=== PATIENT | male | born 1945 | race Caucasian/White ===

== ENCOUNTER → 2016-11-17 | Outpatient (CLI) | payer MEDICARE ==
[~2016-11-17] MED LIST: ASPI-482 PO; CALC500T PO; CARV6.252 PO; FENO160T PO; HYDR25TA9 PO; ISOS120T2 PO; LORA10TA3 PO; LOSA100T6 PO; NITR0.4T22 SL; OMEP40CA5 PO; PRAM0.255 PO; PRAV80TA2 PO; PROAIR HFA8.5 GM INH; WARF5TAB7 PO
--- NOTE | 2016-11-17 13:06 | RAD ---
Indication follow-up nodule. Cough. Axial images of the chest were obtained. Note is made of a previous examination 01/01/2015. No IV contrast was administered. Imaging through the upper abdomen is unremarkable. Some calcification is noted associated with the left ventricle. This may reflect an area of infarction. The appearance is unchanged when compared to the previous exam. There is no significant hilar or mediastinal adenopathy. There is some minimal scarring at the right lung base appearing similar to the previous exam. No acute finding is seen in the chest. There is no dominant soft tissue mass seen in either lung. IMPRESSION: No acute or significant finding seen in the chest. PQRS Compliance Statement: One or more of the following individualized dose reduction techniques were utilized for this examination: 1. Automated exposure control 2. Adjustment of the mA and/or kV according to patient size 3. Use of iterative reconstruction technique
== END | disposition home or self-care (01) ==
LOC: CT 11:30
PROVIDERS: ATTEND Internal Medicine Pulmonary Disease
DX: R91.1 Solitary pulmonary nodule (principal); R05 Cough
CPT/HCPCS: 71250

== ENCOUNTER → 2018-11-29 | Outpatient (CLI) | payer MEDICARE ==
[~2018-11-29] MED LIST changes: +ALBU2.5V8 INH; -CALC500T PO; +CALC500T31 PO; +CARV6.2511 PO; -CARV6.252 PO; +HYDR-2145 PO; -HYDR25TA9 PO; -ISOS120T2 PO; +ISOS120T4 PO; +LOSA100T14 PO; -LOSA100T6 PO; +OMEP40CA45 PO; -OMEP40CA5 PO; -PROAIR HFA8.5 GM INH; +WARF-31 PO; -WARF5TAB7 PO
--- NOTE | 2018-11-29 16:41 | RAD ---
EXAM: Chest CT without intravenous contrast. HISTORY: COPD. Smoking history. TECHNIQUE: Computed tomographic images of the chest were obtained without contrast. Multiplanar reformatting was performed. *One or more of the following individualized dose reduction techniques were utilized for this examination: 1. Automated exposure control. 2. Adjustment of the mA and/or kV according to patient size. 3. Use of iterative reconstruction technique. COMPARISON: 11/17/2016. FINDINGS: The heart is mildly enlarged. There is evidence of coronary artery bypass grafting. There is a left cardiac pacemaker with leads in expected position. There is calcification of the left ventricular apex wall and interventricular septum likely due to sequela of chronic myocardial infarction. No pathologically enlarged lymph node is seen. There is no pneumothorax or pleural effusion. There is minimal biapical emphysema. There is posterior dependent and basilar atelectasis. There is no infiltrate or suspicious pulmonary nodule. There is cholelithiasis. There are splenic granulomas. There is no suspicious osseous lesion. IMPRESSION: 1. No acute thoracic finding or suspicious pulmonary nodule. 2. Minimal pulmonary emphysema. 3. Cardiomegaly and evidence of prior CABG. There is calcification along the left ventricular apical wall and interpedicular septum, a finding which can be seen as a sequela of myocardial infarction. 4. Cholelithiasis. Electronically signed by: Marcella Barclay MD (11/29/2018 4:38 PM) [place] [id number]
== END | disposition home or self-care (01) ==
LOC: CT 08:33
PROVIDERS: ATTEND Internal Medicine Pulmonary Disease
DX: J43.8 Other emphysema (principal); I51.7 Cardiomegaly; K80.20 Calculus of gallbladder without cholecystitis without obstruction; Q21.0 Ventricular septal defect; L92.8 Other granulomatous disorders of the skin and subcutaneous tissue; Z87.891 Personal history of nicotine dependence; Z95.1 Presence of aortocoronary bypass graft; Z95.0 Presence of cardiac pacemaker
CPT/HCPCS: 71250

== ENCOUNTER → 2019-11-07 | Outpatient (CLI) | payer MEDICARE ==
--- NOTE | 2019-11-07 09:55 | RAD ---
CT CHEST WO CONTRAST INDICATION: COPD COMPARISON STUDY: 11/29/2018, 11/17/2016. TECHNIQUE: Unenhanced axial images were obtained through the lungs and upper abdomen. Coronal and sagittal multiplanar reconstructions were also obtained. PQRS compliance statement: One or more of the following individualized dose reduction techniques were utilized for this examination: 1. Automated exposure control 2. Adjustment of the mA and/or kV according to patient size 3. Use of iterative reconstruction technique FINDINGS: Lungs and Airways: No pulmonary mass or consolidation. Continued stability of left lower lobe 5 mm nodule (series 3 image 43). Normal central airways. Pleura: The pleural spaces are normal. Heart and Mediastinum: Left pectoral pacemaker. The visualized thyroid gland is normal in size and attenuation. No axillary or supraclavicular lymphadenopathy. No mediastinal, hilar or retrocrural lymphadenopathy. Normal cardiac size. No pericardial effusion. Coronary artery atherosclerotic disease. CABG. Left ventricular wall calcification. Normal caliber thoracic aorta. Abdomen: Cholelithiasis. Calcified hepatic and splenic granulomas. Bones and Soft Tissues: The visualized skeletal structures and soft tissues of the chest wall are within normal limits. IMPRESSION: 1. No pulmonary mass or consolidation. 2. No thoracic lymphadenopathy. Electronically signed by: Juan Whitten MD (11/07/2019 9:52 AM) [id number]
== END | disposition home or self-care (01) ==
LOC: CT 07:58
PROVIDERS: ATTEND Internal Medicine Pulmonary Disease
DX: J44.9 Chronic obstructive pulmonary disease, unspecified (principal); K80.20 Calculus of gallbladder without cholecystitis without obstruction; I25.10 Atherosclerotic heart disease of native coronary artery without angina pectoris; D73.89 Other diseases of spleen; K75.3 Granulomatous hepatitis, not elsewhere classified; Z95.0 Presence of cardiac pacemaker; Z95.1 Presence of aortocoronary bypass graft
CPT/HCPCS: 71250

== ENCOUNTER 2020-03-27 00:01 | Inpatient (IN) | payer MEDICARE ==
[~2020-03-27] VITALS: Ht 170.2 cm; Wt 115.0 kg
[~2020-03-27 00:01] MED LIST changes: -OMEP40CA45 PO; +OMEP40CA7 PO
[2020-03-27] MEDS ORDERED: IPRATRPIUM/ALBUTEROL 0.5/2.5MG 3 ML NEBU. NEB ONE (00:30)
[2020-03-27] MEDS ORDERED: methylPREDNISolone SOD SUCC PF 125 MG/2 ML VIAL. IV ONE (00:30)
[2020-03-27 00:59] LABS: BASO % 0 % (0-3); EOS % 0 % (0-3); HEMATOCRIT 33.2 % (39.0-53.0); HEMOGLOBIN 11.9 g/dL (13.0-17.5); LYMPH # 0.3 x10^3/uL (1.0-4.8); LYMPH % 7 % (24-48); MEAN CORPUSCULAR HEMOGLOBIN 34 pg (25-35); MEAN CORPUSCULAR HGB CONC 36 g/dL (31-37); MEAN CORPUSCULAR VOLUME 95 fL (79-100); MONO # 0.3 x10^3/uL (0.0-1.1); MONO % 6 % (0-9); NEUT # 3.7 x10^3/uL (1.8-7.7); NEUT % 87 % (31-73); PLATELET COUNT 113 x10^3/uL (140-400); RED BLOOD COUNT 3.49 x10^6/uL (4.30-5.70); RED CELL DISTRIBUTION WIDTH 15.5 % (11.5-14.5); WHITE BLOOD COUNT 4.2 x10^3/uL (4.0-11.0)
[2020-03-27 01:17] LABS: ALBUMIN/GLOBULIN RATIO 0.7 (1.0-1.7); CALCIUM 8.5 mg/dL (8.5-10.1); CREATININE 1.7 mg/dL (0.7-1.3); DIRECT BILIRUBIN 0.4 mg/dL (0.0-0.2); GFR 39.4; TOTAL PROTEIN 7.1 g/dL (6.4-8.2)
[2020-03-27 01:23] LABS: POTASSIUM 2.8 mmol/L (3.5-5.1)
[2020-03-27 01:26] LABS: INFLUENZA A PATIENT NEGATIVE (NEGATIVE); INFLUENZA B PATIENT NEGATIVE (NEGATIVE)
--- NOTE | 2020-03-27 01:39 | PHYS DOC ---
Past Medical History Past Medical History: Anxiety, Asthma, CAD, CHF, Diabetes-Type II, GERD, High Cholesterol, Hypertension, [place], [place] Past Surgical History: Cholecystectomy, Coronary Bypass Surgery, Tonsillectomy, Other Additional Past Surgical Histo: Stent placement Smoking Status: Former Smoker Alcohol Use: Sober Adult General Chief Complaint Chief Complaint: SHORTNESS OF BREATH HPI HPI Patient is a 75 year old male with an extensive past medical history which includes coronary artery bypass graft, defibrillator placement, GERD, hypertension, hyperlipidemia, asthma on daily nebulizer treatments and presenting emergency department complaining worsening shortness of breath. Roxann ent states that over the last 2 days he has had an increase in station shortness of breath primarily occurs with exertion. States that this is progressed in severity to the point where it is now present at rest. States he has been taking his normal nebulizer treatments without any significant improvement. No other aggravating or alleviating factors. Denies any chest pain or palpitations. Denies any nausea or vomiting. Does have sensation of fatigue. Denies any dizziness or lightheadedness. Review of Systems Review of Systems Constitutional: Denies fever or chills [] Eyes: Denies change in visual acuity, redness, or eye pain [] HENT: Denies nasal congestion or sore throat [] Respiratory: Denies cough or shortness of breath [] Cardiovascular: No additional information not addressed in HPI [] GI: Denies abdominal pain, nausea, vomiting, bloody stools or diarrhea [] : Denies dysuria or hematuria [] Musculoskeletal: Denies back pain or joint pain [] Integument: Denies rash or skin lesions [] Neurologic: Denies headache, focal weakness or sensory changes [] Endocrine: Denies polyuria or polydipsia [] All other systems were reviewed and found to be within normal limits, except as documented in this note. Current Medications Current Medications Current Medications Medications (Trade) Dose Ordered Sig/Yolis Start Time Stop Time Status Last Admin Dose Admin Albuterol/ Ipratropium (Duoneb) 3 ml 1X ONCE 03/27/20 00:30 03/27/20 00:31 DC 03/27/20 00:44 3 ML Azithromycin 250 ml @ 250 mls/hr 1X ONCE 03/27/20 02:00 03/27/20 02:59 DC 03/27/20 03:06 250 MLS/HR Ceftriaxone Sodium (Rocephin) 1 gm 1X ONCE 03/27/20 02:00 03/27/20 02:01 DC 03/27/20 03:06 1 GM Methylprednisolone Sodium Succinate (SOLU-Medrol 125MG VIAL) 125 mg 1X ONCE 03/27/20 00:30 03/27/20 00:31 DC 03/27/20 00:41 125 MG Ondansetron HCl (Zofran) 4 mg PRN Q8HRS PRN 03/27/20 03:15 03/27/20 11:19 DC Potassium Chloride/Water 100 ml @ 100 mls/hr Q1H 03/27/20 01:45 03/27/20 03:44 DC 03/27/20 06:31 100 MLS/HR Allergies Allergies Physical Exam Physical Exam Constitutional: Well developed, well nourished, no acute distress, non-toxic appearance. [] HENT: Normocephalic, atraumatic, bilateral external ears normal, oropharynx moist, no oral exudates, nose normal. [] Eyes: PERRLA, EOMI, conjunctiva normal, no discharge. [] Neck: Normal range of motion, no tenderness, supple, no stridor. [] Cardiovascular:Heart rate regular rhythm, no murmur [] Lungs & Thorax: Bilateral breath sounds clear to auscultation [] Abdomen: Bowel sounds normal, soft, no tenderness, no masses, no pulsatile masses. [] Skin: Warm, dry, no erythema, no rash. [] Back: No tenderness, no CVA tenderness. [] Extremities: No tenderness, no cyanosis, no clubbing, ROM intact, no edema. [] Neurologic: Alert and oriented X 3, normal motor function, normal sensory function, no focal deficits noted. [] Psychologic: Affect normal, judgement normal, mood normal. [] Current Patient Data Vital Signs Vital Signs Date Time Temp Pulse Resp B/P (MAP) Pulse Ox O2 Delivery O2 Flow Rate FiO2 03/27/20 03:11 68 24 111/55 (73) 92 Nasal Cannula 2.0 03/27/20 00:02 99.9 99.9 Lab Values Laboratory Tests Test 03/27/20 00:00 03/27/20 00:40 03/27/20 01:32 Troponin I Quantitative 0.025 ng/mL (0.000-0.055) White Blood Count 4.2 x10^3/uL (4.0-11.0) Red Blood Count 3.49 x10^6/uL (4.30-5.70) L Hemoglobin 11.9 g/dL (13.0-17.5) L Hematocrit 33.2 % (39.0-53.0) L Mean Corpuscular Volume 95 fL (79-100) Mean Corpuscular Hemoglobin 34 pg (25-35) Mean Corpuscular Hemoglobin Concent 36 g/dL (31-37) Red Cell Distribution Width 15.5 % (11.5-14.5) H Platelet Count 113 x10^3/uL (140-400) L Neutrophils (%) (Auto) 87 % (31-73) H Lymphocytes (%) (Auto) 7 % (24-48) L Monocytes (%) (Auto) 6 % (0-9) Eosinophils (%) (Auto) 0 % (0-3) Basophils (%) (Auto) 0 % (0-3) Neutrophils # (Auto) 3.7 x10^3/uL (1.8-7.7) Lymphocytes # (Auto) 0.3 x10^3/uL (1.0-4.8) L Monocytes # (Auto) 0.3 x10^3/uL (0.0-1.1) Eosinophils # (Auto) 0.0 x10^3/uL (0.0-0.7) Basophils # (Auto) 0.0 x10^3/uL (0.0-0.2) Segmented Neutrophils % 66 % (35-66) Band Neutrophils % 22 % (0-9) H Lymphocytes % 6 % (24-48) L Monocytes % 4 % (0-10) Eosinophils % 1 % (0-5) Metamyelocytes % 1 % (0-0) H Platelet Estimate Decreased (ADEQUATE) Prothrombin Time 20.0 SEC (11.7-14.0) H Prothrombin Time INR 1.7 (0.8-1.1) H Sodium Level 130 mmol/L (136-145) L Potassium Level 2.8 mmol/L (3.5-5.1) *L Chloride Level 91 mmol/L (98-107) L Carbon Dioxide Level 26 mmol/L (21-32) Anion Gap 13 (6-14) Blood Urea Nitrogen 31 mg/dL (8-26) H Creatinine 1.7 mg/dL (0.7-1.3) H Estimated GFR (Cockcroft-Gault) 39.4 BUN/Creatinine Ratio 18 (6-20) Glucose Level 115 mg/dL (70-99) H Lactic Acid Level 2.1 mmol/L (0.4-2.0) H Calcium Level 8.5 mg/dL (8.5-10.1) Total Bilirubin 1.0 mg/dL (0.2-1.0) Direct Bilirubin 0.4 mg/dL (0.0-0.2) H Aspartate Amino Transferase (AST) 65 U/L (15-37) H Alanine Aminotransferase (ALT) 33 U/L (16-63) Alkaline Phosphatase 71 U/L (46-116) Creatine Kinase 204 U/L (39-308) RN-Mnw-J-Type Natriuretic Peptide 1263 pg/mL (0-449) H Total Protein 7.1 g/dL (6.4-8.2) Albumin 3.0 g/dL (3.4-5.0) L Albumin/Globulin Ratio 0.7 (1.0-1.7) L Influenza Type A Antigen Negative (NEGATIVE) Influenza Type B Antigen Negative (NEGATIVE) Urine Collection Type U cath Urine Color Yellow Urine Clarity Clear Urine pH 5.5 (<5.0-8.0) Urine Specific Unity 1.015 (1.000-1.030) Urine Protein 100 mg/dL (NEG-TRACE) Urine Glucose (UA) Negative mg/dL (NEG) Urine Ketones (Stick) Negative mg/dL (NEG) Urine Blood Trace (NEG) Urine Nitrite Negative (NEG) Urine Bilirubin Negative (NEG) Urine Urobilinogen Dipstick 0.2 mg/dL (0.2 mg/dL) Urine Leukocyte Esterase Negative (NEG) Urine RBC 1-2 /HPF (0-2) Urine WBC 5-10 /HPF (0-4) Urine Squamous Epithelial Cells Few /LPF Urine Amorphous Sediment Present /HPF Urine Bacteria Few /HPF (0-FEW) Urine Cellular Casts Few /HPF Urine Hyaline Casts Moderate /HPF Urine Granular Casts Moderate /HPF Urine Mucus Slight /LPF Laboratory Tests 03/27/20 00:40 Laboratory Tests 03/27/20 00:40 EKG EKG [] Radiology/Procedures Radiology/Procedures [] Course & Med Decision Making Course & Med Decision Making Pertinent Labs and Imaging studies reviewed. (See chart for details) 75-year-old presenting with new onset of worsening shortness of breath. Differential at this time is broad but there is wheezing on exam primary concern is for asthma exacerbation. There is also concern for viral pneumonia, viral syndrome, CHF exacerbation, new onset CHF, other pneumonia. At this time will obtain a full ACS work-up, chest x-ray to make sure there is no other relieving evidence of infection. Dragon Disclaimer Dragon Disclaimer This electronic medical record was generated, in whole or in part, using a voice recognition dictation system. Departure Departure Referrals: DEX FAM MD (PCP) MANOJ CONTRERAS MD Mar 27, 2020 01:39
[2020-03-27 01:53] LABS: BILIRUBIN,URINE NEGATIVE (NEG); CLARITY,URINE CLEAR; COLOR,URINE YELLOW; NITRITE,URINE NEGATIVE (NEG); PH,URINE 5.5 (<5.0-8.0); PROTEIN,URINE 100 mg/dL (NEG-TRACE); UROBILINOGEN,URINE 0.2 mg/dL (0.2 mg/dL)
[2020-03-27] MEDS ORDERED: cefTRIAXone IV Push 1 GM VIAL. IVP ONE (02:00)
[2020-03-27] MEDS ORDERED: AZITHRMYCN 500MG IVPB FOR OMNI 250 ML IV ONE (02:00)
[2020-03-27 02:15] LABS: AMORPHOUS SEDIMENT,UR PRESENT /HPF; BACTERIA,URINE FEW /HPF (0-FEW); HYALINE CASTS, URINE MODERATE /HPF
[2020-03-27 02:16] LABS: GRANULAR CASTS,URINE MODERATE /HPF
--- NOTE | 2020-03-27 02:24 | RAD ---
EXAM: XR CHEST 1V 03/27/2020 12:30 AM CLINICAL INDICATION: Shortness of breath COMPARISON: CT chest 11/07/2019 TECHNIQUE: AP upright view the chest FINDINGS: Single lead AICD and median sternotomy wires are unchanged. Mild cardiomegaly. There is in terstitial prominence with mild opacities in the mid left lung and lateral right lung base. No pleura l effusion or pneumothorax. No acute osseous abnormality. IMPRESSION: Bilateral interstitial prominence with opacities in the mid left lung and right lung bas e. Atypical pneumonia is possible. Electronically signed by: Dian Fontanez MD (03/27/2020 2:22 AM) [id number]
[2020-03-27] MEDS: POTASSIUM CHLORIDE 20MEQ 100 ML IV SCH ×2 (03:06→06:31)
[2020-03-27] MEDS ORDERED: ONDANSETRON PF 4 MG/2 ML VIAL. IV PRN (03:15)
[2020-03-27 05:24] VITALS: BP 110/55
[2020-03-27 05:29] LABS: % BANDS 22 % (0-9); % EOS 1 % (0-5); % LYMPHS 6 % (24-48); % METAS 1 % (0-0); % MONOS 4 % (0-10); % SEGS 66 % (35-66); PLT ESTIMATE DECREASED (ADEQUATE)
[2020-03-27] MEDS ORDERED: SPIR1TAB3 PO (05:34)
[2020-03-27] MEDS ORDERED: vitamin D PO (05:34)
[2020-03-27] MEDS ORDERED: IPRA3AMP29 NEB (05:34)
[2020-03-27] MEDS ORDERED: MAGN250T10 PO (05:34)
[2020-03-27] MEDS ORDERED: SACU1TAB PO (05:34)
[2020-03-27] MEDS ORDERED: FURO-68 PO (05:34)
[2020-03-27] MEDS ORDERED: VITA1TAB19 PO (05:34)
[2020-03-27] MEDS ORDERED: WARF7.5T45 PO (05:44)
[2020-03-27 07:00] VITALS: BP 146/71
--- NOTE | 2020-03-27 08:45 | PDOC1 ---
History and Physical Date of Admission Date of Admission DATE: 03/27/20 TIME: 08:00 Identification/Chief Complaint Chief Complaint Shortness of breath Source Source: Chart review, Patient History of Present Illness History of Present Illness Patient is a 75-year-old male with past medical history asthma on daily nebulizer treatments, who presents to the ER with complaints of worsening shortness of breath over the past 2 days. States his symptoms are worse with exertion, with associated weakness for the past week. He has been taking his normal nebulizer treatments without improvement. Upon EMS arrival patient rep ortedly 88% on room air, which increased to 95% with 2 L. He received 2 nebulizer, steroids, and antibiotics in the ER. Will admit patient for further medical management Past Medical History Past Medical History Asthma, CHF, CAD, DM2, anxiety, GERD, hypercholesterolemia, hypertension, kidney stones, [place] Past Surgical History Past Surgical History Cholecystectomy, Coronary tonsillectomy, cardiac stents Family History Family History: Coronary Artery Disease Social History Smoke: Quit ALCOHOL: none Drugs: None Current Medications Current Medications Current Medications Albuterol/ Ipratropium (Duoneb) 3 ml 1X ONCE NEB Last administered on 03/27/20at 00:44; Start 03/27/20 at 00:30; Stop 03/27/20 at 00:31; Status DC Methylprednisolone Sodium Succinate (SOLU-Medrol 125MG VIAL) 125 mg 1X ONCE IV Last administered on 03/27/20at 00:41; Start 03/27/20 at 00:30; Stop 03/27/20 at 00:31; Status DC Potassium Chloride/Water 100 ml @ 100 mls/hr Q1H IV Last administered on 03/27/20at 06:31; Start 03/27/20 at 01:45; Stop 03/27/20 at 03:44; Status DC Ceftriaxone Sodium (Rocephin) 1 gm 1X ONCE IVP Last administered on 03/27/20at 03:06; Start 03/27/20 at 02:00; Stop 03/27/20 at 02:01; Status DC Azithromycin 250 ml @ 250 mls/hr 1X ONCE IV Last administered on 03/27/20at 03:06; Start 03/27/20 at 02:00; Stop 03/27/20 at 02:59; Status DC Ondansetron HCl (Zofran) 4 mg PRN Q8HRS PRN IV NAUSEA/VOMITING; Start 03/27/20 at 03:15; Stop 03/28/20 at 03:14 Active Scripts Active Reported Warfarin Sodium 7.5 Mg Tablet 7.5 Mg PO TWICE WEEKLY [vitamin D] 400 Cap PO DAILY B Complex (Vitamin B Complex) 1 Each Tablet 1 Tab PO DAILY 30 Days Spironolactone-Hctz 25-25 Tab (Spironolact/Hydrochlorothiazid) 1 Each Tablet 1 Each PO DAILY Magnesium (Magnesium Oxide) 250 Mg Tablet 250 Mg PO QODAY Duoneb 0.5-3(2.5) Mg/3 Ml (Albuterol/Ipratropium) 3 Ml Ampul.neb 3 Ml NEB QID Lasix (Furosemide) 40 Mg Tablet 1 Tab PO DAILY 30 Days Entresto 24 mg-26 mg Tablet (Sacubitril/Valsartan) 1 Each Tablet 1 Each PO BID Warfarin Sodium 5 Mg Tablet 5 Mg PO DAILY Pravastatin Sodium 80 Mg Tablet 80 Mg PO DAILY Mirapex (Pramipexole Di-Hcl) 0.25 Mg Tablet 0.25 Mg PO Omeprazole 40 Mg Capsule.dr 40 Mg PO DAILY NITROGLYCERIN SubLingual (Nitroglycerin) 0.4 Mg Tab.subl 0.4 Mg SL PRN Q5MIN PRN Losartan Potassium 100 Mg Tablet 100 Mg PO DAILY Loratadine 10 Mg Tablet 10 Mg PO Isosorbide Mononitrate Er (Isosorbide Mononitrate) 120 Mg Tab.er.24h 120 Mg PO DAILY Hydrochlorothiazide Tablet (Hydrochlorothiazide) 25 Mg Tablet 25 Mg PO DAILY Fenofibrate 160 Mg Tablet 160 Mg PO DAILY Carvedilol (Carvedilol) 6.25 Mg Tablet 6.25 Mg PO BIDWMEALS Calcium Carbonate 500 Mg Tablet 500 Mg PO Aspir 81 (Aspirin) 81 Mg Tablet.dr 81 Mg PO Proair Hfa Inhaler (Albuterol Sulfate) 8.5 Gm Hfa.aer.ad 1 Puff INH PRN Q6HRS PRN Allergies Allergies: Coded Allergies: codeine (Verified Allergy, Unknown, Unknown, 03/27/20) ROS Review of System GENERAL: Generalized weakness. No history of weight change, or fevers. SKIN: No bruising, hair changes or rashes. EYES: No blurred, double or loss of vision. NOSE AND THROAT: No history of nosebleeds, hoarseness or sore throat. HEART: Denies chest pain, denies palpitations. LUNGS: Shortness of breath, cough, wheezing. GASTROINTESTINAL: Denies nausea, vomiting, abdominal pain. GENITOURINARY: Denies dysuria, frequency, urgency, hematuria. NEUROLOGIC: Denies history of numbness, tingling, tremor or weakness. PSYCHIATRIC: Denies anxiety, denies depression. ENDOCRINE: No history of heat or cold intolerance, polyuria or polydipsia. EXTREMITIES: Denies muscle weakness, joint pain, pain on walking or stiffness. Physical Exam Physical Exam General: Alert, Oriented X3, Cooperative, mild distress HEENT: PERRLA, EOMI Lungs: Bibasilar rales, decreased breath sounds. Heart: RRR, no murmurs Cardiovascular: S1, S2 Abdomen: Normal bowel sounds, Soft, No tenderness Extremities: No clubbing, No cyanosis Skin: No rashes, No significant lesion Neuro: Normal speech, Normal tone, Sensation intact Psych/Mental Status: Mental status NL, Mood NL Vitals Vitals Vital Signs Date Time Temp Pulse Resp B/P (MAP) Pulse Ox O2 Delivery O2 Flow Rate FiO2 03/27/20 05:57 Nasal Cannula 3.0 03/27/20 05:24 98.4 65 24 110/55 (73) 92 98.4 Labs Labs Laboratory Tests Test 03/27/20 00:00 03/27/20 00:40 03/27/20 01:32 03/27/20 04:12 Troponin I Quantitative 0.025 ng/mL (0.000-0.055) White Blood Count 4.2 x10^3/uL (4.0-11.0) Red Blood Count 3.49 x10^6/uL (4.30-5.70) Hemoglobin 11.9 g/dL (13.0-17.5) Hematocrit 33.2 % (39.0-53.0) Mean Corpuscular Volume 95 fL (79-100) Mean Corpuscular Hemoglobin 34 pg (25-35) Mean Corpuscular Hemoglobin Concent 36 g/dL (31-37) Red Cell Distribution Width 15.5 % (11.5-14.5) Platelet Count 113 x10^3/uL (140-400) Neutrophils (%) (Auto) 87 % (31-73) Lymphocytes (%) (Auto) 7 % (24-48) Monocytes (%) (Auto) 6 % (0-9) Eosinophils (%) (Auto) 0 % (0-3) Basophils (%) (Auto) 0 % (0-3) Neutrophils # (Auto) 3.7 x10^3/uL (1.8-7.7) Lymphocytes # (Auto) 0.3 x10^3/uL (1.0-4.8) Monocytes # (Auto) 0.3 x10^3/uL (0.0-1.1) Eosinophils # (Auto) 0.0 x10^3/uL (0.0-0.7) Basophils # (Auto) 0.0 x10^3/uL (0.0-0.2) Segmented Neutrophils % 66 % (35-66) Band Neutrophils % 22 % (0-9) Lymphocytes % 6 % (24-48) Monocytes % 4 % (0-10) Eosinophils % 1 % (0-5) Metamyelocytes % 1 % (0-0) Platelet Estimate Decreased (ADEQUATE) Prothrombin Time 20.0 SEC (11.7-14.0) Prothromb Time International Ratio 1.7 (0.8-1.1) Sodium Level 130 mmol/L (136-145) Potassium Level 2.8 mmol/L (3.5-5.1) Chloride Level 91 mmol/L (98-107) Carbon Dioxide Level 26 mmol/L (21-32) Anion Gap 13 (6-14) Blood Urea Nitrogen 31 mg/dL (8-26) Creatinine 1.7 mg/dL (0.7-1.3) Estimated GFR (Cockcroft-Gault) 39.4 BUN/Creatinine Ratio 18 (6-20) Glucose Level 115 mg/dL (70-99) Lactic Acid Level 2.1 mmol/L (0.4-2.0) 0.6 mmol/L (0.4-2.0) Calcium Level 8.5 mg/dL (8.5-10.1) Total Bilirubin 1.0 mg/dL (0.2-1.0) Direct Bilirubin 0.4 mg/dL (0.0-0.2) Aspartate Amino Transf (AST/SGOT) 65 U/L (15-37) Alanine Aminotransferase (ALT/SGPT) 33 U/L (16-63) Alkaline Phosphatase 71 U/L (46-116) Creatine Kinase 204 U/L (39-308) AC-Gwd-K-Type Natriuretic Peptide 1263 pg/mL (0-449) Total Protein 7.1 g/dL (6.4-8.2) Albumin 3.0 g/dL (3.4-5.0) Albumin/Globulin Ratio 0.7 (1.0-1.7) Influenza Type A Antigen Negative (NEGATIVE) Influenza Type B Antigen Negative (NEGATIVE) Urine Collection Type U cath Urine Color Yellow Urine Clarity Clear Urine pH 5.5 (<5.0-8.0) Urine Specific [place] 1.015 (1.000-1.030) Urine Protein 100 mg/dL (NEG-TRACE) Urine Glucose (UA) Negative mg/dL (NEG) Urine Ketones (Stick) Negative mg/dL (NEG) Urine Blood Trace (NEG) Urine Nitrite Negative (NEG) Urine Bilirubin Negative (NEG) Urine Urobilinogen Dipstick 0.2 mg/dL (0.2 mg/dL) Urine Leukocyte Esterase Negative (NEG) Urine RBC 1-2 /HPF (0-2) Urine WBC 5-10 /HPF (0-4) Urine Squamous Epithelial Cells Few /LPF Urine Amorphous Sediment Present /HPF Urine Bacteria Few /HPF (0-FEW) Urine Cellular Casts Few /HPF Urine Hyaline Casts Moderate /HPF Urine Granular Casts Moderate /HPF Urine Mucus Slight /LPF Laboratory Tests Test 03/27/20 00:00 03/27/20 00:40 03/27/20 01:32 03/27/20 04:12 Troponin I Quantitative 0.025 ng/mL (0.000-0.055) White Blood Count 4.2 x10^3/uL (4.0-11.0) Red Blood Count 3.49 x10^6/uL (4.30-5.70) Hemoglobin 11.9 g/dL (13.0-17.5) Hematocrit 33.2 % (39.0-53.0) Mean Corpuscular Volume 95 fL (79-100) Mean Corpuscular Hemoglobin 34 pg (25-35) Mean Corpuscular Hemoglobin Concent 36 g/dL (31-37) Red Cell Distribution Width 15.5 % (11.5-14.5) Platelet Count 113 x10^3/uL (140-400) Neutrophils (%) (Auto) 87 % (31-73) Lymphocytes (%) (Auto) 7 % (24-48) Monocytes (%) (Auto) 6 % (0-9) Eosinophils (%) (Auto) 0 % (0-3) Basophils (%) (Auto) 0 % (0-3) Neutrophils # (Auto) 3.7 x10^3/uL (1.8-7.7) Lymphocytes # (Auto) 0.3 x10^3/uL (1.0-4.8) Monocytes # (Auto) 0.3 x10^3/uL (0.0-1.1) Eosinophils # (Auto) 0.0 x10^3/uL (0.0-0.7) Basophils # (Auto) 0.0 x10^3/uL (0.0-0.2) Segmented Neutrophils % 66 % (35-66) Band Neutrophils % 22 % (0-9) Lymphocytes % 6 % (24-48) Monocytes % 4 % (0-10) Eosinophils % 1 % (0-5) Metamyelocytes % 1 % (0-0) Platelet Estimate Decreased (ADEQUATE) Prothrombin Time 20.0 SEC (11.7-14.0) Prothromb Time International Ratio 1.7 (0.8-1.1) Sodium Level 130 mmol/L (136-145) Potassium Level 2.8 mmol/L (3.5-5.1) Chloride Level 91 mmol/L (98-107) Carbon Dioxide Level 26 mmol/L (21-32) Anion Gap 13 (6-14) Blood Urea Nitrogen 31 mg/dL (8-26) Creatinine 1.7 mg/dL (0.7-1.3) Estimated GFR (Cockcroft-Gault) 39.4 BUN/Creatinine Ratio 18 (6-20) Glucose Level 115 mg/dL (70-99) Lactic Acid Level 2.1 mmol/L (0.4-2.0) 0.6 mmol/L (0.4-2.0) Calcium Level 8.5 mg/dL (8.5-10.1) Total Bilirubin 1.0 mg/dL (0.2-1.0) Direct Bilirubin 0.4 mg/dL (0.0-0.2) Aspartate Amino Transf (AST/SGOT) 65 U/L (15-37) Alanine Aminotransferase (ALT/SGPT) 33 U/L (16-63) Alkaline Phosphatase 71 U/L (46-116) Creatine Kinase 204 U/L (39-308) KT-Nge-S-Type Natriuretic Peptide 1263 pg/mL (0-449) Total Protein 7.1 g/dL (6.4-8.2) Albumin 3.0 g/dL (3.4-5.0) Albumin/Globulin Ratio 0.7 (1.0-1.7) Influenza Type A Antigen Negative (NEGATIVE) Influenza Type B Antigen Negative (NEGATIVE) Urine Collection Type U cath Urine Color Yellow Urine Clarity Clear Urine pH 5.5 (<5.0-8.0) Urine Specific [place] 1.015 (1.000-1.030) Urine Protein 100 mg/dL (NEG-TRACE) Urine Glucose (UA) Negative mg/dL (NEG) Urine Ketones (Stick) Negative mg/dL (NEG) Urine Blood Trace (NEG) Urine Nitrite Negative (NEG) Urine Bilirubin Negative (NEG) Urine Urobilinogen Dipstick 0.2 mg/dL (0.2 mg/dL) Urine Leukocyte Esterase Negative (NEG) Urine RBC 1-2 /HPF (0-2) Urine WBC 5-10 /HPF (0-4) Urine Squamous Epithelial Cells Few /LPF Urine Amorphous Sediment Present /HPF Urine Bacteria Few /HPF (0-FEW) Urine Cellular Casts Few /HPF Urine Hyaline Casts Moderate /HPF Urine Granular Casts Moderate /HPF Urine Mucus Slight /LPF Images Images PORTABLE CHEST 1V EXAM: XR CHEST 1V 03/27/2020 12:30 AM CLINICAL INDICATION: Shortness of breath COMPARISON: CT chest 11/07/2019 TECHNIQUE: AP upright view the chest FINDINGS: Single lead AICD and median sternotomy wires are unchanged. Mild cardiomegaly. There is interstitial prominence with mild opacities in the mid left lung and lateral right lung base. No pleural effusion or pneumothorax. No acute osseous abnormality. IMPRESSION: Bilateral interstitial prominence with opacities in the mid left lung and right lung base. Atypical pneumonia is possible. VTE Prophylaxis Ordered VTE Prophylaxis Devices: No VTE Pharmacological Prophylaxi: Yes Assessment/Plan Assessment/Plan Acute hypoxic respiratory failure Acute asthma exacerbation Atypical pneumonia vs. viral pneumonia Hypokalemia Hyponatremia FREDDIE Vasomotor nephropathy Subtherapeutic INR on warfarin therapy due to history of blood clots Malnutrition COVID-19 PUI Plan: Consult to pulmonology Continue treatment with Solu-Medrol 40 mg every 8hr and Levaquin 750 mg Will provide Combivent and albuterol inhalers Continue home nebulizer treatment when COVID-19 returns negative COVID-19 pending; influenza negative Resume home medications FEN - Cardiac diet PPX - Warfarin per pharmacy DNR Dispo - inpatient for above Justifications for Admission Other Justification KALEB ESTRADA MD Mar 27, 2020 08:45
[2020-03-27] MEDS ORDERED: BISACODYL 10 MG SUPP.RECT. PR PRN (09:15)
[2020-03-27] MEDS ORDERED: MAG HYDROX/ALUMINUM HYD/SIMETH 30 ML ORAL.SUSP PO PRN (09:15)
[2020-03-27] MEDS ORDERED: ACETAMINOPHEN 325 MG TABLET. PO PRN (09:15)
[2020-03-27] MEDS ORDERED: ONDANSETRON PF 4 MG/2 ML VIAL. IVP PRN (09:15)
[2020-03-27] MEDS ORDERED: MAGNESIUM HYDROXIDE 2,400 MG/30 ML ORAL.SUSP. PO PRN (09:15)
[2020-03-27] MEDS ORDERED: CALCIUM CARBONATE 500 MG TAB.CHEW PO PRN (09:15)
[2020-03-27] MEDS ORDERED: NITROGLYCERIN SUBLINGUAL 0.4 MG BOTTLE OF 25. SL PRN (10:30)
[2020-03-27] MEDS: CARVEDILOL 6.25 MG TABLET. PO SCH ×2 (10:55→15:35)
[2020-03-27 11:00] VITALS: BP 92/50
[2020-03-27] MEDS: ISOSORBIDE MONONITRATE ER 30 MG TAB.ER.24H PO SCH (11:00)
[2020-03-27] MEDS: FUROSEMIDE 40 MG TABLET. PO SCH (11:00)
[2020-03-27] MEDS: SACUBITRIL/VALSARTAN 24/26MG TABLET. PO SCH ×2 (11:00→21:45)
[2020-03-27] MEDS: SPIRONOLACTONE 25 MG TABLET PO SCH (11:16)
[2020-03-27] MEDS: hydroCHLOROthiazide 25 MG TABLET PO SCH (11:16)
[2020-03-27] MEDS: CETIRIZINE HCL 10 MG TABLET. PO SCH (11:40)
[2020-03-27] MEDS: CHOLECALCIFEROL (VITAMIN D3) 1,000 UNIT TABLET PO SCH (11:40)
[2020-03-27] MEDS: PANTOPRAZOLE 40 MG TABLET.DR. PO SCH (11:40)
[2020-03-27] MEDS: VITAMIN B COMPLEX TABLET. PO SCH (11:40)
[2020-03-27] MEDS: MAGNESIUM OXIDE 400 MG TABLET PO SCH (11:40)
[2020-03-27] MEDS: IPRATROPIUM/ALBUTEROL 20/100mcg/INH INHALER. INH SCH ×3 (11:41→21:46)
--- NOTE | 2020-03-27 12:19 | NUR ---
Pharmacy Warfarin Dosing Note S: Pharmacy consulted to assist with anticoagulation therapy started [employer] PLAYER O: PRICE SMITH is a 75 year old M with Recurrent VTE LABS: Last INR: 1.7 Last HGB: 11.9 Last HCT: 33.2 Last PLT: 113 Ongoing Drug Interactions: LEVAQUIN A:INR of 1.7 is below desired range. Target range for this patient is: 2 -3 P: Warfarin dose: 7.5 mg Today at 1600 Bridge Therapy: home regimen is unclear Next INR due 03/28/20 AM Pharmacy anticoagulation service will continue to follow. FEMI GARCÍA R[facility], 03/27/20 [id number]
[2020-03-27 15:00] VITALS: BP 110/53
[2020-03-27] MEDS: methylPREDNISolone SOD SUCC PF 40 MG/ML VIAL. IV SCH ×2 (15:34→21:46)
[2020-03-27] MEDS ORDERED: WARFARIN 7.5 MG TABLET. PO ONE (16:00)
[2020-03-27 19:00] VITALS: BP 123/58
[2020-03-27] MEDS: LACTOBACILLUS RHAMNOSUS GG 1 CAPSULE. PO SCH (21:45)
[2020-03-27] MEDS: ATORVASTATIN CALCIUM 20 MG TABLET PO SCH (21:46)
[2020-03-27] MEDS: NYSTATIN TOPICAL POWDER 15GM BOTTLE. TP SCH (21:57)
[2020-03-27 23:00] VITALS: BP 110/56
[2020-03-28] MEDS: diphenhydrAMINE HCL 25 MG CAPSULE PO PRN (00:20)
[2020-03-28 03:00] VITALS: BP 86/56
[2020-03-28 05:40] LABS: BASO % 0 % (0-3); EOS % 0 % (0-3); HEMATOCRIT 37.8 % (39.0-53.0); HEMOGLOBIN 13.3 g/dL (13.0-17.5); LYMPH # 0.3 x10^3/uL (1.0-4.8); LYMPH % 4 % (24-48); MEAN CORPUSCULAR HEMOGLOBIN 34 pg (25-35); MEAN CORPUSCULAR HGB CONC 35 g/dL (31-37); MEAN CORPUSCULAR VOLUME 96 fL (79-100); MONO # 0.3 x10^3/uL (0.0-1.1); MONO % 3 % (0-9); NEUT # 7.9 x10^3/uL (1.8-7.7); NEUT % 92 % (31-73); PLATELET COUNT 114 x10^3/uL (140-400); RED BLOOD COUNT 3.96 x10^6/uL (4.30-5.70); RED CELL DISTRIBUTION WIDTH 16.3 % (11.5-14.5); WHITE BLOOD COUNT 8.6 x10^3/uL (4.0-11.0)
[2020-03-28 05:49] LABS: CALCIUM 8.6 mg/dL (8.5-10.1); CREATININE 1.4 mg/dL (0.7-1.3); GFR 49.3
[2020-03-28] MEDS: methylPREDNISolone SOD SUCC PF 40 MG/ML VIAL. IV SCH ×3 (05:56→21:59)
[2020-03-28 06:23] LABS: PROTHROMBIN TIME PATIENT 31.8 SEC (11.7-14.0)
[2020-03-28 07:00] VITALS: BP 121/67
[2020-03-28] MEDS: SPIRONOLACTONE 25 MG TABLET PO SCH (08:25)
[2020-03-28] MEDS: CHOLECALCIFEROL (VITAMIN D3) 1,000 UNIT TABLET PO SCH (08:25)
[2020-03-28] MEDS: hydroCHLOROthiazide 25 MG TABLET PO SCH (08:25)
[2020-03-28] MEDS: LACTOBACILLUS RHAMNOSUS GG 1 CAPSULE. PO SCH ×2 (08:27→21:58)
[2020-03-28] MEDS: CETIRIZINE HCL 10 MG TABLET. PO SCH (08:27)
[2020-03-28] MEDS: ISOSORBIDE MONONITRATE ER 30 MG TAB.ER.24H PO SCH (08:27)
[2020-03-28] MEDS: FUROSEMIDE 40 MG TABLET. PO SCH (08:27)
[2020-03-28] MEDS: PANTOPRAZOLE 40 MG TABLET.DR. PO SCH (08:27)
[2020-03-28] MEDS: NYSTATIN TOPICAL POWDER 15GM BOTTLE. TP SCH ×2 (08:28→21:59)
[2020-03-28] MEDS: IPRATROPIUM/ALBUTEROL 20/100mcg/INH INHALER. INH SCH ×4 (08:28→21:55)
[2020-03-28] MEDS: CARVEDILOL 6.25 MG TABLET. PO SCH ×2 (08:28→16:25)
[2020-03-28] MEDS: MAGNESIUM OXIDE 400 MG TABLET PO SCH (08:29)
[2020-03-28] MEDS: SACUBITRIL/VALSARTAN 24/26MG TABLET. PO SCH ×2 (08:32→21:00)
[2020-03-28] MEDS: ALBUTEROL SULFATE 8GM INHALER. INH PRN (08:32)
[2020-03-28] MEDS: VITAMIN B COMPLEX TABLET. PO SCH (08:32)
--- NOTE | 2020-03-28 09:15 | PDOC ---
[facility] PROGRESS NOTE Date of Service DOS: DATE: 03/28/20 TIME: 09:10 Chief Complaint Chief Complaint Acute hypoxic respiratory failure Acute asthma exacerbation Atypical pneumonia vs. viral pneumonia Hypokalemia Hyponatremia FREDDIE Vasomotor nephropathy Subtherapeutic INR on warfarin therapy due to history of blood clots Malnutrition COVID-19 PUI Plan: Consult to pulmonology Continue treatment with Solu-Medrol 40 mg every 8hr and Levaquin 750 mg Will provide Combivent and albuterol inhalers Continue home nebulizer treatment when COVID-19 returns negative COVID-19 pending; influenza negative Resume home medications FEN - Cardiac diet PPX - Warfarin per pharmacy DNR Dispo - inpatient for above History of Present Illness History of Present Illness Patient is a 75-year-old male with past medical history asthma on daily nebulizer treatments, who presents to the ER with complaints of worsening shortness of breath over the past 2 days. States his symptoms are worse with exertion, with associated weakness for the past week. He has been taking his normal nebulizer treatments without improvement. Upon EMS arrival patient reportedly 88% on room air, which increased to 95% with 2 L. He received 2 nebulizer, steroids, and antibiotics in the ER. Will admit patient for further medical management 03/28: Patient COVID-19 positive. Afebrile, breathing 3 L nasal cannula. Discussed risk versus benefit remdesivir, patient not interested. He has home O2 concentrator and feels he may be able to discharge home tomorrow. INR 3.1, potassium 3.0. Will replace potassium. Vitals/I&O Vitals/I&O: Vital Signs Date Time Temp Pulse Resp B/P (MAP) Pulse Ox O2 Delivery O2 Flow Rate FiO2 03/28/20 08:32 57 121/67 03/28/20 07:00 96.5 26 92 Nasal Cannula 3.0 96.5 I & O 03/27/20 03/27/20 03/28/20 15:00 23:00 07:00 Intake Total 480 ml 350 ml Output Total 3 ml Balance 480 ml 350 ml -3 ml Physical Exam General: Alert, Oriented X3 Heart: Normal S1, Normal S2 Lungs: Other (Decreased breath sounds) Abdomen: Normal bowel sounds, Soft Extremities: No clubbing, No cyanosis Skin: No rashes, No breakdown Labs Labs: Laboratory Tests Test 03/27/20 10:05 03/27/20 11:38 03/27/20 16:25 03/28/20 05:00 Troponin I Quantitative 0.029 ng/mL (0.000-0.055) Glucose (Fingerstick) 189 mg/dL (70-99) 190 mg/dL (70-99) White Blood Count 8.6 x10^3/uL (4.0-11.0) Red Blood Count 3.96 x10^6/uL (4.30-5.70) Hemoglobin 13.3 g/dL (13.0-17.5) Hematocrit 37.8 % (39.0-53.0) Mean Corpuscular Volume 96 fL (79-100) Mean Corpuscular Hemoglobin 34 pg (25-35) Mean Corpuscular Hemoglobin Concent 35 g/dL (31-37) Red Cell Distribution Width 16.3 % (11.5-14.5) Platelet Count 114 x10^3/uL (140-400) Neutrophils (%) (Auto) 92 % (31-73) Lymphocytes (%) (Auto) 4 % (24-48) Monocytes (%) (Auto) 3 % (0-9) Eosinophils (%) (Auto) 0 % (0-3) Basophils (%) (Auto) 0 % (0-3) Neutrophils # (Auto) 7.9 x10^3/uL (1.8-7.7) Lymphocytes # (Auto) 0.3 x10^3/uL (1.0-4.8) Monocytes # (Auto) 0.3 x10^3/uL (0.0-1.1) Eosinophils # (Auto) 0.0 x10^3/uL (0.0-0.7) Basophils # (Auto) 0.0 x10^3/uL (0.0-0.2) Prothrombin Time 31.8 SEC (11.7-14.0) Prothromb Time International Ratio 3.1 (0.8-1.1) Sodium Level 136 mmol/L (136-145) Potassium Level 3.0 mmol/L (3.5-5.1) Chloride Level 99 mmol/L (98-107) Carbon Dioxide Level 27 mmol/L (21-32) Anion Gap 10 (6-14) Blood Urea Nitrogen 29 mg/dL (8-26) Creatinine 1.4 mg/dL (0.7-1.3) Estimated GFR (Cockcroft-Gault) 49.3 Glucose Level 155 mg/dL (70-99) Calcium Level 8.6 mg/dL (8.5-10.1) Test 03/28/20 07:59 Glucose (Fingerstick) 150 mg/dL (70-99) Comment Review of Relevant I have reviewed the following items vamsi (where applicable) has been applied. Medications: Current Medications Medications (Trade) Dose Ordered Sig/Yolis Route PRN Reason Start Time Stop Time Status Last Admin Dose Admin Levofloxacin/ Dextrose 150 ml @ 100 mls/hr Q48H IV 03/27/20 10:00 03/27/20 10:06 Methylprednisolone Sodium Succinate (SOLU-Medrol 40MG VIAL) 40 mg Q8HRS IV 03/27/20 14:00 03/28/20 05:56 Albuterol/ Ipratropium (Combivent Respimat 20-100 Mcg) 1 puff RTQID INH 03/27/20 12:00 03/28/20 08:28 Albuterol Sulfate (Ventolin Hfa) 1 puff PRN Q6HRS PRN INH SOA 03/27/20 12:00 03/28/20 08:32 Acetaminophen (Tylenol) 650 mg PRN Q6HRS PRN PO Headaches, Temp > 101.5F 03/27/20 09:15 03/27/20 15:44 Carvedilol (Coreg) 6.25 mg BIDWMEALS PO 03/27/20 11:00 03/28/20 08:28 Furosemide (Lasix) 40 mg DAILY PO 03/27/20 11:00 03/28/20 08:27 Sacubitril/ Valsartan (Entresto 24 Mg-26 Mg) 1 tab BID PO 03/27/20 11:00 03/28/20 08:32 Vitamin B Complex (Connor B) 1 tab DAILY PO 03/27/20 11:00 03/28/20 08:32 Isosorbide Mononitrate (Imdur) 120 mg DAILY PO 03/27/20 11:00 03/28/20 08:27 Magnesium Oxide (Magnesium Oxide) 200 mg DAILY PO 03/27/20 11:00 03/28/20 08:29 Pantoprazole Sodium (Protonix) 40 mg DAILYAC PO 03/27/20 11:30 03/28/20 08:27 Atorvastatin Calcium (Lipitor) 20 mg QHS PO 03/27/20 21:00 03/27/20 21:46 Spironolactone (Aldactone) 25 mg DAILY PO 03/27/20 12:00 03/28/20 08:25 Vitamin D (Vitamin D3) 500 unit DAILY PO 03/27/20 12:00 03/28/20 08:25 Warfarin Sodium (Coumadin Per Pharmacy) 1 each PRN DAILY PRN MC SEE COMMENTS 03/27/20 10:45 03/27/20 12:16 Cetirizine HCl (ZyrTEC) 10 mg DAILY PO 03/27/20 11:15 03/28/20 08:27 Hydrochlorothiazide (Hydrodiuril) 25 mg DAILY PO 03/27/20 12:00 03/28/20 08:25 Warfarin Sodium (Coumadin) 7.5 mg 1X WARF ONCE PO 03/27/20 16:00 03/27/20 16:01 DC 03/27/20 15:34 Lactobacillus Rhamnosus (Culturelle) 1 cap BID PO 03/27/20 21:00 03/28/20 08:27 Nystatin (Nystop) 1 ankita BID TP 03/27/20 21:00 03/28/20 08:28 Diphenhydramine HCl (Benadryl) 25 mg PRN QHS PRN PO INSOMNIA 03/28/20 00:00 03/28/20 00:20 Justifications for Admission Other Justification Acute respiratory failure with hypoxia, acute asthma exacerbation, COVID-19 KALEB HARVEY MD Mar 28, 2020 09:15
[2020-03-28] MEDS ORDERED: POTASSIUM BICARB 20 MEQ EFFERVESCENT TABLET. PO ONE (10:45)
[2020-03-28 11:00] VITALS: BP 87/49
--- NOTE | 2020-03-28 11:43 | NUR ---
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 Target range for this patient is: 2 -3 P: Warfarin dose: Hold Today at 1600 due to large increase in INR Bridge Therapy: None Next INR due 03/29/20 AM Pharmacy anticoagulation service will continue to follow. FEMI GARCÍA [facility], 03/28/20 1141
--- NOTE | 2020-03-28 13:01 | CONS ---
DATE OF CONSULTATION: 03/28/2020 REASON FOR CONSULTATION: I was asked to see this 75-year-old gentleman for shortness of breath, chronic respiratory failure. HISTORY OF PRESENT ILLNESS: The patient is a nonsmoker, quit smoking many years ago. He is on oxygen 2 liters per minute via nasal cannula. He has obstructive sleep apnea-hypopnea syndrome and is on CPAP. He is a patient of Dr. Estevez. He has not felt good for the past few days, has had increased shortness of breath and cough with clear sputum, has had occasional wheezing. Denies fever or chills. Denied chest pain. PAST MEDICAL HISTORY: Chronic respiratory failure, COPD, obstructive sleep apnea-hypopnea syndrome, coronary artery disease, CHF, diabetes mellitus, hypertension, cholecystectomy, CABG, stent placement. ALLERGIES: CODEINE. MEDICATIONS: Currently, he is on Coumadin, Solu-Medrol 40 mg every 8, hydrochlorothiazide, vitamin D, spironolactone, Combivent, cetirizine, Protonix. SOCIAL HISTORY: Ex-smoker. FAMILY HISTORY: Hypertension. REVIEW OF SYSTEMS: As mentioned as above, other systems otherwise negative. LABORATORY DATA: I reviewed the following lab data. COVID-19 testing positive. Influenza A and B negative. Sodium 136, potassium 3, chloride 99, CO2 of 27, BUN 29, creatinine 1.4. BNP 1263. Lactic acid 0.6. Troponin 0.025. WBC 8.6, hemoglobin 13.3, platelet 114. Chest x-ray shows cardiomegaly, increased interstitial marking. IMPRESSION: 1. Acute on chronic respiratory failure secondary to COVID-19 pneumonia, acute exacerbation of chronic obstructive pulmonary disease, acute diastolic congestive heart failure. 2. Abnormal chest x-ray. 3. COVID-19 pneumonia. 4. Acute exacerbation of chronic obstructive pulmonary disease. 5. Acute diastolic congestive heart failure. 6. Obstructive sleep apnea-hypopnea syndrome. 7. Obesity. 8. Hypokalemia. 9. Coronary artery disease. PLAN AND RECOMMENDATIONS: 1. Titrate FiO2 to keep O2 saturation 92%. 2. Continue Combivent. 3. Continue Solu-Medrol. 4. Add remdesivir. 5. He is on Coumadin. 6. Protonix for stress ulcer prophylaxis. 7. The findings and recommendations were discussed with the patient and RN. Thank you very much for allowing me to participate in care of this nice gentleman. ROCHELLE ARVIZU M.D. DR: Dominique JOB#: [id number] / [id number]
[2020-03-28] MEDS ORDERED: REMDESIVIR LOAD in IV NORMAL SALINE 250ML TV IV ONE (14:00)
[2020-03-28 14:22] VITALS: BP 93/54
[2020-03-28 20:21] VITALS: BP 98/54
[2020-03-28] MEDS: ATORVASTATIN CALCIUM 20 MG TABLET PO SCH (21:58)
[2020-03-28] MEDS: ZOLPIDEM 5 MG TABLET. PO PRN (22:18)
[2020-03-28 23:30] VITALS: BP 94/55
[2020-03-29] VITALS (9 sets, daily range): BP systolic 75–106; BP diastolic 37–55
[2020-03-29] MEDS: methylPREDNISolone SOD SUCC PF 40 MG/ML VIAL. IV SCH ×3 (06:08→22:36)
[2020-03-29] MEDS: PANTOPRAZOLE 40 MG TABLET.DR. PO SCH (06:08)
[2020-03-29 07:45] LABS: PROTHROMBIN TIME PATIENT 41.9 SEC (11.7-14.0)
[2020-03-29] MEDS: IPRATROPIUM/ALBUTEROL 20/100mcg/INH INHALER. INH SCH ×4 (07:47→22:38)
[2020-03-29] MEDS: NYSTATIN TOPICAL POWDER 15GM BOTTLE. TP SCH ×2 (07:47→22:38)
[2020-03-29] MEDS: VITAMIN B COMPLEX TABLET. PO SCH (07:47)
[2020-03-29] MEDS: MAGNESIUM OXIDE 400 MG TABLET PO SCH (07:47)
[2020-03-29] MEDS: ALBUTEROL SULFATE 8GM INHALER. INH PRN ×2 (07:47→16:20)
[2020-03-29] MEDS: CHOLECALCIFEROL (VITAMIN D3) 1,000 UNIT TABLET PO SCH (07:48)
[2020-03-29] MEDS: SPIRONOLACTONE 25 MG TABLET PO SCH (07:48)
[2020-03-29] MEDS: hydroCHLOROthiazide 25 MG TABLET PO SCH (07:48)
[2020-03-29] MEDS: SACUBITRIL/VALSARTAN 24/26MG TABLET. PO SCH (07:48)
[2020-03-29] MEDS: ISOSORBIDE MONONITRATE ER 30 MG TAB.ER.24H PO SCH (07:48)
[2020-03-29] MEDS: FUROSEMIDE 40 MG TABLET. PO SCH (07:49)
[2020-03-29] MEDS: LACTOBACILLUS RHAMNOSUS GG 1 CAPSULE. PO SCH ×2 (07:49→22:31)
[2020-03-29] MEDS: CETIRIZINE HCL 10 MG TABLET. PO SCH (07:49)
[2020-03-29] MEDS: CARVEDILOL 6.25 MG TABLET. PO SCH ×2 (07:52→16:21)
--- NOTE | 2020-03-29 09:29 | PDOC ---
PULMONARY PROGRESS NOTES DATE: 03/29/20 TIME: 09:28 Subjective Patient is resting comfortably on 6 L nasal cannula Reports nonproductive cough and intermittent shortness of breath especially with exertion No overnight concerns from nursing Vitals Vital Signs Date Time Temp Pulse Resp B/P (MAP) Pulse Ox O2 Delivery O2 Flow Rate FiO2 03/29/20 07:52 55 106/53 03/29/20 07:27 97.0 22 89 Nasal Cannula 3.0 97.0 Comments Seen during COVID- pandemic, visual exam performed Regular rate and rhythm Obese No respiratory distress or accessory muscle use Labs Laboratory Tests Test 03/27/20 10:05 03/27/20 11:38 03/27/20 16:25 03/28/20 05:00 Troponin I Quantitative 0.029 ng/mL (0.000-0.055) Glucose (Fingerstick) 189 mg/dL (70-99) 190 mg/dL (70-99) White Blood Count 8.6 x10^3/uL (4.0-11.0) Red Blood Count 3.96 x10^6/uL (4.30-5.70) Hemoglobin 13.3 g/dL (13.0-17.5) Hematocrit 37.8 % (39.0-53.0) Mean Corpuscular Volume 96 fL (79-100) Mean Corpuscular Hemoglobin 34 pg (25-35) Mean Corpuscular Hemoglobin Concent 35 g/dL (31-37) Red Cell Distribution Width 16.3 % (11.5-14.5) Platelet Count 114 x10^3/uL (140-400) Neutrophils (%) (Auto) 92 % (31-73) Lymphocytes (%) (Auto) 4 % (24-48) Monocytes (%) (Auto) 3 % (0-9) Eosinophils (%) (Auto) 0 % (0-3) Basophils (%) (Auto) 0 % (0-3) Neutrophils # (Auto) 7.9 x10^3/uL (1.8-7.7) Lymphocytes # (Auto) 0.3 x10^3/uL (1.0-4.8) Monocytes # (Auto) 0.3 x10^3/uL (0.0-1.1) Eosinophils # (Auto) 0.0 x10^3/uL (0.0-0.7) Basophils # (Auto) 0.0 x10^3/uL (0.0-0.2) Prothrombin Time 31.8 SEC (11.7-14.0) Prothromb Time International Ratio 3.1 (0.8-1.1) Sodium Level 136 mmol/L (136-145) Potassium Level 3.0 mmol/L (3.5-5.1) Chloride Level 99 mmol/L (98-107) Carbon Dioxide Level 27 mmol/L (21-32) Anion Gap 10 (6-14) Blood Urea Nitrogen 29 mg/dL (8-26) Creatinine 1.4 mg/dL (0.7-1.3) Estimated GFR (Cockcroft-Gault) 49.3 Glucose Level 155 mg/dL (70-99) Calcium Level 8.6 mg/dL (8.5-10.1) Test 03/28/20 07:59 03/28/20 12:03 03/28/20 16:20 03/29/20 06:30 Glucose (Fingerstick) 150 mg/dL (70-99) 226 mg/dL (70-99) 135 mg/dL (70-99) Prothrombin Time 41.9 SEC (11.7-14.0) Prothromb Time International Ratio 4.3 (0.8-1.1) Laboratory Tests Test 03/28/20 12:03 03/28/20 16:20 03/29/20 06:30 Glucose (Fingerstick) 226 mg/dL (70-99) 135 mg/dL (70-99) Prothrombin Time 41.9 SEC (11.7-14.0) Prothromb Time International Ratio 4.3 (0.8-1.1) Medications Active Scripts Medications Dose Route/Sig Max Daily Dose Days Date Category Warfarin Sodium 7.5 Mg Tablet 7.5 Mg PO TWICE WEEKLY 03/27/20 Reported [vitamin D] 400 Cap PO DAILY 03/27/20 Reported B Complex (Vitamin B Complex) 1 Each Tablet 1 Tab PO DAILY 30 03/27/20 Reported Spironolactone-Hctz 25-25 Tab (Spironolact/Hydrochlorothiazid) 1 Each Tablet 1 Each PO DAILY 03/27/20 Reported Magnesium (Magnesium Oxide) 250 Mg Tablet 250 Mg PO QODAY 03/27/20 Reported Duoneb 0.5-3(2.5) Mg/3 Ml (Albuterol/Ipratropium) 3 Ml Ampul.neb 3 Ml NEB QID 03/27/20 Reported Lasix (Furosemide) 40 Mg Tablet 1 Tab PO DAILY 30 03/27/20 Reported Entresto 24 mg-26 mg Tablet (Sacubitril/Valsartan) 1 Each Tablet 1 Each PO BID 03/27/20 Reported Warfarin Sodium 5 Mg Tablet 5 Mg PO DAILY 01/01/15 Reported Pravastatin Sodium 80 Mg Tablet 80 Mg PO DAILY 01/01/15 Reported Omeprazole 40 Mg Capsule.dr 40 Mg PO DAILY 01/01/15 Reported NITROGLYCERIN SubLingual (Nitroglycerin) 0.4 Mg Tab.subl 0.4 Mg SL PRN Q5MIN PRN 01/01/15 Reported Loratadine 10 Mg Tablet 10 Mg PO 01/01/15 Reported Isosorbide Mononitrate Er (Isosorbide Mononitrate) 120 Mg Tab.er.24h 120 Mg PO DAILY 01/01/15 Reported Carvedilol (Carvedilol) 6.25 Mg Tablet 6.25 Mg PO BIDWMEALS 01/01/15 Reported Proair Hfa Inhaler (Albuterol Sulfate) 8.5 Gm Hfa.aer.ad 1 Puff INH PRN Q6HRS PRN 01/01/15 Reported Comments CXR IMPRESSION: Bilateral interstitial prominence with opacities in the mid left lung and right lung base. Atypical pneumonia is possible. Impression . IMPRESSION: 1. Acute on chronic respiratory failure secondary to COVID-19 pneumonia, acute exacerbation of chronic obstructive pulmonary disease, acute diastolic congestive heart failure. 2. Abnormal chest x-ray. 3. COVID-19 pneumonia. 4. Acute exacerbation of chronic obstructive pulmonary disease. 5. Acute diastolic congestive heart failure. 6. Obstructive sleep apnea-hypopnea syndrome. 7. Obesity. 8. Hypokalemia. 9. Coronary artery disease. 10. Acute kidney injury--- improving Plan . RECOMMENDATIONS: Continue supplemental oxygen to keep oxygen saturations greater than 92%, currently on 6 L nasal cannula Continue IV Solu-Medrol with slow taper Continue remdesivir for full course Continue MDI/Combivent Continue Coumadin for anticoagulation Continue empiric antibiotic coverage with Levaquin Monitor renal function especially in the setting of diuresis DVT/GI prophylaxis Physical therapy/Occupational Therapy Discussed with RN Patient is a DO NOT RESUSCITATE LINDA TURCIOS MD Mar 29, 2020 09:29
--- NOTE | 2020-03-29 10:15 | NUR ---
Pharmacy Warfarin Dosing Note S:Pharmacy consulted to assist with anticoagulation therapy started with target INR: 2 -3 O:PRICE SMITH is a 75 year old M with Recurrent VTE LABS: Last INR: 4.3 Last HGB: 13.3 Last HCT: 37.8 Last PLT: 114 Last dose of Hold given on 03/27/20 at 1534 Previous Regimen: home regimen is unclear Vitamin K given: N Drug Interaction Changes: Same Interacting Drug Ongoing Drug Interactions: LEVAQUIN A:INR of 4.3 is above desired range. Target range for this patient is: 2 -3 P: Warfarin dose: Hold Today at 1600. Bridge Therapy: None Next INR due tomorrow. Pharmacy anticoagulation service will continue to follow. Real Ascencio [facility], 03/29/20 101
--- NOTE | 2020-03-29 10:20 | EKG ---
[facility] [address] [place] [address] Test Date: 2020-03-27 Test Time: 00:32:38 Pat Name: PRICE SMITH Department: Room: Gender: M Social Services Specialist: : 1945 Requested By: MANOJ CONTRERAS Order Number: [id number] Reading MD: Measurements Intervals [place] Rate: 63 P: 254 MI: 220 QRS: -21 QRSD: 96 T: 62 QT: 422 QTc: 435 Interpretive Statements SINUS RHYTHM PROLONGED MI INTERVAL LEFTWARD AXIS T ABNORMALITY IN HIGH LATERAL LEADS ABNORMAL ECG RI6.02 No previous ECG available for comparison
--- NOTE | 2020-03-29 10:29 | PDOC ---
PROGRESS NOTES Date of Service: DATE: 03/29/20 TIME: 10:28 Chief Complaint Chief Complaint impression Acute hypoxic respiratory failure Acute asthma exacerbation Atypical pneumonia vs. viral pneumonia Hypokalemia Hyponatremia FREDDIE Vasomotor nephropathy Subtherapeutic INR on warfarin therapy due to history of blood clots Malnutrition COVID-19 POS DYSPHASIA HYPOKALEMIA ON REPLACEMENT RX Plan Consult pulmonology Continue treatment with Solu-Medrol 40 mg every 8hr and Levaquin 750 mg Combivent and albuterol inhalers COVID-19 pos ; influenza negative Resume home medications FEN - Cardiac diet PPX - Warfarin per pharmacy DNR Dispo - inpatient for above Continue IV Solu-Medrol with slow taper Continue remdesivir for full course Continue MDI/Combivent D/W RN History of Present Illness History of Present Illness Patient is a 75-year-old male with past medical history asthma on daily nebulizer treatments, who presents to the ER with complaints of worsening shortness of breath over the past 2 days. States his symptoms are worse with exertion, with associated weakness for the past week. He has been taking his normal nebulizer treatments without improvement. Upon EMS arrival patient reportedly 88% on room air, which increased to 95% with 2 L. He received 2 n ebulizer, steroids, and antibiotics in the ER. Will admit patient for further medical management 03/29 covid pos AGREED TO remdesivir , now on 5 liters NC D/W RN Continue IV Solu-Medrol with taper Continue remdesivir for full 5 DAY course Continue MDI/Combivent 03/28: Patient COVID-19 positive. Afebrile, breathing 3 L nasal cannula. Discussed risk versus benefit remdesivir, patient not interested. He has home O2 concentrator and feels he may be able to discharge home tomorrow. INR 3.1, potassium 3.0. Will replace potassium. Vitals Vitals Vital Signs Date Time Temp Pulse Resp B/P (MAP) Pulse Ox O2 Delivery O2 Flow Rate FiO2 03/29/20 08:00 Nasal Cannula 5.0 03/29/20 07:52 55 106/53 03/29/20 07:27 97.0 22 89 97.0 Physical Exam General: Alert, Oriented X3, Cooperative, No acute distress Heart: Normal S1, Normal S2 Lungs: Crackles Abdomen: Normal bowel sounds, Soft Extremities: No clubbing, No cyanosis Skin: No rashes, No breakdown Labs LABS Signed PATIENT: PRICE SMITH ACCOUNT: [id number] : 1945 LOCATION: ER AGE: 75 SEX: M EXAM STATUS: REG ER ORD. PHYSICIAN: VAMSI CONTRERAS MD REASON: sob PROCEDURE: PORTABLE CHEST 1V EXAM: XR CHEST 1V 03/27/2020 12:30 AM CLINICAL INDICATION: Shortness of breath COMPARISON: CT chest 11/07/2019 TECHNIQUE: AP upright view the chest FINDINGS: Single lead AICD and median sternotomy wires are unchanged. Mild cardiomegaly. There is interstitial prominence with mild opacities in the mid left lung and lateral right lung base. No pleural effusion or pneumothorax. No acute osseous abnormality. IMPRESSION: Bilateral interstitial prominence with opacities in the mid left lung and right lung base. Atypical pneumonia is possible. Electronically signed by: Dian Fontanez MD (03/27/2020 2:22 AM) [id number] DICTATED and SIGNED BY: DIAN FONTANEZ MD DATE: 03/27/20 [id number] Laboratory Tests Test 03/28/20 12:03 03/28/20 16:20 03/29/20 06:30 Glucose (Fingerstick) 226 mg/dL (70-99) 135 mg/dL (70-99) Prothrombin Time 41.9 SEC (11.7-14.0) Prothromb Time International Ratio 4.3 (0.8-1.1) Comment Review of Relevant I have reviewed the following items vamsi (where applicable) has been applied. Labs Laboratory Tests Test 03/27/20 11:38 03/27/20 16:25 03/28/20 05:00 03/28/20 07:59 Glucose (Fingerstick) 189 mg/dL (70-99) 190 mg/dL (70-99) 150 mg/dL (70-99) White Blood Count 8.6 x10^3/uL (4.0-11.0) Red Blood Count 3.96 x10^6/uL (4.30-5.70) Hemoglobin 13.3 g/dL (13.0-17.5) Hematocrit 37.8 % (39.0-53.0) Mean Corpuscular Volume 96 fL (79-100) Mean Corpuscular Hemoglobin 34 pg (25-35) Mean Corpuscular Hemoglobin Concent 35 g/dL (31-37) Red Cell Distribution Width 16.3 % (11.5-14.5) Platelet Count 114 x10^3/uL (140-400) Neutrophils (%) (Auto) 92 % (31-73) Lymphocytes (%) (Auto) 4 % (24-48) Monocytes (%) (Auto) 3 % (0-9) Eosinophils (%) (Auto) 0 % (0-3) Basophils (%) (Auto) 0 % (0-3) Neutrophils # (Auto) 7.9 x10^3/uL (1.8-7.7) Lymphocytes # (Auto) 0.3 x10^3/uL (1.0-4.8) Monocytes # (Auto) 0.3 x10^3/uL (0.0-1.1) Eosinophils # (Auto) 0.0 x10^3/uL (0.0-0.7) Basophils # (Auto) 0.0 x10^3/uL (0.0-0.2) Prothrombin Time 31.8 SEC (11.7-14.0) Prothromb Time International Ratio 3.1 (0.8-1.1) Sodium Level 136 mmol/L (136-145) Potassium Level 3.0 mmol/L (3.5-5.1) Chloride Level 99 mmol/L (98-107) Carbon Dioxide Level 27 mmol/L (21-32) Anion Gap 10 (6-14) Blood Urea Nitrogen 29 mg/dL (8-26) Creatinine 1.4 mg/dL (0.7-1.3) Estimated GFR (Cockcroft-Gault) 49.3 Glucose Level 155 mg/dL (70-99) Calcium Level 8.6 mg/dL (8.5-10.1) Test 03/28/20 12:03 03/28/20 16:20 03/29/20 06:30 Glucose (Fingerstick) 226 mg/dL (70-99) 135 mg/dL (70-99) Prothrombin Time 41.9 SEC (11.7-14.0) Prothromb Time International Ratio 4.3 (0.8-1.1) Laboratory Tests Test 03/28/20 12:03 03/28/20 16:20 03/29/20 06:30 Glucose (Fingerstick) 226 mg/dL (70-99) 135 mg/dL (70-99) Prothrombin Time 41.9 SEC (11.7-14.0) Prothromb Time International Ratio 4.3 (0.8-1.1) Microbiology 03/27/20 Blood Culture - Preliminary, Resulted NO GROWTH AFTER 2 DAYS Medications Current Medications Albuterol/ Ipratropium (Duoneb) 3 ml 1X ONCE NEB Last administered on 03/27/20at 00:44; Start 03/27/20 at 00:30; Stop 03/27/20 at 00:31; Status DC Methylprednisolone Sodium Succinate (SOLU-Medrol 125MG VIAL) 125 mg 1X ONCE IV Last administered on 03/27/20at 00:41; Start 03/27/20 at 00:30; Stop 03/27/20 at 00:31; Status DC Potassium Chloride/Water 100 ml @ 100 mls/hr Q1H IV Last administered on 03/27/20at 06:31; Start 03/27/20 at 01:45; Stop 03/27/20 at 03:44; Status DC Ceftriaxone Sodium (Rocephin) 1 gm 1X ONCE IVP Last administered on 03/27/20at 03:06; Start 03/27/20 at 02:00; Stop 03/27/20 at 02:01; Status DC Azithromycin 250 ml @ 250 mls/hr 1X ONCE IV Last administered on 03/27/20at 03:06; Start 03/27/20 at 02:00; Stop 03/27/20 at 02:59; Status DC Ondansetron HCl (Zofran) 4 mg PRN Q8HRS PRN IV NAUSEA/VOMITING; Start 03/27/20 at 03:15; Stop 03/27/20 at 11:19; Status DC Levofloxacin/ Dextrose 150 ml @ 100 mls/hr Q48H IV Last administered on 03/29/20at 10:24; Start 03/27/20 at 10:00 Methylprednisolone Sodium Succinate (SOLU-Medrol 40MG VIAL) 40 mg Q8HRS IV Last administered on 03/29/20at 06:08; Start 03/27/20 at 14:00 Albuterol/ Ipratropium (Combivent Respimat 20-100 Mcg) 1 puff RTQID INH Last administered on 03/29/20at 07:47; Start 03/27/20 at 12:00 Albuterol Sulfate (Ventolin Hfa) 1 puff PRN Q6HRS PRN INH SOA Last administered on 03/29/20at 07:47; Start 03/27/20 at 12:00 Ondansetron HCl (Zofran) 4 mg PRN Q6HRS PRN IVP NAUSEA/VOMITING; Start 03/27/20 at 09:15 Al Hydroxide/Mg Hydroxide (Mylanta Plus Xs) 30 ml PRN Q3HRS PRN PO HEARTBURN / GAS; Start 03/27/20 at 09:15 Calcium Carbonate/ Glycine (Tums) 500 mg PRN Q3HRS PRN PO UPSET STOMACH; Start 03/27/20 at 09:15 Acetaminophen (Tylenol) 650 mg PRN Q6HRS PRN PO Headaches, Temp > 101.5F Last administered on 03/27/20at 15:44; Start 03/27/20 at 09:15 Magnesium Hydroxide (Milk Of Magnesia) 2,400 mg PRN Q12HR PRN PO CONSTIPATION; Start 03/27/20 at 09:15 Bisacodyl (Dulcolax Supp) 10 mg PRN DAILY PRN [place] CONSTIPATION; Start 03/27/20 at 09:15 Carvedilol (Coreg) 6.25 mg BIDWMEALS PO Last administered on 03/29/20at 07:52; Start 03/27/20 at 11:00 Furosemide (Lasix) 40 mg DAILY PO Last administered on 03/29/20at 07:49; Start 03/27/20 at 11:00 Nitroglycerin (Nitrostat) 0.4 mg PRN Q5MIN PRN SL CHEST PAIN; Start 03/27/20 at 10:30 Sacubitril/ Valsartan (Entresto 24 Mg-26 Mg) 1 tab BID PO Last administered on 03/29/20at 07:48; Start 03/27/20 at 11:00 Vitamin B Complex (Connor B) 1 tab DAILY PO Last administered on 03/29/20 07:47; Start 03/27/20 at 11:00 Isosorbide Mononitrate (Imdur) 120 mg DAILY PO Last administered on 03/29/20 07:48; Start 03/27/20 at 11:00 Magnesium Oxide (Magnesium Oxide) 200 mg DAILY PO Last administered on 03/29/20 07:47; Start 03/27/20 at 11:00 Pantoprazole Sodium (Protonix) 40 mg DAILYAC PO Last administered on 03/29/20 06:08; Start 03/27/20 at 11:30 Atorvastatin Calcium (Lipitor) 20 mg QHS PO Last administered on 03/28/20 21:58; Start 03/27/20 at 21:00 Spironolactone (Aldactone) 25 mg DAILY PO Last administered on 03/29/20 07:48; Start 03/27/20 at 12:00 Vitamin D (Vitamin D3) 500 unit DAILY PO Last administered on 03/29/20 07:48; Start 03/27/20 at 12:00 Warfarin Sodium (Coumadin Per Pharmacy) 1 each PRN DAILY PRN MC SEE COMMENTS Last administered on 03/29/20at 10:11; Start 03/27/20 at 10:45 Cetirizine HCl (ZyrTEC) 10 mg DAILY PO Last administered on 03/29/20 07:49; Start 03/27/20 at 11:15 Hydrochlorothiazide (Hydrodiuril) 25 mg DAILY PO Last administered on 03/29/20 07:48; Start 03/27/20 at 12:00 Warfarin Sodium (Coumadin) 7.5 mg 1X WARF ONCE PO Last administered on 03/27/20 15:34; Start 03/27/20 at 16:00; Stop 03/27/20 at 16:01; Status DC Lactobacillus Rhamnosus (Culturelle) 1 cap BID PO Last administered on 03/29/20 07:49; Start 03/27/20 at 21:00 Nystatin (Nystop) 1 ankita BID TP Last administered on 03/29/20 07:47; Start 03/27/20 at 21:00 Diphenhydramine HCl (Benadryl) 25 mg PRN QHS PRN PO INSOMNIA Last administered on 1/24/21at 00:20; Start 03/28/20 at 00:00 Potassium Bicarbonate (Potassium Effervescent Tablet) 40 meq 1X ONCE PO Last administered on 03/28/20at 12:04; Start 03/28/20 at 10:45; Stop 03/28/20 at 10:46; Status DC Zolpidem Tartrate (Ambien) 5 mg PRN QHS PRN PO INSOMNIA Last administered on 03/28/20at 22:18; Start 03/28/20 at 11:00 Warfarin Sodium (Coumadin - No Dose Today) 1 each 1X WARF ONCE MC Last administered on 03/28/20at 16:00; Start 03/28/20 at 16:00; Stop 03/28/20 at 16:01; Status DC Remdesivir 200 mg/ Sodium Chloride 210 ml @ 210 mls/hr 1X ONCE IV Last administered on 03/28/20at 14:12; Start 03/28/20 at 14:00; Stop 03/28/20 at 14:59; Status DC Remdesivir 100 mg/ Sodium Chloride 230 ml @ 460 mls/hr Q24H IV ; Start 03/29/20 at 14:00; Stop 04/01/20 at 14:29 Warfarin Sodium (Coumadin - No Dose Today) 1 each 1X WARF ONCE MC ; Start 03/29/20 at 16:00; Stop 03/29/20 at 16:01 Active Scripts Active Reported Warfarin Sodium 7.5 Mg Tablet 7.5 Mg PO TWICE WEEKLY [vitamin D] 400 Cap PO DAILY B Complex (Vitamin B Complex) 1 Each Tablet 1 Tab PO DAILY 30 Days Spironolactone-Hctz 25-25 Tab (Spironolact/Hydrochlorothiazid) 1 Each Tablet 1 Each PO DAILY Magnesium (Magnesium Oxide) 250 Mg Tablet 250 Mg PO QODAY Duoneb 0.5-3(2.5) Mg/3 Ml (Albuterol/Ipratropium) 3 Ml Ampul.neb 3 Ml NEB QID Lasix (Furosemide) 40 Mg Tablet 1 Tab PO DAILY 30 Days Entresto 24 mg-26 mg Tablet (Sacubitril/Valsartan) 1 Each Tablet 1 Each PO BID Warfarin Sodium 5 Mg Tablet 5 Mg PO DAILY Pravastatin Sodium 80 Mg Tablet 80 Mg PO DAILY Omeprazole 40 Mg Capsule.dr 40 Mg PO DAILY NITROGLYCERIN SubLingual (Nitroglycerin) 0.4 Mg Tab.subl 0.4 Mg SL PRN Q5MIN PRN Loratadine 10 Mg Tablet 10 Mg PO Isosorbide Mononitrate Er (Isosorbide Mononitrate) 120 Mg Tab.er.24h 120 Mg PO DAILY Carvedilol (Carvedilol) 6.25 Mg Tablet 6.25 Mg PO BIDWMEALS Proair Hfa Inhaler (Albuterol Sulfate) 8.5 Gm Hfa.aer.ad 1 Puff INH PRN Q6HRS PRN Vitals/I & O Vital Sign - Last 24 Hours 03/28/20 03/28/20 03/28/20 03/28/20 11:00 14:22 16:25 20:00 Temp 95.9 95.9 Pulse 55 55 58 Resp 21 B/P (MAP) 87/49 (62) 93/54 (67) 101/59 Pulse Ox 91 O2 Delivery Nasal Cannula Nasal Cannula O2 Flow Rate 3.0 3.0 03/28/20 03/28/20 03/28/20 03/29/20 20:21 21:00 23:30 03:00 Temp 97.6 98.2 97.8 97.6 98.2 97.8 Pulse 59 59 57 59 Resp 32 25 24 B/P (MAP) 98/54 (69) 98/54 94/55 (68) 94/51 (65) Pulse Ox 90 88 89 O2 Delivery Nasal Cannula Nasal Cannula Nasal Cannula O2 Flow Rate 3.0 3.0 3.0 03/29/20 03/29/20 03/29/20 03/29/20 07:27 07:48 07:48 07:52 Temp 97.0 97.0 Pulse 55 55 55 55 Resp 22 B/P (MAP) 106/53 (70) 106/53 106/53 106/53 Pulse Ox 89 O2 Delivery Nasal Cannula O2 Flow Rate 3.0 03/29/20 08:00 O2 Delivery Nasal Cannula O2 Flow Rate 5.0 Intake and Output 03/28/20 03/28/20 03/29/20 15:00 23:00 07:00 Intake Total 800 ml 540 ml 120 ml Output Total 1 ml 1 ml 1 ml Balance 799 ml 539 ml 119 ml Justicifation of Admission Dx: Justifications for Admission: Justification of Admission Dx: Yes Comminuty Aquired Pneumonia: Hypoxemia KYLEE GUTIERREZ MD Mar 29, 2020 10:29
--- NOTE | 2020-03-29 13:28 | PDOC2 ---
DIAN PRINGLE POWER PLANT OPERATOR APPRENTICE 03/29/20 1328: CARDIAC CONSULT DATE OF CONSULT Date of Consult DATE: 03/29/20 TIME: 13:22 REASON FOR CONSULT Reason for Consult: Orthostatic hypotension REFERRING PHYSICIAN Referring Physician: Dr. Valencia SOURCE Source: Chart review, Patient HISTORY OF PRESENT ILLNESS HISTORY OF PRESENT ILLNESS This is a 75 yo male who presented secondary to shortness of breath. Is COVID +. Was noted with orthostatic hypotension, which prompted this consult. Has history of CAD s/p CABG and CHF. Follows with [facility] cardiology team. He denies any chest pain, palpitations, diaphoresis, or nausea/vomiting. Reports some dizziness upon standing. Was noted with orthostasis. PAST MEDICAL HISTORY Cardiovascular: CAD, CHF, HTN, Hyperlipidemia Pulmonary: Other (JAIME) Endocrine: Diabetes PAST SURGICAL HISTORY Past Surgical History: Pacemaker, CABG, Tonsillectomy FAMILY HISTORY Family History: Heart Disease SOCIAL HISTORY Smoke: Quit ALCOHOL: none Drugs: None Lives: with Family CURRENT MEDICATIONS CURRENT MEDICATIONS Current Medications Medications (Trade) Dose Ordered Sig/Yolis Route PRN Reason Start Time Stop Time Status Last Admin Dose Admin Warfarin Sodium (Coumadin - No Dose Today) 1 each 1X WARF ONCE MC 03/28/20 16:00 03/28/20 16:01 DC 03/28/20 16:00 Remdesivir 200 mg/ Sodium Chloride 210 ml @ 210 mls/hr 1X ONCE IV 03/28/20 14:00 03/28/20 14:59 DC 03/28/20 14:12 ALLERGIES ALLERGIES: Coded Allergies: codeine (Verified Allergy, Intermediate, Unknown, 03/27/20) ROS Review of System 14 point ROS conducted with pertinent positives noted above in hPI PHYSICAL EXAM General: Alert, Oriented X3, Cooperative, No acute distress HEENT: Atraumatic Lungs: Other (on RA) Heart: Regular rate (SR/SB) Abdomen: Soft Extremities: No edema Neuro: Normal speech, Sensation intact Psych/Mental Status: Mental status NL, Mood NL MUSCULOSKELETAL: Osteoarthritic changes both hands VITALS/I&O VITALS/I&O: Vital Signs Date Time Temp Pulse Resp B/P (MAP) Pulse Ox O2 Delivery O2 Flow Rate FiO2 03/29/20 10:38 54 91/55 (67) 03/29/20 08:00 Nasal Cannula 5.0 03/29/20 07:27 97.0 22 89 97.0 I & O 03/28/20 03/28/20 03/29/20 15:00 23:00 07:00 Intake Total 800 ml 540 ml 120 ml Output Total 1 ml 1 ml 1 ml Balance 799 ml 539 ml 119 ml LABS Lab: Laboratory Tests Test 03/28/20 16:20 03/29/20 06:30 Glucose (Fingerstick) 135 mg/dL (70-99) H Prothrombin Time 41.9 SEC (11.7-14.0) H Prothrombin Time INR 4.3 (0.8-1.1) H ASSESSMENT/PLAN ASSESSMENT/PLAN 1. Acute respiratory failure with COVID PNA 2. Orthostatic hypotension 3. CAD s/p remote CABG. Follow with [facility] cardiology 4. Cardiomyopathy; s/p AICD. brand unknown 5. Coagulopathy with chronic warfarin therapy; INR 4.3 6. H/o hypertension with present hypotension 7. Hyperlipdiemia; statin 8. Daibetes, II 9. FREDDIE; improved 10. Hypokalemia; replaced 11. JAIME Recommendations Hold diuretic therapy and imdur. Hold Entresto for now IV fluid bolus x1 Compression stockings Hold coreg as warranted due to hypotension Secondary prevention Ongoing lung optimization, treatment of COVID as per pulm Outpatient echo when recovered from COVID GOKUL CRAIG MD 03/30/20 0855: CARDIAC CONSULT ASSESSMENT/PLAN ASSESSMENT/PLAN Patient seen and examined 03/29/20. Agree with [employer] CRM DEVELOPER's assessment and plan. Agree with holding diuretics and Entresto for orthostasis. CAD status clinically stable. Ischemic cardiomyopathy s/p AICD implantation, clinically stable. Continue treatment of Covid pneumonia per pulmonary team. Thank you for your consultation. DIAN PRINGLE APRN Mar 29, 2020 13:28 GOKUL CRAIG MD Mar 30, 2020 08:55
[2020-03-29] MEDS: REMDESIVIR 100mg in NORMAL SALINE 250ML X 4 DAYS IV SCH (14:17)
--- NOTE | 2020-03-29 15:01 | NUR ---
MARY following for discharge planing. Spoke with RN and reviewed chart. Pt from home with . Pt COVID positive. Spoke with pt by phone. PT recommendation is SNU. Pt refusing SNU but stated he would think about it over the next few days. Pt on 5l 02, ADA diet. Pt on IV Remdesivir until 04/01. Pt has Medicare and [facility]. MARY following. Addendum: 03/30/20 at 1534 by KOJO HERNANDEZ Pt identified as BPCI today, 03/30. Discharge planners to follow.
[2020-03-29] MEDS ORDERED: POTASSIUM CHLORIDE 20 MEQ TABLET.ER. PO ONE (15:15)
[2020-03-29] MEDS ORDERED: IV NORMAL SALINE 500ML BAG 500 ML IV ONE (22:00)
[2020-03-29] MEDS: ATORVASTATIN CALCIUM 20 MG TABLET PO SCH (22:32)
[2020-03-29] MEDS: ZOLPIDEM 5 MG TABLET. PO PRN (22:53)
[2020-03-30] VITALS (9 sets, daily range): BP systolic 76–124; BP diastolic 43–70
[2020-03-30] MEDS: methylPREDNISolone SOD SUCC PF 40 MG/ML VIAL. IV SCH ×3 (06:07→21:48)
[2020-03-30] MEDS: ALBUTEROL SULFATE 8GM INHALER. INH PRN (06:17)
--- NOTE | 2020-03-30 06:50 | PDOC ---
PROGRESS NOTES Date of Service: DATE: 03/30/20 TIME: 06:50 Chief Complaint Chief Complaint impression Acute hypoxic respiratory failure Acute asthma exacerbation Atypical pneumonia vs. viral pneumonia Hypokalemia ON REPLACEMENT IV Hyponatremia FREDDIE Vasomotor nephropathy Subtherapeutic INR on warfarin therapy due to history of blood clots Malnutrition COVID-19 POS DYSPHASIA HYPOKALEMIA ON REPLACEMENT RX Plan Consult pulmonology Continue treatment with Solu-Medrol 40 mg every 8hr and Levaquin 750 mg Combivent and albuterol inhalers COVID-19 pos ; influenza negative Resume home medications FEN - Cardiac diet PPX - Warfarin per pharmacy DNR Dispo - inpatient for above Continue IV Solu-Medrol with slow taper Continue remdesivir for full course Coumadin for anticoagulation antibiotic coverage with Levaquin Monitor renal function DVT/GI prophylaxis Physical therapy/Occupational Therapy Discussed with RN DO NOT RESUSCITATE D/W RN History of Present Illness History of Present Illness Patient is a 75-year-old male with past medical history asthma on daily nebulizer treatments, who presents to the ER with complaints of worsening s hortness of breath over the past 2 days. States his symptoms are worse with exertion, with associated weakness for the past week. He has been taking his normal nebulizer treatments without improvement. Upon EMS arrival patient reportedly 88% on room air, which increased to 95% with 2 L. He received 2 nebulizer, steroids, and antibiotics in the ER. Will admit patient for further medical management 03/29 covid pos AGREED TO remdesivir , now on 5 liters NC D/W RN Continue IV Solu-Medrol with taper Continue remdesivir for full 5 DAY course Continue MDI/Combivent 03/28: Patient COVID-19 positive. Afebrile, breathing 3 L nasal cannula. Discussed risk versus benefit remdesivir, patient not interested. He has home O2 concentrator and feels he may be able to discharge home tomorrow. INR 3.1, potassium 3.0. Will replace potassium. Vitals Vitals Vital Signs Date Time Temp Pulse Resp B/P (MAP) Pulse Ox O2 Delivery O2 Flow Rate FiO2 03/30/20 06:15 50 96/53 (67) 03/30/20 03:00 95.6 20 94 Nasal Cannula 5.0 95.6 Physical Exam General: Alert, Oriented X3, Cooperative, No acute distress Heart: Regular rate (SR/SB) Lungs: Crackles Abdomen: Soft Extremities: No cyanosis, No edema Skin: No rashes, No breakdown Labs LABS Laboratory Tests Test 03/29/20 07:04 03/29/20 11:10 03/29/20 16:12 03/29/20 20:15 Glucose (Fingerstick) 140 mg/dL (70-99) 172 mg/dL (70-99) 132 mg/dL (70-99) 160 mg/dL (70-99) Comment Review of Relevant I have reviewed the following items vamsi (where applicable) has been applied. Labs Laboratory Tests Test 03/28/20 07:59 03/28/20 12:03 03/28/20 16:20 03/28/20 19:25 Glucose (Fingerstick) 150 mg/dL (70-99) 226 mg/dL (70-99) 135 mg/dL (70-99) 210 mg/dL (70-99) Test 03/29/20 06:30 03/29/20 07:04 03/29/20 11:10 03/29/20 16:12 Prothrombin Time 41.9 SEC (11.7-14.0) Prothromb Time International Ratio 4.3 (0.8-1.1) Glucose (Fingerstick) 140 mg/dL (70-99) 172 mg/dL (70-99) 132 mg/dL (70-99) Test 03/29/20 20:15 Glucose (Fingerstick) 160 mg/dL (70-99) Laboratory Tests Test 03/29/20 07:04 03/29/20 11:10 03/29/20 16:12 03/29/20 20:15 Glucose (Fingerstick) 140 mg/dL (70-99) 172 mg/dL (70-99) 132 mg/dL (70-99) 160 mg/dL (70-99) Microbiology 03/27/20 Blood Culture - Preliminary, Resulted NO GROWTH AFTER 3 DAYS Medications Current Medications Albuterol/ Ipratropium (Duoneb) 3 ml 1X ONCE NEB Last administered on 03/27/20at 00:44; Start 03/27/20 at 00:30; Stop 03/27/20 at 00:31; Status DC Methylprednisolone Sodium Succinate (SOLU-Medrol 125MG VIAL) 125 mg 1X ONCE IV Last administered on 03/27/20at 00:41; Start 03/27/20 at 00:30; Stop 03/27/20 at 00:31; Status DC Potassium Chloride/Water 100 ml @ 100 mls/hr Q1H IV Last administered on 03/27/20at 06:31; Start 03/27/20 at 01:45; Stop 03/27/20 at 03:44; Status DC Ceftriaxone Sodium (Rocephin) 1 gm 1X ONCE IVP Last administered on 03/27/20at 03:06; Start 03/27/20 at 02:00; Stop 03/27/20 at 02:01; Status DC Azithromycin 250 ml @ 250 mls/hr 1X ONCE IV Last administered on 03/27/20at 03:06; Start 03/27/20 at 02:00; Stop 03/27/20 at 02:59; Status DC Ondansetron HCl (Zofran) 4 mg PRN Q8HRS PRN IV NAUSEA/VOMITING; Start 03/27/20 at 03:15; Stop 03/27/20 at 11:19; Status DC Levofloxacin/ Dextrose 150 ml @ 100 mls/hr Q48H IV Last administered on 03/29/20at 10:24; Start 03/27/20 at 10:00 Methylprednisolone Sodium Succinate (SOLU-Medrol 40MG VIAL) 40 mg Q8HRS IV Last administered on 03/30/20at 06:07; Start 03/27/20 at 14:00 Albuterol/ Ipratropium (Combivent Respimat 20-100 Mcg) 1 puff RTQID INH Last administered on 03/29/20at 22:38; Start 03/27/20 at 12:00 Albuterol Sulfate (Ventolin Hfa) 1 puff PRN Q6HRS PRN INH SOA Last administered on 03/30/20at 06:17; Start 03/27/20 at 12:00 Ondansetron HCl (Zofran) 4 mg PRN Q6HRS PRN IVP NAUSEA/VOMITING; Start 03/27/20 at 09:15 Al Hydroxide/Mg Hydroxide (Mylanta Plus Xs) 30 ml PRN Q3HRS PRN PO HEARTBURN / GAS; Start 03/27/20 at 09:15 Calcium Carbonate/ Glycine (Tums) 500 mg PRN Q3HRS PRN PO UPSET STOMACH; Start 03/27/20 at 09:15 Acetaminophen (Tylenol) 650 mg PRN Q6HRS PRN PO Headaches, Temp > 101.5F Last administered on 03/27/20at 15:44; Start 03/27/20 at 09:15 Magnesium Hydroxide (Milk Of Magnesia) 2,400 mg PRN Q12HR PRN PO CONSTIPATION; Start 03/27/20 at 09:15 Bisacodyl (Dulcolax Supp) 10 mg PRN DAILY PRN RI CONSTIPATION; Start 03/27/20 at 09:15 Carvedilol (Coreg) 6.25 mg BIDWMEALS PO Last administered on 03/29/20at 16:21; Start 03/27/20 at 11:00 Furosemide (Lasix) 40 mg DAILY PO Last administered on 03/29/20at 07:49; Start 03/27/20 at 11:00; Stop 03/29/20 at 16:20; Status DC Nitroglycerin (Nitrostat) 0.4 mg PRN Q5MIN PRN SL CHEST PAIN; Start 03/27/20 at 10:30 Sacubitril/ Valsartan (Entresto 24 Mg-26 Mg) 1 tab BID PO Last administered on 03/29/20at 07:48; Start 03/27/20 at 11:00; Stop 03/29/20 at 21:53; Status DC Vitamin B Complex (Connor B) 1 tab DAILY PO Last administered on 03/29/20at 07:47; Start 03/27/20 at 11:00 Isosorbide Mononitrate (Imdur) 120 mg DAILY PO Last administered on 03/29/20at 07:48; Start 03/27/20 at 11:00; Stop 03/29/20 at 21:53; Status DC Magnesium Oxide (Magnesium Oxide) 200 mg DAILY PO Last administered on 03/29/20at 07:47; Start 03/27/20 at 11:00 Pantoprazole Sodium (Protonix) 40 mg DAILYAC PO Last administered on 03/29/20at 06:08; Start 03/27/20 at 11:30 Atorvastatin Calcium (Lipitor) 20 mg QHS PO Last administered on 03/29/20 22:32; Start 03/27/20 at 21:00 Spironolactone (Aldactone) 25 mg DAILY PO Last administered on 03/29/20 07:48; Start 03/27/20 at 12:00; Stop 03/29/20 at 21:53; Status DC Vitamin D (Vitamin D3) 500 unit DAILY PO Last administered on 03/29/20 07:48; Start 03/27/20 at 12:00 Warfarin Sodium (Coumadin Per Pharmacy) 1 each PRN DAILY PRN MC SEE COMMENTS Last administered on 03/29/20 10:11; Start 03/27/20 at 10:45 Cetirizine HCl (ZyrTEC) 10 mg DAILY PO Last administered on 03/29/20 07:49; Start 03/27/20 at 11:15 Hydrochlorothiazide (Hydrodiuril) 25 mg DAILY PO Last administered on 03/29/20 07:48; Start 03/27/20 at 12:00; Stop 03/29/20 at 21:53; Status DC Warfarin Sodium (Coumadin) 7.5 mg 1X WARF ONCE PO Last administered on 03/27/20 15:34; Start 03/27/20 at 16:00; Stop 03/27/20 at 16:01; Status DC Lactobacillus Rhamnosus (Culturelle) 1 cap BID PO Last administered on 03/06 22:31; Start 03/27/20 at 21:00 Nystatin (Nystop) 1 ankita BID TP Last administered on 03/29/20at 22:38; Start 03/27/20 at 21:00 Diphenhydramine HCl (Benadryl) 25 mg PRN QHS PRN PO INSOMNIA Last administered on 03/28/20 00:20; Start 03/28/20 at 00:00 Potassium Bicarbonate (Potassium Effervescent Tablet) 40 meq 1X ONCE PO Last administered on 03/28/20 12:04; Start 03/28/20 at 10:45; Stop 03/28/20 at 10:46; Status DC Zolpidem Tartrate (Ambien) 5 mg PRN QHS PRN PO INSOMNIA Last administered on 03/29/20at 22:53; Start 03/28/20 at 11:00 Warfarin Sodium (Coumadin - No Dose Today) 1 each 1X WARF ONCE MC Last administered on 03/28/20at 16:00; Start 03/28/20 at 16:00; Stop 03/28/20 at 16:01; Status DC Remdesivir 200 mg/ Sodium Chloride 210 ml @ 210 mls/hr 1X ONCE IV Last administered on 03/28/20at 14:12; Start 03/28/20 at 14:00; Stop 03/28/20 at 14:59; Status DC Remdesivir 100 mg/ Sodium Chloride 230 ml @ 460 mls/hr Q24H IV Last administered on 03/29/20at 14:17; Start 03/29/20 at 14:00; Stop 04/01/20 at 14:29 Warfarin Sodium (Coumadin - No Dose Today) 1 each 1X WARF ONCE MC Last administered on 03/29/20at 16:00; Start 03/29/20 at 16:00; Stop 03/29/20 at 16:01; Status DC Potassium Chloride (Klor-Con) 40 meq 1X ONCE PO Last administered on 03/29/20at 16:20; Start 03/29/20 at 15:15; Stop 03/29/20 at 15:19; Status DC Potassium Chloride (Klor-Con) 20 meq DAILYWBKFT PO ; Start 03/30/20 at 08:00 Sodium Chloride 500 ml @ 500 mls/hr 1X ONCE IV Last administered on 03/29/20at 22:38; Start 03/29/20 at 22:00; Stop 03/29/20 at 22:59; Status DC Active Scripts Active Reported Warfarin Sodium 7.5 Mg Tablet 7.5 Mg PO TWICE WEEKLY [vitamin D] 400 Cap PO DAILY B Complex (Vitamin B Complex) 1 Each Tablet 1 Tab PO DAILY 30 Days Spironolactone-Hctz 25-25 Tab (Spironolact/Hydrochlorothiazid) 1 Each Tablet 1 Each PO DAILY Magnesium (Magnesium Oxide) 250 Mg Tablet 250 Mg PO QODAY Duoneb 0.5-3(2.5) Mg/3 Ml (Albuterol/Ipratropium) 3 Ml Ampul.neb 3 Ml NEB QID Lasix (Furosemide) 40 Mg Tablet 1 Tab PO DAILY 30 Days Entresto 24 mg-26 mg Tablet (Sacubitril/Valsartan) 1 Each Tablet 1 Each PO BID Warfarin Sodium 5 Mg Tablet 5 Mg PO DAILY Pravastatin Sodium 80 Mg Tablet 80 Mg PO DAILY Omeprazole 40 Mg Capsule.dr 40 Mg PO DAILY NITROGLYCERIN SubLingual (Nitroglycerin) 0.4 Mg Tab.subl 0.4 Mg SL PRN Q5MIN PRN Loratadine 10 Mg Tablet 10 Mg PO Isosorbide Mononitrate Er (Isosorbide Mononitrate) 120 Mg Tab.er.24h 120 Mg PO DAILY Carvedilol (Carvedilol) 6.25 Mg Tablet 6.25 Mg PO BIDWMEALS Proair Hfa Inhaler (Albuterol Sulfate) 8.5 Gm Hfa.aer.ad 1 Puff INH PRN Q6HRS PRN Vitals/I & O Vital Sign - Last 24 Hours 03/29/20 03/29/20 03/29/20 03/29/20 07:27 07:48 07:48 07:52 Temp 97.0 97.0 Pulse 55 55 55 55 Resp 22 B/P (MAP) 106/53 (70) 106/53 106/53 106/53 Pulse Ox 89 O2 Delivery Nasal Cannula O2 Flow Rate 3.0 03/29/20 03/29/20 03/29/20 03/29/20 08:00 10:30 10:33 10:36 Pulse 59 64 63 B/P (MAP) 96/53 (67) 75/37 (50) 81/50 (60) O2 Delivery Nasal Cannula O2 Flow Rate 5.0 03/29/20 03/29/20 03/29/20 03/29/20 10:38 15:18 16:21 19:00 Temp 97.1 95.0 97.1 95.0 Pulse 54 57 57 56 Resp 20 24 B/P (MAP) 91/55 (67) 93/51 (65) 93/51 89/51 (64) Pulse Ox 93 95 O2 Delivery Nasal Cannula Nasal Cannula O2 Flow Rate 5.0 5.0 03/29/20 03/29/20 03/29/20 03/30/20 20:00 23:34 23:40 03:00 Temp 95.6 95.6 Pulse 58 55 Resp 22 20 B/P (MAP) 97/53 (68) 88/51 (63) Pulse Ox 89 93 94 O2 Delivery Nasal Cannula Nasal Cannula Nasal Cannula Nasal Cannula O2 Flow Rate 5.0 5.0 6.0 5.0 03/30/20 06:15 Pulse 50 B/P (MAP) 96/53 (67) Intake and Output 03/29/20 03/29/20 03/30/20 15:00 23:00 07:00 Intake Total 240 ml 460 ml 250 ml Balance 240 ml 460 ml 250 ml Justicifation of Admission Dx: Justifications for Admission: Justification of Admission Dx: Yes Comminuty Aquired Pneumonia: Hypoxemia KYLEE GUTIERREZ MD Mar 30, 2020 06:50
[2020-03-30] MEDS: VITAMIN B COMPLEX TABLET. PO SCH (07:57)
[2020-03-30] MEDS: IPRATROPIUM/ALBUTEROL 20/100mcg/INH INHALER. INH SCH ×4 (07:57→15:50)
[2020-03-30] MEDS: PANTOPRAZOLE 40 MG TABLET.DR. PO SCH (07:57)
[2020-03-30] MEDS: NYSTATIN TOPICAL POWDER 15GM BOTTLE. TP SCH ×2 (07:57→21:49)
[2020-03-30] MEDS: CETIRIZINE HCL 10 MG TABLET. PO SCH (07:57)
[2020-03-30] MEDS: LACTOBACILLUS RHAMNOSUS GG 1 CAPSULE. PO SCH ×2 (07:57→21:48)
[2020-03-30] MEDS: MAGNESIUM OXIDE 400 MG TABLET PO SCH (07:58)
[2020-03-30] MEDS: POTASSIUM CHLORIDE 20 MEQ TABLET.ER. PO SCH (07:58)
[2020-03-30] MEDS: CHOLECALCIFEROL (VITAMIN D3) 1,000 UNIT TABLET PO SCH (07:58)
[2020-03-30] MEDS: CARVEDILOL 6.25 MG TABLET. PO SCH ×2 (07:59→16:03)
[2020-03-30 08:29] LABS: BASO % 0 % (0-3); EOS % 0 % (0-3); HEMATOCRIT 37.2 % (39.0-53.0); HEMOGLOBIN 12.9 g/dL (13.0-17.5); LYMPH # 0.3 x10^3/uL (1.0-4.8); LYMPH % 3 % (24-48); MEAN CORPUSCULAR HEMOGLOBIN 33 pg (25-35); MEAN CORPUSCULAR HGB CONC 35 g/dL (31-37); MEAN CORPUSCULAR VOLUME 96 fL (79-100); MONO # 0.5 x10^3/uL (0.0-1.1); MONO % 6 % (0-9); NEUT # 8.4 x10^3/uL (1.8-7.7); NEUT % 91 % (31-73); PLATELET COUNT 138 x10^3/uL (140-400); RED BLOOD COUNT 3.87 x10^6/uL (4.30-5.70); RED CELL DISTRIBUTION WIDTH 15.9 % (11.5-14.5); WHITE BLOOD COUNT 9.2 x10^3/uL (4.0-11.0)
[2020-03-30 08:40] LABS: PROTHROMBIN TIME PATIENT 39.4 SEC (11.7-14.0)
--- NOTE | 2020-03-30 09:02 | PDOC ---
PULMONARY PROGRESS NOTES DATE: 03/30/20 TIME: 09:00 Subjective Patient is resting comfortably on 5 L nasal cannula Reports nonproductive cough and intermittent shortness of breath especially with exertion No overnight concerns from nursing Vitals Vital Signs Date Time Temp Pulse Resp B/P (MAP) Pulse Ox O2 Delivery O2 Flow Rate FiO2 03/30/20 07:59 69 101/52 03/30/20 03:00 95.6 20 94 Nasal Cannula 5.0 95.6 Comments Seen during pandemic, visual exam performed Regular rate and rhythm Obese No respiratory distress or accessory muscle use Labs Laboratory Tests Test 03/28/20 12:03 03/28/20 16:20 03/28/20 19:25 03/29/20 06:30 Glucose (Fingerstick) 226 mg/dL (70-99) 135 mg/dL (70-99) 210 mg/dL (70-99) Prothrombin Time 41.9 SEC (11.7-14.0) Prothromb Time International Ratio 4.3 (0.8-1.1) Test 03/29/20 07:04 03/29/20 11:10 03/29/20 16:12 03/29/20 20:15 Glucose (Fingerstick) 140 mg/dL (70-99) 172 mg/dL (70-99) 132 mg/dL (70-99) 160 mg/dL (70-99) Test 03/30/20 07:08 03/30/20 08:18 Glucose (Fingerstick) 147 mg/dL (70-99) White Blood Count 9.2 x10^3/uL (4.0-11.0) Red Blood Count 3.87 x10^6/uL (4.30-5.70) Hemoglobin 12.9 g/dL (13.0-17.5) Hematocrit 37.2 % (39.0-53.0) Mean Corpuscular Volume 96 fL (79-100) Mean Corpuscular Hemoglobin 33 pg (25-35) Mean Corpuscular Hemoglobin Concent 35 g/dL (31-37) Red Cell Distribution Width 15.9 % (11.5-14.5) Platelet Count 138 x10^3/uL (140-400) Neutrophils (%) (Auto) 91 % (31-73) Lymphocytes (%) (Auto) 3 % (24-48) Monocytes (%) (Auto) 6 % (0-9) Eosinophils (%) (Auto) 0 % (0-3) Basophils (%) (Auto) 0 % (0-3) Neutrophils # (Auto) 8.4 x10^3/uL (1.8-7.7) Lymphocytes # (Auto) 0.3 x10^3/uL (1.0-4.8) Monocytes # (Auto) 0.5 x10^3/uL (0.0-1.1) Eosinophils # (Auto) 0.0 x10^3/uL (0.0-0.7) Basophils # (Auto) 0.0 x10^3/uL (0.0-0.2) Prothrombin Time 39.4 SEC (11.7-14.0) Prothromb Time International Ratio 4.0 (0.8-1.1) Laboratory Tests Test 03/29/20 11:10 03/29/20 16:12 03/29/20 20:15 03/30/20 07:08 Glucose (Fingerstick) 172 mg/dL (70-99) 132 mg/dL (70-99) 160 mg/dL (70-99) 147 mg/dL (70-99) Test 03/30/20 08:18 White Blood Count 9.2 x10^3/uL (4.0-11.0) Red Blood Count 3.87 x10^6/uL (4.30-5.70) Hemoglobin 12.9 g/dL (13.0-17.5) Hematocrit 37.2 % (39.0-53.0) Mean Corpuscular Volume 96 fL (79-100) Mean Corpuscular Hemoglobin 33 pg (25-35) Mean Corpuscular Hemoglobin Concent 35 g/dL (31-37) Red Cell Distribution Width 15.9 % (11.5-14.5) Platelet Count 138 x10^3/uL (140-400) Neutrophils (%) (Auto) 91 % (31-73) Lymphocytes (%) (Auto) 3 % (24-48) Monocytes (%) (Auto) 6 % (0-9) Eosinophils (%) (Auto) 0 % (0-3) Basophils (%) (Auto) 0 % (0-3) Neutrophils # (Auto) 8.4 x10^3/uL (1.8-7.7) Lymphocytes # (Auto) 0.3 x10^3/uL (1.0-4.8) Monocytes # (Auto) 0.5 x10^3/uL (0.0-1.1) Eosinophils # (Auto) 0.0 x10^3/uL (0.0-0.7) Basophils # (Auto) 0.0 x10^3/uL (0.0-0.2) Prothrombin Time 39.4 SEC (11.7-14.0) Prothromb Time International Ratio 4.0 (0.8-1.1) Medications Active Scripts Medications Dose Route/Sig Max Daily Dose Days Date Category Warfarin Sodium 7.5 Mg Tablet 7.5 Mg PO TWICE WEEKLY 03/27/20 Reported [vitamin D] 400 Cap PO DAILY 03/27/20 Reported B Complex (Vitamin B Complex) 1 Each Tablet 1 Tab PO DAILY 30 03/27/20 Reported Spironolactone-Hctz 25-25 Tab (Spironolact/Hydrochlorothiazid) 1 Each Tablet 1 Each PO DAILY 03/27/20 Reported Magnesium (Magnesium Oxide) 250 Mg Tablet 250 Mg PO QODAY 03/27/20 Reported Duoneb 0.5-3(2.5) Mg/3 Ml (Albuterol/Ipratropium) 3 Ml Ampul.neb 3 Ml NEB QID 03/27/20 Reported Lasix (Furosemide) 40 Mg Tablet 1 Tab PO DAILY 30 03/27/20 Reported Entresto 24 mg-26 mg Tablet (Sacubitril/Valsartan) 1 Each Tablet 1 Each PO BID 03/27/20 Reported Warfarin Sodium 5 Mg Tablet 5 Mg PO DAILY 01/01/15 Reported Pravastatin Sodium 80 Mg Tablet 80 Mg PO DAILY 01/01/15 Reported Omeprazole 40 Mg Capsule.dr 40 Mg PO DAILY 01/01/15 Reported NITROGLYCERIN SubLingual (Nitroglycerin) 0.4 Mg Tab.subl 0.4 Mg SL PRN Q5MIN PRN 01/01/15 Reported Loratadine 10 Mg Tablet 10 Mg PO 01/01/15 Reported Isosorbide Mononitrate Er (Isosorbide Mononitrate) 120 Mg Tab.er.24h 120 Mg PO DAILY 01/01/15 Reported Carvedilol (Carvedilol) 6.25 Mg Tablet 6.25 Mg PO BIDWMEALS 01/01/15 Reported Proair Hfa Inhaler (Albuterol Sulfate) 8.5 Gm Hfa.aer.ad 1 Puff INH PRN Q6HRS PRN 01/01/15 Reported Comments CXR IMPRESSION: Bilateral interstitial prominence with opacities in the mid left lung and right lung base. Atypical pneumonia is possible. Impression . IMPRESSION: 1. Acute on chronic respiratory failure secondary to COVID-19 pneumonia, acute exacerbation of chronic obstructive pulmonary disease, acute diastolic congestive heart failure. 2. Abnormal chest x-ray. 3. COVID-19 pneumonia. 4. Acute exacerbation of chronic obstructive pulmonary disease. 5. Acute diastolic congestive heart failure. 6. Obstructive sleep apnea-hypopnea syndrome. 7. Obesity. 8. Hypokalemia. 9. Coronary artery disease. 10. Acute kidney injury--- improving Plan . RECOMMENDATIONS: Continue supplemental oxygen to keep oxygen saturations greater than 92%, currently on 6 L nasal cannula Continue IV Solu-Medrol with slow taper Continue remdesivir for full course Continue MDI/Combivent Continue Coumadin for anticoagulation Continue empiric antibiotic coverage with Levaquin Monitor renal function especially in the setting of diuresis DVT/GI prophylaxis Physical therapy/Occupational Therapy Discussed with RN Patient is a DO NOT RESUSCITATE LINDA TURCIOS MD Mar 30, 2020 09:02
[2020-03-30 09:06] LABS: ALBUMIN 2.4 g/dL (3.4-5.0); ALBUMIN/GLOBULIN RATIO 0.6 (1.0-1.7); CALCIUM 8.1 mg/dL (8.5-10.1); CREATININE 1.3 mg/dL (0.7-1.3); GFR 53.7; TOTAL BILIRUBIN 0.8 mg/dL (0.2-1.0); TOTAL PROTEIN 6.4 g/dL (6.4-8.2)
--- NOTE | 2020-03-30 14:11 | NUR ---
Pharmacy Warfarin Dosing Note S: Pharmacy consulted to assist with anticoagulation therapy O: PRICE SMITH is a 75 year old M with Recurrent VTE LABS: Last INR: 4 Last HGB: 12.9 Last HCT: 37.2 Last PLT: 138 Last dose of Hold given on 03/27/20 at 1534 Vitamin K given: N Ongoing Drug Interactions: LEVAQUIN A:INR of 4 is above desired range. Target range for this patient is: 2 -3 P: Warfarin dose: Hold Today Bridge Therapy: None Next INR due tomorrow Pharmacy anticoagulation service will continue to follow. Adrienne Moody RPH, 03/30/20 1413
[2020-03-30] MEDS: REMDESIVIR 100mg in NORMAL SALINE 250ML X 4 DAYS IV SCH (14:21)
--- NOTE | 2020-03-30 15:24 | NUR ---
Request for the patient's cardiology records sent to [facility] at 1502, awaiting for response.
--- NOTE | 2020-03-30 16:10 | PDOC ---
CARDIO Progress Notes Date and Time Date of Service 03/30/20 Time of Evaluation 1410 Subjective Subjective: No Chest Pain, No Palpitations, Other (still SOA) Vitals Vitals Vital Signs Date Time Temp Pulse Resp B/P (MAP) Pulse Ox O2 Delivery O2 Flow Rate FiO2 03/30/20 15:00 96.1 50 19 124/61 (82) 96 Nasal Cannula 6.0 96.1 Weight Weight [ ] Input and Output Intake and Output Intake and Output 03/30/20 07:00 Intake Total 950 ml Balance 950 ml Intake Oral 950 ml # Voids 7 # Bowel Movements 1 Laboratory Labs Laboratory Tests Test 03/29/20 16:12 03/29/20 20:15 03/30/20 07:08 03/30/20 08:10 Glucose (Fingerstick) 132 mg/dL (70-99) 160 mg/dL (70-99) 147 mg/dL (70-99) Magnesium Level 2.0 mg/dL (1.8-2.4) Test 03/30/20 08:17 03/30/20 08:18 03/30/20 10:20 Sodium Level 138 mmol/L (136-145) Potassium Level 3.0 mmol/L (3.5-5.1) Chloride Level 100 mmol/L (98-107) Carbon Dioxide Level 29 mmol/L (21-32) Anion Gap 9 (6-14) Blood Urea Nitrogen 35 mg/dL (8-26) Creatinine 1.3 mg/dL (0.7-1.3) Estimated GFR (Cockcroft-Gault) 53.7 BUN/Creatinine Ratio 27 (6-20) Glucose Level 146 mg/dL (70-99) Calcium Level 8.1 mg/dL (8.5-10.1) Total Bilirubin 0.8 mg/dL (0.2-1.0) Aspartate Amino Transf (AST/SGOT) 67 U/L (15-37) Alanine Aminotransferase (ALT/SGPT) 47 U/L (16-63) Alkaline Phosphatase 61 U/L (46-116) Total Protein 6.4 g/dL (6.4-8.2) Albumin 2.4 g/dL (3.4-5.0) Albumin/Globulin Ratio 0.6 (1.0-1.7) White Blood Count 9.2 x10^3/uL (4.0-11.0) Red Blood Count 3.87 x10^6/uL (4.30-5.70) Hemoglobin 12.9 g/dL (13.0-17.5) Hematocrit 37.2 % (39.0-53.0) Mean Corpuscular Volume 96 fL (79-100) Mean Corpuscular Hemoglobin 33 pg (25-35) Mean Corpuscular Hemoglobin Concent 35 g/dL (31-37) Red Cell Distribution Width 15.9 % (11.5-14.5) Platelet Count 138 x10^3/uL (140-400) Neutrophils (%) (Auto) 91 % (31-73) Lymphocytes (%) (Auto) 3 % (24-48) Monocytes (%) (Auto) 6 % (0-9) Eosinophils (%) (Auto) 0 % (0-3) Basophils (%) (Auto) 0 % (0-3) Neutrophils # (Auto) 8.4 x10^3/uL (1.8-7.7) Lymphocytes # (Auto) 0.3 x10^3/uL (1.0-4.8) Monocytes # (Auto) 0.5 x10^3/uL (0.0-1.1) Eosinophils # (Auto) 0.0 x10^3/uL (0.0-0.7) Basophils # (Auto) 0.0 x10^3/uL (0.0-0.2) Prothrombin Time 39.4 SEC (11.7-14.0) Prothromb Time International Ratio 4.0 (0.8-1.1) Glucose (Fingerstick) 181 mg/dL (70-99) Microbiology Micro Microbiology 03/27/20 Blood Culture - Preliminary, Resulted NO GROWTH AFTER 3 DAYS Physical Exam HEENT: Neck Supple W Full Motion Chest: Symmetric LUNGS: Other (on NC) Heart: RRR Abdomen: Soft N/T Extremities: Other (trace bilateral LE edema ) Neurology: alert, oriented, follow commands Assessment Assessment 1. Acute respiratory failure with COVID PNA. on NC 2. Orthostatic hypotension; diuretics, Imdur, Entresto held 3. CAD s/p remote CABG. Clinically stable, CP free. Follows with [facility] cardiology, Deborah Armstrong, [place]. 4. Cardiomyopathy; s/p AICD. brand unknown 5. Coagulopathy with chronic warfarin therapy; INR 4.0. Unclear why he is on anticoagulation. Possible h/o DVT. Has been on since 2001. Denies any h/o AFIB. 6. H/o hypertension with present hypotension 7. Hyperlipdiemia; statin 8. Daibetes, II 9. FREDDIE; improved 10. Hypokalemia; replaced 11. JAIME 12. Hypokalemia; replaced Recommendations Continue to hold diuretics, Entresto, and Imdur. Hold warfarin with coagulopathy Awaiting records from [facility] Compression stockings Secondary prevention Ongoing lung optimization, treatment of COVID PNA as per pulm Outpatient echo when recovered from COVID Justicifation of Admission Dx: Justifications for Admission: Justification of Admission Dx: Yes Comminuty Aquired Pneumonia: Hypoxemia DIAN PRINGLE APRN Mar 30, 2020 16:10
[2020-03-30] MEDS ORDERED: POTASSIUM CHLORIDE 20 MEQ TABLET.ER. PO ONE (16:15)
[2020-03-30] MEDS ORDERED: POLYETHYLENE GLYCOL 3350 17 GM PACKET. PO PRN (17:30)
[2020-03-30] MEDS: ATORVASTATIN CALCIUM 20 MG TABLET PO SCH (21:48)
[2020-03-31] VITALS (7 sets, daily range): BP systolic 103–151; BP diastolic 48–101
[2020-03-31] MEDS: methylPREDNISolone SOD SUCC PF 40 MG/ML VIAL. IV SCH ×3 (06:07→21:24)
--- NOTE | 2020-03-31 08:38 | PDOC ---
PROGRESS NOTES Date of Service: DATE: 03/31/20 TIME: 08:37 Chief Complaint Chief Complaint impression Acute hypoxic respiratory failure Acute asthma exacerbation Atypical pneumonia vs. viral pneumonia Hypokalemia ON REPLACEMENT IV Hyponatremia FREDDIE Vasomotor nephropathy Subtherapeutic INR on warfarin therapy due to history of blood clots Malnutrition COVID-19 POS DYSPHASIA HYPOKALEMIA ON REPLACEMENT RX Plan Consult pulmonology, FOLLOWING Continue treatment with Solu-Medrol 40 mg every 8hr and Levaquin 750 mg Combivent and albuterol inhalers COVID-19 pos ; influenza negative Resume home medications FEN - Cardiac diet PPX - Warfarin per pharmacy DNR O2 SUPPORT AT 6 LITERS NC Dispo - inpatient for above Continue IV Solu-Medrol with slow taper Continue remdesivir for full course, THIS IS DAY 5 Coumadin for anticoagulation antibiotic coverage with Levaquin Monitor renal function DVT/GI prophylaxis Physical therapy/Occupational Therapy Discussed with RN DO NOT RESUSCITATE D/W RN History of Present Illness History of Present Illness Patient is a 75-year-old male with past medical history asthma on daily nebulizer treatments, who presents to the ER with complaints of worsening shortness of breath over the past 2 days. States his symptoms are worse with exertion, with associated weakness for the past week. He has been taking his normal nebulizer treatments without improvement. Upon EMS arrival patient reportedly 88% on room air, which increased to 95% with 2 L. He received 2 nebulizer, steroids, and antibiotics in the ER. Will admit patient for further medical management 03/29 covid pos AGREED TO remdesivir , now on 5 liters IA D/W RN Continue IV Solu-Medrol with taper Continue remdesivir for full 5 DAY course Continue MDI/Combivent 03/28: Patient COVID-19 positive. Afebrile, breathing 3 L nasal cannula. Discussed risk versus benefit remdesivir, patient not interested. He has home O2 concentrator and feels he may be able to discharge home tomorrow. INR 3.1, potassium 3.0. Will replace potassium. Vitals Vitals Vital Signs Date Time Temp Pulse Resp B/P (MAP) Pulse Ox O2 Delivery O2 Flow Rate FiO2 03/31/20 03:34 69 104/48 (66) 03/31/20 03:21 97.7 18 93 Nasal Cannula 6.0 97.7 Physical Exam Physical Exam Physical Exam General: Alert, Oriented X3, Cooperative, No acute distress Heart: Normal S1, Normal S2 Lungs: Crackles Abdomen: Normal bowel sounds, Soft Extremities: No clubbing, No cyanosis Skin: No rashes, No breakdown General: Alert, Oriented X3, Cooperative, No acute distress Heart: Regular rate (SR/SB) Lungs: Crackles Abdomen: Soft Extremities: No cyanosis, No edema Skin: No rashes, No breakdown Labs LABS Laboratory Tests Test 03/30/20 10:20 03/30/20 17:07 03/30/20 20:41 03/31/20 08:05 Glucose (Fingerstick) 181 mg/dL (70-99) 146 mg/dL (70-99) 184 mg/dL (70-99) 149 mg/dL (70-99) Comment Review of Relevant I have reviewed the following items vamsi (where applicable) has been applied. Labs Laboratory Tests Test 03/29/20 11:10 03/29/20 16:12 03/29/20 20:15 03/30/20 07:08 Glucose (Fingerstick) 172 mg/dL (70-99) 132 mg/dL (70-99) 160 mg/dL (70-99) 147 mg/dL (70-99) Test 03/30/20 08:10 03/30/20 08:17 03/30/20 08:18 03/30/20 10:20 Magnesium Level 2.0 mg/dL (1.8-2.4) Sodium Level 138 mmol/L (136-145) Potassium Level 3.0 mmol/L (3.5-5.1) Chloride Level 100 mmol/L (98-107) Carbon Dioxide Level 29 mmol/L (21-32) Anion Gap 9 (6-14) Blood Urea Nitrogen 35 mg/dL (8-26) Creatinine 1.3 mg/dL (0.7-1.3) Estimated GFR (Cockcroft-Gault) 53.7 BUN/Creatinine Ratio 27 (6-20) Glucose Level 146 mg/dL (70-99) Calcium Level 8.1 mg/dL (8.5-10.1) Total Bilirubin 0.8 mg/dL (0.2-1.0) Aspartate Amino Transf (AST/SGOT) 67 U/L (15-37) Alanine Aminotransferase (ALT/SGPT) 47 U/L (16-63) Alkaline Phosphatase 61 U/L (46-116) Total Protein 6.4 g/dL (6.4-8.2) Albumin 2.4 g/dL (3.4-5.0) Albumin/Globulin Ratio 0.6 (1.0-1.7) White Blood Count 9.2 x10^3/uL (4.0-11.0) Red Blood Count 3.87 x10^6/uL (4.30-5.70) Hemoglobin 12.9 g/dL (13.0-17.5) Hematocrit 37.2 % (39.0-53.0) Mean Corpuscular Volume 96 fL (79-100) Mean Corpuscular Hemoglobin 33 pg (25-35) Mean Corpuscular Hemoglobin Concent 35 g/dL (31-37) Red Cell Distribution Width 15.9 % (11.5-14.5) Platelet Count 138 x10^3/uL (140-400) Neutrophils (%) (Auto) 91 % (31-73) Lymphocytes (%) (Auto) 3 % (24-48) Monocytes (%) (Auto) 6 % (0-9) Eosinophils (%) (Auto) 0 % (0-3) Basophils (%) (Auto) 0 % (0-3) Neutrophils # (Auto) 8.4 x10^3/uL (1.8-7.7) Lymphocytes # (Auto) 0.3 x10^3/uL (1.0-4.8) Monocytes # (Auto) 0.5 x10^3/uL (0.0-1.1) Eosinophils # (Auto) 0.0 x10^3/uL (0.0-0.7) Basophils # (Auto) 0.0 x10^3/uL (0.0-0.2) Prothrombin Time 39.4 SEC (11.7-14.0) Prothromb Time International Ratio 4.0 (0.8-1.1) Glucose (Fingerstick) 181 mg/dL (70-99) Test 03/30/20 17:07 03/30/20 20:41 03/31/20 08:05 Glucose (Fingerstick) 146 mg/dL (70-99) 184 mg/dL (70-99) 149 mg/dL (70-99) Laboratory Tests Test 03/30/20 10:20 03/30/20 17:07 03/30/20 20:41 03/31/20 08:05 Glucose (Fingerstick) 181 mg/dL (70-99) 146 mg/dL (70-99) 184 mg/dL (70-99) 149 mg/dL (70-99) Microbiology 03/27/20 Blood Culture - Preliminary, Resulted NO GROWTH AFTER 4 DAYS Medications Current Medications Albuterol/ Ipratropium (Duoneb) 3 ml 1X ONCE NEB Last administered on 03/27/20at 00:44; Start 03/27/20 at 00:30; Stop 03/27/20 at 00:31; Status DC Methylprednisolone Sodium Succinate (SOLU-Medrol 125MG VIAL) 125 mg 1X ONCE IV Last administered on 03/27/20at 00:41; Start 03/27/20 at 00:30; Stop 03/27/20 at 00:31; Status DC Potassium Chloride/Water 100 ml @ 100 mls/hr Q1H IV Last administered on 03/27/20at 06:31; Start 03/27/20 at 01:45; Stop 03/27/20 at 03:44; Status DC Ceftriaxone Sodium (Rocephin) 1 gm 1X ONCE IVP Last administered on 03/27/20at 03:06; Start 03/27/20 at 02:00; Stop 03/27/20 at 02:01; Status DC Azithromycin 250 ml @ 250 mls/hr 1X ONCE IV Last administered on 03/27/20at 03:06; Start 03/27/20 at 02:00; Stop 03/27/20 at 02:59; Status DC Ondansetron HCl (Zofran) 4 mg PRN Q8HRS PRN IV NAUSEA/VOMITING; Start 03/27/20 at 03:15; Stop 03/27/20 at 11:19; Status DC Levofloxacin/ Dextrose 150 ml @ 100 mls/hr Q48H IV Last administered on 1at 10:24; Start 03/27/20 at 10:00 Methylprednisolone Sodium Succinate (SOLU-Medrol 40MG VIAL) 40 mg Q8HRS IV Last administered on 03/31/20at 06:07; Start 03/27/20 at 14:00 Albuterol/ Ipratropium (Combivent Respimat 20-100 Mcg) 1 puff RTQID INH Last administered on 03/30/20at 15:50; Start 03/27/20 at 12:00 Albuterol Sulfate (Ventolin Hfa) 1 puff PRN Q6HRS PRN INH SOA Last administered on 03/30/20at 06:17; Start 03/27/20 at 12:00 Ondansetron HCl (Zofran) 4 mg PRN Q6HRS PRN IVP NAUSEA/VOMITING; Start 03/27/20 at 09:15 Al Hydroxide/Mg Hydroxide (Mylanta Plus Xs) 30 ml PRN Q3HRS PRN PO HEARTBURN / GAS; Start 03/27/20 at 09:15 Calcium Carbonate/ Glycine (Tums) 500 mg PRN Q3HRS PRN PO UPSET STOMACH; Start 03/27/20 at 09:15 Acetaminophen (Tylenol) 650 mg PRN Q6HRS PRN PO Headaches, Temp > 101.5F Last administered on 03/27/20at 15:44; Start 03/27/20 at 09:15 Magnesium Hydroxide (Milk Of Magnesia) 2,400 mg PRN Q12HR PRN PO CONSTIPATION; Start 03/27/20 at 09:15 Bisacodyl (Dulcolax Supp) 10 mg PRN DAILY PRN [place] CONSTIPATION Last administered on 03/30/20at 16:03; Start 03/27/20 at 09:15 Carvedilol (Coreg) 6.25 mg BIDWMEALS PO Last administered on 03/30/20at 16:03; Start 03/27/20 at 11:00 Furosemide (Lasix) 40 mg DAILY PO Last administered on 03/29/20at 07:49; Start 03/27/20 at 11:00; Stop 03/29/20 at 16:20; Status DC Nitroglycerin (Nitrostat) 0.4 mg PRN Q5MIN PRN SL CHEST PAIN; Start 03/27/20 at 10:30 Sacubitril/ Valsartan (Entresto 24 Mg-26 Mg) 1 tab BID PO Last administered on 03/29/20at 07:48; Start 03/27/20 at 11:00; Stop 03/29/20 at 21:53; Status DC Vitamin B Complex (Connor B) 1 tab DAILY PO Last administered on 03/30/20 07:57; Start 03/27/20 at 11:00 Isosorbide Mononitrate (Imdur) 120 mg DAILY PO Last administered on 03/29/20 07:48; Start 03/27/20 at 11:00; Stop 03/29/20 at 21:53; Status DC Magnesium Oxide (Magnesium Oxide) 200 mg DAILY PO Last administered on 03/30/20 07:58; Start 03/27/20 at 11:00 Pantoprazole Sodium (Protonix) 40 mg DAILYAC PO Last administered on 03/30/20 07:57; Start 03/27/20 at 11:30 Atorvastatin Calcium (Lipitor) 20 mg QHS PO Last administered on 03/30/20at 21:48; Start 03/27/20 at 21:00 Spironolactone (Aldactone) 25 mg DAILY PO Last administered on 03/29/20 07:48; Start 03/27/20 at 12:00; Stop 03/29/20 at 21:53; Status DC Vitamin D (Vitamin D3) 500 unit DAILY PO Last administered on 03/30/20 07:58; Start 03/27/20 at 12:00 Warfarin Sodium (Coumadin Per Pharmacy) 1 each PRN DAILY PRN MC SEE COMMENTS Last administered on 03/30/20at 14:06; Start 03/27/20 at 10:45 Cetirizine HCl (ZyrTEC) 10 mg DAILY PO Last administered on 03/30/20 07:57; Start 03/27/20 at 11:15 Hydrochlorothiazide (Hydrodiuril) 25 mg DAILY PO Last administered on 03/29/20 07:48; Start 03/27/20 at 12:00; Stop 03/29/20 at 21:53; Status DC Warfarin Sodium (Coumadin) 7.5 mg 1X WARF ONCE PO Last administered on 03/27/20at 15:34; Start 03/27/20 at 16:00; Stop 03/27/20 at 16:01; Status DC Lactobacillus Rhamnosus (Culturelle) 1 cap BID PO Last administered on 03/30/20at 21:48; Start 03/27/20 at 21:00 Nystatin (Nystop) 1 ankita BID TP Last administered on 03/30/20at 21:49; Start 03/27/20 at 21:00 Diphenhydramine HCl (Benadryl) 25 mg PRN QHS PRN PO INSOMNIA Last administered on 03/28/20at 00:20; Start 03/28/20 at 00:00 Potassium Bicarbonate (Potassium Effervescent Tablet) 40 meq 1X ONCE PO Last administered on 03/28/20at 12:04; Start 03/28/20 at 10:45; Stop 03/28/20 at 10:46; Status DC Zolpidem Tartrate (Ambien) 5 mg PRN QHS PRN PO INSOMNIA Last administered on 03/29/20at 22:53; Start 03/28/20 at 11:00 Warfarin Sodium (Coumadin - No Dose Today) 1 each 1X WARF ONCE MC Last administered on 03/28/20at 16:00; Start 03/28/20 at 16:00; Stop 03/28/20 at 16:01; Status DC Remdesivir 200 mg/ Sodium Chloride 210 ml @ 210 mls/hr 1X ONCE IV Last administered on 03/28/20at 14:12; Start 03/28/20 at 14:00; Stop 03/28/20 at 14:59; Status DC Remdesivir 100 mg/ Sodium Chloride 230 ml @ 460 mls/hr Q24H IV Last a dministered on 03/30/20at 14:21; Start 03/29/20 at 14:00; Stop 04/01/20 at 14:29 Warfarin Sodium (Coumadin - No Dose Today) 1 each 1X WARF ONCE MC Last administered on 03/29/20at 16:00; Start 03/29/20 at 16:00; Stop 03/29/20 at 16:01; Status DC Potassium Chloride (Klor-Con) 40 meq 1X ONCE PO Last administered on 03/29/20at 16:20; Start 03/29/20 at 15:15; Stop 03/29/20 at 15:19; Status DC Potassium Chloride (Klor-Con) 20 meq DAILYWBKFT PO Last administered on 03/30/20at 07:58; Start 03/30/20 at 08:00 Sodium Chloride 500 ml @ 500 mls/hr 1X ONCE IV Last administered on 03/29/20at 22:38; Start 03/29/20 at 22:00; Stop 03/29/20 at 22:59; Status DC Warfarin Sodium (Coumadin - No Dose Today) 1 each 1X WARF ONCE MC Last administered on 03/30/20at 15:50; Start 03/30/20 at 16:00; Stop 03/30/20 at 16:01; Status DC Potassium Chloride (Klor-Con) 20 meq 1X ONCE PO Last administered on 03/30/20at 17:26; Start 03/30/20 at 16:15; Stop 03/30/20 at 16:16; Status DC Polyethylene Glycol (miraLAX PACKET) 17 gm PRN DAILY PRN PO CONSTIPATION; Start 03/30/20 at 17:30 Active Scripts Active Reported Warfarin Sodium 7.5 Mg Tablet 7.5 Mg PO TWICE WEEKLY [vitamin D] 400 Cap PO DAILY B Complex (Vitamin B Complex) 1 Each Tablet 1 Tab PO DAILY 30 Days Spironolactone-Hctz 25-25 Tab (Spironolact/Hydrochlorothiazid) 1 Each Tablet 1 Each PO DAILY Magnesium (Magnesium Oxide) 250 Mg Tablet 250 Mg PO QODAY Duoneb 0.5-3(2.5) Mg/3 Ml (Albuterol/Ipratropium) 3 Ml Ampul.neb 3 Ml NEB QID Lasix (Furosemide) 40 Mg Tablet 1 Tab PO DAILY 30 Days Entresto 24 mg-26 mg Tablet (Sacubitril/Valsartan) 1 Each Tablet 1 Each PO BID Warfarin Sodium 5 Mg Tablet 5 Mg PO DAILY Pravastatin Sodium 80 Mg Tablet 80 Mg PO DAILY Omeprazole 40 Mg Capsule.dr 40 Mg PO DAILY NITROGLYCERIN SubLingual (Nitroglycerin) 0.4 Mg Tab.subl 0.4 Mg SL PRN Q5MIN PRN Loratadine 10 Mg Tablet 10 Mg PO Isosorbide Mononitrate Er (Isosorbide Mononitrate) 120 Mg Tab.er.24h 120 Mg PO DAILY Carvedilol (Carvedilol) 6.25 Mg Tablet 6.25 Mg PO BIDWMEALS Proair Hfa Inhaler (Albuterol Sulfate) 8.5 Gm Hfa.aer.ad 1 Puff INH PRN Q6HRS PRN Vitals/I & O Vital Sign - Last 24 Hours 03/30/20 03/30/20 03/30/20 03/30/20 11:00 11:30 11:33 11:36 Temp 96.3 96.3 Pulse 77 Resp 19 B/P (MAP) 114/70 (85) 94/52 (66) 80/49 (59) 76/43 (54) Pulse Ox 98 O2 Delivery Nasal Cannula O2 Flow Rate 6.0 03/30/20 03/30/20 03/30/20 03/30/20 15:00 16:03 19:43 21:45 Temp 96.1 97.7 96.1 97.7 Pulse 50 55 53 Resp 19 20 B/P (MAP) 124/61 (82) 124/61 100/57 (71) Pulse Ox 96 94 O2 Delivery Nasal Cannula Nasal Cannula Nasal Cannula O2 Flow Rate 6.0 6.0 6.0 03/30/20 03/31/20 03/31/20 23:16 03:21 03:34 Temp 97.6 97.7 97.6 97.7 Pulse 54 56 69 Resp 20 18 B/P (MAP) 111/59 (76) 151/101 (118) 104/48 (66) Pulse Ox 96 93 O2 Delivery Nasal Cannula Nasal Cannula O2 Flow Rate 6.0 6.0 Intake and Output 03/30/20 03/30/20 03/31/20 15:00 23:00 07:00 Intake Total 640 ml 360 ml Balance 640 ml 360 ml Justicifation of Admission Dx: Justifications for Admission: Justification of Admission Dx: Yes Comminuty Aquired Pneumonia: Hypoxemia KYLEE GUTIERREZ MD Mar 31, 2020 08:38
[2020-03-31 08:53] LABS: CREATININE 1.3 mg/dL (0.7-1.3); GFR 53.7; POTASSIUM 3.4 mmol/L (3.5-5.1)
[2020-03-31 09:00] LABS: PROTHROMBIN TIME PATIENT 39.5 SEC (11.7-14.0)
[2020-03-31] MEDS: MAGNESIUM OXIDE 400 MG TABLET PO SCH (09:09)
[2020-03-31] MEDS: PANTOPRAZOLE 40 MG TABLET.DR. PO SCH (09:09)
[2020-03-31] MEDS: CARVEDILOL 6.25 MG TABLET. PO SCH ×2 (09:09→16:52)
[2020-03-31] MEDS: POTASSIUM CHLORIDE 20 MEQ TABLET.ER. PO SCH (09:10)
[2020-03-31] MEDS: CHOLECALCIFEROL (VITAMIN D3) 1,000 UNIT TABLET PO SCH (09:10)
[2020-03-31] MEDS: LACTOBACILLUS RHAMNOSUS GG 1 CAPSULE. PO SCH ×2 (09:10→20:30)
[2020-03-31] MEDS: CETIRIZINE HCL 10 MG TABLET. PO SCH (09:10)
[2020-03-31] MEDS: VITAMIN B COMPLEX TABLET. PO SCH (09:10)
[2020-03-31] MEDS: IPRATROPIUM/ALBUTEROL 20/100mcg/INH INHALER. INH SCH ×4 (09:11→20:31)
[2020-03-31] MEDS: NYSTATIN TOPICAL POWDER 15GM BOTTLE. TP SCH ×2 (09:11→21:24)
--- NOTE | 2020-03-31 10:22 | PDOC ---
IDAN PRINGLE APRN 03/31/20 1022: CARDIO Progress Notes Date and Time Date of Service 03/31/20 Time of Evaluation 1020 Subjective Subjective: No Chest Pain, No Palpitations, Other (still SOA) Vitals Vitals Vital Signs Date Time Temp Pulse Resp B/P (MAP) Pulse Ox O2 Delivery O2 Flow Rate FiO2 03/31/20 09:09 60 104/56 03/31/20 07:00 97.5 20 94 Nasal Cannula 6.0 97.5 Weight Weight [ ] Input and Output Intake and Output Intake and Output 03/31/20 07:00 Intake Total 1000 ml Balance 1000 ml Intake Oral 1000 ml # Voids 6 # Bowel Movements 2 Laboratory Labs Laboratory Tests Test 03/30/20 17:07 03/30/20 20:41 03/31/20 08:05 03/31/20 08:10 Glucose (Fingerstick) 146 mg/dL (70-99) 184 mg/dL (70-99) 149 mg/dL (70-99) Prothrombin Time 39.5 SEC (11.7-14.0) Prothromb Time International Ratio 4.0 (0.8-1.1) Sodium Level 139 mmol/L (136-145) Potassium Level 3.4 mmol/L (3.5-5.1) Chloride Level 99 mmol/L (98-107) Carbon Dioxide Level 31 mmol/L (21-32) Anion Gap 9 (6-14) Blood Urea Nitrogen 32 mg/dL (8-26) Creatinine 1.3 mg/dL (0.7-1.3) Estimated GFR (Cockcroft-Gault) 53.7 Glucose Level 141 mg/dL (70-99) Calcium Level 8.0 mg/dL (8.5-10.1) Microbiology Micro Microbiology 03/27/20 Blood Culture - Preliminary, Resulted NO GROWTH AFTER 4 DAYS Physical Exam HEENT: Neck Supple W Full Motion Chest: Symmetric LUNGS: Other (on NC) Heart: RRR Abdomen: Soft N/T Extremities: Other (trace bilateral LE edema ) Neurology: alert, oriented, follow commands Assessment Assessment 1. Acute respiratory failure with COVID PNA. on NC 2. Orthostatic hypotension; diuretics, Imdur, Entresto held 3. CAD s/p remote CABG. Clinically stable, CP free. Follows with [facility] cardiology, Deborah Armstrong APRN. 4. Cardiomyopathy; s/p AICD. brand unknown 5. Coagulopathy with chronic warfarin therapy; INR 4.0. Unclear why he is on anticoagulation. Possible h/o DVT. Has been on since 2001. Denies any h/o AFIB. 6. H/o hypertension with present hypotension 7. Hyperlipdiemia; statin 8. Daibetes, II 9. FREDDIE; improved 10. Hypokalemia; replaced 11. JAIME 12. Hypokalemia; replaced Recommendations Continue to hold diuretics, Entresto, and Imdur. Hold warfarin with coagulopathy Awaiting records from [facility] Secondary prevention Ongoing lung optimization, treatment of COVID PNA as per pulm Outpatient echo when recovered from COVID Justicifation of Admission Dx: Justifications for Admission: Justification of Admission Dx: Yes Comminuty Aquired Pneumonia: Hypoxemia GOKUL CRAIG MD 03/31/20 2218: CARDIO Progress Notes Assessment Assessment Agree with CLOTH COLORER's assessment and plan. Continue to hold diuretics and Entresto CAD status clinically stable. Ischemic cardiomyopathy s/p AICD implantation, clinically stable. Continue treatment of Covid pneumonia per pulmonary team. Plan 2D echo as outpatient once recovered from Covid PNA YARY,DIAN VALERIA Mar 31, 2020 10:22 GOKUL CRAIG MD Mar 31, 2020 22:18
--- NOTE | 2020-03-31 11:38 | PDOC ---
PULMONARY PROGRESS NOTES DATE: 03/31/20 TIME: 11:37 Subjective Patient is resting comfortably on 5 L nasal cannula No increased shortness of breath or cough Afebrile No overnight concerns from nursing Vitals Vital Signs Date Time Temp Pulse Resp B/P (MAP) Pulse Ox O2 Delivery O2 Flow Rate FiO2 03/31/20 11:00 97.0 56 20 130/58 (82) 93 Room Air 6.0 97.0 Comments Seen during , visual exam performed Regular rate and rhythm Obese No respiratory distress or accessory muscle use Labs Laboratory Tests Test 03/29/20 16:12 03/29/20 20:15 03/30/20 07:08 03/30/20 08:10 Glucose (Fingerstick) 132 mg/dL (70-99) 160 mg/dL (70-99) 147 mg/dL (70-99) Magnesium Level 2.0 mg/dL (1.8-2.4) Test 03/30/20 08:17 03/30/20 08:18 03/30/20 10:20 03/30/20 17:07 Sodium Level 138 mmol/L (136-145) Potassium Level 3.0 mmol/L (3.5-5.1) Chloride Level 100 mmol/L (98-107) Carbon Dioxide Level 29 mmol/L (21-32) Anion Gap 9 (6-14) Blood Urea Nitrogen 35 mg/dL (8-26) Creatinine 1.3 mg/dL (0.7-1.3) Estimated GFR (Cockcroft-Gault) 53.7 BUN/Creatinine Ratio 27 (6-20) Glucose Level 146 mg/dL (70-99) Calcium Level 8.1 mg/dL (8.5-10.1) Total Bilirubin 0.8 mg/dL (0.2-1.0) Aspartate Amino Transf (AST/SGOT) 67 U/L (15-37) Alanine Aminotransferase (ALT/SGPT) 47 U/L (16-63) Alkaline Phosphatase 61 U/L (46-116) Total Protein 6.4 g/dL (6.4-8.2) Albumin 2.4 g/dL (3.4-5.0) Albumin/Globulin Ratio 0.6 (1.0-1.7) White Blood Count 9.2 x10^3/uL (4.0-11.0) Red Blood Count 3.87 x10^6/uL (4.30-5.70) Hemoglobin 12.9 g/dL (13.0-17.5) Hematocrit 37.2 % (39.0-53.0) Mean Corpuscular Volume 96 fL (79-100) Mean Corpuscular Hemoglobin 33 pg (25-35) Mean Corpuscular Hemoglobin Concent 35 g/dL (31-37) Red Cell Distribution Width 15.9 % (11.5-14.5) Platelet Count 138 x10^3/uL (140-400) Neutrophils (%) (Auto) 91 % (31-73) Lymphocytes (%) (Auto) 3 % (24-48) Monocytes (%) (Auto) 6 % (0-9) Eosinophils (%) (Auto) 0 % (0-3) Basophils (%) (Auto) 0 % (0-3) Neutrophils # (Auto) 8.4 x10^3/uL (1.8-7.7) Lymphocytes # (Auto) 0.3 x10^3/uL (1.0-4.8) Monocytes # (Auto) 0.5 x10^3/uL (0.0-1.1) Eosinophils # (Auto) 0.0 x10^3/uL (0.0-0.7) Basophils # (Auto) 0.0 x10^3/uL (0.0-0.2) Prothrombin Time 39.4 SEC (11.7-14.0) Prothromb Time International Ratio 4.0 (0.8-1.1) Glucose (Fingerstick) 181 mg/dL (70-99) 146 mg/dL (70-99) Test 03/30/20 20:41 03/31/20 08:05 03/31/20 08:10 Glucose (Fingerstick) 184 mg/dL (70-99) 149 mg/dL (70-99) Prothrombin Time 39.5 SEC (11.7-14.0) Prothromb Time International Ratio 4.0 (0.8-1.1) Sodium Level 139 mmol/L (136-145) Potassium Level 3.4 mmol/L (3.5-5.1) Chloride Level 99 mmol/L (98-107) Carbon Dioxide Level 31 mmol/L (21-32) Anion Gap 9 (6-14) Blood Urea Nitrogen 32 mg/dL (8-26) Creatinine 1.3 mg/dL (0.7-1.3) Estimated GFR (Cockcroft-Gault) 53.7 Glucose Level 141 mg/dL (70-99) Calcium Level 8.0 mg/dL (8.5-10.1) Laboratory Tests Test 03/30/20 17:07 03/30/20 20:41 03/31/20 08:05 03/31/20 08:10 Glucose (Fingerstick) 146 mg/dL (70-99) 184 mg/dL (70-99) 149 mg/dL (70-99) Prothrombin Time 39.5 SEC (11.7-14.0) Prothromb Time International Ratio 4.0 (0.8-1.1) Sodium Level 139 mmol/L (136-145) Potassium Level 3.4 mmol/L (3.5-5.1) Chloride Level 99 mmol/L (98-107) Carbon Dioxide Level 31 mmol/L (21-32) Anion Gap 9 (6-14) Blood Urea Nitrogen 32 mg/dL (8-26) Creatinine 1.3 mg/dL (0.7-1.3) Estimated GFR (Cockcroft-Gault) 53.7 Glucose Level 141 mg/dL (70-99) Calcium Level 8.0 mg/dL (8.5-10.1) Medications Active Scripts Medications Dose Route/Sig Max Daily Dose Days Date Category Warfarin Sodium 7.5 Mg Tablet 7.5 Mg PO TWICE WEEKLY 03/27/20 Reported [vitamin D] 400 Cap PO DAILY 03/27/20 Reported B Complex (Vitamin B Complex) 1 Each Tablet 1 Tab PO DAILY 30 03/27/20 Reported Spironolactone-Hctz 25-25 Tab (Spironolact/Hydrochlorothiazid) 1 Each Tablet 1 Each PO DAILY 03/27/20 Reported Magnesium (Magnesium Oxide) 250 Mg Tablet 250 Mg PO QODAY 03/27/20 Reported Duoneb 0.5-3(2.5) Mg/3 Ml (Albuterol/Ipratropium) 3 Ml Ampul.neb 3 Ml NEB QID 03/27/20 Reported Lasix (Furosemide) 40 Mg Tablet 1 Tab PO DAILY 30 03/27/20 Reported Entresto 24 mg-26 mg Tablet (Sacubitril/Valsartan) 1 Each Tablet 1 Each PO BID 03/27/20 Reported Warfarin Sodium 5 Mg Tablet 5 Mg PO DAILY 01/01/15 Reported Pravastatin Sodium 80 Mg Tablet 80 Mg PO DAILY 01/01/15 Reported Omeprazole 40 Mg Capsule.dr 40 Mg PO DAILY 01/01/15 Reported NITROGLYCERIN SubLingual (Nitroglycerin) 0.4 Mg Tab.subl 0.4 Mg SL PRN Q5MIN PRN 01/01/15 Reported Loratadine 10 Mg Tablet 10 Mg PO 01/01/15 Reported Isosorbide Mononitrate Er (Isosorbide Mononitrate) 120 Mg Tab.er.24h 120 Mg PO DAILY 01/01/15 Reported Carvedilol (Carvedilol) 6.25 Mg Tablet 6.25 Mg PO BIDWMEALS 01/01/15 Reported Proair Hfa Inhaler (Albuterol Sulfate) 8.5 Gm Hfa.aer.ad 1 Puff INH PRN Q6HRS PRN 01/01/15 Reported Comments CXR IMPRESSION: Bilateral interstitial prominence with opacities in the mid left lung and right lung base. Atypical pneumonia is possible. Impression . IMPRESSION: 1. Acute on chronic respiratory failure secondary to COVID-19 pneumonia, acute exacerbation of chronic obstructive pulmonary disease, acute diastolic congestive heart failure. 2. Abnormal chest x-ray. 3. COVID-19 pneumonia. 4. Acute exacerbation of chronic obstructive pulmonary disease. 5. Acute diastolic congestive heart failure. 6. Obstructive sleep apnea-hypopnea syndrome. 7. Obesity. 8. Hypokalemia. 9. Coronary artery disease. 10. Acute kidney injury--- improving Plan . RECOMMENDATIONS: Continue supplemental oxygen to keep oxygen saturations greater than 92%, currently on 5 L nasal cannula Continue IV Solu-Medrol with slow taper 6-minute walk prior to discharge Continue remdesivir for full course Continue MDI/Combivent Continue Coumadin for anticoagulation Continue empiric antibiotic coverage with Levaquin Monitor renal function DVT/GI prophylaxis Physical therapy/Occupational Therapy Discussed with RN Patient is a DO NOT RESUSCITATE LINDA TURCIOS MD Mar 31, 2020 11:38
--- NOTE | 2020-03-31 12:43 | NUR ---
Pharmacy Warfarin Dosing Note S: Pharmacy consulted to assist with anticoagulation therapy O: PRICE SMITH is a 75 year old M with Recurrent VTE LABS: Last INR: 4 Last HGB: 12.9 Last HCT: 37.2 Last PLT: 138 Last dose of Hold given on 03/27/20 at 1534 Vitamin K given: N Ongoing Drug Interactions: LEVAQUIN A:INR of 4 is above desired range. Target range for this patient is: 2 -3 P: Warfarin dose: Hold dose today Bridge Therapy: None Next INR due tomorrow Pharmacy anticoagulation service will continue to follow. Adrienne Moody RPH, 03/31/20 8122
[2020-03-31] MEDS: REMDESIVIR 100mg in NORMAL SALINE 250ML X 4 DAYS IV SCH (14:09)
[2020-03-31] MEDS: ATORVASTATIN CALCIUM 20 MG TABLET PO SCH (20:31)
[2020-03-31] MEDS: ZOLPIDEM 5 MG TABLET. PO PRN (21:24)
[2020-04-01 03:33] VITALS: BP 102/51
[2020-04-01] MEDS: methylPREDNISolone SOD SUCC PF 40 MG/ML VIAL. IV SCH (05:36)
[2020-04-01] MEDS: ALBUTEROL SULFATE 8GM INHALER. INH PRN (05:36)
[2020-04-01] MEDS: diphenhydrAMINE HCL 25 MG CAPSULE PO PRN (05:36)
[2020-04-01 07:00] VITALS: BP 102/53
[2020-04-01] MEDS: CARVEDILOL 6.25 MG TABLET. PO SCH (07:49)
[2020-04-01] MEDS: VITAMIN B COMPLEX TABLET. PO SCH (08:26)
[2020-04-01] MEDS: CETIRIZINE HCL 10 MG TABLET. PO SCH (08:29)
[2020-04-01] MEDS: MAGNESIUM OXIDE 400 MG TABLET PO SCH (08:29)
[2020-04-01] MEDS: CHOLECALCIFEROL (VITAMIN D3) 1,000 UNIT TABLET PO SCH (08:29)
[2020-04-01] MEDS: POTASSIUM CHLORIDE 20 MEQ TABLET.ER. PO SCH (08:29)
[2020-04-01] MEDS: LACTOBACILLUS RHAMNOSUS GG 1 CAPSULE. PO SCH (08:29)
[2020-04-01] MEDS: PANTOPRAZOLE 40 MG TABLET.DR. PO SCH (08:30)
[2020-04-01] MEDS: IPRATROPIUM/ALBUTEROL 20/100mcg/INH INHALER. INH SCH ×3 (08:30→16:11)
[2020-04-01] MEDS: NYSTATIN TOPICAL POWDER 15GM BOTTLE. TP SCH (08:30)
[2020-04-01 08:44] LABS: BASO % 0 % (0-3); EOS % 0 % (0-3); HEMATOCRIT 40.3 % (39.0-53.0); HEMOGLOBIN 13.7 g/dL (13.0-17.5); LYMPH # 0.3 x10^3/uL (1.0-4.8); LYMPH % 3 % (24-48); MEAN CORPUSCULAR HEMOGLOBIN 33 pg (25-35); MEAN CORPUSCULAR HGB CONC 34 g/dL (31-37); MEAN CORPUSCULAR VOLUME 97 fL (79-100); MONO # 0.7 x10^3/uL (0.0-1.1); MONO % 5 % (0-9); NEUT # 12.4 x10^3/uL (1.8-7.7); NEUT % 92 % (31-73); PLATELET COUNT 164 x10^3/uL (140-400); RED BLOOD COUNT 4.17 x10^6/uL (4.30-5.70); RED CELL DISTRIBUTION WIDTH 15.6 % (11.5-14.5); WHITE BLOOD COUNT 13.5 x10^3/uL (4.0-11.0)
--- NOTE | 2020-04-01 08:52 | PDOC ---
PULMONARY PROGRESS NOTES DATE: 04/01/20 TIME: 08:52 Subjective Patient is resting comfortably on 5 L nasal cannula Sitting EOB, eating breakfast No increased shortness of breath or cough Afebrile No overnight concerns from nursing Vitals Vital Signs Date Time Temp Pulse Resp B/P (MAP) Pulse Ox O2 Delivery O2 Flow Rate FiO2 04/01/20 08:00 Nasal Cannula 6.0 04/01/20 07:49 59 102/53 04/01/20 07:00 97.2 18 95 97.2 Comments Seen during COVID- pandemic, visual exam performed Regular rate and rhythm Obese No respiratory distress or accessory muscle use Lungs: Clear Labs Laboratory Tests Test 03/30/20 10:20 03/30/20 17:07 03/30/20 20:41 03/31/20 08:05 Glucose (Fingerstick) 181 mg/dL (70-99) 146 mg/dL (70-99) 184 mg/dL (70-99) 149 mg/dL (70-99) Test 03/31/20 08:10 03/31/20 11:38 03/31/20 19:12 04/01/20 07:03 Prothrombin Time 39.5 SEC (11.7-14.0) Prothromb Time International Ratio 4.0 (0.8-1.1) Sodium Level 139 mmol/L (136-145) Potassium Level 3.4 mmol/L (3.5-5.1) Chloride Level 99 mmol/L (98-107) Carbon Dioxide Level 31 mmol/L (21-32) Anion Gap 9 (6-14) Blood Urea Nitrogen 32 mg/dL (8-26) Creatinine 1.3 mg/dL (0.7-1.3) Estimated GFR (Cockcroft-Gault) 53.7 Glucose Level 141 mg/dL (70-99) Calcium Level 8.0 mg/dL (8.5-10.1) Glucose (Fingerstick) 158 mg/dL (70-99) 170 mg/dL (70-99) 149 mg/dL (70-99) Laboratory Tests Test 03/31/20 11:38 03/31/20 19:12 04/01/20 07:03 Glucose (Fingerstick) 158 mg/dL (70-99) 170 mg/dL (70-99) 149 mg/dL (70-99) Medications Active Scripts Medications Dose Route/Sig Max Daily Dose Days Date Category Warfarin Sodium 7.5 Mg Tablet 7.5 Mg PO TWICE WEEKLY 03/27/20 Reported [vitamin D] 400 Cap PO DAILY 03/27/20 Reported B Complex (Vitamin B Complex) 1 Each Tablet 1 Tab PO DAILY 30 03/27/20 Reported Spironolactone-Hctz 25-25 Tab (Spironolact/Hydrochlorothiazid) 1 Each Tablet 1 Each PO DAILY 03/27/20 Reported Magnesium (Magnesium Oxide) 250 Mg Tablet 250 Mg PO QODAY 03/27/20 Reported Duoneb 0.5-3(2.5) Mg/3 Ml (Albuterol/Ipratropium) 3 Ml Ampul.neb 3 Ml NEB QID 03/27/20 Reported Lasix (Furosemide) 40 Mg Tablet 1 Tab PO DAILY 30 03/27/20 Reported Entresto 24 mg-26 mg Tablet (Sacubitril/Valsartan) 1 Each Tablet 1 Each PO BID 03/27/20 Reported Warfarin Sodium 5 Mg Tablet 5 Mg PO DAILY 01/01/15 Reported Pravastatin Sodium 80 Mg Tablet 80 Mg PO DAILY 01/01/15 Reported Omeprazole 40 Mg Capsule.dr 40 Mg PO DAILY 01/01/15 Reported NITROGLYCERIN SubLingual (Nitroglycerin) 0.4 Mg Tab.subl 0.4 Mg SL PRN Q5MIN PRN 01/01/15 Reported Loratadine 10 Mg Tablet 10 Mg PO 01/01/15 Reported Isosorbide Mononitrate Er (Isosorbide Mononitrate) 120 Mg Tab.er.24h 120 Mg PO DAILY 01/01/15 Reported Carvedilol (Carvedilol) 6.25 Mg Tablet 6.25 Mg PO BIDWMEALS 01/01/15 Reported Proair Hfa Inhaler (Albuterol Sulfate) 8.5 Gm Hfa.aer.ad 1 Puff INH PRN Q6HRS PRN 01/01/15 Reported Comments CXR IMPRESSION: Bilateral interstitial prominence with opacities in the mid left lung and right lung base. Atypical pneumonia is possible. Impression . IMPRESSION: 1. Acute on chronic respiratory failure secondary to COVID-19 pneumonia, acute exacerbation of chronic obstructive pulmonary disease, acute diastolic congestive heart failure. 2. Abnormal chest x-ray. 3. COVID-19 pneumonia. 4. Acute exacerbation of chronic obstructive pulmonary disease. 5. Acute diastolic congestive heart failure. 6. Obstructive sleep apnea-hypopnea syndrome. 7. Obesity. 8. Hypokalemia. 9. Coronary artery disease. 10. Acute kidney injury--- improving Plan . RECOMMENDATIONS: Continue supplemental oxygen to keep oxygen saturations greater than 92%, currently on 5 L nasal cannula Continue IV Solu-Medrol with slow taper 6-minute walk prior to discharge Continue remdesivir for full course Continue MDI/Combivent Continue Coumadin for anticoagulation Continue empiric antibiotic coverage with Levaquin Monitor renal function DVT/GI prophylaxis Physical therapy/Occupational Therapy Discussed with RN Patient is a DO NOT RESUSCITATE LINDA TURCIOS MD Apr 01, 2020 08:52
[2020-04-01 09:08] LABS: ALBUMIN 2.6 g/dL (3.4-5.0); ALBUMIN/GLOBULIN RATIO 0.7 (1.0-1.7); CALCIUM 8.4 mg/dL (8.5-10.1); CREATININE 1.3 mg/dL (0.7-1.3); GFR 53.7; POTASSIUM 3.7 mmol/L (3.5-5.1); TOTAL BILIRUBIN 1.1 mg/dL (0.2-1.0); TOTAL PROTEIN 6.4 g/dL (6.4-8.2)
[2020-04-01 09:10] LABS: PROTHROMBIN TIME PATIENT 38.9 SEC (11.7-14.0)
--- NOTE | 2020-04-01 09:18 | PDOC ---
PROGRESS NOTES Date of Service: DATE: 04/01/20 TIME: 09:17 Chief Complaint Chief Complaint impression Acute hypoxic respiratory failure Acute asthma exacerbation Atypical pneumonia vs. viral pneumonia Hypokalemia ON REPLACEMENT IV Hyponatremia FREDDIE Vasomotor nephropathy Subtherapeutic INR on warfarin therapy due to history of blood clots Malnutrition COVID-19 POS DYSPHASIA HYPOKALEMIA ON REPLACEMENT RX Plan Consult pulmonology, FOLLOWING Continue treatment with Solu-Medrol 40 mg every 8hr and Levaquin 750 mg Combivent and albuterol inhalers COVID-19 pos ; influenza negative Resume home medications FEN - Cardiac diet PPX - Warfarin per pharmacy DNR O2 SUPPORT AT 6 LITERS NC Dispo - inpatient for above Continue IV Solu-Medrol with slow taper Continue remdesivir for full course, THIS IS DAY 5 Coumadin for anticoagulation antibiotic coverage with Levaquin Monitor renal function DVT/GI prophylaxis Physical therapy/Occupational Therapy Continue IV Solu-Medrol with slow taper 6-minute walk prior to discharge Continue remdesivir for full course Continue MDI/Combivent Discussed with RN DO NOT RESUSCITATE D/C TO SNF SOON IF OK WITH PULM D/W RN History of Present Illness History of Present Illness Patient is a 75-year-old male with past medical history asthma on daily nebulizer treatments, who presents to the ER with complaints of worsening shortness of breath over the past 2 days. States his symptoms are worse with exertion, with associated weakness for the past week. He has been taking his normal nebulizer treatments without improvement. Upon EMS arrival patient reportedly 88% on room air, which increased to 95% with 2 L. He received 2 nebulizer, steroids, and antibiotics in the ER. Will admit patient for further medical management 03/29 covid pos AGREED TO remdesivir , now on 5 liters NC D/W RN Continue IV Solu-Medrol with taper Continue remdesivir for full 5 DAY course Continue MDI/Combivent 03/28: Patient COVID-19 positive. Afebrile, breathing 3 L nasal cannula. Discussed risk versus benefit remdesivir, patient not interested. He has home O2 concentrator and feels he may be able to discharge home tomorrow. INR 3.1, potassium 3.0. Will replace potassium. Vitals Vitals Vital Signs Date Time Temp Pulse Resp B/P (MAP) Pulse Ox O2 Delivery O2 Flow Rate FiO2 04/01/20 08:00 Nasal Cannula 6.0 04/01/20 07:49 59 102/53 04/01/20 07:00 97.2 18 95 97.2 Physical Exam Physical Exam Physical Exam General: Alert, Oriented X3, Cooperative, No acute distress Heart: Normal S1, Normal S2 Lungs: Crackles Abdomen: Normal bowel sounds, Soft Extremities: No clubbing, No cyanosis Skin: No rashes, No breakdown General: Alert, Oriented X3, Cooperative, No acute distress Heart: Regular rate (SR/SB) Lungs: Clear Abdomen: Soft Extremities: No cyanosis, No edema Skin: No rashes, No breakdown Labs LABS Laboratory Tests Test 03/31/20 11:38 03/31/20 19:12 04/01/20 07:03 04/01/20 08:00 Glucose (Fingerstick) 158 mg/dL (70-99) 170 mg/dL (70-99) 149 mg/dL (70-99) White Blood Count 13.5 x10^3/uL (4.0-11.0) Red Blood Count 4.17 x10^6/uL (4.30-5.70) Hemoglobin 13.7 g/dL (13.0-17.5) Hematocrit 40.3 % (39.0-53.0) Mean Corpuscular Volume 97 fL (79-100) Mean Corpuscular Hemoglobin 33 pg (25-35) Mean Corpuscular Hemoglobin Concent 34 g/dL (31-37) Red Cell Distribution Width 15.6 % (11.5-14.5) Platelet Count 164 x10^3/uL (140-400) Neutrophils (%) (Auto) 92 % (31-73) Lymphocytes (%) (Auto) 3 % (24-48) Monocytes (%) (Auto) 5 % (0-9) Eosinophils (%) (Auto) 0 % (0-3) Basophils (%) (Auto) 0 % (0-3) Neutrophils # (Auto) 12.4 x10^3/uL (1.8-7.7) Lymphocytes # (Auto) 0.3 x10^3/uL (1.0-4.8) Monocytes # (Auto) 0.7 x10^3/uL (0.0-1.1) Eosinophils # (Auto) 0.0 x10^3/uL (0.0-0.7) Basophils # (Auto) 0.0 x10^3/uL (0.0-0.2) Comment Review of Relevant I have reviewed the following items vamsi (where applicable) has been applied. Labs Laboratory Tests Test 03/30/20 10:20 03/30/20 17:07 03/30/20 20:41 03/31/20 08:05 Glucose (Fingerstick) 181 mg/dL (70-99) 146 mg/dL (70-99) 184 mg/dL (70-99) 149 mg/dL (70-99) Test 03/31/20 08:10 03/31/20 11:38 03/31/20 19:12 04/01/20 07:03 Prothrombin Time 39.5 SEC (11.7-14.0) Prothromb Time International Ratio 4.0 (0.8-1.1) Sodium Level 139 mmol/L (136-145) Potassium Level 3.4 mmol/L (3.5-5.1) Chloride Level 99 mmol/L (98-107) Carbon Dioxide Level 31 mmol/L (21-32) Anion Gap 9 (6-14) Blood Urea Nitrogen 32 mg/dL (8-26) Creatinine 1.3 mg/dL (0.7-1.3) Estimated GFR (Cockcroft-Gault) 53.7 Glucose Level 141 mg/dL (70-99) Calcium Level 8.0 mg/dL (8.5-10.1) Glucose (Fingerstick) 158 mg/dL (70-99) 170 mg/dL (70-99) 149 mg/dL (70-99) Test 04/01/20 08:00 White Blood Count 13.5 x10^3/uL (4.0-11.0) Red Blood Count 4.17 x10^6/uL (4.30-5.70) Hemoglobin 13.7 g/dL (13.0-17.5) Hematocrit 40.3 % (39.0-53.0) Mean Corpuscular Volume 97 fL (79-100) Mean Corpuscular Hemoglobin 33 pg (25-35) Mean Corpuscular Hemoglobin Concent 34 g/dL (31-37) Red Cell Distribution Width 15.6 % (11.5-14.5) Platelet Count 164 x10^3/uL (140-400) Neutrophils (%) (Auto) 92 % (31-73) Lymphocytes (%) (Auto) 3 % (24-48) Monocytes (%) (Auto) 5 % (0-9) Eosinophils (%) (Auto) 0 % (0-3) Basophils (%) (Auto) 0 % (0-3) Neutrophils # (Auto) 12.4 x10^3/uL (1.8-7.7) Lymphocytes # (Auto) 0.3 x10^3/uL (1.0-4.8) Monocytes # (Auto) 0.7 x10^3/uL (0.0-1.1) Eosinophils # (Auto) 0.0 x10^3/uL (0.0-0.7) Basophils # (Auto) 0.0 x10^3/uL (0.0-0.2) Laboratory Tests Test 03/31/20 11:38 03/31/20 19:12 04/01/20 07:03 04/01/20 08:00 Glucose (Fingerstick) 158 mg/dL (70-99) 170 mg/dL (70-99) 149 mg/dL (70-99) White Blood Count 13.5 x10^3/uL (4.0-11.0) Red Blood Count 4.17 x10^6/uL (4.30-5.70) Hemoglobin 13.7 g/dL (13.0-17.5) Hematocrit 40.3 % (39.0-53.0) Mean Corpuscular Volume 97 fL (79-100) Mean Corpuscular Hemoglobin 33 pg (25-35) Mean Corpuscular Hemoglobin Concent 34 g/dL (31-37) Red Cell Distribution Width 15.6 % (11.5-14.5) Platelet Count 164 x10^3/uL (140-400) Neutrophils (%) (Auto) 92 % (31-73) Lymphocytes (%) (Auto) 3 % (24-48) Monocytes (%) (Auto) 5 % (0-9) Eosinophils (%) (Auto) 0 % (0-3) Basophils (%) (Auto) 0 % (0-3) Neutrophils # (Auto) 12.4 x10^3/uL (1.8-7.7) Lymphocytes # (Auto) 0.3 x10^3/uL (1.0-4.8) Monocytes # (Auto) 0.7 x10^3/uL (0.0-1.1) Eosinophils # (Auto) 0.0 x10^3/uL (0.0-0.7) Basophils # (Auto) 0.0 x10^3/uL (0.0-0.2) Microbiology 03/27/20 Blood Culture - Final, Complete NO GROWTH AFTER 5 DAYS Medications Current Medications Albuterol/ Ipratropium (Duoneb) 3 ml 1X ONCE NEB Last administered on 03/27/20at 00:44; Start 03/27/20 at 00:30; Stop 03/27/20 at 00:31; Status DC Methylprednisolone Sodium Succinate (SOLU-Medrol 125MG VIAL) 125 mg 1X ONCE IV Last administered on 03/27/20at 00:41; Start 03/27/20 at 00:30; Stop 03/27/20 at 00:31; Status DC Potassium Chloride/Water 100 ml @ 100 mls/hr Q1H IV Last administered on 03/27/20at 06:31; Start 03/27/20 at 01:45; Stop 03/27/20 at 03:44; Status DC Ceftriaxone Sodium (Rocephin) 1 gm 1X ONCE IVP Last administered on 03/27/20at 03:06; Start 03/27/20 at 02:00; Stop 03/27/20 at 02:01; Status DC Azithromycin 250 ml @ 250 mls/hr 1X ONCE IV Last administered on 03/27/20at 03:06; Start 03/27/20 at 02:00; Stop 03/27/20 at 02:59; Status DC Ondansetron HCl (Zofran) 4 mg PRN Q8HRS PRN IV NAUSEA/VOMITING; Start 03/27/20 at 03:15; Stop 03/27/20 at 11:19; Status DC Levofloxacin/ Dextrose 150 ml @ 100 mls/hr Q48H IV Last administered on 03/31/20at 09:12; Start 03/27/20 at 10:00 Methylprednisolone Sodium Succinate (SOLU-Medrol 40MG VIAL) 40 mg Q8HRS IV Last administered on 04/01/20at 05:36; Start 03/27/20 at 14:00; Stop 04/01/20 at 08:53; Status DC Albuterol/ Ipratropium (Combivent Respimat 20-100 Mcg) 1 puff RTQID INH Last administered on 04/01/20at 08:30; Start 03/27/20 at 12:00 Albuterol Sulfate (Ventolin Hfa) 1 puff PRN Q6HRS PRN INH SOA Last administered on 04/01/20at 05:36; Start 03/27/20 at 12:00 Ondansetron HCl (Zofran) 4 mg PRN Q6HRS PRN IVP NAUSEA/VOMITING; Start 03/27/20 at 09:15 Al Hydroxide/Mg Hydroxide (Mylanta Plus Xs) 30 ml PRN Q3HRS PRN PO HEARTBURN / GAS; Start 03/27/20 at 09:15 Calcium Carbonate/ Glycine (Tums) 500 mg PRN Q3HRS PRN PO UPSET STOMACH; Start 03/27/20 at 09:15 Acetaminophen (Tylenol) 650 mg PRN Q6HRS PRN PO Headaches, Temp > 101.5F Last administered on 03/27/20at 15:44; Start 03/27/20 at 09:15 Magnesium Hydroxide (Milk Of Magnesia) 2,400 mg PRN Q12HR PRN PO CONSTIPATION, 2ND CHOICE; Start 03/27/20 at 09:15 Bisacodyl (Dulcolax Supp) [address] CONSTIPATION Last administered on 03/30/20at 16:03; Start 03/27/20 at 09:15 Carvedilol (Coreg) 6.25 mg BIDWMEALS PO Last administered on 03/31/20at 16:52; Start 03/27/20 at 11:00 Furosemide (Lasix) 40 mg DAILY PO Last administered on 03/29/20at 07:49; Start 03/27/20 at 11:00; Stop 03/29/20 at 16:20; Status DC Nitroglycerin (Nitrostat) 0.4 mg PRN Q5MIN PRN SL CHEST PAIN; Start 03/27/20 at 10:30 Sacubitril/ Valsartan (Entresto 24 Mg-26 Mg) 1 tab BID PO Last administered on 03/29/20 07:48; Start 03/27/20 at 11:00; Stop 03/29/20 at 21:53; Status DC Vitamin B Complex (Connor B) 1 tab DAILY PO Last administered on 04/01/20 08:26; Start 03/27/20 at 11:00 Isosorbide Mononitrate (Imdur) 120 mg DAILY PO Last administered on 03/29/20 07:48; Start 03/27/20 at 11:00; Stop 03/29/20 at 21:53; Status DC Magnesium Oxide (Magnesium Oxide) 200 mg DAILY PO Last administered on 04/01/20 08:29; Start 03/27/20 at 11:00 Pantoprazole Sodium (Protonix) 40 mg DAILYAC PO Last administered on 04/01/20 08:30; Start 03/27/20 at 11:30 Atorvastatin Calcium (Lipitor) 20 mg QHS PO Last administered on 03/31/20at 20:31; Start 03/27/20 at 21:00 Spironolactone (Aldactone) 25 mg DAILY PO Last administered on 03/29/20 07:48; Start 03/27/20 at 12:00; Stop 03/29/20 at 21:53; Status DC Vitamin D (Vitamin D3) 500 unit DAILY PO Last administered on 04/01/20 08:29; Start 03/27/20 at 12:00 Warfarin Sodium (Coumadin Per Pharmacy) 1 each PRN DAILY PRN MC SEE COMMENTS Last administered on 03/31/20at 12:42; Start 03/27/20 at 10:45 Cetirizine HCl (ZyrTEC) 10 mg DAILY PO Last administered on 04/01/20 08:29; Start 03/27/20 at 11:15 Hydrochlorothiazide (Hydrodiuril) 25 mg DAILY PO Last administered on 03/29/20 07:48; Start 03/27/20 at 12:00; Stop 03/29/20 at 21:53; Status DC Warfarin Sodium (Coumadin) 7.5 mg 1X WARF ONCE PO Last administered on 03/27/20at 15:34; Start 03/27/20 at 16:00; Stop 03/27/20 at 16:01; Status DC Lactobacillus Rhamnosus (Culturelle) 1 cap BID PO Last administered on 04/01/20at 08:29; Start 03/27/20 at 21:00 Nystatin (Nystop) 1 ankita BID TP Last administered on 04/01/20at 08:30; Start 03/27/20 at 21:00 Diphenhydramine HCl (Benadryl) 25 mg PRN QHS PRN PO INSOMNIA Last administered on 04/01/20at 05:36; Start 03/28/20 at 00:00 Potassium Bicarbonate (Potassium Effervescent Tablet) 40 meq 1X ONCE PO Last administered on 03/28/20at 12:04; Start 03/28/20 at 10:45; Stop 03/28/20 at 10:46; Status DC Zolpidem Tartrate (Ambien) 5 mg PRN QHS PRN PO INSOMNIA Last administered on 03/31/20at 21:24; Start 03/28/20 at 11:00 Warfarin Sodium (Coumadin - No Dose Today) 1 each 1X WARF ONCE MC Last administered on 03/28/20at 16:00; Start 03/28/20 at 16:00; Stop 03/28/20 at 16:01; Status DC Remdesivir 200 mg/ Sodium Chloride 210 ml @ 210 mls/hr 1X ONCE IV Last administered on 03/28/20at 14:12; Start 03/28/20 at 14:00; Stop 03/28/20 at 14:59; Status DC Remdesivir 100 mg/ Sodium Chloride 230 ml @ 460 mls/hr Q24H IV Last administered on 03/31/20at 14:09; Start 03/29/20 at 14:00; Stop 04/01/20 at 14:29 Warfarin Sodium (Coumadin - No Dose Today) 1 each 1X WARF ONCE MC Last administered on 03/29/20at 16:00; Start 03/29/20 at 16:00; Stop 03/29/20 at 16:01; Status DC Potassium Chloride (Klor-Con) 40 meq 1X ONCE PO Last administered on 03/29/20at 16:20; Start 03/29/20 at 15:15; Stop 03/29/20 at 15:19; Status DC Potassium Chloride (Klor-Con) 20 meq DAILYWBKFT PO Last administered on 04/01/20at 08:29; Start 03/30/20 at 08:00 Sodium Chloride 500 ml @ 500 mls/hr 1X ONCE IV Last administered on 03/29/20at 22:38; Start 03/29/20 at 22:00; Stop 03/29/20 at 22:59; Status DC Warfarin Sodium (Coumadin - No Dose Today) 1 each 1X WARF ONCE MC Last administered on 03/30/20at 15:50; Start 03/30/20 at 16:00; Stop 03/30/20 at 16:01; Status DC Potassium Chloride (Klor-Con) 20 meq 1X ONCE PO Last administered on 03/30/20at 17:26; Start 03/30/20 at 16:15; Stop 03/30/20 at 16:16; Status DC Polyethylene Glycol (miraLAX PACKET) 17 gm PRN DAILY PRN PO CONSTIPATION, 1ST CHOICE; Start 03/30/20 at 17:30 Warfarin Sodium (Coumadin - No Dose Today) 1 each 1X WARF ONCE MC Last administered on 03/31/20at 16:00; Start 03/31/20 at 16:00; Stop 03/31/20 at 16:01; Status DC Methylprednisolone Sodium Succinate (SOLU-Medrol 40MG VIAL) 40 mg DAILY IV ; Start 04/02/20 at 09:00 Active Scripts Active Reported Warfarin Sodium 7.5 Mg Tablet 7.5 Mg PO TWICE WEEKLY [vitamin D] 400 Cap PO DAILY B Complex (Vitamin B Complex) 1 Each Tablet 1 Tab PO DAILY 30 Days Spironolactone-Hctz 25-25 Tab (Spironolact/Hydrochlorothiazid) 1 Each Tablet 1 Each PO DAILY Magnesium (Magnesium Oxide) 250 Mg Tablet 250 Mg PO QODAY Duoneb 0.5-3(2.5) Mg/3 Ml (Albuterol/Ipratropium) 3 Ml Ampul.neb 3 Ml NEB QID Lasix (Furosemide) 40 Mg Tablet 1 Tab PO DAILY 30 Days Entresto 24 mg-26 mg Tablet (Sacubitril/Valsartan) 1 Each Tablet 1 Each PO BID Warfarin Sodium 5 Mg Tablet 5 Mg PO DAILY Pravastatin Sodium 80 Mg Tablet 80 Mg PO DAILY Omeprazole 40 Mg Capsule.dr 40 Mg PO DAILY NITROGLYCERIN SubLingual (Nitroglycerin) 0.4 Mg Tab.subl 0.4 Mg SL PRN Q5MIN PRN Loratadine 10 Mg Tablet 10 Mg PO Isosorbide Mononitrate Er (Isosorbide Mononitrate) 120 Mg Tab.er.24h 120 Mg PO DAILY Carvedilol (Carvedilol) 6.25 Mg Tablet 6.25 Mg PO BIDWMEALS Proair Hfa Inhaler (Albuterol Sulfate) 8.5 Gm Hfa.aer.ad 1 Puff INH PRN Q6HRS PRN Vitals/I & O Vital Sign - Last 24 Hours 03/31/20 03/31/20 03/31/20 03/31/20 11:00 15:03 16:52 19:00 Temp 97.0 97.5 97.2 97.0 97.5 97.2 Pulse 56 53 53 54 Resp 20 20 27 B/P (MAP) 130/58 (82) 120/58 (78) 120/58 128/62 (84) Pulse Ox 93 96 92 O2 Delivery Room Air Room Air Room Air O2 Flow Rate 6.0 6.0 6.0 03/31/20 03/31/20 04/01/20 04/01/20 20:15 23:14 03:33 07:00 Temp 97.4 98.1 97.2 97.4 98.1 97.2 Pulse 55 56 46 Resp 25 20 18 B/P (MAP) 103/50 (67) 102/51 (68) 102/53 (69) Pulse Ox 93 92 95 O2 Delivery Nasal Cannula Room Air Room Air Room Air O2 Flow Rate 6.0 6.0 6.0 6.0 04/01/20 04/01/20 07:49 08:00 Pulse 59 B/P (MAP) 102/53 O2 Delivery Nasal Cannula O2 Flow Rate 6.0 Intake and Output 03/31/20 03/31/20 04/01/20 15:00 23:00 07:00 Intake Total 500 ml 180 ml Output Total 1 ml Balance 500 ml 179 ml Justicifation of Admission Dx: Justifications for Admission: Justification of Admission Dx: Yes Comminuty Aquired Pneumonia: Hypoxemia KYLEE GUTIERREZ MD Apr 01, 2020 09:17
[2020-04-01 11:43] VITALS: BP 137/66
--- NOTE | 2020-04-01 11:54 | PDOC ---
CARDIO Progress Notes Date and Time Date of Service 04/01/20 Time of Evaluation 1150 Subjective Subjective: No Chest Pain, No Palpitations, Other (still SOA) Vitals Vitals Vital Signs Date Time Temp Pulse Resp B/P (MAP) Pulse Ox O2 Delivery O2 Flow Rate FiO2 04/01/20 11:43 97.8 60 24 137/66 (89) 92 Room Air 6.0 97.8 Weight Weight [ ] Input and Output Intake and Output Intake and Output 04/01/20 07:00 Intake Total 680 ml Output Total 1 ml Balance 679 ml Intake Oral 680 ml Urine/Stool Mix 1 ml # Voids 3 # Bowel Movements 1 Laboratory Labs Laboratory Tests Test 03/31/20 19:12 04/01/20 07:03 04/01/20 08:00 04/01/20 11:23 Glucose (Fingerstick) 170 mg/dL (70-99) 149 mg/dL (70-99) 142 mg/dL (70-99) White Blood Count 13.5 x10^3/uL (4.0-11.0) Red Blood Count 4.17 x10^6/uL (4.30-5.70) Hemoglobin 13.7 g/dL (13.0-17.5) Hematocrit 40.3 % (39.0-53.0) Mean Corpuscular Volume 97 fL (79-100) Mean Corpuscular Hemoglobin 33 pg (25-35) Mean Corpuscular Hemoglobin Concent 34 g/dL (31-37) Red Cell Distribution Width 15.6 % (11.5-14.5) Platelet Count 164 x10^3/uL (140-400) Neutrophils (%) (Auto) 92 % (31-73) Lymphocytes (%) (Auto) 3 % (24-48) Monocytes (%) (Auto) 5 % (0-9) Eosinophils (%) (Auto) 0 % (0-3) Basophils (%) (Auto) 0 % (0-3) Neutrophils # (Auto) 12.4 x10^3/uL (1.8-7.7) Lymphocytes # (Auto) 0.3 x10^3/uL (1.0-4.8) Monocytes # (Auto) 0.7 x10^3/uL (0.0-1.1) Eosinophils # (Auto) 0.0 x10^3/uL (0.0-0.7) Basophils # (Auto) 0.0 x10^3/uL (0.0-0.2) Prothrombin Time 38.9 SEC (11.7-14.0) Prothromb Time International Ratio 3.9 (0.8-1.1) Sodium Level 139 mmol/L (136-145) Potassium Level 3.7 mmol/L (3.5-5.1) Chloride Level 100 mmol/L (98-107) Carbon Dioxide Level 29 mmol/L (21-32) Anion Gap 10 (6-14) Blood Urea Nitrogen 31 mg/dL (8-26) Creatinine 1.3 mg/dL (0.7-1.3) Estimated GFR (Cockcroft-Gault) 53.7 BUN/Creatinine Ratio 24 (6-20) Glucose Level 136 mg/dL (70-99) Calcium Level 8.4 mg/dL (8.5-10.1) Total Bilirubin 1.1 mg/dL (0.2-1.0) Aspartate Amino Transf (AST/SGOT) 74 U/L (15-37) Alanine Aminotransferase (ALT/SGPT) 77 U/L (16-63) Alkaline Phosphatase 71 U/L (46-116) Total Protein 6.4 g/dL (6.4-8.2) Albumin 2.6 g/dL (3.4-5.0) Albumin/Globulin Ratio 0.7 (1.0-1.7) Microbiology Micro Microbiology 03/27/20 Blood Culture - Final, Complete NO GROWTH AFTER 5 DAYS Physical Exam HEENT: Neck Supple W Full Motion Chest: Symmetric LUNGS: Other (on NC) Heart: RRR (SR) Abdomen: Soft N/T Extremities: Other (trace bilateral LE edema ) Neurology: alert, oriented, follow commands Assessment Assessment 1. Acute respiratory failure with COVID PNA. on NC 2. Orthostatic hypotension; improved 3. CAD s/p remote CABG. Clinically stable, CP free. Follows with Replaced By [facility] cardiology, Deborah Armstrong, [place]ER[place]. 4. Cardiomyopathy; s/p AICD. brand unknown 5. 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 6. H/o hypertension with present hypotension 7. Hyperlipdiemia; statin 8. Daibetes, II 9. FREDDIE; improved 10. Hypokalemia; replaced 11. JAIME 12. Hypokalemia; replaced Recommendations Continue to hold diuretics, Entresto, and Imdur. Hold warfarin with coagulopathy Awaiting records from [facility] Aunt Bertha Compression stockings Secondary prevention Ongoing lung optimization, treatment of COVID PNA as per pulm Outpatient echo when recovered from COVID Justicifation of Admission Dx: Justifications for Admission: Justification of Admission Dx: Yes Comminuty Aquired Pneumonia: Hypoxemia DIAN PRINGLE APRN Apr 01, 2020 11:54
--- NOTE | 2020-04-01 14:06 | PDOC3 ---
Discharge Summary Date of Admission: Mar 27, 2020 Date of Discharge: Apr 01, 2020 Follow-Up: 1-2 days Admitting Diagnosis comment: ======DISCHARGE HOSPITAL SUMMARY [facility] DATE OF ADMIT 03-27-20 DATE OF DISCHARGE 04-01-20 CONSULTS, PULMONARY COMPLICATIONS NONE F/U WITH PCP AT [facility] TOMORROW D/C MEDS SEE MAR PROGNOSIS GOOD Chief Complaint Chief Complaint impression Acute hypoxic respiratory failure Acute asthma exacerbation Atypical pneumonia vs. viral pneumonia Hypokalemia ON REPLACEMENT IV Hyponatremia FREDDIE Vasomotor nephropathy Subtherapeutic INR on warfarin therapy due to history of blood clots Malnutrition COVID-19 POS DYSPHASIA HYPOKALEMIA ON REPLACEMENT RX Plan Consult pulmonology, FOLLOWING Continue treatment with Solu-Medrol 40 mg every 8hr and Levaquin 750 mg Combivent and albuterol inhalers COVID-19 pos ; influenza negative Resume home medications FEN - Cardiac diet PPX - Warfarin per pharmacy DNR O2 SUPPORT AT 6 LITERS NC Dispo - inpatient for above Continue IV Solu-Medrol with slow taper Continue remdesivir for full course, THIS IS DAY 5 Coumadin for anticoagulation antibiotic coverage with Levaquin Monitor renal function DVT/GI prophylaxis Physical therapy/Occupational Therapy Continue IV Solu-Medrol with slow taper 6-minute walk prior to discharge Continue remdesivir for full course Continue MDI/Combivent Discussed with RN DO NOT RESUSCITATE D/C TO [facility] WITH PULM 04-01 D/W RN History of Present Illness History of Present Illness Patient is a 75-year-old male with past medical history asthma on daily nebulizer treatments, who presents to the ER with complaints of worsening shortness of breath over the past 2 days. States his symptoms are worse with exertion, with associated weakness for the past week. He has been taking his normal nebulizer treatments without improvement. Upon EMS arrival patient reportedly 88% on room air, which increased to 95% with 2 L. He received 2 nebulizer, steroids, and antibiotics in the ER. Will admit patient for further medical management 03/29 covid pos AGREED TO remdesivir , now on 5 liters NC D/W RN Continue IV Solu-Medrol with taper Continue remdesivir for full 5 DAY course Continue MDI/Combivent 03/28: Patient COVID-19 positive. Afebrile, breathing 3 L nasal cannula. Discussed risk versus benefit remdesivir, patient not interested. He has home O2 concentrator and feels he may be able to discharge home tomorrow. INR 3.1, potassium 3.0. Will replace potassium. 1-28, IMPROVED D/C TO SNF Vitals Vitals Vital Signs Date Time Temp Pulse Resp B/P (MAP) Pulse Ox O2 Delivery O2 Flow Rate FiO2 04/01/20 08:00 Nasal Cannula 6.0 04/01/20 07:49 59 102/53 04/01/20 07:00 97.2 18 95 97.2 Physical Exam Physical Exam Physical Exam General: Alert, Oriented X3, Cooperative, No acute distress Heart: Normal S1, Normal S2 Lungs: Crackles Abdomen: Normal bowel sounds, Soft Extremities: No clubbing, No cyanosis Skin: No rashes, No breakdown General: Alert, Oriented X3, Cooperative, No acute distress Heart: Regular rate (SR/SB) Lungs: Clear Abdomen: Soft Extremities: No cyanosis, No edema Skin: No rashes, No breakdown Brief Hospital Course Mr. Vazquez is a 75 old [sex] who presented with [ COVID 19 PNEUMONIA] CONDITION AT DISCHARGE: Improved Discharge Medications Current Medications Albuterol/ Ipratropium (Duoneb) 3 ml 1X ONCE NEB Last administered on 03/27/20at 00:44; Start 03/27/20 at 00:30; Stop 03/27/20 at 00:31; Status DC Methylprednisolone Sodium Succinate (SOLU-Medrol 125MG VIAL) 125 mg 1X ONCE IV Last administered on 03/27/20at 00:41; Start 03/27/20 at 00:30; Stop 03/27/20 at 00:31; Status DC Potassium Chloride/Water 100 ml @ 100 mls/hr Q1H IV Last administered on 03/27/20at 06:31; Start 03/27/20 at 01:45; Stop 03/27/20 at 03:44; Status DC Ceftriaxone Sodium (Rocephin) 1 gm 1X ONCE IVP Last administered on 03/27/20at 03:06; Start 03/27/20 at 02:00; Stop 03/27/20 at 02:01; Status DC Azithromycin 250 ml @ 250 mls/hr 1X ONCE IV Last administered on 03/27/20at 03:06; Start 03/27/20 at 02:00; Stop 03/27/20 at 02:59; Status DC Ondansetron HCl (Zofran) 4 mg PRN Q8HRS PRN IV NAUSEA/VOMITING; Start 03/27/20 at 03:15; Stop 03/27/20 at 11:19; Status DC Levofloxacin/ Dextrose 150 ml @ 100 mls/hr Q48H IV Last administered on 03/31/20at 09:12; Start 03/27/20 at 10:00 Methylprednisolone Sodium Succinate (SOLU-Medrol 40MG VIAL) 40 mg Q8HRS IV Last administered on 04/01/20at 05:36; Start 03/27/20 at 14:00; Stop 04/01/20 at 08:53; Status DC Albuterol/ Ipratropium (Combivent Respimat 20-100 Mcg) 1 puff RTQID INH Last administered on 04/01/20at 12:21; Start 03/27/20 at 12:00 Albuterol Sulfate (Ventolin Hfa) 1 puff PRN Q6HRS PRN INH SOA Last administered on 04/01/20at 05:36; Start 03/27/20 at 12:00 Ondansetron HCl (Zofran) 4 mg PRN Q6HRS PRN IVP NAUSEA/VOMITING; Start 03/27/20 at 09:15 Al Hydroxide/Mg Hydroxide (Mylanta Plus Xs) 30 ml PRN Q3HRS PRN PO HEARTBURN / GAS; Start 03/27/20 at 09:15 Calcium Carbonate/ Glycine (Tums) 500 mg PRN Q3HRS PRN PO UPSET STOMACH; Start 03/27/20 at 09:15 Acetaminophen (Tylenol) 650 mg PRN Q6HRS PRN PO Headaches, Temp > 101.5F Last administered on 03/27/20at 15:44; Start 03/27/20 at 09:15 Magnesium Hydroxide (Milk Of Magnesia) 2,400 mg PRN Q12HR PRN PO CONSTIPATION, 2ND CHOICE; Start 03/27/20 at 09:15 Bisacodyl (Dulcolax Supp) 10 mg PRN DAILY PRN [place] CONSTIPATION Last administered on 03/30/20 16:03; Start 03/27/20 at 09:15 Carvedilol (Coreg) 6.25 mg BIDWMEALS PO Last administered on 03/31/20 16:52; Start 03/27/20 at 11:00 Furosemide (Lasix) 40 mg DAILY PO Last administered on 03/29/20 07:49; Start 03/27/20 at 11:00; Stop 03/29/20 at 16:20; Status DC Nitroglycerin (Nitrostat) 0.4 mg PRN Q5MIN PRN SL CHEST PAIN; Start 03/27/20 at 10:30 Sacubitril/ Valsartan (Entresto 24 Mg-26 Mg) 1 tab BID PO Last administered on 03/29/20 07:48; Start 03/27/20 at 11:00; Stop 03/29/20 at 21:53; Status DC Vitamin B Complex (Connor B) 1 tab DAILY PO Last administered on 04/01/20at 08:26; Start 03/27/20 at 11:00 Isosorbide Mononitrate (Imdur) 120 mg DAILY PO Last administered on 03/29/20 07:48; Start 03/27/20 at 11:00; Stop 03/29/20 at 21:53; Status DC Magnesium Oxide (Magnesium Oxide) 200 mg DAILY PO Last administered on 04/01/20 08:29; Start 03/27/20 at 11:00 Pantoprazole Sodium (Protonix) 40 mg DAILYAC PO Last administered on 04/01/20 08:30; Start 03/27/20 at 11:30 Atorvastatin Calcium (Lipitor) 20 mg QHS PO Last administered on 03/31/20 20:31; Start 03/27/20 at 21:00 Spironolactone (Aldactone) 25 mg DAILY PO Last administered on 03/29/20 07:48; Start 03/27/20 at 12:00; Stop 03/29/20 at 21:53; Status DC Vitamin D (Vitamin D3) 500 unit DAILY PO Last administered on 04/01/20 08:29; Start 03/27/20 at 12:00 Warfarin Sodium (Coumadin Per Pharmacy) 1 each PRN DAILY PRN MC SEE COMMENTS Last administered on 1/27/21at 12:42; Start 03/27/20 at 10:45 Cetirizine HCl (ZyrTEC) 10 mg DAILY PO Last administered on 04/01/20at 08:29; Start 03/27/20 at 11:15 Hydrochlorothiazide (Hydrodiuril) 25 mg DAILY PO Last administered on 03/29/20at 07:48; Start 03/27/20 at 12:00; Stop 03/29/20 at 21:53; Status DC Warfarin Sodium (Coumadin) 7.5 mg 1X WARF ONCE PO Last administered on 03/27/20at 15:34; Start 03/27/20 at 16:00; Stop 03/27/20 at 16:01; Status DC Lactobacillus Rhamnosus (Culturelle) 1 cap BID PO Last administered on 04/01/20at 08:29; Start 03/27/20 at 21:00 Nystatin (Nystop) 1 ankita BID TP Last administered on 04/01/20at 08:30; Start 03/27/20 at 21:00 Diphenhydramine HCl (Benadryl) 25 mg PRN QHS PRN PO INSOMNIA Last administered on 04/01/20at 05:36; Start 03/28/20 at 00:00 Potassium Bicarbonate (Potassium Effervescent Tablet) 40 meq 1X ONCE PO Last administered on 03/28/20at 12:04; Start 03/28/20 at 10:45; Stop 03/28/20 at 10:46; Status DC Zolpidem Tartrate (Ambien) 5 mg PRN QHS PRN PO INSOMNIA Last administered on 03/31/20at 21:24; Start 03/28/20 at 11:00 Warfarin Sodium (Coumadin - No Dose Today) 1 each 1X WARF ONCE MC Last admin istered on 03/28/20at 16:00; Start 03/28/20 at 16:00; Stop 03/28/20 at 16:01; Status DC Remdesivir 200 mg/ Sodium Chloride 210 ml @ 210 mls/hr 1X ONCE IV Last administered on 03/28/20at 14:12; Start 03/28/20 at 14:00; Stop 03/28/20 at 14:59; Status DC Remdesivir 100 mg/ Sodium Chloride 230 ml @ 460 mls/hr Q24H IV Last administered on 03/31/20at 14:09; Start 03/29/20 at 14:00; Stop 04/01/20 at 14:29 Warfarin Sodium (Coumadin - No Dose Today) 1 each 1X WARF ONCE MC Last administered on 03/29/20at 16:00; Start 03/29/20 at 16:00; Stop 03/29/20 at 16:01; Status DC Potassium Chloride (Klor-Con) 40 meq 1X ONCE PO Last administered on 03/29/20at 16:20; Start 03/29/20 at 15:15; Stop 03/29/20 at 15:19; Status DC Potassium Chloride (Klor-Con) 20 meq DAILYWBKFT PO Last administered on 04/01/20at 08:29; Start 03/30/20 at 08:00 Sodium Chloride 500 ml @ 500 mls/hr 1X ONCE IV Last administered on 03/29/20at 22:38; Start 03/29/20 at 22:00; Stop 03/29/20 at 22:59; Status DC Warfarin Sodium (Coumadin - No Dose Today) 1 each 1X WARF ONCE MC Last administered on 03/30/20at 15:50; Start 03/30/20 at 16:00; Stop 03/30/20 at 16:01; Status DC Potassium Chloride (Klor-Con) 20 meq 1X ONCE PO Last administered on 03/30/20at 17:26; Start 03/30/20 at 16:15; Stop 03/30/20 at 16:16; Status DC Polyethylene Glycol (miraLAX PACKET) 17 gm PRN DAILY PRN PO CONSTIPATION, 1ST CHOICE; Start 03/30/20 at 17:30 Warfarin Sodium (Coumadin - No Dose Today) 1 each 1X WARF ONCE MC Last administered on 03/31/20at 16:00; Start 03/31/20 at 16:00; Stop 03/31/20 at 16:01; Status DC Methylprednisolone Sodium Succinate (SOLU-Medrol 40MG VIAL) 40 mg DAILY IV ; Start 04/02/20 at 09:00 Active Scripts Active Reported Warfarin Sodium 7.5 Mg Tablet 7.5 Mg PO TWICE WEEKLY [vitamin D] 400 Cap PO DAILY B Complex (Vitamin B Complex) 1 Each Tablet 1 Tab PO DAILY 30 Days Spironolactone-Hctz 25-25 Tab (Spironolact/Hydrochlorothiazid) 1 Each Tablet 1 Each PO DAILY Magnesium (Magnesium Oxide) 250 Mg Tablet 250 Mg PO QODAY Duoneb 0.5-3(2.5) Mg/3 Ml (Albuterol/Ipratropium) 3 Ml Ampul.neb 3 Ml NEB QID Lasix (Furosemide) 40 Mg Tablet 1 Tab PO DAILY 30 Days Entresto 24 mg-26 mg Tablet (Sacubitril/Valsartan) 1 Each Tablet 1 Each PO BID Warfarin Sodium 5 Mg Tablet 5 Mg PO DAILY Pravastatin Sodium 80 Mg Tablet 80 Mg PO DAILY Omeprazole 40 Mg Capsule.dr 40 Mg PO DAILY NITROGLYCERIN SubLingual (Nitroglycerin) 0.4 Mg Tab.subl 0.4 Mg SL PRN Q5MIN PRN Loratadine 10 Mg Tablet 10 Mg PO Isosorbide Mononitrate Er (Isosorbide Mononitrate) 120 Mg Tab.er.24h 120 Mg PO DAILY Carvedilol (Carvedilol) 6.25 Mg Tablet 6.25 Mg PO BIDWMEALS Proair Hfa Inhaler (Albuterol Sulfate) 8.5 Gm Hfa.aer.ad 1 Puff INH PRN Q6HRS PRN Vital Signs Vital Signs Date Time Temp Pulse Resp B/P (MAP) Pulse Ox O2 Delivery O2 Flow Rate FiO2 04/01/20 11:43 97.8 60 24 137/66 (89) 92 Room Air 6.0 97.8 Labs Laboratory Tests Test 03/30/20 17:07 03/30/20 20:41 03/31/20 08:05 03/31/20 08:10 Glucose (Fingerstick) 146 mg/dL (70-99) 184 mg/dL (70-99) 149 mg/dL (70-99) Prothrombin Time 39.5 SEC (11.7-14.0) Prothromb Time International Ratio 4.0 (0.8-1.1) Sodium Level 139 mmol/L (136-145) Potassium Level 3.4 mmol/L (3.5-5.1) Chloride Level 99 mmol/L (98-107) Carbon Dioxide Level 31 mmol/L (21-32) Anion Gap 9 (6-14) Blood Urea Nitrogen 32 mg/dL (8-26) Creatinine 1.3 mg/dL (0.7-1.3) Estimated GFR (Cockcroft-Gault) 53.7 Glucose Level 141 mg/dL (70-99) Calcium Level 8.0 mg/dL (8.5-10.1) Test 03/31/20 11:38 03/31/20 16:05 03/31/20 19:12 04/01/20 07:03 Glucose (Fingerstick) 158 mg/dL (70-99) 130 mg/dL (70-99) 170 mg/dL (70-99) 149 mg/dL (70-99) Test 04/01/20 08:00 04/01/20 11:23 White Blood Count 13.5 x10^3/uL (4.0-11.0) Red Blood Count 4.17 x10^6/uL (4.30-5.70) Hemoglobin 13.7 g/dL (13.0-17.5) Hematocrit 40.3 % (39.0-53.0) Mean Corpuscular Volume 97 fL (79-100) Mean Corpuscular Hemoglobin 33 pg (25-35) Mean Corpuscular Hemoglobin Concent 34 g/dL (31-37) Red Cell Distribution Width 15.6 % (11.5-14.5) Platelet Count 164 x10^3/uL (140-400) Neutrophils (%) (Auto) 92 % (31-73) Lymphocytes (%) (Auto) 3 % (24-48) Monocytes (%) (Auto) 5 % (0-9) Eosinophils (%) (Auto) 0 % (0-3) Basophils (%) (Auto) 0 % (0-3) Neutrophils # (Auto) 12.4 x10^3/uL (1.8-7.7) Lymphocytes # (Auto) 0.3 x10^3/uL (1.0-4.8) Monocytes # (Auto) 0.7 x10^3/uL (0.0-1.1) Eosinophils # (Auto) 0.0 x10^3/uL (0.0-0.7) Basophils # (Auto) 0.0 x10^3/uL (0.0-0.2) Prothrombin Time 38.9 SEC (11.7-14.0) Prothromb Time International Ratio 3.9 (0.8-1.1) Sodium Level 139 mmol/L (136-145) Potassium Level 3.7 mmol/L (3.5-5.1) Chloride Level 100 mmol/L (98-107) Carbon Dioxide Level 29 mmol/L (21-32) Anion Gap 10 (6-14) Blood Urea Nitrogen 31 mg/dL (8-26) Creatinine 1.3 mg/dL (0.7-1.3) Estimated GFR (Cockcroft-Gault) 53.7 BUN/Creatinine Ratio 24 (6-20) Glucose Level 136 mg/dL (70-99) Calcium Level 8.4 mg/dL (8.5-10.1) Total Bilirubin 1.1 mg/dL (0.2-1.0) Aspartate Amino Transf (AST/SGOT) 74 U/L (15-37) Alanine Aminotransferase (ALT/SGPT) 77 U/L (16-63) Alkaline Phosphatase 71 U/L (46-116) Total Protein 6.4 g/dL (6.4-8.2) Albumin 2.6 g/dL (3.4-5.0) Albumin/Globulin Ratio 0.7 (1.0-1.7) Glucose (Fingerstick) 142 mg/dL (70-99) Laboratory Tests Test 03/31/20 16:05 03/31/20 19:12 04/01/20 07:03 04/01/20 08:00 Glucose (Fingerstick) 130 mg/dL (70-99) 170 mg/dL (70-99) 149 mg/dL (70-99) White Blood Count 13.5 x10^3/uL (4.0-11.0) Red Blood Count 4.17 x10^6/uL (4.30-5.70) Hemoglobin 13.7 g/dL (13.0-17.5) Hematocrit 40.3 % (39.0-53.0) Mean Corpuscular Volume 97 fL (79-100) Mean Corpuscular Hemoglobin 33 pg (25-35) Mean Corpuscular Hemoglobin Concent 34 g/dL (31-37) Red Cell Distribution Width 15.6 % (11.5-14.5) Platelet Count 164 x10^3/uL (140-400) Neutrophils (%) (Auto) 92 % (31-73) Lymphocytes (%) (Auto) 3 % (24-48) Monocytes (%) (Auto) 5 % (0-9) Eosinophils (%) (Auto) 0 % (0-3) Basophils (%) (Auto) 0 % (0-3) Neutrophils # (Auto) 12.4 x10^3/uL (1.8-7.7) Lymphocytes # (Auto) 0.3 x10^3/uL (1.0-4.8) Monocytes # (Auto) 0.7 x10^3/uL (0.0-1.1) Eosinophils # (Auto) 0.0 x10^3/uL (0.0-0.7) Basophils # (Auto) 0.0 x10^3/uL (0.0-0.2) Prothrombin Time 38.9 SEC (11.7-14.0) Prothromb Time International Ratio 3.9 (0.8-1.1) Sodium Level 139 mmol/L (136-145) Potassium Level 3.7 mmol/L (3.5-5.1) Chloride Level 100 mmol/L (98-107) Carbon Dioxide Level 29 mmol/L (21-32) Anion Gap 10 (6-14) Blood Urea Nitrogen 31 mg/dL (8-26) Creatinine 1.3 mg/dL (0.7-1.3) Estimated GFR (Cockcroft-Gault) 53.7 BUN/Creatinine Ratio 24 (6-20) Glucose Level 136 mg/dL (70-99) Calcium Level 8.4 mg/dL (8.5-10.1) Total Bilirubin 1.1 mg/dL (0.2-1.0) Aspartate Amino Transf (AST/SGOT) 74 U/L (15-37) Alanine Aminotransferase (ALT/SGPT) 77 U/L (16-63) Alkaline Phosphatase 71 U/L (46-116) Total Protein 6.4 g/dL (6.4-8.2) Albumin 2.6 g/dL (3.4-5.0) Albumin/Globulin Ratio 0.7 (1.0-1.7) Test 04/01/20 11:23 Glucose (Fingerstick) 142 mg/dL (70-99) Allergies Allergies Coded Allergies Type Severity Reaction Last Updated Verified codeine Allergy Intermediate 04/01/20 Yes Disposition/Orders: Other (D/C TO SNF) Justicifation of Admission Dx: Justifications for Admission: Justification of Admission Dx: Yes Comminuty Aquired Pneumonia: Hypoxemia KYLEE GUTIERREZ MD Apr 01, 2020 14:06
[2020-04-01] MEDS: REMDESIVIR 100mg in NORMAL SALINE 250ML X 4 DAYS IV SCH (14:08)
[2020-04-01] MEDS ORDERED: ALBU8HFA INH (14:15)
[2020-04-01] MEDS ORDERED: METH4TAB PO (14:15)
[2020-04-01] MEDS ORDERED: POLY17PO52 PO (14:15)
[2020-04-01] MEDS ORDERED: LEVO500T8 PO (14:15)
[2020-04-01] MEDS ORDERED: MAG30ORA2 PO (14:15)
[2020-04-01] MEDS ORDERED: LACT1CAP19 PO (14:15)
[2020-04-01] MEDS ORDERED: NYST15PO2 TP (14:15)
[2020-04-01] MEDS ORDERED: ACET325T9 PO (14:15)
[2020-04-01] MEDS ORDERED: BISA10SU4 PR (14:15)
[2020-04-01] MEDS ORDERED: POTA20TA4 PO (14:15)
--- NOTE | 2020-04-01 14:17 | SNU/HH DC ---
DISCHARGE ORDERS DISCHARGE INFORMATION: DISCHARGE DATE: Apr 01, 2020 CONDITION ON DISCHARGE: Stable CODE STATUS: Code Status: Full SENIOR CARE: SNF STAY <30 DAYS: Yes HOSPICE: HOSPICE: No HOSPICE EVAL & TREAT: No LTAC: ADMIT TO LTAC: No POST DISCHARGE ORDERS: ACTIVITY ORDERS: Activity as tolerated DIET AFTER DISCHARGE: Cardiac CHECKS AFTER DISCHARGE: CHECKS AFTER DISCHARGE: Check blood press - daily FOLLOW-UP: PHYSICIAN FOLLOW-UP: PCP AT SNF TODAY LAB ORDERS FOR FOLLOW-UP: DAILY INR X 3 DAYS TREATMENT/EQUIPMENT ORDERS: ADAPTIVE EQUIPMENT NEEDED: Front wheeled walker RESPIRATORY EQUIPMENT NEEDED: Oxygen, Nebulizer Physical Therapy For: Evalulation/Treatment Occupational Therapy For: Evaluation/Treatment Speech Language Pathology For: Evaluation/Treatment DISCHARGE MEDICATIONS: Home Meds Active Scripts Methylprednisolone (MEDROL) 4 Mg Tablet, 4 MG PO DAILY for COVID for 7 Days, #7 TAB Prov:KYLEE GUTIERREZ MD 04/01/20 Levofloxacin (LEVOFLOXACIN) 500 Mg Tablet, 1 TAB PO DAILY for 7 for 7 Days, #7 TAB Prov:KYLEE GUTIERREZ MD 04/01/20 Acetaminophen (TYLENOL) 325 Mg Tablet, 650 MG PO PRN Q6HRS PRN for Headaches, Temp > 101.5F for 30 Days, #60 TAB Prov:KYLEE GUTIERREZ MD 04/01/20 Albuterol Sulfate (Ventolin Hfa) 8 Gm Hfa.aer.ad, 1 PUFF INH PRN Q6HRS PRN for SOA for 30 Days, #2 INHALER Prov:KYLEE GUTIERREZ MD 04/01/20 Potassium Chloride (KLOR-CON M20) 20 Meq Tab.er.prt, 20 MEQ PO DAILYWBKFT for SUPPLEMENT for 14 Days, #14 TAB.SR Prov:KYLEE GUTIERREZ MD 04/01/20 Nystatin (NYAMYC) 15 Gm Powder, 1 KAMLA TP BID for FUNGAL RASH for 10 Days, #30 MISC Prov:KYLEE GUTIERREZ MD 04/01/20 Lactobacillus Rhamnosus Gg (CULTURELLE) 1 Each Cap.sprink, 1 CAP PO BID for SUPPLEMENT for 30 Days, #60 CAP Prov:KYLEE GUTIERREZ MD 04/01/20 Polyethylene Glycol 3350 (POLYETHYLENE GLYCOL 3350) 17 Gm Powd.pack, 17 GM PO PRN DAILY PRN for CONSTIPATION, 1ST CHOICE for 30 Days, #30 PKT Prov:KYLEE GUTIERREZ MD 04/01/20 Bisacodyl (BISACODYL) 10 Mg Supp.rect, 10 MG ME PRN DAILY PRN for CONSTIPATION for 10 Days, #10 SUPP.RECT Prov:KYLEE GUTIERREZ MD 04/01/20 Mag Hydrox/Al Hydrox/Simeth (MAG-AL PLUS XS SUSPENSION) 30 Ml Oral.susp, 30 ML PO PRN Q3HRS PRN for HEARTBURN / GAS for 14 Days, #120 MISC Prov:KYLEE GUTIERREZ MD 04/01/20 Reported Medications Warfarin Sodium (WARFARIN SODIUM) 7.5 Mg Tablet, 7.5 MG PO TWICE WEEKLY for blood thinner, TAB 03/27/20 [vitamin D] No Conflict Check, 400 CAP PO DAILY 03/27/20 Vitamin B Complex (B COMPLEX) 1 Each Tablet, 1 TAB PO DAILY for supplement for 30 Days, #30 TAB 0 Refills 03/27/20 Spironolact/Hydrochlorothiazid (SPIRONOLACTONE-HCTZ 25-25 TAB) 1 Each Tablet, 1 EACH PO DAILY for fluid retention/htn, TAB 03/27/20 Magnesium Oxide (MAGNESIUM) 250 Mg Tablet, 250 MG PO QODAY for replacement, TAB 03/27/20 Ipratropium/Albuterol Sulfate (DUONEB 0.5-3(2.5) MG/3 ML) 3 Ml Ampul.neb, 3 ML NEB QID for soa, EACH 03/27/20 Furosemide (LASIX) 40 Mg Tablet, 1 TAB PO DAILY for fluid retention for 30 Days, #30 TAB 0 Refills 03/27/20 Warfarin Sodium (WARFARIN SODIUM) 5 Mg Tablet, 5 MG PO DAILY for blood thinner, TAB 01/01/15 Pravastatin Sodium (PRAVASTATIN SODIUM) 80 Mg Tablet, 80 MG PO DAILY, TAB 01/01/15 Omeprazole (OMEPRAZOLE) 40 Mg Capsule.dr, 40 MG PO DAILY, CAP 01/01/15 Nitroglycerin (NITROGLYCERIN SubLingual) 0.4 Mg Tab.subl, 0.4 MG SL PRN Q5MIN PRN for CHEST PAIN, BOTTLE 01/01/15 Loratadine (LORATADINE) 10 Mg Tablet, 10 MG PO 01/01/15 Carvedilol (CARVEDILOL ) 6.25 Mg Tablet, 6.25 MG PO BIDWMEALS, TAB 01/01/15 Albuterol Sulfate (PROAIR HFA INHALER) 8.5 Gm Hfa.aer.ad, 1 PUFF INH PRN Q6HRS PRN for SHORTNESS OF BREATH, INHALER 0 Refills 01/01/15 Discontinued Reported Medications Sacubitril/Valsartan (Entresto 24 mg-26 mg Tablet) 1 Each Tablet, 1 EACH PO BID for chf, TAB 03/27/20 Isosorbide Mononitrate (ISOSORBIDE MONONITRATE ER) 120 Mg Tab.er.24h, 120 MG PO DAILY, TAB.SR 01/01/15 KYLEE GUTIERREZ MD Apr 01, 2020 14:16
[2020-04-01 15:22] VITALS: BP 136/62
--- NOTE | 2020-04-01 16:46 | NUR ---
At approximately 1640 this RN attempted to call report to [facility] and was disconnected. Tried a second time at 1642 and there was no answer. Will attempt again.
[2020-04-01] MEDS ORDERED: CARVEDILOL 3.125 MG TABLET. PO SCH (17:00)
[2020-04-02] MEDS ORDERED: methylPREDNISolone SOD SUCC PF 40 MG/ML VIAL. IV SCH (09:00)
[2020-05-17] MEDS ORDERED: FLUT16SP NS (07:09)
[2020-05-17] MEDS ORDERED: ISOS120T4 PO (07:09)
[2020-05-17] MEDS ORDERED: ASCO500C PO (12:10)
[2020-05-18] MEDS ORDERED: POTA20TA4 PO (09:54)
== END 2020-04-01 16:35 | DRG 177 ==
LOC: ER 00:01 → 6 SOUTH 03:28
PROVIDERS: ADMIT Internal Medicine; ATTEND Internal Medicine
PROC: XW033E5 Introduction of Remdesivir Anti-infective into Peripheral Vein, Percutaneous Approach, New Technology Group 5 (ICD-10-PCS; principal; 2020-03-29)
DX: U07.1 COVID-19 (principal); I50.31 Acute diastolic (congestive) heart failure; J12.82 Pneumonia due to coronavirus disease 2019; J96.21 Acute and chronic respiratory failure with hypoxia; N17.0 Acute kidney failure with tubular necrosis; J44.0 Chronic obstructive pulmonary disease with (acute) lower respiratory infection; J44.1 Chronic obstructive pulmonary disease with (acute) exacerbation; J45.901 Unspecified asthma with (acute) exacerbation; E87.1 Hypo-osmolality and hyponatremia; D68.9 Coagulation defect, unspecified; I11.0 Hypertensive heart disease with heart failure; G47.33 Obstructive sleep apnea (adult) (pediatric); I25.10 Atherosclerotic heart disease of native coronary artery without angina pectoris; R47.02 Dysphasia; I95.1 Orthostatic hypotension; I25.5 Ischemic cardiomyopathy; F41.9 Anxiety disorder, unspecified; K21.9 Gastro-esophageal reflux disease without esophagitis; E87.6 Hypokalemia; E66.9 Obesity, unspecified; E11.9 Type 2 diabetes mellitus without complications; E78.5 Hyperlipidemia, unspecified; E78.00 Pure hypercholesterolemia, unspecified; Z87.442 Personal history of urinary calculi; Z87.891 Personal history of nicotine dependence; Z95.1 Presence of aortocoronary bypass graft; Z95.5 Presence of coronary angioplasty implant and graft; Z90.49 Acquired absence of other specified parts of digestive tract; I25.2 Old myocardial infarction; Z95.810 Presence of automatic (implantable) cardiac defibrillator; Z86.718 Personal history of other venous thrombosis and embolism; Z82.49 Family history of ischemic heart disease and other diseases of the circulatory system; Z79.01 Long term (current) use of anticoagulants; Z68.39 Body mass index [BMI] 39.0-39.9, adult; Z88.5 Allergy status to narcotic agent; Z79.899 Other long term (current) drug therapy
CPT/HCPCS: 36415; 71045; 80048; 80053; 80076; 81001; 82550; 82962; 83605; 83735; 83880; 84484; 85007; 85025; 85610; 87040; 87804; 93005; 94640; 96365; 96375; 99285; J0456; J0696; J1956; J2920; J2930; J3480; J7040; J7050; U0003; 97110-GO; 97110-GP; 97116-GP; 97530-GO; 97530-GP; 97535-GO; G0378; J7030; Q0163

== ENCOUNTER 2020-04-02 14:34 | Inpatient (IN) | payer MEDICARE ==
[~2020-04-02] VITALS: Ht 170.2 cm; Wt 117.9 kg
[~2020-04-02 14:34] MED LIST changes: +ACET325T9 PO; +ALBU8HFA INH; +BISA10SU4 PR; +FURO-68 PO; +IPRA3AMP29 NEB; +LACT1CAP19 PO; +LEVO500T8 PO; +MAG30ORA2 PO; +MAGN250T10 PO; +METH4TAB PO; +NYST15PO2 TP; +POLY17PO52 PO; +POTA20TA4 PO; +SACU1TAB PO; +SPIR1TAB3 PO; +VITA1TAB19 PO; +WARF7.5T45 PO; +vitamin D PO
[2020-04-02] MEDS ORDERED: IV NORMAL SALINE 1000ML BAG 1,000 ML IV ONE (15:00)
--- NOTE | 2020-04-02 15:03 | PHYS DOC ---
Past Medical History Past Medical History: Anxiety, Asthma, CAD, CHF, Diabetes-Type II, GERD, High Cholesterol, Hypertension, Kidney [place], [place] Additional Past Medical Histor: COVID 19 Past Surgical History: Cholecystectomy, Coronary Bypass Surgery, Tonsillectomy, Other Additional Past Surgical Histo: Stent placement Smoking Status: Former Smoker Additional Information: quit smoking 1977 Alcohol Use: None General Adult EDM: Chief Complaint: SHORTNESS OF BREATH HPI: HPI: 75 yo M past medical history of asthma, history of Covid in the past 6 months and on Coumadin due to blood clots, presents to the ED (after being discharged from [facility] yesterday), BIBEMS hypoxic, saturating in the 80s, 2 duonebs en route. Pt c/o sudden onset shortness of breath. Review of Systems: Review of Systems: Constitutional: Denies fever or chills. [] Eyes: Denies change in visual acuity. [] HENT: Denies nasal congestion or sore throat. [] Respiratory: Denies cough or hemoptysis Cardiovascular: Denies chest pain or edema. [] GI: Denies abdominal pain, nausea, vomiting, bloody stools or diarrhea. [] : Denies dysuria. [] Musculoskeletal: Denies back pain or joint pain. [] Integument: Denies rash. [] Neurologic: Denies headache, focal weakness or sensory changes. [] Endocrine: Denies polyuria or polydipsia. [] Lymphatic: Denies swollen glands. [] Psychiatric: Denies depression or anxiety. [] Heart Score: Risk Factors: Risk Factors: DM, Current or recent (<one month) smoker, HTN, HLP, family history of CAD, obesity. Risk Scores: Score 0 - 3: 2.5% MACE over next 6 weeks - Discharge Home Score 4 - 6: 20.3% MACE over next 6 weeks - Admit for Clinical Observation Score 7 - 10: 72.7% MACE over next 6 weeks - Early Invasive Strategies Allergies: Allergies: Allergies Coded Allergies Type Severity Reaction Last Updated Verified codeine Adverse Reaction Intermediate N/V 04/02/20 Yes Physical Exam: PE: Constitutional: Well developed, well nourished, no acute distress, non-toxic appearance. HENT: Normocephalic, atraumatic, Eyes: EOMI, conjunctiva normal, no discharge. Neck: Normal range of motion, supple, Cardiovascular: S1/2 present, regular rhythm Lungs & Thorax: Speaking in full sentences, bilateral equal chest rise, mild tachypnea, on 6L NC, diffuse wheezing Abdomen: soft, no tenderness, Skin: Warm, dry, no erythema, no rash. [] Back: No tenderness, no CVA tenderness. [] Extremities: No tenderness, no cyanosis, no lower extremity edema Neurologic: Alert and oriented X 3, normal motor function, normal sensory function, no focal deficits noted. [] Psychologic: Affect normal, judgement normal, mood normal. [] Current Patient Data: Vital Signs: Vital Signs Date Time Temp Pulse Resp B/P (MAP) Pulse Ox O2 Delivery O2 Flow Rate FiO2 04/02/20 14:34 98.1 54 24 112/67 (82) 91 Nasal Cannula 6.0 98.1 EKG: EKG: motion artifact on ekg, qtc 477 Radiology/Procedures: Radiology/Procedures: [] IMAGING REPORT Signed PATIENT: PRICE SMITH ACCOUNT: [id number] : 1945 LOCATION: ER AGE: 75 SEX: M EXAM STATUS: PRE ER ORD. PHYSICIAN: SEUN COLLINS DO REASON: soa PROCEDURE: PORTABLE CHEST 1V XR CHEST 1V Clinical History: Reason: soa / Spl. Instructions: / History: Technique: AP view of the chest was obtained at 04/02/2020 3:17 PM. Comparison: March 27, 2020. Findings: The cardiomediastinal silhouette is normal. There is patchy reticular opacities throughout the lungs. The lungs and pleural margins are clear. Left-sided defibrillator and median sternotomy wires are again seen. Impression: Worsening interstitial infiltrates likely atypical pneumonia. Electronically signed by: Rigo Branch III, MD (04/02/2020 3:28 PM) [facility] DICTATED and SIGNED BY: RIGO BRANCH III, MD DATE: 04/02/20 [id number] IMAGING REPORT Signed PATIENT: PRICE SMITH ACCOUNT: [id number] : 1945 LOCATION: [address] [place] [address] AGE: 75 SEX: M EXAM STATUS: ADM IN ORD. PHYSICIAN: SEUN COLLINS DO REASON: soa, r/o pe PROCEDURE: CT ANGIOGRAPHY CHEST CT angiogram of the chest with contrast: Reason for examination: Short of breath. Evaluate for pulmonary embolus. Comparison is made to previous study dated 11/07/2019. Helical images were obtained through the chest with intravenous administration of 90 cc Omnipaque 350 using PE protocol. 3-D MIPS reconstruction was performed in sagittal and coronal planes. Exposure: One or more of the following individualized dose reduction techniques were utilized for this examination: 1. Automated exposure control 2. Adjustment of the mA and/or kV according to patient size 3. Use of iterative reconstruction technique. The trachea and mainstem bronchi show no intraluminal lesions. No abnormalities seen at the esophagus. The thoracic aorta shows no aneurysmal dilatation or dissection. The heart size is enlarged with no pericardial effusion. There is coronary arterial calcification seen. There is no evidence of pulmonary embolus. There are however diffuse groundglass infiltrates bilaterally. No pleural effu sions are seen. No acute bony abnormalities are seen. There are hepatic and splenic granuloma. No other focal lesions are seen in the liver or spleen. Adrenal gland show no abnormalities. There is cholelithiasis. No abnormality seen at the pancreas. IMPRESSION: No pulmonary embolus. Diffuse bilateral groundglass infiltrates. This could reflect pulmonary edema however atypical pneumonia cannot be excluded. Cardiomegaly. Cholelithiasis. Electronically signed by: Nadege Werner MD (04/02/2020 7:18 PM) [facility] DICTATED and SIGNED BY: NADEGE WERNER MD DATE: 04/02/20 [id number] Course & Med Decision Making: Course & Med Decision Making Pertinent Labs and Imaging studies reviewed. (See chart for details) Concern for COPD exacerbation in the setting of hypoxia secondary to Covid requiring 6 L nasal cannula. Patient afebrile with no leukocytosis, does not meet SIRS criteria. Labs w/ persistent transaminitis. INR supratherapeutic at 3.9 which was same as prior INR. Worsening infiltrates on chest x-ray. CTA chest negative for PE. Will admit for further medical management. Patient stable at time of admission and agrees with this plan. I have spoken with the patient and/or caregivers. I have explained the patient's condition, diagnosis and treatment plan based on the information available to me at this time. I have answered the patient's and/or caregivers questions and answered any concerns. The patient and/or caregivers have as good an understanding of the patient's diagnosis, condition and treatment plan as can be expected at this point. The patient has been stabilized within the capability of the emergency department. The patient will be transported for further care and management or will be moved to an observation or inpatient service. I have communicated with the staff or medical practitioner taking over this patient's care. Dragon Disclaimer: Dragon Disclaimer: This electronic medical record was generated, in whole or in part, using a voice recognition dictation system. Departure Departure Impression: Primary Impression: Acute hypoxemic respiratory failure due to COVID-19 Additional Impressions: COPD exacerbation Supratherapeutic INR Transaminitis Disposition: ADMITTED INPT THIS HOSP Admitting Physician: PHILLY (Dr. Valencia) Condition: STABLE Referrals: DEX FAM MD (PCP) Scripts Guaifenesin (GUAIFENESIN) 100 Mg/5 Ml Liquid 200 MG PO PRN Q4HRS PRN for COUGH for 7 Days, #1 BOT Prov: VINCE GUTIÉRREZ MD 04/09/20 SEUN COLLINS DO Apr 02, 2020 15:03
[2020-04-02 15:20] LABS: BASO % 0 % (0-3); EOS % 0 % (0-3); HEMATOCRIT 36.4 % (39.0-53.0); HEMOGLOBIN 12.9 g/dL (13.0-17.5); LYMPH # 0.2 x10^3/uL (1.0-4.8); LYMPH % 2 % (24-48); MEAN CORPUSCULAR HEMOGLOBIN 34 pg (25-35); MEAN CORPUSCULAR HGB CONC 36 g/dL (31-37); MEAN CORPUSCULAR VOLUME 96 fL (79-100); MONO # 0.3 x10^3/uL (0.0-1.1); MONO % 2 % (0-9); NEUT # 11.3 x10^3/uL (1.8-7.7); NEUT % 95 % (31-73); PLATELET COUNT 151 x10^3/uL (140-400); RED BLOOD COUNT 3.79 x10^6/uL (4.30-5.70); RED CELL DISTRIBUTION WIDTH 15.9 % (11.5-14.5); WHITE BLOOD COUNT 11.9 x10^3/uL (4.0-11.0)
--- NOTE | 2020-04-02 15:30 | RAD ---
XR CHEST 1V Clinical History: Reason: soa / Spl. Instructions: / History: Technique: AP view of the chest was obtained at 04/02/2020 3:17 PM. Comparison: March 27, 2020. Findings: The cardiomediastinal silhouette is normal. There is patchy reticular opacities throughout the lungs. The lungs and pleural margins are clear. Left-sided defibrillator and median sternotomy wires are ag ain seen. Impression: Worsening interstitial infiltrates likely atypical pneumonia. Electronically signed by: Nilton Cobos III, MD (04/02/2020 3:28 PM) [facility]
[2020-04-02 15:31] LABS: CALCIUM 8.1 mg/dL (8.5-10.1); CREATININE 1.2 mg/dL (0.7-1.3); GFR 58.9; POTASSIUM 3.8 mmol/L (3.5-5.1)
[2020-04-02 15:37] LABS: ALBUMIN 2.4 g/dL (3.4-5.0); DIRECT BILIRUBIN 0.5 mg/dL (0.0-0.2); TOTAL BILIRUBIN 1.9 mg/dL (0.2-1.0); TOTAL PROTEIN 5.8 g/dL (6.4-8.2)
[2020-04-02 15:49] LABS: % LYMPHS 4 % (24-48); % MONOS 3 % (0-10); % SEGS 93 % (35-66); NUCLEATED RBC 1; PLT ESTIMATE ADEQUATE (ADEQUATE)
[2020-04-02] MEDS ORDERED: DEXAMETHASONE SOD PHOS 20 MG/5 ML VIAL. IV ONE (16:30)
[2020-04-02 19:00] VITALS: BP 135/62
[2020-04-02] MEDS ORDERED: IOHEXOL 350 MG/ML 100 ML VIAL. IV ONE (19:00)
--- NOTE | 2020-04-02 19:20 | RAD ---
CT angiogram of the chest with contrast: Reason for examination: Short of breath. Evaluate for pulmonary embolus. Comparison is made to previous study dated 11/07/2019. Helical images were obtained through the chest with intravenous administration of 90 cc Omnipaque 350 using PE protocol. 3-D MIPS reconstruction was performed in sagittal and coronal planes. Exposure: One or more of the following individualized dose reduction techniques were utilized for thi s examination: 1. Automated exposure control 2. Adjustment of the mA and/or kV according to patient size 3. Use of iterative reconstruction technique. The trachea and mainstem bronchi show no intraluminal lesions. No abnormalities seen at the esophagus . The thoracic aorta shows no aneurysmal dilatation or dissection. The heart size is enlarged with no pericardial effusion. There is coronary arterial calcification seen. There is no evidence of pulmona ry embolus. There are however diffuse groundglass infiltrates bilaterally. No pleural effusions are s een. No acute bony abnormalities are seen. There are hepatic and splenic granuloma. No other focal lesions are seen in the liver or spleen. Adre nal gland show no abnormalities. There is cholelithiasis. No abnormality seen at the pancreas. IMPRESSION: No pulmonary embolus. Diffuse bilateral groundglass infiltrates. This could reflect pulmonary edema however atypical pneumo homa cannot be excluded. Cardiomegaly. Cholelithiasis. Electronically signed by: Shilpa Trejo MD (04/02/2020 7:18 PM) [facility]
--- NOTE | 2020-04-02 20:26 | EKG ---
[facility] [address] [place] [address] Test Date: 2020-04-02 Test Time: 14:37:24 Pat Name: PRICE SMITH Department: Room: 4 Gender: M Business Banking Representative: : 1945 Requested By: SEUN COLLINS Order Number: [id number] Reading MD: Zak Gonzalez Measurements Intervals [place] Rate: 76 P: [place]: QRS: -21 QRSD: 90 T: 46 QT: 420 QTc: 477 Interpretive Statements PROBABLE SINUS RHYTHM VENTRICULAR PREMATURE COMPLEX(ES) LEFTWARD AXIS Electronically Signed On 04-13-2020 14:48:32 INSTRUCTIONAL SERVICES SPECIALIST by Zak Gonzalez
[2020-04-02 23:31] VITALS: BP 124/58
[2020-04-03 03:00] VITALS: BP 135/62
[2020-04-03 07:00] VITALS: BP 137/67
[2020-04-03 11:00] VITALS: BP 111/55
--- NOTE | 2020-04-03 11:09 | PDOC1 ---
History and Physical Date of Admission Date of Admission DATE: 04/03/20 TIME: 11:09 Identification/Chief Complaint Chief Complaint 75 yo M past medical history of asthma, history of Covid in the past 6 months and on Coumadin due to blood clots, presents to the ED (after being discharged yesterday), cxr now worse on 15 liters o2 Past Medical History Past Medical History Past Medical History Past Medical History Past Medical History: Anxiety, Asthma, CAD, CHF, Diabetes-Type II, GERD, High Cholesterol, Hypertension, Kidney [place], [place] Additional Past Medical Histor: COVID 19 Past Surgical History: Cholecystectomy, Coronary Bypass Surgery, Tonsillectomy, Other Additional Past Surgical Histo: Stent placement Smoking Status: Former Smoker Additional Information: quit smoking 1977 Alcohol Use: None FHX OBESITY Cardiovascular: CAD, CHF, HTN, Hyperlipidemia Pulmonary: Other Musculoskeletal: Osteoarthritis Endocrine: Diabetes Past Surgical History Past Surgical History: Pacemaker, CABG, Tonsillectomy Family History Family History: Heart Disease Social History Smoke: No ALCOHOL: none Drugs: None Current Problem List Problem List Problems Medical Problems: (1) Acute hypoxemic respiratory failure due to COVID-19 Status: Acute (2) COPD exacerbation Status: Acute (3) Supratherapeutic INR Status: Acute (4) Transaminitis Status: Acute Current Medications Current Medications Current Medications Sodium Chloride 1,000 ml @ 1,000 mls/hr 1X ONCE IV Last administered on 04/02/20at 15:13; Start 04/02/20 at 15:00; Stop 04/02/20 at 15:59; Status DC Dexamethasone Sodium Phosphate (Decadron) 10 mg 1X ONCE IV Last administered on 04/02/20at 17:34; Start 04/02/20 at 16:30; Stop 04/02/20 at 16:32; Status DC Iohexol (Omnipaque 350 Mg/ml) 90 ml 1X ONCE IV ; Start 04/02/20 at 19:00; Stop 04/02/20 at 19:01; Status DC Active Scripts Active Medrol (Methylprednisolone) 4 Mg Tablet 4 Mg PO DAILY 7 Days Levofloxacin 500 Mg Tablet 1 Tab PO DAILY 7 Days Tylenol (Acetaminophen) 325 Mg Tablet 650 Mg PO PRN Q6HRS PRN 30 Days Ventolin Hfa (Albuterol Sulfate) 8 Gm Hfa.aer.ad 1 Puff INH PRN Q6HRS PRN 30 Days Klor-Con M20 (Potassium Chloride) 20 Meq Tab.er.prt 20 Meq PO DAILYWBKFT 14 Days Nyamyc (Nystatin) 15 Gm Powder 1 Dior TP BID 10 Days Culturelle (Lactobacillus Rhamnosus Gg) 1 Each Cap.sprink 1 Cap PO BID 30 Days Polyethylene Glycol 3350 17 Gm Powd.pack 17 Gm PO PRN DAILY PRN 30 Days Bisacodyl 10 Mg Supp.rect 10 Mg TN PRN DAILY PRN 10 Days Mag-Al Plus Xs Suspension (Mag Hydrox/Al Hydrox/Simeth) 30 Ml Oral.susp 30 Ml PO PRN Q3HRS PRN 14 Days Reported Warfarin Sodium 7.5 Mg Tablet 7.5 Mg PO TWICE WEEKLY [vitamin D] 400 Cap PO DAILY B Complex (Vitamin B Complex) 1 Each Tablet 1 Tab PO DAILY 30 Days Spironolactone-Hctz 25-25 Tab (Spironolact/Hydrochlorothiazid) 1 Each Tablet 1 Each PO DAILY Magnesium (Magnesium Oxide) 250 Mg Tablet 250 Mg PO QODAY Duoneb 0.5-3(2.5) Mg/3 Ml (Albuterol/Ipratropium) 3 Ml Ampul.neb 3 Ml NEB QID Lasix (Furosemide) 40 Mg Tablet 1 Tab PO DAILY 30 Days Warfarin Sodium 5 Mg Tablet 5 Mg PO DAILY Pravastatin Sodium 80 Mg Tablet 80 Mg PO DAILY Omeprazole 40 Mg Capsule.dr 40 Mg PO DAILY NITROGLYCERIN SubLingual (Nitroglycerin) 0.4 Mg Tab.subl 0.4 Mg SL PRN Q5MIN PRN Loratadine 10 Mg Tablet 10 Mg PO Carvedilol (Carvedilol) 6.25 Mg Tablet 6.25 Mg PO BIDWMEALS Proair Hfa Inhaler (Albuterol Sulfate) 8.5 Gm Hfa.aer.ad 1 Puff INH PRN Q6HRS PRN Allergies Allergies: Coded Allergies: No Known Medication Allergies (Verified Allergy, Unknown, 04/02/20) codeine (Verified Adverse Reaction, Intermediate, N/V, 04/02/20) Physical Exam Physical Exam Physical Exam HEENT: Neck Supple W Full Motion Chest: Symmetric LUNGS: Other (on NC) Heart: RRR (SR) Abdomen: Soft N/T Extremities: Other (trace bilateral LE edema ) Neurology: alert, oriented, follow commands General: Cooperative, mild distress HEENT: Atraumatic, EOMI Lungs: Other (crackles) Breasts: Not examined Abdomen: Normal bowel sounds, Soft Rectal Exam: not examined PELVIC: Examination not indicated Extremities: No cyanosis Neuro: Normal speech, Cranial nerves 3-12 NL Vitals Vitals Vital Signs Date Time Temp Pulse Resp B/P (MAP) Pulse Ox O2 Delivery O2 Flow Rate FiO2 04/03/20 08:00 Non-Rebreather 15.0 04/03/20 07:00 98.2 67 24 137/67 (90) 92 98.2 Labs Labs Laboratory Tests Test 04/02/20 15:10 04/02/20 20:19 White Blood Count 11.9 x10^3/uL (4.0-11.0) Red Blood Count 3.79 x10^6/uL (4.30-5.70) Hemoglobin 12.9 g/dL (13.0-17.5) Hematocrit 36.4 % (39.0-53.0) Mean Corpuscular Volume 96 fL (79-100) Mean Corpuscular Hemoglobin 34 pg (25-35) Mean Corpuscular Hemoglobin Concent 36 g/dL (31-37) Red Cell Distribution Width 15.9 % (11.5-14.5) Platelet Count 151 x10^3/uL (140-400) Neutrophils (%) (Auto) 95 % (31-73) Lymphocytes (%) (Auto) 2 % (24-48) Monocytes (%) (Auto) 2 % (0-9) Eosinophils (%) (Auto) 0 % (0-3) Basophils (%) (Auto) 0 % (0-3) Neutrophils # (Auto) 11.3 x10^3/uL (1.8-7.7) Lymphocytes # (Auto) 0.2 x10^3/uL (1.0-4.8) Monocytes # (Auto) 0.3 x10^3/uL (0.0-1.1) Eosinophils # (Auto) 0.0 x10^3/uL (0.0-0.7) Basophils # (Auto) 0.0 x10^3/uL (0.0-0.2) Segmented Neutrophils % 93 % (35-66) Lymphocytes % 4 % (24-48) Monocytes % 3 % (0-10) Nucleated Red Blood Cells 1 Platelet Estimate Adequate (ADEQUATE) Prothrombin Time 39.0 SEC (11.7-14.0) Prothromb Time International Ratio 3.9 (0.8-1.1) Activated Partial Thromboplast Time 34 SEC (24-38) Sodium Level 138 mmol/L (136-145) Potassium Level 3.8 mmol/L (3.5-5.1) Chloride Level 100 mmol/L (98-107) Carbon Dioxide Level 32 mmol/L (21-32) Anion Gap 6 (6-14) Blood Urea Nitrogen 29 mg/dL (8-26) Creatinine 1.2 mg/dL (0.7-1.3) Estimated GFR (Cockcroft-Gault) 58.9 Glucose Level 125 mg/dL (70-99) Lactic Acid Level 1.5 mmol/L (0.4-2.0) Calcium Level 8.1 mg/dL (8.5-10.1) Total Bilirubin 1.9 mg/dL (0.2-1.0) Direct Bilirubin 0.5 mg/dL (0.0-0.2) Aspartate Amino Transf (AST/SGOT) 73 U/L (15-37) Alanine Aminotransferase (ALT/SGPT) 75 U/L (16-63) Alkaline Phosphatase 66 U/L (46-116) Creatine Kinase 130 U/L (39-308) Troponin I Quantitative < 0.017 ng/mL (0.000-0.055) OR-Xmd-K-Type Natriuretic Peptide 3496 pg/mL (0-449) Total Protein 5.8 g/dL (6.4-8.2) Albumin 2.4 g/dL (3.4-5.0) Glucose (Fingerstick) 131 mg/dL (70-99) Laboratory Tests Test 04/02/20 15:10 04/02/20 20:19 White Blood Count 11.9 x10^3/uL (4.0-11.0) Red Blood Count 3.79 x10^6/uL (4.30-5.70) Hemoglobin 12.9 g/dL (13.0-17.5) Hematocrit 36.4 % (39.0-53.0) Mean Corpuscular Volume 96 fL (79-100) Mean Corpuscular Hemoglobin 34 pg (25-35) Mean Corpuscular Hemoglobin Concent 36 g/dL (31-37) Red Cell Distribution Width 15.9 % (11.5-14.5) Platelet Count 151 x10^3/uL (140-400) Neutrophils (%) (Auto) 95 % (31-73) Lymphocytes (%) (Auto) 2 % (24-48) Monocytes (%) (Auto) 2 % (0-9) Eosinophils (%) (Auto) 0 % (0-3) Basophils (%) (Auto) 0 % (0-3) Neutrophils # (Auto) 11.3 x10^3/uL (1.8-7.7) Lymphocytes # (Auto) 0.2 x10^3/uL (1.0-4.8) Monocytes # (Auto) 0.3 x10^3/uL (0.0-1.1) Eosinophils # (Auto) 0.0 x10^3/uL (0.0-0.7) Basophils # (Auto) 0.0 x10^3/uL (0.0-0.2) Segmented Neutrophils % 93 % (35-66) Lymphocytes % 4 % (24-48) Monocytes % 3 % (0-10) Nucleated Red Blood Cells 1 Platelet Estimate Adequate (ADEQUATE) Prothrombin Time 39.0 SEC (11.7-14.0) Prothromb Time International Ratio 3.9 (0.8-1.1) Activated Partial Thromboplast Time 34 SEC (24-38) Sodium Level 138 mmol/L (136-145) Potassium Level 3.8 mmol/L (3.5-5.1) Chloride Level 100 mmol/L (98-107) Carbon Dioxide Level 32 mmol/L (21-32) Anion Gap 6 (6-14) Blood Urea Nitrogen 29 mg/dL (8-26) Creatinine 1.2 mg/dL (0.7-1.3) Estimated GFR (Cockcroft-Gault) 58.9 Glucose Level 125 mg/dL (70-99) Lactic Acid Level 1.5 mmol/L (0.4-2.0) Calcium Level 8.1 mg/dL (8.5-10.1) Total Bilirubin 1.9 mg/dL (0.2-1.0) Direct Bilirubin 0.5 mg/dL (0.0-0.2) Aspartate Amino Transf (AST/SGOT) 73 U/L (15-37) Alanine Aminotransferase (ALT/SGPT) 75 U/L (16-63) Alkaline Phosphatase 66 U/L (46-116) Creatine Kinase 130 U/L (39-308) Troponin I Quantitative < 0.017 ng/mL (0.000-0.055) NS-Iuc-H-Type Natriuretic Peptide 3496 pg/mL (0-449) Total Protein 5.8 g/dL (6.4-8.2) Albumin 2.4 g/dL (3.4-5.0) Glucose (Fingerstick) 131 mg/dL (70-99) Images Images PATIENT: PRICE SMITH ACCOUNT: [id number] : 1945 LOCATION: ER AGE: 75 SEX: M EXAM STATUS: PRE ER ORD. PHYSICIAN: SEUN COLLINS DO REASON: soa PROCEDURE: PORTABLE CHEST 1V XR CHEST 1V Clinical History: Reason: soa / Spl. Instructions: / History: Technique: AP view of the chest was obtained at 04/02/2020 3:17 PM. Comparison: March 27, 2020. Findings: The cardiomediastinal silhouette is normal. There is patchy reticular opacities throughout the lungs. The lungs and pleural margins are clear. Left-sided defibrillator and median sternotomy wires are again seen. Impression: Worsening interstitial infiltrates likely atypical pneumonia. Electronically signed by: Rigo Branch III, MD (04/02/2020 3:28 PM) [facility] DICTATED and SIGNED BY: RIGO BRANCH III, MD DATE: 04/02/20 [id number] PATIENT: PRICE SMITH ACCOUNT: [id number] : 1945 LOCATION: [address] [place] [address] AGE: 75 SEX: M EXAM STATUS: ADM IN ORD. PHYSICIAN: SEUN COLLINS DO REASON: soa, r/o pe PROCEDURE: CT ANGIOGRAPHY CHEST CT angiogram of the chest with contrast: Reason for examination: Short of breath. Evaluate for pulmonary embolus. Comparison is made to previous study dated 11/07/2019. Helical images were obtained through the chest with intravenous administration of 90 cc Omnipaque 350 using PE protocol. 3-D MIPS reconstruction was performed in sagittal and coronal planes. Exposure: One or more of the following individualized dose reduction techniques were utilized for this examination: 1. Automated exposure control 2. Adjustment of the mA and/or kV according to patient size 3. Use of iterative reconstruction technique. The trachea and mainstem bronchi show no intraluminal lesions. No abnormalities seen at the esophagus. The thoracic aorta shows no aneurysmal dilatation or dissection. The heart size is enlarged with no pericardial effusion. There is coronary arterial calcification seen. There is no evidence of pulmonary embolus. There are however diffuse groundglass infiltrates bilaterally. No pleural effusions are seen. No acute bony abnormalities are seen. There are hepatic and splenic granuloma. No other focal lesions are seen in the liver or spleen. Adrenal gland show no abnormalities. There is cholelithiasis. No abnormality seen at the pancreas. IMPRESSION: No pulmonary embolus. Diffuse bilateral groundglass infiltrates. This could reflect pulmonary edema however atypical pneumonia cannot be excluded. Cardiomegaly. Cholelithiasis. Electronically signed by: Nadege Werner MD (04/02/2020 7:18 PM) [facility] DICTATED and SIGNED BY: NADEGE WERNER MD DATE: 04/02/20 [id number] VTE Prophylaxis Ordered VTE Prophylaxis Devices: Yes VTE Pharmacological Prophylaxi: Yes Assessment/Plan Assessment/Plan Chief Complaint impression Acute hypoxic respiratory failure with worsening hypoxia Acute asthma exacerbation remote tobacco abuse Atypical pneumonia vs. viral pneumonia Hypokalemia ON REPLACEMENT IV FREDDIE, RESOLVING Vasomotor nephropathy, improved, acute Subtherapeutic INR on warfarin therapy due to history of blood clots Malnutrition COVID-19 POS DYSPHASIA , improving HYPOKALEMIA ON REPLACEMENT RX Plan Consult pulmonology, FOLLOWING Continue treatment with Solu-Medrol 80 mg every 8hr and Levaquin 750 mg Combivent and albuterol inhalers COVID-19 pos ; influenza negative Resume home medications FEN - Cardiac diet PPX - Warfarin per pharmacy DNR O2 SUPPORT AT 15 LITERS NC Dispo - inpatient for above Continue IV Solu-Medrol with slow taper finished remdesivir for full course, Coumadin for anticoagulation antibiotic coverage with Levaquin Monitor renal function DVT/GI prophylaxis Physical therapy/Occupational Therapy Continue IV Solu-Medrol with slow taper 6-minute walk prior to discharg Continue MDI/Combivent Discussed with RN DO NOT RESUSCITATE dictated Justifications for Admission Other Justification Acute respiratory failure with hypoxia, acute asthma exacerbation, COVID-19 DILCIAI KYLEE GUTIERREZ MD Apr 03, 2020 11:09
[2020-04-03] MEDS ORDERED: POLYETHYLENE GLYCOL 3350 17 GM PACKET. PO PRN (11:15)
[2020-04-03] MEDS ORDERED: BISACODYL 10 MG SUPP.RECT. PR PRN (11:15)
[2020-04-03] MEDS ORDERED: NITROGLYCERIN SUBLINGUAL 0.4 MG BOTTLE OF 25. SL PRN (11:15)
[2020-04-03] MEDS ORDERED: ALBUTEROL SULFATE 2.5 MG/3 ML NEBU. INH PRN (11:15)
[2020-04-03] MEDS ORDERED: ACETAMINOPHEN 325 MG TABLET. PO PRN ×2 (11:15→15:00)
[2020-04-03] MEDS ORDERED: ALBUTEROL SULFATE 8GM INHALER. INH PRN (11:15)
[2020-04-03] MEDS ORDERED: MAG HYDROX/ALUMINUM HYD/SIMETH 30 ML ORAL.SUSP PO PRN ×2 (11:15→15:00)
[2020-04-03] MEDS: NYSTATIN TOPICAL POWDER 15GM BOTTLE. TP SCH ×2 (11:30→21:00)
[2020-04-03] MEDS ORDERED: IPRATRPIUM/ALBUTEROL 0.5/2.5MG 3 ML NEBU. NEB PRN (13:00)
[2020-04-03] MEDS: PANTOPRAZOLE 40 MG TABLET.DR. PO SCH (13:03)
[2020-04-03] MEDS: SPIRONOLACTONE 25 MG TABLET PO SCH (13:03)
[2020-04-03] MEDS: POTASSIUM CHLORIDE 20 MEQ TABLET.ER. PO SCH (13:03)
[2020-04-03] MEDS: CETIRIZINE HCL 10 MG TABLET. PO SCH (13:03)
[2020-04-03] MEDS: CHOLECALCIFEROL (VITAMIN D3) 1,000 UNIT TABLET PO SCH (13:03)
[2020-04-03] MEDS: VITAMIN B COMPLEX TABLET. PO SCH (13:04)
[2020-04-03] MEDS: LACTOBACILLUS RHAMNOSUS GG 1 CAPSULE. PO SCH ×2 (13:04→21:13)
[2020-04-03] MEDS: FUROSEMIDE 40 MG TABLET. PO SCH (13:04)
[2020-04-03] MEDS: CARVEDILOL 6.25 MG TABLET. PO SCH ×2 (13:04→17:06)
--- NOTE | 2020-04-03 14:17 | NUR ---
Pharmacy Warfarin Dosing Note S:Pharmacy consulted to assist with anticoagulation therapy with target INR: 2 -3 O:PRICE SMITH is a 75 year old M with Atrial Fibrillation LABS: Last INR: 3.9 Last HGB: 12.9 Last HCT: 36.4 Last PLT: 151 A:INR of 3.9 is above desired range. Target range for this patient is: 2 -3 P: Warfarin dose: Hold dose today Bridge Therapy: none Next INR due tomorrow Pharmacy anticoagulation service will continue to follow. Adrienne Moody RPH, 04/03/20 [id number]
[2020-04-03 15:00] VITALS: BP 116/60
[2020-04-03] MEDS ORDERED: ONDANSETRON PF 4 MG/2 ML VIAL. IV PRN (15:00)
[2020-04-03] MEDS ORDERED: 0.9 % SODIUM CHLORIDE 10 ML DISP.SYRIN. IV PRN (15:00)
[2020-04-03] MEDS ORDERED: guaiFENesin ORAL 200 MG/10 ML LIQUID. PO PRN (15:00)
[2020-04-03] MEDS ORDERED: DOCUSATE SODIUM 100 MG CAPSULE. PO PRN (15:00)
[2020-04-03] MEDS ORDERED: SODIUM PHOSPHATES 19/7GM 133 ML ENEMA. PR PRN (15:00)
[2020-04-03] MEDS ORDERED: ALBUTEROL SULFATE 2.5 MG/3 ML NEBU. NEB PRN (15:00)
[2020-04-03] MEDS: methylPREDNISolone SOD SUCC PF 40 MG/ML VIAL. IV SCH ×2 (15:19→21:13)
--- NOTE | 2020-04-03 16:42 | HP ---
ADMIT DATE: 04/03/2020 CHIEF COMPLAINT: Increasing shortness of breath., hypoxia HISTORY OF PRESENT ILLNESS: A 75-year-old male with history of COVID-19 who was recently discharged 2 days ago. He was discharged to custodial on Solu-Medrol and Levaquin. He has a known history of COPD. He was seen in the emergency room, he required initially 15 liters of O2 for support. Chest x-ray shows progressive worsening of infiltrates. The patient was therefore admitted for reevaluation of treatment of worsening COVID-19 pneumonitis and pneumonia. EXPECTED STAY > 72 HRS due to severe decompensation of pneumonia PAST MEDICAL HISTORY: Significant for diabetes, hyperlipidemia, hypertension, previous NV, cholecystectomy, coronary artery disease with bypass surgery, remote tonsillectomy, and COPD Former smoker, quit smoking in 1977. REVIEW OF SYSTEMS: The patient complains mainly of fatigue. Denies fever, chills. He has stable cough, but worsening shortness of breath. Denies chest pain. Denies nausea, vomiting, blood in stools or melena. Denies dysuria, back pain, joint pain, or rash. No headache, focal weakness. No polyuria, polydipsia. Denies depression or anxiety. no focal weakness A 14-point review of systems otherwise negative. PHYSICAL EXAMINATION: GENERAL: Well nourished, no acute distress, on 15 liters. NECK: Supple. Throat and pharynx are clear. CARDIOVASCULAR: Regular rate without S3 or S4. LUNGS: Show a few crackles. ABDOMEN: Soft, nontender. EXTREMITIES: Without rash. No CVA tenderness. No cyanosis, clubbing, or edema. BREASTS EXAM: Not examined. NEUROLOGIC: He is alert and oriented. Normal sensory function. Visual zimmerman are full to confrontation. No focal deficits. Muscles of mastication are symmetric bilaterally. cn 2-12 grossly intact neurovascular bundle intact His affect is normal. Mood is normal. Cranial nerves III-XII are grossly intact. EKG shows QTc of 477. Chest x-ray shows worsening infiltrates, likely of atypical pneumonia. SARS-2 Covid - CURRENT MEDICATIONS: Please see medication reconciliation. ASSESSMENT: 1. Acute on chronic worsening hypoxia with severe respiratory failure. 2. Acute asthma or chronic obstructive pulmonary disease exacerbation. 3. Remote tobacco abuse. 4. Atypical pneumonia secondary to coronavirus disease-19. 5. Hypokalemia, on replacement. 6. Vasomotor nephropathy, improving. 7. Supratherapeutic INR. We will hold Coumadin and allow pharmacy to adjust. 8. Severe protein caloric malnutrition. 9. Dysphagia, improving. PLAN: admit to 6 th floor covid unit Consult Pulmonary Medicine. Continue treatment with IV Solu-Medrol 80 mg q.8 hours and Levaquin 500 mg daily, Combivent and albuterol inhaler. Resume home medications, cardiac diet O2 support of 15 liters nasal cannula. spo2 < 93% The patient has fortunately finished his 5-day course of remdesivir. We will monitor renal function. coumadin for dvt prophylaxis GI PROPHYLAXIS Plan DVT and GI prophylaxis. PT and OT, 6-minute walk prior to discharge, continue MDI and Combivent. Discussed with RN , we will hold diuretics for orthostasis as well as Entresto. Coronary artery disease appears to be clinically stable. He does have a known history of ischemic cardiomyopathy with previous AICD implantation, which appears to be stable., compensated Total time for the patient exam, chart review 76 minutes, greater than 50% of time was spent with the patient's exam, chart review and the patient's care and coordination. KYLEE GUTIERREZ MD DR: TIM/kendra JOB#: [id number] / [id number] SEJAL
[2020-04-03 19:37] LABS: BILIRUBIN,URINE NEGATIVE (NEG); CLARITY,URINE CLEAR; COLOR,URINE YELLOW; NITRITE,URINE NEGATIVE (NEG); PROTEIN,URINE NEGATIVE (NEG-TRACE); UROBILINOGEN,URINE 0.2 mg/dL (0.2 mg/dL)
[2020-04-03 19:45] VITALS: BP 120/59
[2020-04-03 19:48] LABS: BACTERIA,URINE 0 /HPF (0-FEW); HYALINE CASTS, URINE FEW /HPF; RBC,URINE 0 /HPF (0-2); WBC,URINE OCC /HPF (0-4)
[2020-04-03] MEDS: ATORVASTATIN CALCIUM 20 MG TABLET PO SCH (21:13)
[2020-04-03 23:13] VITALS: BP 114/59
[2020-04-03] MEDS: TEMAZEPAM 15 MG CAPSULE PO SCH (23:40)
[2020-04-04 03:38] VITALS: BP 156/71
[2020-04-04 04:44] LABS: BASO % 0 % (0-3); EOS % 0 % (0-3); HEMATOCRIT 35.7 % (39.0-53.0); HEMOGLOBIN 12.5 g/dL (13.0-17.5); LYMPH # 0.2 x10^3/uL (1.0-4.8); LYMPH % 2 % (24-48); MEAN CORPUSCULAR HEMOGLOBIN 34 pg (25-35); MEAN CORPUSCULAR HGB CONC 35 g/dL (31-37); MEAN CORPUSCULAR VOLUME 97 fL (79-100); MONO # 0.2 x10^3/uL (0.0-1.1); MONO % 2 % (0-9); NEUT # 7.5 x10^3/uL (1.8-7.7); NEUT % 96 % (31-73); PLATELET COUNT 134 x10^3/uL (140-400); RED BLOOD COUNT 3.68 x10^6/uL (4.30-5.70); RED CELL DISTRIBUTION WIDTH 15.7 % (11.5-14.5); WHITE BLOOD COUNT 7.8 x10^3/uL (4.0-11.0)
[2020-04-04 04:55] LABS: PROTHROMBIN TIME PATIENT 39.7 SEC (11.7-14.0)
[2020-04-04 05:01] LABS: ALBUMIN 2.3 g/dL (3.4-5.0); ALBUMIN/GLOBULIN RATIO 0.8 (1.0-1.7); CREATININE 1.1 mg/dL (0.7-1.3); GFR 65.1; POTASSIUM 3.9 mmol/L (3.5-5.1); TOTAL BILIRUBIN 1.2 mg/dL (0.2-1.0); TOTAL PROTEIN 5.2 g/dL (6.4-8.2)
[2020-04-04] MEDS: methylPREDNISolone SOD SUCC PF 40 MG/ML VIAL. IV SCH ×3 (06:12→20:15)
[2020-04-04 07:00] VITALS: BP 135/62
[2020-04-04] MEDS: FUROSEMIDE 40 MG TABLET. PO SCH (08:24)
[2020-04-04] MEDS: CARVEDILOL 6.25 MG TABLET. PO SCH ×2 (08:24→16:51)
[2020-04-04] MEDS: MAGNESIUM OXIDE 400 MG TABLET PO SCH (08:24)
[2020-04-04] MEDS: LACTOBACILLUS RHAMNOSUS GG 1 CAPSULE. PO SCH ×2 (08:24→20:15)
[2020-04-04] MEDS: POTASSIUM CHLORIDE 20 MEQ TABLET.ER. PO SCH (08:25)
[2020-04-04] MEDS: CETIRIZINE HCL 10 MG TABLET. PO SCH (08:25)
[2020-04-04] MEDS: VITAMIN B COMPLEX TABLET. PO SCH (08:25)
[2020-04-04] MEDS: CHOLECALCIFEROL (VITAMIN D3) 1,000 UNIT TABLET PO SCH (08:25)
[2020-04-04] MEDS: SPIRONOLACTONE 25 MG TABLET PO SCH (08:25)
[2020-04-04] MEDS: NYSTATIN TOPICAL POWDER 15GM BOTTLE. TP SCH ×2 (08:25→21:00)
[2020-04-04] MEDS: PANTOPRAZOLE 40 MG TABLET.DR. PO SCH (08:25)
[2020-04-04] MEDS ORDERED: WARFARIN 5 MG TABLET. PO SCH (09:00)
--- NOTE | 2020-04-04 10:36 | PDOC ---
PROGRESS NOTES Date of Service: DATE: 04/04/20 TIME: 10:36 Chief Complaint Chief Complaint ASSESSMENT: 1. Acute on chronic worsening hypoxia with severe respiratory failure. 2. Acute asthma or chronic obstructive pulmonary disease exacerbation. 3. Remote tobacco abuse. 4. Atypical pneumonia secondary to coronavirus disease-19. 5. Hypokalemia, on replacement. 6. Vasomotor nephropathy, improving. 7. Supratherapeutic INR. We will hold Coumadin and allow pharmacy to adjust. 8. Severe protein caloric malnutrition. 9. Dysphagia, improving. PLAN: admit to 6 th floor covid unit Consult Pulmonary Medicine. Continue treatment with IV Solu-Medrol 80 mg q.8 hours and Levaquin 500 mg daily, Combivent and albuterol inhaler. Resume home medications, cardiac diet O2 support of 15 liters nasal cannula. spo2 < 93% has fortunately finished his 5-day course of remdesivir. We will monitor renal function. coumadin for dvt prophylaxis GI PROPHYLAXIS PT and OT, 6-minute walk prior to discharge, continue MDI and Combivent. Discussed with RN , we will hold diuretics for orthostasis as well as Entresto. Coronary artery disease appears to be clinically stable. Add Zosyn and vancomycin. He does have a known history of ischemic cardiomyopathy with previous AICD implantation, which appears to be stable., compensated Total time for the patient exam, chart review 37 minutes, greater than 50% of time was spent with the patient's exam, chart review and the patient's care and coordination. History of Present Illness History of Present Illness CHIEF COMPLAINT: Increasing shortness of breath., hypoxia HISTORY OF PRESENT ILLNESS: A 75-year-old male with history of COVID-19 who was recently discharged 2 days ago. He was discharged to detention on Solu-Medrol and Levaquin. He has a known history of COPD. He was seen in the emergency room, he required initially 15 liters of O2 for support. Chest x-ray shows progressive worsening of infiltrates. The patient was therefore admitted for reevaluation of treatment of worsening COVID-19 pneumonitis and pneumonia. EXPECTED STAY > 72 HRS due to severe decompensation of pneumonia PAST MEDICAL HISTORY: Significant for diabetes, hyperlipidemia, hypertension, previous MD, cholecystectomy, coronary artery disease with bypass surgery, remote tonsillectomy, and COPD Former smoker, quit smoking in 1977. REVIEW OF SYSTEMS: The patient complains mainly of fatigue. Denies fever, chills. He has stable cough, but worsening shortness of breath. Denies chest pain. Denies nausea, vomiting, blood in stools or melena. Denies dysuria, back pain, joint pain, or rash. No headache, focal weakness. No polyuria, polydipsia. Denies depression or anxiety. no focal weakness A 14-point review of systems otherwise negative MEDS SEE MAR Vitals Vitals Vital Signs Date Time Temp Pulse Resp B/P (MAP) Pulse Ox O2 Delivery O2 Flow Rate FiO2 04/04/20 08:24 60 135/62 04/04/20 08:00 Non-Rebreather 15.0 04/04/20 07:00 96.2 30 90 96.2 Physical Exam Physical Exam GENERAL: Well nourished, no acute distress, on 15 liters. RESTING IN BEDSIDE CHAIR NECK: Supple. Throat and pharynx are clear. CARDIOVASCULAR: Regular rate without S3 or S4. LUNGS: Show a few crackles. ABDOMEN: Soft, nontender. EXTREMITIES: Without rash. No CVA tenderness. No cyanosis, clubbing, or edema. BREASTS EXAM: Not examined. NEUROLOGIC: He is alert and oriented. Normal sensory function. Visual zimmerman are full to confrontation. No focal deficits. Muscles of mastication are symmetric bilaterally. cn 2-12 grossly intact neurovascular bundle intact His affect is normal. Mood is normal. Cranial nerves III-XII are grossly intact. EKG shows QTc of 477. Chest x-ray shows worsening infiltrates, likely of atypical pneumonia. SARS-2 Covid - General: Alert, Oriented X3, Cooperative, mild distress Heart: Regular rate Lungs: Clear Abdomen: Normal bowel sounds, Soft Extremities: No clubbing, No cyanosis Skin: No rashes Labs LABS Laboratory Tests Test 04/03/20 11:22 04/03/20 16:42 04/03/20 19:25 04/03/20 21:37 Glucose (Fingerstick) 126 mg/dL (70-99) 124 mg/dL (70-99) 181 mg/dL (70-99) Urine Collection Type Unknown Urine Color Yellow Urine Clarity Clear Urine pH 6.0 (<5.0-8.0) Urine Specific Cisco 1.015 (1.000-1.030) Urine Protein Negative mg/dL (NEG-TRACE) Urine Glucose (UA) Negative mg/dL (NEG) Urine Ketones (Stick) Negative mg/dL (NEG) Urine Blood Negative (NEG) Urine Nitrite Negative (NEG) Urine Bilirubin Negative (NEG) Urine Urobilinogen Dipstick 0.2 mg/dL (0.2 mg/dL) Urine Leukocyte Esterase Negative (NEG) Urine RBC 0 /HPF (0-2) Urine WBC Occ /HPF (0-4) Urine Squamous Epithelial Cells Occ /LPF Urine Bacteria 0 /HPF (0-FEW) Urine Hyaline Casts Few /HPF Urine Mucus Slight /LPF Test 04/04/20 04:10 04/04/20 07:15 White Blood Count 7.8 x10^3/uL (4.0-11.0) Red Blood Count 3.68 x10^6/uL (4.30-5.70) Hemoglobin 12.5 g/dL (13.0-17.5) Hematocrit 35.7 % (39.0-53.0) Mean Corpuscular Volume 97 fL (79-100) Mean Corpuscular Hemoglobin 34 pg (25-35) Mean Corpuscular Hemoglobin Concent 35 g/dL (31-37) Red Cell Distribution Width 15.7 % (11.5-14.5) Platelet Count 134 x10^3/uL (140-400) Neutrophils (%) (Auto) 96 % (31-73) Lymphocytes (%) (Auto) 2 % (24-48) Monocytes (%) (Auto) 2 % (0-9) Eosinophils (%) (Auto) 0 % (0-3) Basophils (%) (Auto) 0 % (0-3) Neutrophils # (Auto) 7.5 x10^3/uL (1.8-7.7) Lymphocytes # (Auto) 0.2 x10^3/uL (1.0-4.8) Monocytes # (Auto) 0.2 x10^3/uL (0.0-1.1) Eosinophils # (Auto) 0.0 x10^3/uL (0.0-0.7) Basophils # (Auto) 0.0 x10^3/uL (0.0-0.2) Prothrombin Time 39.7 SEC (11.7-14.0) Prothromb Time International Ratio 4.0 (0.8-1.1) Sodium Level 141 mmol/L (136-145) Potassium Level 3.9 mmol/L (3.5-5.1) Chloride Level 103 mmol/L (98-107) Carbon Dioxide Level 31 mmol/L (21-32) Anion Gap 7 (6-14) Blood Urea Nitrogen 29 mg/dL (8-26) Creatinine 1.1 mg/dL (0.7-1.3) Estimated GFR (Cockcroft-Gault) 65.1 BUN/Creatinine Ratio 26 (6-20) Glucose Level 162 mg/dL (70-99) Calcium Level 8.0 mg/dL (8.5-10.1) Total Bilirubin 1.2 mg/dL (0.2-1.0) Aspartate Amino Transf (AST/SGOT) 53 U/L (15-37) Alanine Aminotransferase (ALT/SGPT) 59 U/L (16-63) Alkaline Phosphatase 66 U/L (46-116) Total Protein 5.2 g/dL (6.4-8.2) Albumin 2.3 g/dL (3.4-5.0) Albumin/Globulin Ratio 0.8 (1.0-1.7) Glucose (Fingerstick) 156 mg/dL (70-99) Assessment and Plan Assessmemt and Plan Problems Medical Problems: (1) Acute hypoxemic respiratory failure due to COVID-19 Status: Acute (2) COPD exacerbation Status: Acute (3) Supratherapeutic INR Status: Acute (4) Transaminitis Status: Acute Comment Review of Relevant I have reviewed the following items vamsi (where applicable) has been applied. Labs Laboratory Tests Test 04/02/20 15:10 04/02/20 20:19 04/03/20 11:22 04/03/20 16:42 White Blood Count 11.9 x10^3/uL (4.0-11.0) Red Blood Count 3.79 x10^6/uL (4.30-5.70) Hemoglobin 12.9 g/dL (13.0-17.5) Hematocrit 36.4 % (39.0-53.0) Mean Corpuscular Volume 96 fL (79-100) Mean Corpuscular Hemoglobin 34 pg (25-35) Mean Corpuscular Hemoglobin Concent 36 g/dL (31-37) Red Cell Distribution Width 15.9 % (11.5-14.5) Platelet Count 151 x10^3/uL (140-400) Neutrophils (%) (Auto) 95 % (31-73) Lymphocytes (%) (Auto) 2 % (24-48) Monocytes (%) (Auto) 2 % (0-9) Eosinophils (%) (Auto) 0 % (0-3) Basophils (%) (Auto) 0 % (0-3) Neutrophils # (Auto) 11.3 x10^3/uL (1.8-7.7) Lymphocytes # (Auto) 0.2 x10^3/uL (1.0-4.8) Monocytes # (Auto) 0.3 x10^3/uL (0.0-1.1) Eosinophils # (Auto) 0.0 x10^3/uL (0.0-0.7) Basophils # (Auto) 0.0 x10^3/uL (0.0-0.2) Segmented Neutrophils % 93 % (35-66) Lymphocytes % 4 % (24-48) Monocytes % 3 % (0-10) Nucleated Red Blood Cells 1 Platelet Estimate Adequate (ADEQUATE) Prothrombin Time 39.0 SEC (11.7-14.0) Prothromb Time International Ratio 3.9 (0.8-1.1) Activated Partial Thromboplast Time 34 SEC (24-38) Sodium Level 138 mmol/L (136-145) Potassium Level 3.8 mmol/L (3.5-5.1) Chloride Level 100 mmol/L (98-107) Carbon Dioxide Level 32 mmol/L (21-32) Anion Gap 6 (6-14) Blood Urea Nitrogen 29 mg/dL (8-26) Creatinine 1.2 mg/dL (0.7-1.3) Estimated GFR (Cockcroft-Gault) 58.9 Glucose Level 125 mg/dL (70-99) Lactic Acid Level 1.5 mmol/L (0.4-2.0) Calcium Level 8.1 mg/dL (8.5-10.1) Total Bilirubin 1.9 mg/dL (0.2-1.0) Direct Bilirubin 0.5 mg/dL (0.0-0.2) Aspartate Amino Transf (AST/SGOT) 73 U/L (15-37) Alanine Aminotransferase (ALT/SGPT) 75 U/L (16-63) Alkaline Phosphatase 66 U/L (46-116) Creatine Kinase 130 U/L (39-308) Troponin I Quantitative < 0.017 ng/mL (0.000-0.055) [place]-Rel-N-Type Natriuretic Peptide 3496 pg/mL (0-449) Total Protein 5.8 g/dL (6.4-8.2) Albumin 2.4 g/dL (3.4-5.0) Glucose (Fingerstick) 131 mg/dL (70-99) 126 mg/dL (70-99) 124 mg/dL (70-99) Test 04/03/20 19:25 04/03/20 21:37 04/04/20 04:10 04/04/20 07:15 Urine Collection Type Unknown Urine Color Yellow Urine Clarity Clear Urine pH 6.0 (<5.0-8.0) Urine Specific Cisco 1.015 (1.000-1.030) Urine Protein Negative mg/dL (NEG-TRACE) Urine Glucose (UA) Negative mg/dL (NEG) Urine Ketones (Stick) Negative mg/dL (NEG) Urine Blood Negative (NEG) Urine Nitrite Negative (NEG) Urine Bilirubin Negative (NEG) Urine Urobilinogen Dipstick 0.2 mg/dL (0.2 mg/dL) Urine Leukocyte Esterase Negative (NEG) Urine RBC 0 /HPF (0-2) Urine WBC Occ /HPF (0-4) Urine Squamous Epithelial Cells Occ /LPF Urine Bacteria 0 /HPF (0-FEW) Urine Hyaline Casts Few /HPF Urine Mucus Slight /LPF Glucose (Fingerstick) 181 mg/dL (70-99) 156 mg/dL (70-99) White Blood Count 7.8 x10^3/uL (4.0-11.0) Red Blood Count 3.68 x10^6/uL (4.30-5.70) Hemoglobin 12.5 g/dL (13.0-17.5) Hematocrit 35.7 % (39.0-53.0) Mean Corpuscular Volume 97 fL (79-100) Mean Corpuscular Hemoglobin 34 pg (25-35) Mean Corpuscular Hemoglobin Concent 35 g/dL (31-37) Red Cell Distribution Width 15.7 % (11.5-14.5) Platelet Count 134 x10^3/uL (140-400) Neutrophils (%) (Auto) 96 % (31-73) Lymphocytes (%) (Auto) 2 % (24-48) Monocytes (%) (Auto) 2 % (0-9) Eosinophils (%) (Auto) 0 % (0-3) Basophils (%) (Auto) 0 % (0-3) Neutrophils # (Auto) 7.5 x10^3/uL (1.8-7.7) Lymphocytes # (Auto) 0.2 x10^3/uL (1.0-4.8) Monocytes # (Auto) 0.2 x10^3/uL (0.0-1.1) Eosinophils # (Auto) 0.0 x10^3/uL (0.0-0.7) Basophils # (Auto) 0.0 x10^3/uL (0.0-0.2) Prothrombin Time 39.7 SEC (11.7-14.0) Prothromb Time International Ratio 4.0 (0.8-1.1) Sodium Level 141 mmol/L (136-145) Potassium Level 3.9 mmol/L (3.5-5.1) Chloride Level 103 mmol/L (98-107) Carbon Dioxide Level 31 mmol/L (21-32) Anion Gap 7 (6-14) Blood Urea Nitrogen 29 mg/dL (8-26) Creatinine 1.1 mg/dL (0.7-1.3) Estimated GFR (Cockcroft-Gault) 65.1 BUN/Creatinine Ratio 26 (6-20) Glucose Level 162 mg/dL (70-99) Calcium Level 8.0 mg/dL (8.5-10.1) Total Bilirubin 1.2 mg/dL (0.2-1.0) Aspartate Amino Transf (AST/SGOT) 53 U/L (15-37) Alanine Aminotransferase (ALT/SGPT) 59 U/L (16-63) Alkaline Phosphatase 66 U/L (46-116) Total Protein 5.2 g/dL (6.4-8.2) Albumin 2.3 g/dL (3.4-5.0) Albumin/Globulin Ratio 0.8 (1.0-1.7) Laboratory Tests Test 04/03/20 11:22 04/03/20 16:42 04/03/20 19:25 04/03/20 21:37 Glucose (Fingerstick) 126 mg/dL (70-99) 124 mg/dL (70-99) 181 mg/dL (70-99) Urine Collection Type Unknown Urine Color Yellow Urine Clarity Clear Urine pH 6.0 (<5.0-8.0) Urine Specific Cisco 1.015 (1.000-1.030) Urine Protein Negative mg/dL (NEG-TRACE) Urine Glucose (UA) Negative mg/dL (NEG) Urine Ketones (Stick) Negative mg/dL (NEG) Urine Blood Negative (NEG) Urine Nitrite Negative (NEG) Urine Bilirubin Negative (NEG) Urine Urobilinogen Dipstick 0.2 mg/dL (0.2 mg/dL) Urine Leukocyte Esterase Negative (NEG) Urine RBC 0 /HPF (0-2) Urine WBC Occ /HPF (0-4) Urine Squamous Epithelial Cells Occ /LPF Urine Bacteria 0 /HPF (0-FEW) Urine Hyaline Casts Few /HPF Urine Mucus Slight /LPF Test 04/04/20 04:10 04/04/20 07:15 White Blood Count 7.8 x10^3/uL (4.0-11.0) Red Blood Count 3.68 x10^6/uL (4.30-5.70) Hemoglobin 12.5 g/dL (13.0-17.5) Hematocrit 35.7 % (39.0-53.0) Mean Corpuscular Volume 97 fL (79-100) Mean Corpuscular Hemoglobin 34 pg (25-35) Mean Corpuscular Hemoglobin Concent 35 g/dL (31-37) Red Cell Distribution Width 15.7 % (11.5-14.5) Platelet Count 134 x10^3/uL (140-400) Neutrophils (%) (Auto) 96 % (31-73) Lymphocytes (%) (Auto) 2 % (24-48) Monocytes (%) (Auto) 2 % (0-9) Eosinophils (%) (Auto) 0 % (0-3) Basophils (%) (Auto) 0 % (0-3) Neutrophils # (Auto) 7.5 x10^3/uL (1.8-7.7) Lymphocytes # (Auto) 0.2 x10^3/uL (1.0-4.8) Monocytes # (Auto) 0.2 x10^3/uL (0.0-1.1) Eosinophils # (Auto) 0.0 x10^3/uL (0.0-0.7) Basophils # (Auto) 0.0 x10^3/uL (0.0-0.2) Prothrombin Time 39.7 SEC (11.7-14.0) Prothromb Time International Ratio 4.0 (0.8-1.1) Sodium Level 141 mmol/L (136-145) Potassium Level 3.9 mmol/L (3.5-5.1) Chloride Level 103 mmol/L (98-107) Carbon Dioxide Level 31 mmol/L (21-32) Anion Gap 7 (6-14) Blood Urea Nitrogen 29 mg/dL (8-26) Creatinine 1.1 mg/dL (0.7-1.3) Estimated GFR (Cockcroft-Gault) 65.1 BUN/Creatinine Ratio 26 (6-20) Glucose Level 162 mg/dL (70-99) Calcium Level 8.0 mg/dL (8.5-10.1) Total Bilirubin 1.2 mg/dL (0.2-1.0) Aspartate Amino Transf (AST/SGOT) 53 U/L (15-37) Alanine Aminotransferase (ALT/SGPT) 59 U/L (16-63) Alkaline Phosphatase 66 U/L (46-116) Total Protein 5.2 g/dL (6.4-8.2) Albumin 2.3 g/dL (3.4-5.0) Albumin/Globulin Ratio 0.8 (1.0-1.7) Glucose (Fingerstick) 156 mg/dL (70-99) Medications Current Medications Sodium Chloride 1,000 ml @ 1,000 mls/hr 1X ONCE IV Last administered on 04/02/20at 15:13; Start 04/02/20 at 15:00; Stop 04/02/20 at 15:59; Status DC Dexamethasone Sodium Phosphate (Decadron) 10 mg 1X ONCE IV Last administered on 04/02/20at 17:34; Start 04/02/20 at 16:30; Stop 04/02/20 at 16:32; Status DC Iohexol (Omnipaque 350 Mg/ml) 90 ml 1X ONCE IV ; Start 04/02/20 at 19:00; Stop 04/02/20 at 19:01; Status DC Acetaminophen (Tylenol) 650 mg PRN Q6HRS PRN PO Headaches, Temp > 101.5F Last administered on 04/03/20at 13:04; Start 04/03/20 at 11:15 Albuterol Sulfate (Ventolin Neb Soln) 2.5 mg PRN Q6HRS PRN INH SHORTNESS OF BREATH; Start 04/03/20 at 11:15 Albuterol Sulfate (Ventolin Hfa) 1 puff PRN Q6HRS PRN INH SOA; Start 04/03/20 at 11:15 Bisacodyl (Dulcolax Supp) 10 mg PRN DAILY PRN [place] CONSTIPATION; Start 04/03/20 at 11:15 Carvedilol (Coreg) 6.25 mg BIDWMEALS PO Last administered on 04/04/20at 08:24; Start 04/03/20 at 12:00 Furosemide (Lasix) 40 mg DAILY PO Last administered on 04/04/20at 08:24; Start 04/03/20 at 11:30 Albuterol/ Ipratropium (Duoneb) 3 ml PRN QID PRN NEB SHORTNESS OF BREATH; Start 04/03/20 at 13:00 Lactobacillus Rhamnosus (Culturelle) 1 cap BID PO Last administered on 04/04/20at 08:24; Start 04/03/20 at 12:00 Levofloxacin (Levaquin) 500 mg DAILY PO Last administered on 04/04/20at 08:24; Start 04/03/20 at 11:30; Stop 04/09/20 at 09:01 Al Hydroxide/Mg Hydroxide (Mylanta Plus Xs) 30 ml PRN Q3HRS PRN PO HEARTBURN / GAS; Start 04/03/20 at 11:15 Nitroglycerin (Nitrostat) 0.4 mg PRN Q5MIN PRN SL CHEST PAIN; Start 04/03/20 at 11:15 Nystatin (Nystop) 1 dior BID TP ; Start 04/03/20 at 11:30; Stop 04/12/20 at 21:01 Polyethylene Glycol (miraLAX PACKET) 17 gm PRN DAILY PRN PO CONSTIPATION, 1ST CHOICE; Start 04/03/20 at 11:15 Potassium Chloride (Klor-Con) 20 meq DAILYWBKFT PO Last administered on 04/04/20at 08:25; Start 04/03/20 at 11:30 Vitamin B Complex (Connor B) 1 tab DAILY PO Last administered on 04/04/20at 08:25; Start 04/03/20 at 11:31 Warfarin Sodium (Coumadin) 5 mg DAILY PO ; Start 04/04/20 at 09:00; Stop 04/03/20 at 11:27; Status DC Magnesium Oxide (Magnesium Oxide) 200 mg QODAY PO Last administered on 04/04/20at 08:24; Start 04/04/20 at 09:00 Pantoprazole Sodium (Protonix) 40 mg DAILYAC PO Last administered on 04/04/20at 08:25; Start 04/03/20 at 11:30 Atorvastatin Calcium (Lipitor) 20 mg QHS PO Last administered on 04/03/20at 2 1:13; Start 04/03/20 at 21:00 Spironolactone (Aldactone) 25 mg DAILY PO Last administered on 04/04/20at 08:25; Start 04/03/20 at 11:30 Vitamin D (Vitamin D3) 1,000 unit DAILY PO Last administered on 04/04/20at 08:25; Start 04/03/20 at 11:30 Cetirizine HCl (ZyrTEC) 10 mg DAILY PO Last administered on 04/04/20 08:25; Start 04/03/20 at 11:30 Warfarin Sodium (Coumadin Per Pharmacy) 1 each PRN DAILY PRN MC SEE COMMENTS Last administered on 04/03/20at 14:20; Start 04/03/20 at 12:00 Warfarin Sodium (Coumadin - No Dose Today) 1 each 1X WARF ONCE MC Last administered on 04/03/20at 15:19; Start 04/03/20 at 16:00; Stop 04/03/20 at 16:01; Status DC Methylprednisolone Sodium Succinate (SOLU-Medrol 40MG VIAL) 80 mg Q8HRS IV Last administered on 04/04/20at 06:12; Start 04/03/20 at 15:30 Sodium Chloride (Normal Saline Flush) 3 ml QSHIFT PRN IV AFTER MEDS AND BLOOD DRAWS; Start 04/03/20 at 15:00 Ondansetron HCl (Zofran) 4 mg PRN Q4HRS PRN IV NAUSEA/VOMITING; Start 04/03/20 at 15:00 Acetaminophen (Tylenol) 650 mg PRN Q4HRS PRN PO TEMP OVER 100.4F OR MILD PAIN; Start 04/03/20 at 15:00 Al Hydroxide/Mg Hydroxide (Mylanta Plus Xs) 30 ml PRN DAILY PRN PO HEARTBURN / GAS; Start 04/03/20 at 15:00 Sodium Monofluorophosphate (Fleet Adult) 133 ml PRN DAILY PRN [place] CONSTIPATION; Start 04/03/20 at 15:00 Docusate Sodium (Colace) 100 mg PRN BID PRN PO HARD STOOLS; Start 04/03/20 at 15:00 Albuterol Sulfate (Ventolin Neb Soln) 2.5 mg PRN Q4HRS PRN NEB SHORTNESS OF BREATH; Start 04/03/20 at 15:00 Guaifenesin (Robitussin) 200 mg PRN Q4HRS PRN PO COUGH; Start 04/03/20 at 15:00 Temazepam (Restoril) 15 mg QHS PO Last administered on 04/03/20at 23:40; Start 04/03/20 at 23:45 Active Scripts Active Medrol (Methylprednisolone) 4 Mg Tablet 4 Mg PO DAILY 7 Days Levofloxacin 500 Mg Tablet 1 Tab PO DAILY 7 Days Tylenol (Acetaminophen) 325 Mg Tablet 650 Mg PO PRN Q6HRS PRN 30 Days Ventolin Hfa (Albuterol Sulfate) 8 Gm Hfa.aer.ad 1 Puff INH PRN Q6HRS PRN 30 Days Klor-Con M20 (Potassium Chloride) 20 Meq Tab.er.prt 20 Meq PO DAILYWBKFT 14 Days Nyamyc (Nystatin) 15 Gm Powder 1 Dior TP BID 10 Days Culturelle (Lactobacillus Rhamnosus Gg) 1 Each Cap.sprink 1 Cap PO BID 30 Days Polyethylene Glycol 3350 17 Gm Powd.pack 17 Gm PO PRN DAILY PRN 30 Days Bisacodyl 10 Mg Supp.rect 10 Mg [place] PRN DAILY PRN 10 Days Mag-Al Plus Xs Suspension (Mag Hydrox/Al Hydrox/Simeth) 30 Ml Oral.susp 30 Ml PO PRN Q3HRS PRN 14 Days Reported Warfarin Sodium 7.5 Mg Tablet 7.5 Mg PO TWICE WEEKLY [vitamin D] 400 Cap PO DAILY B Complex (Vitamin B Complex) 1 Each Tablet 1 Tab PO DAILY 30 Days Spironolactone-Hctz 25-25 Tab (Spironolact/Hydrochlorothiazid) 1 Each Tablet 1 Each PO DAILY Magnesium (Magnesium Oxide) 250 Mg Tablet 250 Mg PO QODAY Duoneb 0.5-3(2.5) Mg/3 Ml (Albuterol/Ipratropium) 3 Ml Ampul.neb 3 Ml NEB QID Lasix (Furosemide) 40 Mg Tablet 1 Tab PO DAILY 30 Days Warfarin Sodium 5 Mg Tablet 5 Mg PO DAILY Pravastatin Sodium 80 Mg Tablet 80 Mg PO DAILY Omeprazole 40 Mg Capsule.dr 40 Mg PO DAILY NITROGLYCERIN SubLingual (Nitroglycerin) 0.4 Mg Tab.subl 0.4 Mg SL PRN Q5MIN PRN Loratadine 10 Mg Tablet 10 Mg PO Carvedilol (Carvedilol) 6.25 Mg Tablet 6.25 Mg PO BIDWMEALS Proair Hfa Inhaler (Albuterol Sulfate) 8.5 Gm Hfa.aer.ad 1 Puff INH PRN Q6HRS PRN Vitals/I & O Vital Sign - Last 24 Hours 04/03/20 04/03/20 04/03/20 04/03/20 11:00 13:04 15:00 17:06 Temp 98.5 98.2 98.5 98.2 Pulse 59 59 62 62 Resp 16 B/P (MAP) 111/55 (73) 111/55 116/60 (78) 116/60 Pulse Ox 93 94 O2 Delivery NonRebreather Mask NonRebreather Mask O2 Flow Rate 15.0 15.0 04/03/20 04/03/20 04/03/20 04/04/20 19:45 20:00 23:13 03:38 Temp 97.5 98.0 97.7 97.5 98.0 97.7 Pulse 61 57 66 Resp 18 18 20 B/P (MAP) 120/59 (79) 114/59 (77) 156/71 (99) Pulse Ox 96 97 98 O2 Delivery Nasal Cannula Non-Rebreather Nasal Cannula Nasal Cannula O2 Flow Rate 15.0 15.0 15.0 15.0 04/04/20 04/04/20 04/04/20 07:00 08:00 08:24 Temp 96.2 96.2 Pulse 60 60 Resp 30 B/P (MAP) 135/62 (86) 135/62 Pulse Ox 90 O2 Delivery NonRebreather Mask Non-Rebreather O2 Flow Rate 15.0 15.0 Intake and Output 04/03/20 04/03/20 04/04/20 15:00 23:00 07:00 Intake Total 440 ml 220 ml 0 ml Output Total 400 ml 150 ml Balance 440 ml -180 ml -150 ml Justicifation of Admission Dx: Justifications for Admission: Justification of Admission Dx: Yes Comminuty Aquired Pneumonia: Hypoxemia KYLEE GUTIERREZ MD Apr 04, 2020 10:36
[2020-04-04] MEDS ORDERED: PIP/TAZO PER PHARMACY MC PRN (10:45)
--- NOTE | 2020-04-04 10:45 | PDOC ---
PULMONARY PROGRESS NOTES DATE: 04/04/20 TIME: 10:44 Vitals Vital Signs Date Time Temp Pulse Resp B/P (MAP) Pulse Ox O2 Delivery O2 Flow Rate FiO2 04/04/20 08:24 60 135/62 04/04/20 08:00 Non-Rebreather 15.0 04/04/20 07:00 96.2 30 90 96.2 Lungs: Clear Labs Laboratory Tests Test 04/02/20 15:10 04/02/20 20:19 04/03/20 11:22 04/03/20 16:42 White Blood Count 11.9 x10^3/uL (4.0-11.0) Red Blood Count 3.79 x10^6/uL (4.30-5.70) Hemoglobin 12.9 g/dL (13.0-17.5) Hematocrit 36.4 % (39.0-53.0) Mean Corpuscular Volume 96 fL (79-100) Mean Corpuscular Hemoglobin 34 pg (25-35) Mean Corpuscular Hemoglobin Concent 36 g/dL (31-37) Red Cell Distribution Width 15.9 % (11.5-14.5) Platelet Count 151 x10^3/uL (140-400) Neutrophils (%) (Auto) 95 % (31-73) Lymphocytes (%) (Auto) 2 % (24-48) Monocytes (%) (Auto) 2 % (0-9) Eosinophils (%) (Auto) 0 % (0-3) Basophils (%) (Auto) 0 % (0-3) Neutrophils # (Auto) 11.3 x10^3/uL (1.8-7.7) Lymphocytes # (Auto) 0.2 x10^3/uL (1.0-4.8) Monocytes # (Auto) 0.3 x10^3/uL (0.0-1.1) Eosinophils # (Auto) 0.0 x10^3/uL (0.0-0.7) Basophils # (Auto) 0.0 x10^3/uL (0.0-0.2) Segmented Neutrophils % 93 % (35-66) Lymphocytes % 4 % (24-48) Monocytes % 3 % (0-10) Nucleated Red Blood Cells 1 Platelet Estimate Adequate (ADEQUATE) Prothrombin Time 39.0 SEC (11.7-14.0) Prothromb Time International Ratio 3.9 (0.8-1.1) Activated Partial Thromboplast Time 34 SEC (24-38) Sodium Level 138 mmol/L (136-145) Potassium Level 3.8 mmol/L (3.5-5.1) Chloride Level 100 mmol/L (98-107) Carbon Dioxide Level 32 mmol/L (21-32) Anion Gap 6 (6-14) Blood Urea Nitrogen 29 mg/dL (8-26) Creatinine 1.2 mg/dL (0.7-1.3) Estimated GFR (Cockcroft-Gault) 58.9 Glucose Level 125 mg/dL (70-99) Lactic Acid Level 1.5 mmol/L (0.4-2.0) Calcium Level 8.1 mg/dL (8.5-10.1) Total Bilirubin 1.9 mg/dL (0.2-1.0) Direct Bilirubin 0.5 mg/dL (0.0-0.2) Aspartate Amino Transf (AST/SGOT) 73 U/L (15-37) Alanine Aminotransferase (ALT/SGPT) 75 U/L (16-63) Alkaline Phosphatase 66 U/L (46-116) Creatine Kinase 130 U/L (39-308) Troponin I Quantitative < 0.017 ng/mL (0.000-0.055) MQ-[id number]-[id number]-Type Natriuretic Peptide 3496 pg/mL (0-449) Total Protein 5.8 g/dL (6.4-8.2) Albumin 2.4 g/dL (3.4-5.0) Glucose (Fingerstick) 131 mg/dL (70-99) 126 mg/dL (70-99) 124 mg/dL (70-99) Test 04/03/20 19:25 04/03/20 21:37 04/04/20 04:10 04/04/20 07:15 Urine Collection Type Unknown Urine Color Yellow Urine Clarity Clear Urine pH 6.0 (<5.0-8.0) Urine Specific [place] 1.015 (1.000-1.030) Urine Protein Negative mg/dL (NEG-TRACE) Urine Glucose (UA) Negative mg/dL (NEG) Urine Ketones (Stick) Negative mg/dL (NEG) Urine Blood Negative (NEG) Urine Nitrite Negative (NEG) Urine Bilirubin Negative (NEG) Urine Urobilinogen Dipstick 0.2 mg/dL (0.2 mg/dL) Urine Leukocyte Esterase Negative (NEG) Urine RBC 0 /HPF (0-2) Urine WBC Occ /HPF (0-4) Urine Squamous Epithelial Cells Occ /LPF Urine Bacteria 0 /HPF (0-FEW) Urine Hyaline Casts Few /HPF Urine Mucus Slight /LPF Glucose (Fingerstick) 181 mg/dL (70-99) 156 mg/dL (70-99) White Blood Count 7.8 x10^3/uL (4.0-11.0) Red Blood Count 3.68 x10^6/uL (4.30-5.70) Hemoglobin 12.5 g/dL (13.0-17.5) Hematocrit 35.7 % (39.0-53.0) Mean Corpuscular Volume 97 fL (79-100) Mean Corpuscular Hemoglobin 34 pg (25-35) Mean Corpuscular Hemoglobin Concent 35 g/dL (31-37) Red Cell Distribution Width 15.7 % (11.5-14.5) Platelet Count 134 x10^3/uL (140-400) Neutrophils (%) (Auto) 96 % (31-73) Lymphocytes (%) (Auto) 2 % (24-48) Monocytes (%) (Auto) 2 % (0-9) Eosinophils (%) (Auto) 0 % (0-3) Basophils (%) (Auto) 0 % (0-3) Neutrophils # (Auto) 7.5 x10^3/uL (1.8-7.7) Lymphocytes # (Auto) 0.2 x10^3/uL (1.0-4.8) Monocytes # (Auto) 0.2 x10^3/uL (0.0-1.1) Eosinophils # (Auto) 0.0 x10^3/uL (0.0-0.7) Basophils # (Auto) 0.0 x10^3/uL (0.0-0.2) Prothrombin Time 39.7 SEC (11.7-14.0) Prothromb Time International Ratio 4.0 (0.8-1.1) Sodium Level 141 mmol/L (136-145) Potassium Level 3.9 mmol/L (3.5-5.1) Chloride Level 103 mmol/L (98-107) Carbon Dioxide Level 31 mmol/L (21-32) Anion Gap 7 (6-14) Blood Urea Nitrogen 29 mg/dL (8-26) Creatinine 1.1 mg/dL (0.7-1.3) Estimated GFR (Cockcroft-Gault) 65.1 BUN/Creatinine Ratio 26 (6-20) Glucose Level 162 mg/dL (70-99) Calcium Level 8.0 mg/dL (8.5-10.1) Total Bilirubin 1.2 mg/dL (0.2-1.0) Aspartate Amino Transf (AST/SGOT) 53 U/L (15-37) Alanine Aminotransferase (ALT/SGPT) 59 U/L (16-63) Alkaline Phosphatase 66 U/L (46-116) Total Protein 5.2 g/dL (6.4-8.2) Albumin 2.3 g/dL (3.4-5.0) Albumin/Globulin Ratio 0.8 (1.0-1.7) Laboratory Tests Test 04/03/20 11:22 04/03/20 16:42 04/03/20 19:25 04/03/20 21:37 Glucose (Fingerstick) 126 mg/dL (70-99) 124 mg/dL (70-99) 181 mg/dL (70-99) Urine Collection Type Unknown Urine Color Yellow Urine Clarity Clear Urine pH 6.0 (<5.0-8.0) Urine Specific [place] 1.015 (1.000-1.030) Urine Protein Negative mg/dL (NEG-TRACE) Urine Glucose (UA) Negative mg/dL (NEG) Urine Ketones (Stick) Negative mg/dL (NEG) Urine Blood Negative (NEG) Urine Nitrite Negative (NEG) Urine Bilirubin Negative (NEG) Urine Urobilinogen Dipstick 0.2 mg/dL (0.2 mg/dL) Urine Leukocyte Esterase Negative (NEG) Urine RBC 0 /HPF (0-2) Urine WBC Occ /HPF (0-4) Urine Squamous Epithelial Cells Occ /LPF Urine Bacteria 0 /HPF (0-FEW) Urine Hyaline Casts Few /HPF Urine Mucus Slight /LPF Test 04/04/20 04:10 04/04/20 07:15 White Blood Count 7.8 x10^3/uL (4.0-11.0) Red Blood Count 3.68 x10^6/uL (4.30-5.70) Hemoglobin 12.5 g/dL (13.0-17.5) Hematocrit 35.7 % (39.0-53.0) Mean Corpuscular Volume 97 fL (79-100) Mean Corpuscular Hemoglobin 34 pg (25-35) Mean Corpuscular Hemoglobin Concent 35 g/dL (31-37) Red Cell Distribution Width 15.7 % (11.5-14.5) Platelet Count 134 x10^3/uL (140-400) Neutrophils (%) (Auto) 96 % (31-73) Lymphocytes (%) (Auto) 2 % (24-48) Monocytes (%) (Auto) 2 % (0-9) Eosinophils (%) (Auto) 0 % (0-3) Basophils (%) (Auto) 0 % (0-3) Neutrophils # (Auto) 7.5 x10^3/uL (1.8-7.7) Lymphocytes # (Auto) 0.2 x10^3/uL (1.0-4.8) Monocytes # (Auto) 0.2 x10^3/uL (0.0-1.1) Eosinophils # (Auto) 0.0 x10^3/uL (0.0-0.7) Basophils # (Auto) 0.0 x10^3/uL (0.0-0.2) Prothrombin Time 39.7 SEC (11.7-14.0) Prothromb Time International Ratio 4.0 (0.8-1.1) Sodium Level 141 mmol/L (136-145) Potassium Level 3.9 mmol/L (3.5-5.1) Chloride Level 103 mmol/L (98-107) Carbon Dioxide Level 31 mmol/L (21-32) Anion Gap 7 (6-14) Blood Urea Nitrogen 29 mg/dL (8-26) Creatinine 1.1 mg/dL (0.7-1.3) Estimated GFR (Cockcroft-Gault) 65.1 BUN/Creatinine Ratio 26 (6-20) Glucose Level 162 mg/dL (70-99) Calcium Level 8.0 mg/dL (8.5-10.1) Total Bilirubin 1.2 mg/dL (0.2-1.0) Aspartate Amino Transf (AST/SGOT) 53 U/L (15-37) Alanine Aminotransferase (ALT/SGPT) 59 U/L (16-63) Alkaline Phosphatase 66 U/L (46-116) Total Protein 5.2 g/dL (6.4-8.2) Albumin 2.3 g/dL (3.4-5.0) Albumin/Globulin Ratio 0.8 (1.0-1.7) Glucose (Fingerstick) 156 mg/dL (70-99) Medications Active Scripts Medications Dose Route/Sig Max Daily Dose Days Date Category Medrol (Methylprednisolone) 4 Mg Tablet 4 Mg PO DAILY 7 04/01/20 Rx Levofloxacin 500 Mg Tablet 1 Tab PO DAILY 7 04/01/20 Rx Tylenol (Acetaminophen) 325 Mg Tablet 650 Mg PO PRN Q6HRS PRN 30 04/01/20 Rx Ventolin Hfa (Albuterol Sulfate) 8 Gm Hfa.aer.ad 1 Puff INH PRN Q6HRS PRN 30 04/01/20 Rx Klor-Con M20 (Potassium Chloride) 20 Meq Tab.er.prt 20 Meq PO DAILYWBKFT 14 04/01/20 Rx Nyamyc (Nystatin) 15 Gm Powder 1 Dior TP BID 10 04/01/20 Rx Culturelle (Lactobacillus Rhamnosus Gg) 1 Each Cap.sprink 1 Cap PO BID 30 04/01/20 Rx Polyethylene Glycol 3350 17 Gm Powd.pack 17 Gm PO PRN DAILY PRN 30 04/01/20 Rx Bisacodyl 10 Mg Supp.rect 10 Mg [place] PRN DAILY PRN 10 04/01/20 Rx Mag-Al Plus Xs Suspension (Mag Hydrox/Al Hydrox/Simeth) 30 Ml Oral.susp 30 Ml PO PRN Q3HRS PRN 14 04/01/20 Rx Warfarin Sodium 7.5 Mg Tablet 7.5 Mg PO TWICE WEEKLY 03/27/20 Reported [vitamin D] 400 Cap PO DAILY 03/27/20 Reported B Complex (Vitamin B Complex) 1 Each Tablet 1 Tab PO DAILY 30 03/27/20 Reported Spironolactone-Hctz 25-25 Tab (Spironolact/Hydrochlorothiazid) 1 Each Tablet 1 Each PO DAILY 03/27/20 Reported Magnesium (Magnesium Oxide) 250 Mg Tablet 250 Mg PO QODAY 03/27/20 Reported Duoneb 0.5-3(2.5) Mg/3 Ml (Albuterol/Ipratropium) 3 Ml Ampul.neb 3 Ml NEB QID 03/27/20 Reported Lasix (Furosemide) 40 Mg Tablet 1 Tab PO DAILY 30 03/27/20 Reported Warfarin Sodium 5 Mg Tablet 5 Mg PO DAILY 01/01/15 Reported Pravastatin Sodium 80 Mg Tablet 80 Mg PO DAILY 01/01/15 Reported Omeprazole 40 Mg Capsule.dr 40 Mg PO DAILY 01/01/15 Reported NITROGLYCERIN SubLingual (Nitroglycerin) 0.4 Mg Tab.subl 0.4 Mg SL PRN Q5MIN PRN 01/01/15 Reported Loratadine 10 Mg Tablet 10 Mg PO 01/01/15 Reported Carvedilol (Carvedilol) 6.25 Mg Tablet 6.25 Mg PO BIDWMEALS 01/01/15 Reported Proair Hfa Inhaler (Albuterol Sulfate) 8.5 Gm Hfa.aer.ad 1 Puff INH PRN Q6HRS PRN 01/01/15 Reported Impression . Full note dictated Patient admitted with a new problem. Not related to his previous admission. He now presents with the possibility of MRSA pneumonia, possibly gram-negative pneumonia. Acute on chronic respiratory failure. YAEL MCKENZIE MD Apr 04, 2020 10:45
[2020-04-04 11:00] VITALS: BP 109/57
[2020-04-04] MEDS ORDERED: VANCOMYCIN 2 GM in IV NORMAL SALINE 500ML BAG 500 ML IV ONE (11:00)
--- NOTE | 2020-04-04 11:27 | CONS ---
DATE OF CONSULTATION: 04/04/2020 ATTENDING PHYSICIAN: Dr. Valencia. HISTORY OF PRESENT ILLNESS: The patient has a prior history of being positive for SARS-CoV-2 on 03/27. He was hospitalized here. He was given Solu-Medrol, remdesivir. [facility]. Returned back because of increasing shortness of air. He was readmitted. I was asked to see him in consultation. His chest x-ray revealed bilateral pulmonary infiltrates, maybe slightly worse. He also had a CT angiogram revealing no evidence of pulmonary emboli. There was diffuse bilateral ground-glass opacities. I was asked to see him in consultation. The patient is currently on 15 liters of nasal cannula. He was on 100% nonrebreather. He normally wears oxygen at home. He also has obstructive sleep apnea, uses a CPAP at home. PAST MEDICAL HISTORY: Remarkable for chronic respiratory failure, COPD, obstructive sleep apnea, coronary artery disease, chronic heart failure, diabetes, hypertension, cholecystectomy. PAST SURGICAL HISTORY: Status post coronary artery bypass grafting. ALLERGIES: CODEINE. MEDICATIONS: List was reviewed. SOCIAL HISTORY: He is a former smoker. FAMILY HISTORY: Hypertension. REVIEW OF SYSTEMS: CONSTITUTIONAL: No fever or chills. EYES: No change in visual acuity. HENT: No nasal congestion or sore throat. PULMONARY: As indicated above. CARDIOVASCULAR: No chest pain. No pressure. GASTROINTESTINAL: No nausea, vomiting, diarrhea. GENITOURINARY: No dysuria or frequency. MUSCULOSKELETAL: No localized muscle aches or joint pains. SKIN: No new skin rashes. NEUROLOGIC: No headaches, diplopia or blurred vision. PHYSICAL EXAMINATION: VITAL SIGNS: Since admission, he has been afebrile. He is currently on 15 liters per nasal cannula. He appears to be in mild respiratory distress. HEENT: Eyes: The sclerae were nonicteric. NECK: Jugular venous distention was not elevated. No lymphadenopathy. CHEST: Full expansion. LUNGS: Crackles throughout both lung zimmerman. CARDIOVASCULAR: Regular rate and rhythm with S1, S2, no S3. ABDOMEN: Soft, nontender, nondistended. EXTREMITIES: No clubbing, cyanosis. Minimal edema. LABORATORY DATA: White count was 7.8, hemoglobin and hematocrit of 12 and 35. Electrolytes were noted, 29 BUN and creatinine was 1.1. Total bilirubin was slightly elevated. Albumin was low. UA was noted. CT angiogram as indicated above. IMPRESSION: 1. Acute on chronic respiratory failure, multifactorial. 2. Abnormal chest x-ray and CT compatible with possibly bacterial pneumonia, gram-positive, gram-negative. 3. Chronic obstructive pulmonary disease exacerbation. 4. Recent COVID-19 positivity on the of this month. 5. Severe protein malnutrition, present upon admission. 6. Coagulopathy. 7. Coronary artery disease with ischemic cardiomyopathy, status post automatic implantable cardioverter-defibrillator placement. DISCUSSION: The patient presents now with a new problem. He has had worsening shortness of air, worsening x-ray. I suspect he has superinfection, possibly MRSA pneumonia or gram-negative pneumonia. The patient will be admitted. 1 . Continue oxygen supplementation. 2. Broad-spectrum antibiotics. 3. Complete a 10-day course of prednisone. 4. Add Zosyn and vancomycin. 5. Continue oxygen supplementation. 6. Hold Coumadin for now. I do appreciate the privilege in sharing in the patient's care. YAEL MCKENZIE MD DR: JAYLEN/kendra JOB#: [id number] / [id number]
[2020-04-04] MEDS: VANCOMYCIN PER PHARMACY MC PRN (13:28)
[2020-04-04] MEDS: PIPERACILLIN/TAZOBACTAM 4.5 GM in IV NORMAL SALINE 100ML 100 ML IV SCH ×2 (13:28→16:51)
--- NOTE | 2020-04-04 13:35 | NUR ---
Pharmacy Vancomycin Dosing Note S:Consulted to monitor and dose vancomycin started 04/04/20. O:PRICE SMITH is a 75 year old M with HCAP Height: 5 feet, 7 inches Weight: 118.1 kg [place] Body Weight: 66.10 Adjusted Body Weight: 86.90 Dosing Weight: Actual Other Antibiotics: zosyn LABS: Last BUN: 29 Last Creatinine: 1.1 Creatinine Clearance: 70.2 mL/min Last WBC: 7.8 Last Procalcitonin: Tmax (past 24 hours): 96.2 (L) Microbiology: - I/O: 660/550 Last dose given 04/04/20 at 1112 Vancomycin Dosing: Loading Dose: 2000 mg x1 Dosing Weight: Actual Target Trough: 15-20 A: Based on: weight and renal function P: 1. Begin Vancomycin 1500 mg IV q18h 2. Follow up Trough level on 04/05/20 at 2230 3. Pharmacy will continue to monitor, follow and adjust therapy as needed. Adrienne Moody Junie, 04/04/20 [id number]
--- NOTE | 2020-04-04 13:36 | NUR ---
Pharmacy Warfarin Dosing Note S: Pharmacy consulted to assist with anticoagulation therapy O: PRICE SMITH is a 75 year old M with DVT/PE LABS: Last INR: 4 Last HGB: 12.5 Last HCT: 35.7 Last PLT: 134 Last dose held Vitamin K given: N A:INR of 4 is above desired range. Target range for this patient is: 2 -3 P: Warfarin dose: Hold dose today Bridge Therapy: none Next INR due tomorrow Pharmacy anticoagulation service will continue to follow. Adrienne Moody RPH, 04/04/20 [id number]
[2020-04-04 15:00] VITALS: BP 118/59
[2020-04-04 19:42] VITALS: BP 121/60
[2020-04-04] MEDS: ATORVASTATIN CALCIUM 20 MG TABLET PO SCH (20:15)
[2020-04-04] MEDS: TEMAZEPAM 15 MG CAPSULE PO SCH (20:15)
[2020-04-04 23:21] VITALS: BP 154/69
[2020-04-05] MEDS: PIPERACILLIN/TAZOBACTAM 4.5 GM in IV NORMAL SALINE 100ML 100 ML IV SCH ×5 (01:48→23:35)
[2020-04-05 03:53] VITALS: BP 139/62
[2020-04-05] MEDS: VANCOMYCIN 1.5 GM in IV NORMAL SALINE 500ML BAG 500 ML IV SCH ×2 (04:41→23:35)
[2020-04-05] MEDS: methylPREDNISolone SOD SUCC PF 40 MG/ML VIAL. IV SCH ×3 (06:27→20:16)
[2020-04-05 07:00] VITALS: BP 121/55
[2020-04-05] MEDS: FUROSEMIDE 40 MG TABLET. PO SCH (08:32)
[2020-04-05] MEDS: SPIRONOLACTONE 25 MG TABLET PO SCH (08:32)
[2020-04-05] MEDS: PANTOPRAZOLE 40 MG TABLET.DR. PO SCH (08:32)
[2020-04-05] MEDS: VITAMIN B COMPLEX TABLET. PO SCH (08:32)
[2020-04-05] MEDS: POTASSIUM CHLORIDE 20 MEQ TABLET.ER. PO SCH (08:32)
[2020-04-05] MEDS: LACTOBACILLUS RHAMNOSUS GG 1 CAPSULE. PO SCH ×2 (08:33→20:15)
[2020-04-05] MEDS: CHOLECALCIFEROL (VITAMIN D3) 1,000 UNIT TABLET PO SCH (08:33)
[2020-04-05] MEDS: CETIRIZINE HCL 10 MG TABLET. PO SCH (08:33)
[2020-04-05] MEDS: CARVEDILOL 6.25 MG TABLET. PO SCH ×2 (08:35→17:26)
[2020-04-05 08:56] LABS: BASO % 0 % (0-3); EOS % 0 % (0-3); HEMATOCRIT 33.9 % (39.0-53.0); HEMOGLOBIN 11.6 g/dL (13.0-17.5); LYMPH # 0.2 x10^3/uL (1.0-4.8); LYMPH % 2 % (24-48); MEAN CORPUSCULAR HEMOGLOBIN 34 pg (25-35); MEAN CORPUSCULAR HGB CONC 34 g/dL (31-37); MEAN CORPUSCULAR VOLUME 98 fL (79-100); MONO # 0.5 x10^3/uL (0.0-1.1); MONO % 4 % (0-9); NEUT # 10.4 x10^3/uL (1.8-7.7); NEUT % 94 % (31-73); PLATELET COUNT 135 x10^3/uL (140-400); RED BLOOD COUNT 3.44 x10^6/uL (4.30-5.70); RED CELL DISTRIBUTION WIDTH 15.5 % (11.5-14.5); WHITE BLOOD COUNT 11.1 x10^3/uL (4.0-11.0)
[2020-04-05 08:57] LABS: PROTHROMBIN TIME PATIENT 39.4 SEC (11.7-14.0)
[2020-04-05 09:02] LABS: CREATININE 1.3 mg/dL (0.7-1.3); GFR 53.7
--- NOTE | 2020-04-05 09:03 | PDOC ---
PULMONARY PROGRESS NOTES DATE: 04/05/20 TIME: 08:58 Subjective Patient is on 15 L nasal cannula Denies any increase shortness of breath reports nonproductive cough with clear sputum Afebrile overnight Remains weak Vitals Vital Signs Date Time Temp Pulse Resp B/P (MAP) Pulse Ox O2 Delivery O2 Flow Rate FiO2 04/05/20 08:35 51 121/55 04/05/20 07:00 97.4 19 87 NonRebreather Mask 14.0 97.4 Comments Patient is seen during ID- pandemic, visual exam performed Regular rate and rhythm No accessory muscle use No obvious edema or rash Nasal cannula oxygen General: Alert, Oriented X4 Lungs: Clear Labs Laboratory Tests Test 04/03/20 11:22 04/03/20 16:42 04/03/20 19:25 04/03/20 21:37 Glucose (Fingerstick) 126 mg/dL (70-99) 124 mg/dL (70-99) 181 mg/dL (70-99) Urine Collection Type Unknown Urine Color Yellow Urine Clarity Clear Urine pH 6.0 (<5.0-8.0) Urine Specific [place] 1.015 (1.000-1.030) Urine Protein Negative mg/dL (NEG-TRACE) Urine Glucose (UA) Negative mg/dL (NEG) Urine Ketones (Stick) Negative mg/dL (NEG) Urine Blood Negative (NEG) Urine Nitrite Negative (NEG) Urine Bilirubin Negative (NEG) Urine Urobilinogen Dipstick 0.2 mg/dL (0.2 mg/dL) Urine Leukocyte Esterase Negative (NEG) Urine RBC 0 /HPF (0-2) Urine WBC Occ /HPF (0-4) Urine Squamous Epithelial Cells Occ /LPF Urine Bacteria 0 /HPF (0-FEW) Urine Hyaline Casts Few /HPF Urine Mucus Slight /LPF Test 04/04/20 04:10 04/04/20 07:15 04/04/20 11:37 04/04/20 16:43 White Blood Count 7.8 x10^3/uL (4.0-11.0) Red Blood Count 3.68 x10^6/uL (4.30-5.70) Hemoglobin 12.5 g/dL (13.0-17.5) Hematocrit 35.7 % (39.0-53.0) Mean Corpuscular Volume 97 fL (79-100) Mean Corpuscular Hemoglobin 34 pg (25-35) Mean Corpuscular Hemoglobin Concent 35 g/dL (31-37) Red Cell Distribution Width 15.7 % (11.5-14.5) Platelet Count 134 x10^3/uL (140-400) Neutrophils (%) (Auto) 96 % (31-73) Lymphocytes (%) (Auto) 2 % (24-48) Monocytes (%) (Auto) 2 % (0-9) Eosinophils (%) (Auto) 0 % (0-3) Basophils (%) (Auto) 0 % (0-3) Neutrophils # (Auto) 7.5 x10^3/uL (1.8-7.7) Lymphocytes # (Auto) 0.2 x10^3/uL (1.0-4.8) Monocytes # (Auto) 0.2 x10^3/uL (0.0-1.1) Eosinophils # (Auto) 0.0 x10^3/uL (0.0-0.7) Basophils # (Auto) 0.0 x10^3/uL (0.0-0.2) Prothrombin Time 39.7 SEC (11.7-14.0) Prothromb Time International Ratio 4.0 (0.8-1.1) Sodium Level 141 mmol/L (136-145) Potassium Level 3.9 mmol/L (3.5-5.1) Chloride Level 103 mmol/L (98-107) Carbon Dioxide Level 31 mmol/L (21-32) Anion Gap 7 (6-14) Blood Urea Nitrogen 29 mg/dL (8-26) Creatinine 1.1 mg/dL (0.7-1.3) Estimated GFR (Cockcroft-Gault) 65.1 BUN/Creatinine Ratio 26 (6-20) Glucose Level 162 mg/dL (70-99) Calcium Level 8.0 mg/dL (8.5-10.1) Total Bilirubin 1.2 mg/dL (0.2-1.0) Aspartate Amino Transf (AST/SGOT) 53 U/L (15-37) Alanine Aminotransferase (ALT/SGPT) 59 U/L (16-63) Alkaline Phosphatase 66 U/L (46-116) Total Protein 5.2 g/dL (6.4-8.2) Albumin 2.3 g/dL (3.4-5.0) Albumin/Globulin Ratio 0.8 (1.0-1.7) Glucose (Fingerstick) 156 mg/dL (70-99) 203 mg/dL (70-99) 124 mg/dL (70-99) Test 04/04/20 20:05 04/05/20 08:09 Glucose (Fingerstick) 182 mg/dL (70-99) 148 mg/dL (70-99) Laboratory Tests Test 04/04/20 11:37 04/04/20 16:43 04/04/20 20:05 04/05/20 08:09 Glucose (Fingerstick) 203 mg/dL (70-99) 124 mg/dL (70-99) 182 mg/dL (70-99) 148 mg/dL (70-99) Medications Active Scripts Medications Dose Route/Sig Max Daily Dose Days Date Category Medrol (Methylprednisolone) 4 Mg Tablet 4 Mg PO DAILY 7 04/01/20 Rx Levofloxacin 500 Mg Tablet 1 Tab PO DAILY 7 04/01/20 Rx Tylenol (Acetaminophen) 325 Mg Tablet 650 Mg PO PRN Q6HRS PRN 30 04/01/20 Rx Ventolin Hfa (Albuterol Sulfate) 8 Gm Hfa.aer.ad 1 Puff INH PRN Q6HRS PRN 30 04/01/20 Rx Klor-Con M20 (Potassium Chloride) 20 Meq Tab.er.prt 20 Meq PO DAILYWBKFT 14 04/01/20 Rx Nyamyc (Nystatin) 15 Gm Powder 1 Dior TP BID 10 04/01/20 Rx Culturelle (Lactobacillus Rhamnosus Gg) 1 Each Cap.sprink 1 Cap PO BID 30 04/01/20 Rx Polyethylene Glycol 3350 17 Gm Powd.pack 17 Gm PO PRN DAILY PRN 30 04/01/20 Rx Bisacodyl 10 Mg Supp.rect 10 Mg [place] PRN DAILY PRN 10 04/01/20 Rx Mag-Al Plus Xs Suspension (Mag Hydrox/Al Hydrox/Simeth) 30 Ml Oral.susp 30 Ml PO PRN Q3HRS PRN 14 04/01/20 Rx Warfarin Sodium 7.5 Mg Tablet 7.5 Mg PO TWICE WEEKLY 03/27/20 Reported [vitamin D] 400 Cap PO DAILY 03/27/20 Reported B Complex (Vitamin B Complex) 1 Each Tablet 1 Tab PO DAILY 30 03/27/20 Reported Spironolactone-Hctz 25-25 Tab (Spironolact/Hydrochlorothiazid) 1 Each Tablet 1 Each PO DAILY 03/27/20 Reported Magnesium (Magnesium Oxide) 250 Mg Tablet 250 Mg PO QODAY 03/27/20 Reported Duoneb 0.5-3(2.5) Mg/3 Ml (Albuterol/Ipratropium) 3 Ml Ampul.neb 3 Ml NEB QID 03/27/20 Reported Lasix (Furosemide) 40 Mg Tablet 1 Tab PO DAILY 30 03/27/20 Reported Warfarin Sodium 5 Mg Tablet 5 Mg PO DAILY 01/01/15 Reported Pravastatin Sodium 80 Mg Tablet 80 Mg PO DAILY 01/01/15 Reported Omeprazole 40 Mg Capsule.dr 40 Mg PO DAILY 01/01/15 Reported NITROGLYCERIN SubLingual (Nitroglycerin) 0.4 Mg Tab.subl 0.4 Mg SL PRN Q5MIN PRN 01/01/15 Reported Loratadine 10 Mg Tablet 10 Mg PO 01/01/15 Reported Carvedilol (Carvedilol) 6.25 Mg Tablet 6.25 Mg PO BIDWMEALS 01/01/15 Reported Proair Hfa Inhaler (Albuterol Sulfate) 8.5 Gm Hfa.aer.ad 1 Puff INH PRN Q6HRS PRN 01/01/15 Reported Comments CTA IMPRESSION: No pulmonary embolus. Diffuse bilateral groundglass infiltrates. This could reflect pulmonary edema however atypical pneumonia cannot be excluded. Cardiomegaly. Cholelithiasis. Impression . IMPRESSION: 1. Acute on chronic respiratory failure, multifactorial. 2. Abnormal chest x-ray and CT compatible with possibly bacterial pneumonia, gram-positive, gram-negative. 3. Chronic obstructive pulmonary disease exacerbation. 4. Recent COVID-19 positivity on the of this month. 5. Severe protein malnutrition, present upon admission. 6. Coagulopathy. 7. Coronary artery disease with ischemic cardiomyopathy, status post automatic implantable cardioverter-defibrillator placement. Plan . PLAN: Continue supplemental oxygen to keep oxygen saturations greater than 92%, wean as tolerated currently on 15 L nasal cannula Continue empiric antibiotic coverage with vancomycin and Zosyn Follow cultures no growth to date Continue IV steroids Continue to hold Coumadin, await INR for today, supratherapeutic the last 2 days--manage per PCP Incentive spirometry Aggressive physical therapy/Occupational Therapy DC Planning Per social work patient does not want to return to ignite DVT/GI prophylaxis Discussed with RN and RT YAEL MCKENZIE MD Apr 05, 2020 09:03
[2020-04-05] MEDS: NYSTATIN TOPICAL POWDER 15GM BOTTLE. TP SCH ×2 (10:01→20:16)
[2020-04-05 11:00] VITALS: BP 129/63
[2020-04-05] MEDS: IPRATROPIUM/ALBUTEROL 20/100mcg/INH INHALER. INH SCH ×3 (12:00→20:15)
[2020-04-05] MEDS: ALBUTEROL SULFATE 8GM INHALER. INH PRN (12:01)
--- NOTE | 2020-04-05 13:15 | RAD ---
XR CHEST 1V INDICATION: pneumonia COMPARISON STUDY: 04/02/2020. FINDINGS: Life Support Devices: Left pectoral ICD/pacemaker. Lungs: Normal lung volume. Stable bilateral perihilar and basilar opacities. Pleura: No pleural effusion or pneumothorax. Heart and Mediastinum: Stable cardiomediastinal silhouette and great vessels. Bones and Soft Tissues: Stable regional skeleton and soft tissues. IMPRESSION: Stable bilateral perihilar and basilar opacities. Electronically signed by: Juan Whitten MD (04/05/2020 1:13 PM) [facility]
[2020-04-05 15:00] VITALS: BP 123/63
--- NOTE | 2020-04-05 17:22 | PDOC ---
PROGRESS NOTES Date of Service: DATE: 04/05/20 TIME: 17:19 Chief Complaint Chief Complaint ASSESSMENT: 1. Acute on chronic worsening hypoxia with severe respiratory failure. 2. Acute asthma or chronic obstructive pulmonary disease exacerbation. 3. Remote tobacco abuse. 4. Atypical pneumonia secondary to coronavirus disease-19. 5. Hypokalemia, on replacement. 6. Vasomotor nephropathy, improving. 7. Supratherapeutic INR. We will hold Coumadin and allow pharmacy to adjust. 8. Severe protein caloric malnutrition. 9. Dysphagia, improving. PLAN: Follow Pulmonary Medicine recommendations Combivent and albuterol inhaler. Resume home medications, cardiac diet O2 support of 15 liters nasal cannula. spo2 < 93% has finished his 5-day course of remdesivir. We will monitor renal function. coumadin for dvt prophylaxis GI PROPHYLAXIS PT and OT, 6-minute walk prior to discharge, continue MDI and Combivent. Discussed with RN , we will hold diuretics for orthostasis as well as Entresto. Coronary artery disease appears to be clinically stable. Add Zosyn and vancomycin. He does have a known history of ischemic cardiomyopathy with previous AICD implantation, which appears to be stable., compensated Total time for the patient exam, chart review 45 minutes, greater than 50% of time was spent with the patient's exam, chart review and the patient's care and coordination. History of Present Illness History of Present Illness CHIEF COMPLAINT: Increasing shortness of breath., hypoxia HISTORY OF PRESENT ILLNESS: A 75-year-old male with history of COVID-19 who was recently discharged 2 days ago. [facility] and Leva[facility]. He has a known history of COPD. He was seen in the emergency room, he required initially 15 liters of O2 for support. Chest x-ray shows progressive worsening of infiltrates. The patient was therefore admitted for reevaluation of treatment of worsening COVID-19 pneumonitis and pneumonia. EXPECTED STAY > 72 HRS due to severe decompensation of pneumonia PAST MEDICAL HISTORY: Significant for diabetes, hyperlipidemia, hypertension, previous IA, cholecystectomy, coronary artery disease with bypass surgery, remote tonsillectomy, and COPD Former smoker, quit smoking in 1977. REVIEW OF SYSTEMS: The patient complains mainly of fatigue. Denies fever, chills. He has stable cough, but worsening shortness of breath. Denies chest pain. Denies nausea, vomiting, blood in stools or melena. Denies dysuria, back pain, joint pain, or rash. No headache, focal weakness. No polyuria, polydipsia. Denies depression or anxiety. no focal weakness A 14-point review of systems otherwise negative MEDS SEE 04/05/2020 No acute events reported overnight, case discussed with nursing staff patient in no acute distress no complaints during my visit doing better according to PT patient very determined to return home after his hospital stay Vitals Vitals Vital Signs Date Time Temp Pulse Resp B/P (MAP) Pulse Ox O2 Delivery O2 Flow Rate FiO2 04/05/20 11:00 98.1 53 18 129/63 (85) Nasal Cannula 14.0 98.1 04/05/20 07:00 87 Physical Exam Physical Exam GENERAL: Well nourished, no acute distress, on 15 liters. RESTING IN BEDSIDE CHAIR NECK: Supple. Throat and pharynx are clear. CARDIOVASCULAR: Regular rate without S3 or S4. LUNGS: Show a few crackles. ABDOMEN: Soft, nontender. EXTREMITIES: Without rash. No CVA tenderness. No cyanosis, clubbing, or edema. BREASTS EXAM: Not examined. NEUROLOGIC: He is alert and oriented. Normal sensory function. Visual zimmerman are full to confrontation. No focal deficits. Muscles of mastication are symmetric bilaterally. cn 2-12 grossly intact neurovascular bundle intact His affect is normal. Mood is normal. Cranial nerves III-XII are grossly intact. EKG shows QTc of 477. Chest x-ray shows worsening infiltrates, likely of atypical pneumonia. SARS-2 Covid - General: Alert, Oriented X3, Cooperative, mild distress Heart: Regular rate Lungs: Clear Abdomen: Normal bowel sounds, Soft Extremities: No clubbing, No cyanosis Skin: No rashes Labs LABS Laboratory Tests Test 04/04/20 20:05 04/05/20 08:00 04/05/20 08:09 04/05/20 08:28 Glucose (Fingerstick) 182 mg/dL (70-99) 148 mg/dL (70-99) White Blood Count 11.1 x10^3/uL (4.0-11.0) Red Blood Count 3.44 x10^6/uL (4.30-5.70) Hemoglobin 11.6 g/dL (13.0-17.5) Hematocrit 33.9 % (39.0-53.0) Mean Corpuscular Volume 98 fL (79-100) Mean Corpuscular Hemoglobin 34 pg (25-35) Mean Corpuscular Hemoglobin Concent 34 g/dL (31-37) Red Cell Distribution Width 15.5 % (11.5-14.5) Platelet Count 135 x10^3/uL (140-400) Neutrophils (%) (Auto) 94 % (31-73) Lymphocytes (%) (Auto) 2 % (24-48) Monocytes (%) (Auto) 4 % (0-9) Eosinophils (%) (Auto) 0 % (0-3) Basophils (%) (Auto) 0 % (0-3) Neutrophils # (Auto) 10.4 x10^3/uL (1.8-7.7) Lymphocytes # (Auto) 0.2 x10^3/uL (1.0-4.8) Monocytes # (Auto) 0.5 x10^3/uL (0.0-1.1) Eosinophils # (Auto) 0.0 x10^3/uL (0.0-0.7) Basophils # (Auto) 0.0 x10^3/uL (0.0-0.2) Prothrombin Time 39.4 SEC (11.7-14.0) Prothromb Time International Ratio 4.0 (0.8-1.1) Creatinine 1.3 mg/dL (0.7-1.3) Estimated GFR (Cockcroft-Gault) 53.7 Test 04/05/20 10:52 04/05/20 16:53 Glucose (Fingerstick) 156 mg/dL (70-99) 133 mg/dL (70-99) Assessment and Plan Assessmemt and Plan Problems Medical Problems: (1) Acute hypoxemic respiratory failure due to COVID-19 Status: Acute (2) COPD exacerbation Status: Acute (3) Supratherapeutic INR Status: Acute (4) Transaminitis Status: Acute Comment Review of Relevant I have reviewed the following items vamsi (where applicable) has been applied. Labs Laboratory Tests Test 04/03/20 19:25 04/03/20 21:37 04/04/20 04:10 04/04/20 07:15 Urine Collection Type Unknown Urine Color Yellow Urine Clarity Clear Urine pH 6.0 (<5.0-8.0) Urine Specific [place] 1.015 (1.000-1.030) Urine Protein Negative mg/dL (NEG-TRACE) Urine Glucose (UA) Negative mg/dL (NEG) Urine Ketones (Stick) Negative mg/dL (NEG) Urine Blood Negative (NEG) Urine Nitrite Negative (NEG) Urine Bilirubin Negative (NEG) Urine Urobilinogen Dipstick 0.2 mg/dL (0.2 mg/dL) Urine Leukocyte Esterase Negative (NEG) Urine RBC 0 /HPF (0-2) Urine WBC Occ /HPF (0-4) Urine Squamous Epithelial Cells Occ /LPF Urine Bacteria 0 /HPF (0-FEW) Urine Hyaline Casts Few /HPF Urine Mucus Slight /LPF Glucose (Fingerstick) 181 mg/dL (70-99) 156 mg/dL (70-99) White Blood Count 7.8 x10^3/uL (4.0-11.0) Red Blood Count 3.68 x10^6/uL (4.30-5.70) Hemoglobin 12.5 g/dL (13.0-17.5) Hematocrit 35.7 % (39.0-53.0) Mean Corpuscular Volume 97 fL (79-100) Mean Corpuscular Hemoglobin 34 pg (25-35) Mean Corpuscular Hemoglobin Concent 35 g/dL (31-37) Red Cell Distribution Width 15.7 % (11.5-14.5) Platelet Count 134 x10^3/uL (140-400) Neutrophils (%) (Auto) 96 % (31-73) Lymphocytes (%) (Auto) 2 % (24-48) Monocytes (%) (Auto) 2 % (0-9) Eosinophils (%) (Auto) 0 % (0-3) Basophils (%) (Auto) 0 % (0-3) Neutrophils # (Auto) 7.5 x10^3/uL (1.8-7.7) Lymphocytes # (Auto) 0.2 x10^3/uL (1.0-4.8) Monocytes # (Auto) 0.2 x10^3/uL (0.0-1.1) Eosinophils # (Auto) 0.0 x10^3/uL (0.0-0.7) Basophils # (Auto) 0.0 x10^3/uL (0.0-0.2) Prothrombin Time 39.7 SEC (11.7-14.0) Prothromb Time International Ratio 4.0 (0.8-1.1) Sodium Level 141 mmol/L (136-145) Potassium Level 3.9 mmol/L (3.5-5.1) Chloride Level 103 mmol/L (98-107) Carbon Dioxide Level 31 mmol/L (21-32) Anion Gap 7 (6-14) Blood Urea Nitrogen 29 mg/dL (8-26) Creatinine 1.1 mg/dL (0.7-1.3) Estimated GFR (Cockcroft-Gault) 65.1 BUN/Creatinine Ratio 26 (6-20) Glucose Level 162 mg/dL (70-99) Calcium Level 8.0 mg/dL (8.5-10.1) Total Bilirubin 1.2 mg/dL (0.2-1.0) Aspartate Amino Transf (AST/SGOT) 53 U/L (15-37) Alanine Aminotransferase (ALT/SGPT) 59 U/L (16-63) Alkaline Phosphatase 66 U/L (46-116) Total Protein 5.2 g/dL (6.4-8.2) Albumin 2.3 g/dL (3.4-5.0) Albumin/Globulin Ratio 0.8 (1.0-1.7) Test 04/04/20 11:15 04/04/20 11:37 04/04/20 16:43 04/04/20 20:05 Nasal Screen MRSA (PCR) Negative (NEGATIVE) Glucose (Fingerstick) 203 mg/dL (70-99) 124 mg/dL (70-99) 182 mg/dL (70-99) Test 04/05/20 08:00 04/05/20 08:09 04/05/20 08:28 04/05/20 10:52 White Blood Count 11.1 x10^3/uL (4.0-11.0) Red Blood Count 3.44 x10^6/uL (4.30-5.70) Hemoglobin 11.6 g/dL (13.0-17.5) Hematocrit 33.9 % (39.0-53.0) Mean Corpuscular Volume 98 fL (79-100) Mean Corpuscular Hemoglobin 34 pg (25-35) Mean Corpuscular Hemoglobin Concent 34 g/dL (31-37) Red Cell Distribution Width 15.5 % (11.5-14.5) Platelet Count 135 x10^3/uL (140-400) Neutrophils (%) (Auto) 94 % (31-73) Lymphocytes (%) (Auto) 2 % (24-48) Monocytes (%) (Auto) 4 % (0-9) Eosinophils (%) (Auto) 0 % (0-3) Basophils (%) (Auto) 0 % (0-3) Neutrophils # (Auto) 10.4 x10^3/uL (1.8-7.7) Lymphocytes # (Auto) 0.2 x10^3/uL (1.0-4.8) Monocytes # (Auto) 0.5 x10^3/uL (0.0-1.1) Eosinophils # (Auto) 0.0 x10^3/uL (0.0-0.7) Basophils # (Auto) 0.0 x10^3/uL (0.0-0.2) Glucose (Fingerstick) 148 mg/dL (70-99) 156 mg/dL (70-99) Prothrombin Time 39.4 SEC (11.7-14.0) Prothromb Time International Ratio 4.0 (0.8-1.1) Creatinine 1.3 mg/dL (0.7-1.3) Estimated GFR (Cockcroft-Gault) 53.7 Test 04/05/20 16:53 Glucose (Fingerstick) 133 mg/dL (70-99) Laboratory Tests Test 04/04/20 20:05 04/05/20 08:00 04/05/20 08:09 04/05/20 08:28 Glucose (Fingerstick) 182 mg/dL (70-99) 148 mg/dL (70-99) White Blood Count 11.1 x10^3/uL (4.0-11.0) Red Blood Count 3.44 x10^6/uL (4.30-5.70) Hemoglobin 11.6 g/dL (13.0-17.5) Hematocrit 33.9 % (39.0-53.0) Mean Corpuscular Volume 98 fL (79-100) Mean Corpuscular Hemoglobin 34 pg (25-35) Mean Corpuscular Hemoglobin Concent 34 g/dL (31-37) Red Cell Distribution Width 15.5 % (11.5-14.5) Platelet Count 135 x10^3/uL (140-400) Neutrophils (%) (Auto) 94 % (31-73) Lymphocytes (%) (Auto) 2 % (24-48) Monocytes (%) (Auto) 4 % (0-9) Eosinophils (%) (Auto) 0 % (0-3) Basophils (%) (Auto) 0 % (0-3) Neutrophils # (Auto) 10.4 x10^3/uL (1.8-7.7) Lymphocytes # (Auto) 0.2 x10^3/uL (1.0-4.8) Monocytes # (Auto) 0.5 x10^3/uL (0.0-1.1) Eosinophils # (Auto) 0.0 x10^3/uL (0.0-0.7) Basophils # (Auto) 0.0 x10^3/uL (0.0-0.2) Prothrombin Time 39.4 SEC (11.7-14.0) Prothromb Time International Ratio 4.0 (0.8-1.1) Creatinine 1.3 mg/dL (0.7-1.3) Estimated GFR (Cockcroft-Gault) 53.7 Test 04/05/20 10:52 04/05/20 16:53 Glucose (Fingerstick) 156 mg/dL (70-99) 133 mg/dL (70-99) Microbiology 04/03/20 Blood Culture - Preliminary, Resulted NO GROWTH AFTER 2 DAYS Medications Current Medications Sodium Chloride 1,000 ml @ 1,000 mls/hr 1X ONCE IV Last administered on 04/02/20at 15:13; Start 04/02/20 at 15:00; Stop 04/02/20 at 15:59; Status DC Dexamethasone Sodium Phosphate (Decadron) 10 mg 1X ONCE IV Last administered on 04/02/20at 17:34; Start 04/02/20 at 16:30; Stop 04/02/20 at 16:32; Status DC Iohexol (Omnipaque 350 Mg/ml) 90 ml 1X ONCE IV ; Start 04/02/20 at 19:00; Stop 04/02/20 at 19:01; Status DC Acetaminophen (Tylenol) 650 mg PRN Q6HRS PRN PO Headaches, Temp > 101.5F Last administered on 04/03/20at 13:04; Start 04/03/20 at 11:15; Stop 04/04/20 at 10:42; Status DC Albuterol Sulfate (Ventolin Neb Soln) 2.5 mg PRN Q6HRS PRN INH SHORTNESS OF BREATH; Start 04/03/20 at 11:15; Stop 04/05/20 at 09:29; Status DC Albuterol Sulfate (Ventolin Hfa) 1 puff PRN Q6HRS PRN INH SOA; Start 04/03/20 at 11:15; Stop 04/05/20 at 09:30; Status DC Bisacodyl (Dulcolax Supp) 10 mg PRN DAILY PRN NC CONSTIPATION, 1st choice; Start 04/03/20 at 11:15 Carvedilol (Coreg) 6.25 mg BIDWMEALS PO Last administered on 04/05/20at 08:35; Start 04/03/20 at 12:00 Furosemide (Lasix) 40 mg DAILY PO Last administered on 04/05/20at 08:32; Start 04/03/20 at 11:30 Albuterol/ Ipratropium (Duoneb) 3 ml PRN QID PRN NEB SHORTNESS OF BREATH; Start 04/03/20 at 13:00; Stop 04/05/20 at 09:32; Status DC Lactobacillus Rhamnosus (Culturelle) 1 cap BID PO Last administered on 04/05/20at 08:33; Start 04/03/20 at 12:00 Levofloxacin (Levaquin) 500 mg DAILY PO Last administered on 04/04/20at 08:24; Start 04/03/20 at 11:30; Stop 04/04/20 at 10:47; Status DC Al Hydroxide/Mg Hydroxide (Mylanta Plus Xs) 30 ml PRN Q3HRS PRN PO HEARTBURN / GAS; Start 04/03/20 at 11:15 Nitroglycerin (Nitrostat) 0.4 mg PRN Q5MIN PRN SL CHEST PAIN; Start 04/03/20 at 11:15 Nystatin (Nystop) 1 dior BID TP Last administered on 04/05/20 10:01; Start 04/03/20 at 11:30; Stop 04/12/20 at 21:01 Polyethylene Glycol (miraLAX PACKET) 17 gm PRN DAILY PRN PO CONSTIPATION; Start 04/03/20 at 11:15 Potassium Chloride (Klor-Con) 20 meq DAILYWBKFT PO Last administered on 04/05/20 08:32; Start 04/03/20 at 11:30 Vitamin B Complex (Connor B) 1 tab DAILY PO Last administered on 04/05/20 08:32; Start 04/03/20 at 11:31 Warfarin Sodium (Coumadin) 5 mg DAILY PO ; Start 04/04/20 at 09:00; Stop 04/03/20 at 11:27; Status DC Magnesium Oxide (Magnesium Oxide) 200 mg QODAY PO Last administered on 04/04/20 08:24; Start 04/04/20 at 09:00 Pantoprazole Sodium (Protonix) 40 mg DAILYAC PO Last administered on 04/05/20 08:32; Start 04/03/20 at 11:30 Atorvastatin Calcium (Lipitor) 20 mg QHS PO Last administered on 04/04/20at 20:15; Start 04/03/20 at 21:00 Spironolactone (Aldactone) 25 mg DAILY PO Last administered on 04/05/20 08:32; Start 04/03/20 at 11:30 Vitamin D (Vitamin D3) 1,000 unit DAILY PO Last administered on 04/05/20 08:33; Start 04/03/20 at 11:30 Cetirizine HCl (ZyrTEC) 10 mg DAILY PO Last administered on 04/05/20 08:33; Start 04/03/20 at 11:30 Warfarin Sodium (Coumadin Per Pharmacy) 1 each PRN DAILY PRN MC SEE COMMENTS Last administered on 04/05/20 15:16; Start 04/03/20 at 12:00 Warfarin Sodium (Coumadin - No Dose Today) 1 each 1X WARF ONCE MC Last administered on 04/03/20 15:19; Start 04/03/20 at 16:00; Stop 04/03/20 at 16:01; Status DC Methylprednisolone Sodium Succinate (SOLU-Medrol 40MG VIAL) 80 mg Q8HRS IV Last administered on 04/05/20at 14:14; Start 04/03/20 at 15:30 Sodium Chloride (Normal Saline Flush) 3 ml QSHIFT PRN IV AFTER MEDS AND BLOOD DRAWS; Start 04/03/20 at 15:00 Ondansetron HCl (Zofran) 4 mg PRN Q4HRS PRN IV NAUSEA/VOMITING; Start 04/03/20 at 15:00 Acetaminophen (Tylenol) 650 mg PRN Q4HRS PRN PO TEMP OVER 100.4F OR MILD PAIN; Start 04/03/20 at 15:00 Al Hydroxide/Mg Hydroxide (Mylanta Plus Xs) 30 ml PRN DAILY PRN PO HEARTBURN / GAS; Start 04/03/20 at 15:00; Stop 04/04/20 at 10:42; Status DC Sodium Monofluorophosphate (Fleet Adult) 133 ml PRN DAILY PRN NC CONSTIPATION, 2nd choice; Start 04/03/20 at 15:00 Docusate Sodium (Colace) 100 mg PRN BID PRN PO HARD STOOLS; Start 04/03/20 at 15:00 Albuterol Sulfate (Ventolin Neb Soln) 2.5 mg PRN Q4HRS PRN NEB SHORTNESS OF BREATH; Start 04/03/20 at 15:00; Stop 04/05/20 at 09:30; Status DC Guaifenesin (Robitussin) 200 mg PRN Q4HRS PRN PO COUGH; Start 04/03/20 at 15:00 Temazepam (Restoril) 15 mg QHS PO Last administered on 04/04/20at 20:15; Start 04/03/20 at 23:45 Piperacillin Sod/ Tazobactam Sod (Zosyn Per Pharmacy) 1 each PRN DAILY PRN MC SEE COMMENTS; Start 04/04/20 at 10:45 Vancomycin HCl (Vanco Per Pharmacy) 1 each PRN DAILY PRN MC SEE COMMENTS Last administered on 04/04/20at 13:28; Start 04/04/20 at 10:45 Piperacillin Sod/ Tazobactam Sod 4.5 gm/Sodium Chloride 100 ml @ 200 mls/hr Q6HRS IV Last administered on 04/05/20at 12:18; Start 04/04/20 at 12:00 Vancomycin HCl 2 gm/Sodium Chloride 500 ml @ 250 mls/hr 1X ONCE IV Last administered on 04/04/20at 11:12; Start 04/04/20 at 11:00; Stop 04/04/20 at 12:59; Status DC Vancomycin HCl 1.5 gm/Sodium Chloride 500 ml @ 250 mls/hr Q18H IV Last administered on 04/05/20at 04:41; Start 04/05/20 at 05:00 Vancomycin HCl (Vancomycin Trough Level) 1 each 1X ONCE MC ; Start 04/05/20 at 22:30; Stop 04/05/20 at 22:31 Warfarin Sodium (Coumadin - No Dose Today) 1 each 1X WARF ONCE MC Last administered on 04/04/20at 15:35; Start 04/04/20 at 16:00; Stop 04/04/20 at 16:01; Status DC Albuterol Sulfate (Ventolin Hfa) 1 puff PRN Q6HRS PRN INH SHORTNESS OF BREATH Last administered on 04/05/20at 12:01; Start 04/05/20 at 09:30 Albuterol/ Ipratropium (Combivent Respimat 20-100 Mcg) 1 puff RTQID INH Last administered on 04/05/20at 17:13; Start 04/05/20 at 12:00 Warfarin Sodium (Coumadin - No Dose Today) 1 each 1X WARF ONCE MC Last administered on 04/05/20at 16:00; Start 04/05/20 at 16:00; Stop 04/05/20 at 16:01; Status DC Active Scripts Active Medrol (Methylprednisolone) 4 Mg Tablet 4 Mg PO DAILY 7 Days Levofloxacin 500 Mg Tablet 1 Tab PO DAILY 7 Days Tylenol (Acetaminophen) 325 Mg Tablet 650 Mg PO PRN Q6HRS PRN 30 Days Ventolin Hfa (Albuterol Sulfate) 8 Gm Hfa.aer.ad 1 Puff INH PRN Q6HRS PRN 30 Days Klor-Con M20 (Potassium Chloride) 20 Meq Tab.er.prt 20 Meq PO DAILYWBKFT 14 Days Nyamyc (Nystatin) 15 Gm Powder 1 Dior TP BID 10 Days Culturelle (Lactobacillus Rhamnosus Gg) 1 Each Cap.sprink 1 Cap PO BID 30 Days Polyethylene Glycol 3350 17 Gm Powd.pack 17 Gm PO PRN DAILY PRN 30 Days Bisacodyl 10 Mg Supp.rect 10 Mg NC PRN DAILY PRN 10 Days Mag-Al Plus Xs Suspension (Mag Hydrox/Al Hydrox/Simeth) 30 Ml Oral.susp 30 Ml PO PRN Q3HRS PRN 14 Days Reported Warfarin Sodium 7.5 Mg Tablet 7.5 Mg PO TWICE WEEKLY [vitamin D] 400 Cap PO DAILY B Complex (Vitamin B Complex) 1 Each Tablet 1 Tab PO DAILY 30 Days Spironolactone-Hctz 25-25 Tab (Spironolact/Hydrochlorothiazid) 1 Each Tablet 1 Each PO DAILY Magnesium (Magnesium Oxide) 250 Mg Tablet 250 Mg PO QODAY Duoneb 0.5-3(2.5) Mg/3 Ml (Albuterol/Ipratropium) 3 Ml Ampul.neb 3 Ml NEB QID Lasix (Furosemide) 40 Mg Tablet 1 Tab PO DAILY 30 Days Warfarin Sodium 5 Mg Tablet 5 Mg PO DAILY Pravastatin Sodium 80 Mg Tablet 80 Mg PO DAILY Omeprazole 40 Mg Capsule.dr 40 Mg PO DAILY NITROGLYCERIN SubLingual (Nitroglycerin) 0.4 Mg Tab.subl 0.4 Mg SL PRN Q5MIN PRN Loratadine 10 Mg Tablet 10 Mg PO Carvedilol (Carvedilol) 6.25 Mg Tablet 6.25 Mg PO BIDWMEALS Proair Hfa Inhaler (Albuterol Sulfate) 8.5 Gm Hfa.aer.ad 1 Puff INH PRN Q6HRS PRN Vitals/I & O Vital Sign - Last 24 Hours 04/04/20 04/04/20 04/04/20 04/05/20 19:42 20:00 23:21 03:53 Temp 97.5 97.5 97.4 97.5 97.5 97.4 Pulse 70 53 52 Resp 20 18 18 B/P (MAP) 121/60 (80) 154/69 (97) 139/62 (87) Pulse Ox 93 96 96 O2 Delivery Nasal Cannula Nasal Cannula Nasal Cannula Nasal Cannula O2 Flow Rate 14.0 14.0 14.0 14.0 04/05/20 04/05/20 04/05/20 04/05/20 07:00 08:00 08:35 11:00 Temp 97.4 98.1 97.4 98.1 Pulse 50 51 53 Resp 19 18 B/P (MAP) 121/55 (77) 121/55 129/63 (85) Pulse Ox 87 O2 Delivery NonRebreather Mask Nasal Cannula Nasal Cannula O2 Flow Rate 14.0 13.0 14.0 Intake and Output 04/04/20 04/04/20 04/05/20 14:59 22:59 06:59 Intake Total 700 ml 1000 ml Balance 700 ml 1000 ml Justicifation of Admission Dx: Justifications for Admission: Justification of Admission Dx: Yes Comminuty Aquired Pneumonia: Hypoxemia VINCE GUTIÉRREZ MD Apr 05, 2020 17:22
[2020-04-05 19:00] VITALS: BP 127/55
[2020-04-05] MEDS: ATORVASTATIN CALCIUM 20 MG TABLET PO SCH (20:16)
[2020-04-05] MEDS: TEMAZEPAM 15 MG CAPSULE PO SCH (20:16)
[2020-04-05 23:00] VITALS: BP 127/65
[2020-04-05 23:19] LABS: VANC TR 13.9 mcg/mL (10.0-20.0)
[2020-04-06] MEDS: VANCOMYCIN PER PHARMACY MC PRN (00:03)
--- NOTE | 2020-04-06 00:03 | NUR ---
Pharmacy Vancomycin Dosing Note S:Consulted to monitor and dose vancomycin started 04/04/20. O:PRICE SMITH is a 75 year old M with HCAP . Height: 5 feet, 7 inches Weight: 118.1 kg [place] Body Weight: 66.10 Adjusted Body Weight: 86.90 Dosing Weight: Actual Other Antibiotics: LABS: Last BUN: 29 Last Creatinine: 1.3 Creatinine Clearance: 70.2 mL/min Last WBC: 7.8 Last Procalcitonin: Tmax (past 24 hours): 96.2 (L) Microbiology: I/O: 660/550 Drug Levels: Last Trough level: 13.9 on 04/05/20 at 2230 Last dose given 04/04/20 at 1112 Vancomycin Dosing: Loading Dose: 2000 mg x1 Dosing Weight: Actual Target Trough: 15-20 A: Based on: TROUGH AND CONDITION P: 1. Continue Vancomycin 1500 mg IV q18h 2. Follow up Trough level IF NEEDED 3. Pharmacy will continue to monitor, follow and adjust therapy as needed. KERRI FRIEDMAN RPH, 04/06/20 0003 Signed: 04/06/20 at 0004 by KERRI FRIEDMAN RPH PHA
[2020-04-06 03:00] VITALS: BP 129/60
[2020-04-06] MEDS: PIPERACILLIN/TAZOBACTAM 4.5 GM in IV NORMAL SALINE 100ML 100 ML IV SCH ×3 (05:18→17:57)
[2020-04-06] MEDS: methylPREDNISolone SOD SUCC PF 40 MG/ML VIAL. IV SCH ×3 (05:18→21:23)
[2020-04-06 07:00] VITALS: BP 114/53
[2020-04-06] MEDS: POTASSIUM CHLORIDE 20 MEQ TABLET.ER. PO SCH (08:12)
[2020-04-06] MEDS: IPRATROPIUM/ALBUTEROL 20/100mcg/INH INHALER. INH SCH ×4 (08:12→20:00)
[2020-04-06] MEDS: LACTOBACILLUS RHAMNOSUS GG 1 CAPSULE. PO SCH ×2 (08:12→21:23)
[2020-04-06] MEDS: CETIRIZINE HCL 10 MG TABLET. PO SCH (08:12)
[2020-04-06] MEDS: PANTOPRAZOLE 40 MG TABLET.DR. PO SCH (08:12)
[2020-04-06] MEDS: MAGNESIUM OXIDE 400 MG TABLET PO SCH (08:13)
[2020-04-06] MEDS: VITAMIN B COMPLEX TABLET. PO SCH (08:13)
[2020-04-06] MEDS: CHOLECALCIFEROL (VITAMIN D3) 1,000 UNIT TABLET PO SCH (08:13)
[2020-04-06] MEDS: FUROSEMIDE 40 MG TABLET. PO SCH (08:14)
[2020-04-06] MEDS: CARVEDILOL 6.25 MG TABLET. PO SCH ×2 (08:14→16:41)
[2020-04-06] MEDS: SPIRONOLACTONE 25 MG TABLET PO SCH (08:14)
[2020-04-06] MEDS: NYSTATIN TOPICAL POWDER 15GM BOTTLE. TP SCH ×2 (08:15→21:00)
[2020-04-06 09:32] LABS: CREATININE 1.3 mg/dL (0.7-1.3); GFR 53.7; PROTHROMBIN TIME PATIENT 33.1 SEC (11.7-14.0)
--- NOTE | 2020-04-06 11:20 | PDOC ---
PROGRESS NOTES Date of Service: DATE: 04/06/20 TIME: 11:19 Chief Complaint Chief Complaint ASSESSMENT: 1. Acute on chronic worsening hypoxia with severe respiratory failure. 2. Acute asthma or chronic obstructive pulmonary disease exacerbation. 3. Remote tobacco abuse. 4. Atypical pneumonia secondary to coronavirus disease-19. 5. Hypokalemia, on replacement. 6. Vasomotor nephropathy, improving. 7. Supratherapeutic INR. We will hold Coumadin and allow pharmacy to adjust. 8. Severe protein caloric malnutrition. 9. Dysphagia, improving. PLAN: Follow Pulmonary Medicine recommendations Combivent and albuterol inhaler. Resume home medications, cardiac diet O2 support of 15 liters nasal cannula. spo2 < 93% has finished his 5-day course of remdesivir. We will monitor renal function. coumadin for dvt prophylaxis GI PROPHYLAXIS PT and OT, 6-minute walk prior to discharge, continue MDI and Combivent. Discussed with RN , we will hold diuretics for orthostasis as well as Entresto. Coronary artery disease appears to be clinically stable. Add Zosyn and vancomycin. He does have a known history of ischemic cardiomyopathy with previous AICD implantation, which appears to be stable., compensated Patient wanting to transition home but this possibility will depend on PT evaluation History of Present Illness History of Present Illness CHIEF COMPLAINT: Increasing shortness of breath., hypoxia HISTORY OF PRESENT ILLNESS: A 75-year-old male with history of COVID-19 who was recently discharged 2 days ago. He was discharged to custodial on Solu-Medrol and Levaquin. He has a known history of COPD. He was seen in the emergency room, he required initially 15 liters of O2 for support. Chest x-ray shows progressive worsening of infiltrates. The patient was therefore admitted for reevaluation of treatment of worsening COVID-19 pneumonitis and pneumonia. EXPECTED STAY > 72 HRS due to severe decompensation of pneumonia PAST MEDICAL HISTORY: Significant for diabetes, hyperlipidemia, hypertension, previous MT, cholecystectomy, coronary artery disease with bypass surgery, remote tonsillectomy, and COPD Former smoker, quit smoking in 1977. REVIEW OF SYSTEMS: The patient complains mainly of fatigue. Denies fever, chills. He has stable cough, but worsening shortness of breath. Denies chest pain. Denies nausea, vomiting, blood in stools or melena. Denies dysuria, back pain, joint pain, or rash. No headache, focal weakness. No polyuria, polydipsia. Denies depression or anxiety. no focal weakness A 14-point review of systems otherwise negative MEDS SEE [facility] 04/05/2020 No acute events reported overnight, case discussed with nursing staff patient in no acute distress no complaints during my visit doing better according to PT patient very determined to return home after his hospital stay 04/06/2020 Patient seems to be doing better, I have encouraged him to work with physical therapy as much as possible today. Discussed with physical therapy guarded prognosis that he might be transitioning home he will probably end up requiring transition to an institution as a bridge prior to going home Vitals Vitals Vital Signs Date Time Temp Pulse Resp B/P (MAP) Pulse Ox O2 Delivery O2 Flow Rate FiO2 04/06/20 08:14 50 114/53 04/06/20 08:06 Nasal Cannula 10.0 04/06/20 07:00 93.6 20 97 93.6 Physical Exam Physical Exam GENERAL: Well nourished, no acute distress, on 15 liters. RESTING IN BEDSIDE CHAIR NECK: Supple. Throat and pharynx are clear. CARDIOVASCULAR: Regular rate without S3 or S4. LUNGS: Show a few crackles. ABDOMEN: Soft, nontender. EXTREMITIES: Without rash. No CVA tenderness. No cyanosis, clubbing, or edema. BREASTS EXAM: Not examined. NEUROLOGIC: He is alert and oriented. Normal sensory function. Visual zimmerman are full to confrontation. No focal deficits. Muscles of mastication are symmetric bilaterally. cn 2-12 grossly intact neurovascular bundle intact His affect is normal. Mood is normal. Cranial nerves III-XII are grossly intact. EKG shows QTc of 477. Chest x-ray shows worsening infiltrates, likely of atypical pneumonia. SARS-2 Covid - General: Alert, Oriented X3, Cooperative, mild distress Heart: Regular rate Lungs: Clear Abdomen: Normal bowel sounds, Soft Extremities: No clubbing, No cyanosis Skin: No rashes Labs LABS Laboratory Tests Test 04/05/20 16:53 04/05/20 20:27 04/05/20 22:50 04/06/20 07:36 Glucose (Fingerstick) 133 mg/dL (70-99) 181 mg/dL (70-99) 140 mg/dL (70-99) Vancomycin Level Trough 13.9 mcg/mL (10.0-20.0) Vancomycin Last Dose Date Vancomycin Last Dose Time 0500 Test 04/06/20 08:55 04/06/20 10:30 Prothrombin Time 33.1 SEC (11.7-14.0) Prothromb Time International Ratio 3.2 (0.8-1.1) Creatinine 1.3 mg/dL (0.7-1.3) Estimated GFR (Cockcroft-Gault) 53.7 Glucose (Fingerstick) 234 mg/dL (70-99) Assessment and Plan Assessmemt and Plan Problems Medical Problems: (1) Acute hypoxemic respiratory failure due to COVID-19 Status: Acute (2) COPD exacerbation Status: Acute (3) Supratherapeutic INR Status: Acute (4) Transaminitis Status: Acute Comment Review of Relevant I have reviewed the following items vamsi (where applicable) has been applied. Labs Laboratory Tests Test 04/04/20 11:37 04/04/20 16:43 04/04/20 20:05 04/05/20 08:00 Glucose (Fingerstick) 203 mg/dL (70-99) 124 mg/dL (70-99) 182 mg/dL (70-99) White Blood Count 11.1 x10^3/uL (4.0-11.0) Red Blood Count 3.44 x10^6/uL (4.30-5.70) Hemoglobin 11.6 g/dL (13.0-17.5) Hematocrit 33.9 % (39.0-53.0) Mean Corpuscular Volume 98 fL (79-100) Mean Corpuscular Hemoglobin 34 pg (25-35) Mean Corpuscular Hemoglobin Concent 34 g/dL (31-37) Red Cell Distribution Width 15.5 % (11.5-14.5) Platelet Count 135 x10^3/uL (140-400) Neutrophils (%) (Auto) 94 % (31-73) Lymphocytes (%) (Auto) 2 % (24-48) Monocytes (%) (Auto) 4 % (0-9) Eosinophils (%) (Auto) 0 % (0-3) Basophils (%) (Auto) 0 % (0-3) Neutrophils # (Auto) 10.4 x10^3/uL (1.8-7.7) Lymphocytes # (Auto) 0.2 x10^3/uL (1.0-4.8) Monocytes # (Auto) 0.5 x10^3/uL (0.0-1.1) Eosinophils # (Auto) 0.0 x10^3/uL (0.0-0.7) Basophils # (Auto) 0.0 x10^3/uL (0.0-0.2) Test 04/05/20 08:09 04/05/20 08:28 04/05/20 10:52 04/05/20 16:53 Glucose (Fingerstick) 148 mg/dL (70-99) 156 mg/dL (70-99) 133 mg/dL (70-99) Prothrombin Time 39.4 SEC (11.7-14.0) Prothromb Time International Ratio 4.0 (0.8-1.1) Creatinine 1.3 mg/dL (0.7-1.3) Estimated GFR (Cockcroft-Gault) 53.7 Test 04/05/20 20:27 04/05/20 22:50 04/06/20 07:36 04/06/20 08:55 Glucose (Fingerstick) 181 mg/dL (70-99) 140 mg/dL (70-99) Vancomycin Level Trough 13.9 mcg/mL (10.0-20.0) Vancomycin Last Dose Date Vancomycin Last Dose Time 0500 Prothrombin Time 33.1 SEC (11.7-14.0) Prothromb Time International Ratio 3.2 (0.8-1.1) Creatinine 1.3 mg/dL (0.7-1.3) Estimated GFR (Cockcroft-Gault) 53.7 Test 04/06/20 10:30 Glucose (Fingerstick) 234 mg/dL (70-99) Laboratory Tests Test 04/05/20 16:53 04/05/20 20:27 04/05/20 22:50 04/06/20 07:36 Glucose (Fingerstick) 133 mg/dL (70-99) 181 mg/dL (70-99) 140 mg/dL (70-99) Vancomycin Level Trough 13.9 mcg/mL (10.0-20.0) Vancomycin Last Dose Date Vancomycin Last Dose Time 0500 Test 04/06/20 08:55 04/06/20 10:30 Prothrombin Time 33.1 SEC (11.7-14.0) Prothromb Time International Ratio 3.2 (0.8-1.1) Creatinine 1.3 mg/dL (0.7-1.3) Estimated GFR (Cockcroft-Gault) 53.7 Glucose (Fingerstick) 234 mg/dL (70-99) Microbiology 04/03/20 Blood Culture - Preliminary, Resulted NO GROWTH AFTER 2 DAYS Medications Current Medications Sodium Chloride 1,000 ml @ 1,000 mls/hr 1X ONCE IV Last administered on 04/02/20at 15:13; Start 04/02/20 at 15:00; Stop 04/02/20 at 15:59; Status DC Dexamethasone Sodium Phosphate (Decadron) 10 mg 1X ONCE IV Last administered on 04/02/20at 17:34; Start 04/02/20 at 16:30; Stop 04/02/20 at 16:32; Status DC Iohexol (Omnipaque 350 Mg/ml) 90 ml 1X ONCE IV ; Start 04/02/20 at 19:00; Stop 04/02/20 at 19:01; Status DC Acetaminophen (Tylenol) 650 mg PRN Q6HRS PRN PO Headaches, Temp > 101.5F Last administered on 04/03/20at 13:04; Start 04/03/20 at 11:15; Stop 04/04/20 at 10:42; Status DC Albuterol Sulfate (Ventolin Neb Soln) 2.5 mg PRN Q6HRS PRN INH SHORTNESS OF BREATH; Start 04/03/20 at 11:15; Stop 04/05/20 at 09:29; Status DC Albuterol Sulfate (Ventolin Hfa) 1 puff PRN Q6HRS PRN INH SOA; Start 04/03/20 at 11:15; Stop 04/05/20 at 09:30; Status DC Bisacodyl (Dulcolax Supp) 10 mg PRN DAILY PRN [place] CONSTIPATION, 1st choice; Start 04/03/20 at 11:15 Carvedilol (Coreg) 6.25 mg BIDWMEALS PO Last administered on 04/06/20 08:14; Start 04/03/20 at 12:00 Furosemide (Lasix) 40 mg DAILY PO Last administered on 04/06/20 08:14; Start 04/03/20 at 11:30 Albuterol/ Ipratropium (Duoneb) 3 ml PRN QID PRN NEB SHORTNESS OF BREATH; Start 04/03/20 at 13:00; Stop 04/05/20 at 09:32; Status DC Lactobacillus Rhamnosus (Culturelle) 1 cap BID PO Last administered on 04/06/20at 08:12; Start 04/03/20 at 12:00 Levofloxacin (Levaquin) 500 mg DAILY PO Last administered on 04/04/20at 08:24; Start 04/03/20 at 11:30; Stop 04/04/20 at 10:47; Status DC Al Hydroxide/Mg Hydroxide (Mylanta Plus Xs) 30 ml PRN Q3HRS PRN PO HEARTBURN / GAS; Start 04/03/20 at 11:15 Nitroglycerin (Nitrostat) 0.4 mg PRN Q5MIN PRN SL CHEST PAIN; Start 04/03/20 at 11:15 Nystatin (Nystop) 1 dior BID TP Last administered on 04/06/20 08:15; Start 04/03/20 at 11:30; Stop 04/12/20 at 21:01 Polyethylene Glycol (miraLAX PACKET) 17 gm PRN DAILY PRN PO CONSTIPATION; Start 04/03/20 at 11:15 Potassium Chloride (Klor-Con) 20 meq DAILYWBKFT PO Last administered on 04/06/20 08:12; Start 04/03/20 at 11:30 Vitamin B Complex (Connor B) 1 tab DAILY PO Last administered on 04/06/20 08:13; Start 04/03/20 at 11:31 Warfarin Sodium (Coumadin) 5 mg DAILY PO ; Start 04/04/20 at 09:00; Stop 04/03/20 at 11:27; Status DC Magnesium Oxide (Magnesium Oxide) 200 mg QODAY PO Last administered on 04/06/20 08:13; Start 04/04/20 at 09:00 Pantoprazole Sodium (Protonix) 40 mg DAILYAC PO Last administered on 04/06/20 08:12; Start 04/03/20 at 11:30 Atorvastatin Calcium (Lipitor) 20 mg QHS PO Last administered on 04/05/20at 20:16; Start 04/03/20 at 21:00 Spironolactone (Aldactone) 25 mg DAILY PO Last administered on 04/06/20at 08:14; Start 04/03/20 at 11:30 Vitamin D (Vitamin D3) 1,000 unit DAILY PO Last administered on 04/06/20at 08:13; Start 04/03/20 at 11:30 Cetirizine HCl (ZyrTEC) 10 mg DAILY PO Last administered on 04/06/20at 08:12; Start 04/03/20 at 11:30 Warfarin Sodium (Coumadin Per Pharmacy) 1 each PRN DAILY PRN MC SEE COMMENTS Last administered on 04/05/20at 15:16; Start 04/03/20 at 12:00 Warfarin Sodium (Coumadin - No Dose Today) 1 each 1X WARF ONCE MC Last adm inistered on 04/03/20at 15:19; Start 04/03/20 at 16:00; Stop 04/03/20 at 16:01; Status DC Methylprednisolone Sodium Succinate (SOLU-Medrol 40MG VIAL) 80 mg Q8HRS IV Last administered on 04/06/20at 05:18; Start 04/03/20 at 15:30 Sodium Chloride (Normal Saline Flush) 3 ml QSHIFT PRN IV AFTER MEDS AND BLOOD DRAWS; Start 04/03/20 at 15:00 Ondansetron HCl (Zofran) 4 mg PRN Q4HRS PRN IV NAUSEA/VOMITING; Start 04/03/20 at 15:00 Acetaminophen (Tylenol) 650 mg PRN Q4HRS PRN PO TEMP OVER 100.4F OR MILD PAIN; Start 04/03/20 at 15:00 Al Hydroxide/Mg Hydroxide (Mylanta Plus Xs) 30 ml PRN DAILY PRN PO HEARTBURN / GAS; Start 04/03/20 at 15:00; Stop 04/04/20 at 10:42; Status DC Sodium Monofluorophosphate (Fleet Adult) 133 ml PRN DAILY PRN [place] CONSTIPATION, 2nd choice; Start 04/03/20 at 15:00 Docusate Sodium (Colace) 100 mg PRN BID PRN PO HARD STOOLS; Start 04/03/20 at 15:00 Albuterol Sulfate (Ventolin Neb Soln) 2.5 mg PRN Q4HRS PRN NEB SHORTNESS OF BREATH; Start 04/03/20 at 15:00; Stop 04/05/20 at 09:30; Status DC Guaifenesin (Robitussin) 200 mg PRN Q4HRS PRN PO COUGH; Start 04/03/20 at 15:00 Temazepam (Restoril) 15 mg QHS PO Last administered on 04/05/20at 20:16; Start 04/03/20 at 23:45 Piperacillin Sod/ Tazobactam Sod (Zosyn Per Pharmacy) 1 each PRN DAILY PRN MC SEE COMMENTS; Start 04/04/20 at 10:45 Vancomycin HCl (Vanco Per Pharmacy) 1 each PRN DAILY PRN MC SEE COMMENTS Last administered on 04/06/20at 00:03; Start 04/04/20 at 10:45 Piperacillin Sod/ Tazobactam Sod 4.5 gm/Sodium Chloride 100 ml @ 200 mls/hr Q6HRS IV Last administered on 04/06/20at 05:18; Start 04/04/20 at 12:00 Vancomycin HCl 2 gm/Sodium Chloride 500 ml @ 250 mls/hr 1X ONCE IV Last administered on 04/04/20at 11:12; Start 04/04/20 at 11:00; Stop 04/04/20 at 12:59; Status DC Vancomycin HCl 1.5 gm/Sodium Chloride 500 ml @ 250 mls/hr Q18H IV Last administered on 04/05/20at 23:35; Start 04/05/20 at 05:00 Vancomycin HCl (Vancomycin Trough Level) 1 each 1X ONCE MC Last administered on 04/05/20at 22:00; Start 04/05/20 at 22:30; Stop 04/05/20 at 22:31; Status DC Warfarin Sodium (Coumadin - No Dose Today) 1 each 1X WARF ONCE MC Last administered on 04/04/20at 15:35; Start 04/04/20 at 16:00; Stop 04/04/20 at 16:01; Status DC Albuterol Sulfate (Ventolin Hfa) 1 puff PRN Q6HRS PRN INH SHORTNESS OF BREATH Last administered on 04/05/20at 12:01; Start 04/05/20 at 09:30 Albuterol/ Ipratropium (Combivent Respimat 20-100 Mcg) 1 puff RTQID INH Last administered on 04/06/20at 08:12; Start 04/05/20 at 12:00 Warfarin Sodium (Coumadin - No Dose Today) 1 each 1X WARF ONCE MC Last administered on 04/05/20at 16:00; Start 04/05/20 at 16:00; Stop 04/05/20 at 16:01; Status DC Active Scripts Active Medrol (Methylprednisolone) 4 Mg Tablet 4 Mg PO DAILY 7 Days Levofloxacin 500 Mg Tablet 1 Tab PO DAILY 7 Days Tylenol (Acetaminophen) 325 Mg Tablet 650 Mg PO PRN Q6HRS PRN 30 Days Ventolin Hfa (Albuterol Sulfate) 8 Gm Hfa.aer.ad 1 Puff INH PRN Q6HRS PRN 30 Days Klor-Con M20 (Potassium Chloride) 20 Meq Tab.er.prt 20 Meq PO DAILYWBKFT 14 Days Nyamyc (Nystatin) 15 Gm Powder 1 Dior TP BID 10 Days Culturelle (Lactobacillus Rhamnosus Gg) 1 Each Cap.sprink 1 Cap PO BID 30 Days Polyethylene Glycol 3350 17 Gm Powd.pack 17 Gm PO PRN DAILY PRN 30 Days Bisacodyl 10 Mg Supp.rect 10 Mg [place] PRN DAILY PRN 10 Days Mag-Al Plus Xs Suspension (Mag Hydrox/Al Hydrox/Simeth) 30 Ml Oral.susp 30 Ml PO PRN Q3HRS PRN 14 Days Reported Warfarin Sodium 7.5 Mg Tablet 7.5 Mg PO TWICE WEEKLY [vitamin D] 400 Cap PO DAILY B Complex (Vitamin B Complex) 1 Each Tablet 1 Tab PO DAILY 30 Days Spironolactone-Hctz 25-25 Tab (Spironolact/Hydrochlorothiazid) 1 Each Tablet 1 Each PO DAILY Magnesium (Magnesium Oxide) 250 Mg Tablet 250 Mg PO QODAY Duoneb 0.5-3(2.5) Mg/3 Ml (Albuterol/Ipratropium) 3 Ml Ampul.neb 3 Ml NEB QID Lasix (Furosemide) 40 Mg Tablet 1 Tab PO DAILY 30 Days Warfarin Sodium 5 Mg Tablet 5 Mg PO DAILY Pravastatin Sodium 80 Mg Tablet 80 Mg PO DAILY Omeprazole 40 Mg Capsule.dr 40 Mg PO DAILY NITROGLYCERIN SubLingual (Nitroglycerin) 0.4 Mg Tab.subl 0.4 Mg SL PRN Q5MIN PRN Loratadine 10 Mg Tablet 10 Mg PO Carvedilol (Carvedilol) 6.25 Mg Tablet 6.25 Mg PO BIDWMEALS Proair Hfa Inhaler (Albuterol Sulfate) 8.5 Gm Hfa.aer.ad 1 Puff INH PRN Q6HRS PRN Vitals/I & O Vital Sign - Last 24 Hours 04/05/20 04/05/20 04/05/20 04/05/20 15:00 17:26 19:00 20:00 Temp 97.6 97.7 97.6 97.7 Pulse 51 51 54 Resp 19 22 B/P (MAP) 123/63 (83) 123/63 127/55 (79) Pulse Ox 98 98 O2 Delivery NonRebreather Mask Nasal Cannula Nasal Cannula O2 Flow Rate 14.0 10.0 10.0 04/05/20 04/06/20 04/06/20 04/06/20 23:00 03:00 07:00 08:06 Temp 97.4 97.2 93.6 97.4 97.2 93.6 Pulse 56 41 50 Resp 22 24 20 B/P (MAP) 127/65 (85) 129/60 (83) 114/53 (73) Pulse Ox 98 99 97 O2 Delivery Nasal Cannula Nasal Cannula Nasal Cannula Nasal Cannula O2 Flow Rate 10.0 10.0 10.0 10.0 04/06/20 08:14 Pulse 50 B/P (MAP) 114/53 Intake and Output 04/05/20 04/05/20 04/06/20 15:00 23:00 07:00 Intake Total 480 ml 840 ml 1080 ml Balance 480 ml 840 ml 1080 ml Justicifation of Admission Dx: Justifications for Admission: Justification of Admission Dx: Yes Comminuty Aquired Pneumonia: Hypoxemia VINCE GUTIÉRREZ MD Apr 06, 2020 11:20
[2020-04-06 11:28] VITALS: BP 121/56
--- NOTE | 2020-04-06 13:01 | PDOC ---
PULMONARY PROGRESS NOTES DATE: 04/06/20 TIME: 12:59 Subjective Continues to require 10 to 15 L of oxygen He feels better than yesterday Eating well. Vitals Vital Signs Date Time Temp Pulse Resp B/P (MAP) Pulse Ox O2 Delivery O2 Flow Rate FiO2 04/06/20 11:28 95.6 62 22 121/56 (77) 94 Nasal Cannula 10.0 95.6 Comments Patient is seen during COVID- pandemic, visual exam performed Regular rate and rhythm No accessory muscle use No obvious edema or rash Nasal cannula oxygen General: Alert, Oriented X4 Lungs: Clear Labs Laboratory Tests Test 04/04/20 16:43 04/04/20 20:05 04/05/20 08:00 04/05/20 08:09 Glucose (Fingerstick) 124 mg/dL (70-99) 182 mg/dL (70-99) 148 mg/dL (70-99) White Blood Count 11.1 x10^3/uL (4.0-11.0) Red Blood Count 3.44 x10^6/uL (4.30-5.70) Hemoglobin 11.6 g/dL (13.0-17.5) Hematocrit 33.9 % (39.0-53.0) Mean Corpuscular Volume 98 fL (79-100) Mean Corpuscular Hemoglobin 34 pg (25-35) Mean Corpuscular Hemoglobin Concent 34 g/dL (31-37) Red Cell Distribution Width 15.5 % (11.5-14.5) Platelet Count 135 x10^3/uL (140-400) Neutrophils (%) (Auto) 94 % (31-73) Lymphocytes (%) (Auto) 2 % (24-48) Monocytes (%) (Auto) 4 % (0-9) Eosinophils (%) (Auto) 0 % (0-3) Basophils (%) (Auto) 0 % (0-3) Neutrophils # (Auto) 10.4 x10^3/uL (1.8-7.7) Lymphocytes # (Auto) 0.2 x10^3/uL (1.0-4.8) Monocytes # (Auto) 0.5 x10^3/uL (0.0-1.1) Eosinophils # (Auto) 0.0 x10^3/uL (0.0-0.7) Basophils # (Auto) 0.0 x10^3/uL (0.0-0.2) Test 04/05/20 08:28 04/05/20 10:52 04/05/20 16:53 04/05/20 20:27 Prothrombin Time 39.4 SEC (11.7-14.0) Prothromb Time International Ratio 4.0 (0.8-1.1) Creatinine 1.3 mg/dL (0.7-1.3) Estimated GFR (Cockcroft-Gault) 53.7 Glucose (Fingerstick) 156 mg/dL (70-99) 133 mg/dL (70-99) 181 mg/dL (70-99) Test 04/05/20 22:50 04/06/20 07:36 04/06/20 08:55 04/06/20 10:30 Vancomycin Level Trough 13.9 mcg/mL (10.0-20.0) Vancomycin Last Dose Date Vancomycin Last Dose Time 0500 Glucose (Fingerstick) 140 mg/dL (70-99) 234 mg/dL (70-99) Prothrombin Time 33.1 SEC (11.7-14.0) Prothromb Time International Ratio 3.2 (0.8-1.1) Creatinine 1.3 mg/dL (0.7-1.3) Estimated GFR (Cockcroft-Gault) 53.7 Laboratory Tests Test 04/05/20 16:53 04/05/20 20:27 04/05/20 22:50 04/06/20 07:36 Glucose (Fingerstick) 133 mg/dL (70-99) 181 mg/dL (70-99) 140 mg/dL (70-99) Vancomycin Level Trough 13.9 mcg/mL (10.0-20.0) Vancomycin Last Dose Date Vancomycin Last Dose Time 0500 Test 04/06/20 08:55 04/06/20 10:30 Prothrombin Time 33.1 SEC (11.7-14.0) Prothromb Time International Ratio 3.2 (0.8-1.1) Creatinine 1.3 mg/dL (0.7-1.3) Estimated GFR (Cockcroft-Gault) 53.7 Glucose (Fingerstick) 234 mg/dL (70-99) Medications Active Scripts Medications Dose Route/Sig Max Daily Dose Days Date Category Medrol (Methylprednisolone) 4 Mg Tablet 4 Mg PO DAILY 7 04/01/20 Rx Levofloxacin 500 Mg Tablet 1 Tab PO DAILY 7 04/01/20 Rx Tylenol (Acetaminophen) 325 Mg Tablet 650 Mg PO PRN Q6HRS PRN 30 04/01/20 Rx Ventolin Hfa (Albuterol Sulfate) 8 Gm Hfa.aer.ad 1 Puff INH PRN Q6HRS PRN 30 04/01/20 Rx Klor-Con M20 (Potassium Chloride) 20 Meq Tab.er.prt 20 Meq PO DAILYWBKFT 14 04/01/20 Rx Nyamyc (Nystatin) 15 Gm Powder 1 Dior TP BID 10 04/01/20 Rx Culturelle (Lactobacillus Rhamnosus Gg) 1 Each Cap.sprink 1 Cap PO BID 30 04/01/20 Rx Polyethylene Glycol 3350 17 Gm Powd.pack 17 Gm PO PRN DAILY PRN 30 04/01/20 Rx Bisacodyl 10 Mg Supp.rect 10 Mg [place] PRN DAILY PRN 10 04/01/20 Rx Mag-Al Plus Xs Suspension (Mag Hydrox/Al Hydrox/Simeth) 30 Ml Oral.susp 30 Ml PO PRN Q3HRS PRN 14 04/01/20 Rx Warfarin Sodium 7.5 Mg Tablet 7.5 Mg PO TWICE WEEKLY 03/27/20 Reported [vitamin D] 400 Cap PO DAILY 03/27/20 Reported B Complex (Vitamin B Complex) 1 Each Tablet 1 Tab PO DAILY 30 03/27/20 Reported Spironolactone-Hctz 25-25 Tab (Spironolact/Hydrochlorothiazid) 1 Each Tablet 1 Each PO DAILY 03/27/20 Reported Magnesium (Magnesium Oxide) 250 Mg Tablet 250 Mg PO QODAY 03/27/20 Reported Duoneb 0.5-3(2.5) Mg/3 Ml (Albuterol/Ipratropium) 3 Ml Ampul.neb 3 Ml NEB QID 03/27/20 Reported Lasix (Furosemide) 40 Mg Tablet 1 Tab PO DAILY 30 03/27/20 Reported Warfarin Sodium 5 Mg Tablet 5 Mg PO DAILY 01/01/15 Reported Pravastatin Sodium 80 Mg Tablet 80 Mg PO DAILY 01/01/15 Reported Omeprazole 40 Mg Capsule.dr 40 Mg PO DAILY 10/30/15 Reported NITROGLYCERIN SubLingual (Nitroglycerin) 0.4 Mg Tab.subl 0.4 Mg SL PRN Q5MIN PRN 01/01/15 Reported Loratadine 10 Mg Tablet 10 Mg PO 01/01/15 Reported Carvedilol (Carvedilol) 6.25 Mg Tablet 6.25 Mg PO BIDWMEALS 01/01/15 Reported Proair Hfa Inhaler (Albuterol Sulfate) 8.5 Gm Hfa.aer.ad 1 Puff INH PRN Q6HRS PRN 01/01/15 Reported Comments CTA IMPRESSION: No pulmonary embolus. Diffuse bilateral groundglass infiltrates. This could reflect pulmonary edema however atypical pneumonia cannot be excluded. Cardiomegaly. Cholelithiasis. Impression . IMPRESSION: 1. Acute on chronic respiratory failure, multifactorial. 2. Abnormal chest x-ray and CT compatible with possibly bacterial pneumonia, gram-positive, gram-negative. 3. Chronic obstructive pulmonary disease exacerbation. 4. Recent COVID-19 positivity on the of this month. 5. Severe protein malnutrition, present upon admission. 6. Coagulopathy. 7. Coronary artery disease with ischemic cardiomyopathy, status post automatic implantable cardioverter-defibrillator placement. Plan . Discussed with patient, up to chair. PT OT. Continue supplemental oxygen to keep oxygen saturations greater than 92%, wean as tolerated currently on 15 L nasal cannula Discontinue Vanco, PCR nasal swab negative Follow cultures no growth to date Continue IV steroids Continue to hold Coumadin, await INR for today, INR today 3.2 Incentive spirometry Aggressive physical therapy/Occupational Therapy DC Planning Per social work patient does not want to return to ignite DVT/GI prophylaxis Discussed with RN and RT YAEL MCKENZIE MD Apr 06, 2020 13:01
[2020-04-06 15:06] VITALS: BP_SYST 104; BP_SYST 142; BP_DIAS 65
[2020-04-06] MEDS ORDERED: WARFARIN 3 MG TABLET. PO ONE (16:00)
[2020-04-06] MEDS: VANCOMYCIN 1.5 GM in IV NORMAL SALINE 500ML BAG 500 ML IV SCH (16:42)
[2020-04-06 19:00] VITALS: BP 116/57
[2020-04-06] MEDS: ATORVASTATIN CALCIUM 20 MG TABLET PO SCH (21:23)
[2020-04-06] MEDS: TEMAZEPAM 15 MG CAPSULE PO SCH (21:23)
[2020-04-06 23:25] VITALS: BP 113/58
[2020-04-07] MEDS: PIPERACILLIN/TAZOBACTAM 4.5 GM in IV NORMAL SALINE 100ML 100 ML IV SCH ×4 (01:25→18:38)
[2020-04-07 03:09] VITALS: BP 122/57
[2020-04-07] MEDS: methylPREDNISolone SOD SUCC PF 40 MG/ML VIAL. IV SCH ×3 (06:09→20:47)
[2020-04-07] MEDS: PANTOPRAZOLE 40 MG TABLET.DR. PO SCH (06:09)
[2020-04-07 07:51] VITALS: BP 137/65
[2020-04-07] MEDS: CARVEDILOL 6.25 MG TABLET. PO SCH ×2 (08:00→16:35)
[2020-04-07 08:40] LABS: PROTHROMBIN TIME PATIENT 32.1 SEC (11.7-14.0)
[2020-04-07] MEDS: NYSTATIN TOPICAL POWDER 15GM BOTTLE. TP SCH ×2 (09:00→20:47)
[2020-04-07 09:11] LABS: CREATININE 1.3 mg/dL (0.7-1.3); GFR 53.7
[2020-04-07] MEDS: CETIRIZINE HCL 10 MG TABLET. PO SCH (10:01)
[2020-04-07] MEDS: SPIRONOLACTONE 25 MG TABLET PO SCH (10:01)
[2020-04-07] MEDS: IPRATROPIUM/ALBUTEROL 20/100mcg/INH INHALER. INH SCH ×4 (10:01→20:46)
[2020-04-07] MEDS: FUROSEMIDE 40 MG TABLET. PO SCH (10:01)
[2020-04-07] MEDS: VITAMIN B COMPLEX TABLET. PO SCH (10:01)
[2020-04-07] MEDS: LACTOBACILLUS RHAMNOSUS GG 1 CAPSULE. PO SCH ×2 (10:01→20:46)
[2020-04-07] MEDS: CHOLECALCIFEROL (VITAMIN D3) 1,000 UNIT TABLET PO SCH (10:01)
[2020-04-07] MEDS: POTASSIUM CHLORIDE 20 MEQ TABLET.ER. PO SCH (10:02)
--- NOTE | 2020-04-07 10:52 | PDOC ---
PROGRESS NOTES Date of Service: DATE: 04/07/20 TIME: 10:51 Chief Complaint Chief Complaint ASSESSMENT: 1. Acute on chronic worsening hypoxia with severe respiratory failure. 2. Acute asthma or chronic obstructive pulmonary disease exacerbation. 3. Remote tobacco abuse. 4. Atypical pneumonia secondary to coronavirus disease-19. 5. Hypokalemia, on replacement. 6. Vasomotor nephropathy, improving. 7. Supratherapeutic INR. We will hold Coumadin and allow pharmacy to adjust. 8. Severe protein caloric malnutrition. 9. Dysphagia, improving. PLAN: Follow Pulmonary Medicine recommendations Combivent and albuterol inhaler. Resume home medications, cardiac diet O2 support of 15 liters nasal cannula. spo2 < 93% has finished his 5-day course of remdesivir. We will monitor renal function. coumadin for dvt prophylaxis GI PROPHYLAXIS PT and OT, 6-minute walk prior to discharge, continue MDI and Combivent. Discussed with RN , we will hold diuretics for orthostasis as well as Entresto. Coronary artery disease appears to be clinically stable. Add Zosyn and vancomycin. He does have a known history of ischemic cardiomyopathy with previous AICD implantation, which appears to be stable., compensated Patient wanting to transition home but this possibility will depend on PT evaluation seems improved compared to yesterday in good spirits History of Present Illness History of Present Illness CHIEF COMPLAINT: Increasing shortness of breath., hypoxia HISTORY OF PRESENT ILLNESS: A 75-year-old male with history of COVID-19 who was recently discharged 2 days ago. He was [facility]. He has a known history of COPD. He was seen in the emergency room, he required initially 15 liters of O2 for support. Chest x-ray shows progressive worsening of infiltrates. The patient was therefore admitted for reevaluation of treatment of worsening COVID-19 pneumonitis and pneumonia. EXPECTED STAY > 72 HRS due to severe decompensation of pneumonia PAST MEDICAL HISTORY: Significant for diabetes, hyperlipidemia, hypertension, previous IA, cholecystectomy, coronary artery disease with bypass surgery, remote tonsillectomy, and COPD Former smoker, quit smoking in 1977. REVIEW OF SYSTEMS: The patient complains mainly of fatigue. Denies fever, chills. He has stable cough, but worsening shortness of breath. Denies chest pain. Denies nausea, vomiting, blood in stools or melena. Denies dysuria, back pain, joint pain, or rash. No headache, focal weakness. No polyuria, polydipsia. Denies depression or anxiety. no focal weakness A 14-point review of systems otherwise negative MEDS SEE MAR 04/05/2020 No acute events reported overnight, case discussed with nursing staff patient in no acute distress no complaints during my visit doing better according to PT patient very determined to return home after his hospital stay 04/06/2020 Patient seems to be doing better, I have encouraged him to work with physical therapy as much as possible today. Discussed with physical therapy guarded prognosis that he might be transitioning home he will probably end up requiring transition to an institution as a bridge prior to going home 04/07/2020 Patient seems stable and in better spirits, encouraged to do as much ambulation as possible. Vitals Vitals Vital Signs Date Time Temp Pulse Resp B/P (MAP) Pulse Ox O2 Delivery O2 Flow Rate FiO2 04/07/20 07:51 94.4 49 18 137/65 (89) 95 Nasal Cannula 10.0 94.4 Physical Exam Physical Exam GENERAL: Well nourished, no acute distress, on 15 liters. RESTING IN BEDSIDE CHAIR NECK: Supple. Throat and pharynx are clear. CARDIOVASCULAR: Regular rate without S3 or S4. LUNGS: Show a few crackles. ABDOMEN: Soft, nontender. EXTREMITIES: Without rash. No CVA tenderness. No cyanosis, clubbing, or edema. BREASTS EXAM: Not examined. NEUROLOGIC: He is alert and oriented. Normal sensory function. Visual zimmerman are full to confrontation. No focal deficits. Muscles of mastication are symmetric bilaterally. cn 2-12 grossly intact neurovascular bundle intact His affect is normal. Mood is normal. Cranial nerves III-XII are grossly intact. EKG shows QTc of 477. Chest x-ray shows worsening infiltrates, likely of atypical pneumonia. SARS-2 Covid - General: Alert, Oriented X3, Cooperative, mild distress Heart: Regular rate Lungs: Clear Abdomen: Normal bowel sounds, Soft Extremities: No clubbing, No cyanosis Skin: No rashes Labs LABS Laboratory Tests Test 04/06/20 16:33 04/06/20 19:33 04/07/20 07:24 04/07/20 07:46 Glucose (Fingerstick) 118 mg/dL (70-99) 155 mg/dL (70-99) 133 mg/dL (70-99) Prothrombin Time 32.1 SEC (11.7-14.0) Prothromb Time International Ratio 3.1 (0.8-1.1) Creatinine 1.3 mg/dL (0.7-1.3) Estimated GFR (Cockcroft-Gault) 53.7 Review of Systems Review of Systems postivie as per hpi otherwise 10 point ROS negative. Assessment and Plan Assessmemt and Plan Problems Medical Problems: (1) Acute hypoxemic respiratory failure due to COVID-19 Status: Acute (2) COPD exacerbation Status: Acute (3) Supratherapeutic INR Status: Acute (4) Transaminitis Status: Acute Comment Review of Relevant I have reviewed the following items vamsi (where applicable) has been applied. Labs Laboratory Tests Test 04/05/20 10:52 04/05/20 16:53 04/05/20 20:27 04/05/20 22:50 Glucose (Fingerstick) 156 mg/dL (70-99) 133 mg/dL (70-99) 181 mg/dL (70-99) Vancomycin Level Trough 13.9 mcg/mL (10.0-20.0) Vancomycin Last Dose Date Vancomycin Last Dose Time 050 Test 04/06/20 07:36 04/06/20 08:55 04/06/20 10:30 04/06/20 16:33 Glucose (Fingerstick) 140 mg/dL (70-99) 234 mg/dL (70-99) 118 mg/dL (70-99) Prothrombin Time 33.1 SEC (11.7-14.0) Prothromb Time International Ratio 3.2 (0.8-1.1) Creatinine 1.3 mg/dL (0.7-1.3) Estimated GFR (Cockcroft-Gault) 53.7 Test 04/06/20 19:33 04/07/20 07:24 04/07/20 07:46 Glucose (Fingerstick) 155 mg/dL (70-99) 133 mg/dL (70-99) Prothrombin Time 32.1 SEC (11.7-14.0) Prothromb Time International Ratio 3.1 (0.8-1.1) Creatinine 1.3 mg/dL (0.7-1.3) Estimated GFR (Cockcroft-Gault) 53.7 Laboratory Tests Test 04/06/20 16:33 04/06/20 19:33 04/07/20 07:24 04/07/20 07:46 Glucose (Fingerstick) 118 mg/dL (70-99) 155 mg/dL (70-99) 133 mg/dL (70-99) Prothrombin Time 32.1 SEC (11.7-14.0) Prothromb Time International Ratio 3.1 (0.8-1.1) Creatinine 1.3 mg/dL (0.7-1.3) Estimated GFR (Cockcroft-Gault) 53.7 Microbiology 04/03/20 Blood Culture - Preliminary, Resulted NO GROWTH AFTER 3 DAYS Medications Current Medications Sodium Chloride 1,000 ml @ 1,000 mls/hr 1X ONCE IV Last administered on 04/02/20at 15:13; Start 04/02/20 at 15:00; Stop 04/02/20 at 15:59; Status DC Dexamethasone Sodium Phosphate (Decadron) 10 mg 1X ONCE IV Last administered on 04/02/20at 17:34; Start 04/02/20 at 16:30; Stop 04/02/20 at 16:32; Status DC Iohexol (Omnipaque 350 Mg/ml) 90 ml 1X ONCE IV ; Start 04/02/20 at 19:00; Stop 04/02/20 at 19:01; Status DC Acetaminophen (Tylenol) 650 mg PRN Q6HRS PRN PO Headaches, Temp > 101.5F Last administered on 04/03/20at 13:04; Start 04/03/20 at 11:15; Stop 04/04/20 at 10:42; Status DC Albuterol Sulfate (Ventolin Neb Soln) 2.5 mg PRN Q6HRS PRN INH SHORTNESS OF BREATH; Start 04/03/20 at 11:15; Stop 04/05/20 at 09:29; Status DC Albuterol Sulfate (Ventolin Hfa) 1 puff PRN Q6HRS PRN INH SOA; Start 04/03/20 at 11:15; Stop 04/05/20 at 09:30; Status DC Bisacodyl (Dulcolax Supp) 10 mg PRN DAILY PRN [place] CONSTIPATION, 1st choice; Start 04/03/20 at 11:15 Carvedilol (Coreg) 6.25 mg BIDWMEALS PO Last administered on 04/06/20at 16:41; Start 04/03/20 at 12:00 Furosemide (Lasix) 40 mg DAILY PO Last administered on 04/07/20at 10:01; Start 04/03/20 at 11:30 Albuterol/ Ipratropium (Duoneb) 3 ml PRN QID PRN NEB SHORTNESS OF BREATH; Start 04/03/20 at 13:00; Stop 04/05/20 at 09:32; Status DC Lactobacillus Rhamnosus (Culturelle) 1 cap BID PO Last administered on 04/07/20at 10:01; Start 04/03/20 at 12:00 Levofloxacin (Levaquin) 500 mg DAILY PO Last administered on 04/04/20at 08:24; Start 04/03/20 at 11:30; Stop 04/04/20 at 10:47; Status DC Al Hydroxide/Mg Hydroxide (Mylanta Plus Xs) 30 ml PRN Q3HRS PRN PO HEARTBURN / GAS; Start 04/03/20 at 11:15 Nitroglycerin (Nitrostat) 0.4 mg PRN Q5MIN PRN SL CHEST PAIN; Start 04/03/20 at 11:15 Nystatin (Nystop) 1 dior BID TP Last administered on 04/07/20at 09:00; Start 04/03/20 at 11:30; Stop 04/12/20 at 21:01 Polyethylene Glycol (miraLAX PACKET) 17 gm PRN DAILY PRN PO CONSTIPATION; Start 04/03/20 at 11:15 Potassium Chloride (Klor-Con) 20 meq DAILYWBKFT PO Last administered on 04/07/20at 10:02; Start 04/03/20 at 11:30 Vitamin B Complex (Connor B) 1 tab DAILY PO Last administered on 04/07/20 10:01; Start 04/03/20 at 11:31 Warfarin Sodium (Coumadin) 5 mg DAILY PO ; Start 04/04/20 at 09:00; Stop 04/03/20 at 11:27; Status DC Magnesium Oxide (Magnesium Oxide) 200 mg QODAY PO Last administered on 04/06/20 08:13; Start 04/04/20 at 09:00 Pantoprazole Sodium (Protonix) 40 mg DAILYAC PO Last administered on 04/07/20 06:09; Start 04/03/20 at 11:30 Atorvastatin Calcium (Lipitor) 20 mg QHS PO Last administered on 04/06/20at 21:23; Start 04/03/20 at 21:00 Spironolactone (Aldactone) 25 mg DAILY PO Last administered on 04/07/20 10:01; Start 04/03/20 at 11:30 Vitamin D (Vitamin D3) 1,000 unit DAILY PO Last administered on 04/07/20 10:01; Start 04/03/20 at 11:30 Cetirizine HCl (ZyrTEC) 10 mg DAILY PO Last administered on 04/07/20 10:01; Start 04/03/20 at 11:30 Warfarin Sodium (Coumadin Per Pharmacy) 1 each PRN DAILY PRN MC SEE COMMENTS Last administered on 04/06/20at 13:16; Start 04/03/20 at 12:00 Warfarin Sodium (Coumadin - No Dose Today) 1 each 1X WARF ONCE MC Last administered on 04/03/20at 15:19; Start 04/03/20 at 16:00; Stop 04/03/20 at 16:01; Status DC Methylprednisolone Sodium Succinate (SOLU-Medrol 40MG VIAL) 80 mg Q8HRS IV Last administered on 04/07/20at 06:09; Start 04/03/20 at 15:30 Sodium Chloride (Normal Saline Flush) 3 ml QSHIFT PRN IV AFTER MEDS AND BLOOD DRAWS; Start 04/03/20 at 15:00 Ondansetron HCl (Zofran) 4 mg PRN Q4HRS PRN IV NAUSEA/VOMITING; Start 04/03/20 at 15:00 Acetaminophen (Tylenol) 650 mg PRN Q4HRS PRN PO TEMP OVER 100.4F OR MILD PAIN; Start 04/03/20 at 15:00 Al Hydroxide/Mg Hydroxide (Mylanta Plus Xs) 30 ml PRN DAILY PRN PO HEARTBURN / GAS; Start 04/03/20 at 15:00; Stop 04/04/20 at 10:42; Status DC Sodium Monofluorophosphate (Fleet Adult) 133 ml PRN DAILY PRN [place] CONSTIPATION, 2nd choice; Start 04/03/20 at 15:00 Docusate Sodium (Colace) 100 mg PRN BID PRN PO HARD STOOLS; Start 04/03/20 at 15:00 Albuterol Sulfate (Ventolin Neb Soln) 2.5 mg PRN Q4HRS PRN NEB SHORTNESS OF BREATH; Start 04/03/20 at 15:00; Stop 04/05/20 at 09:30; Status DC Guaifenesin (Robitussin) 200 mg PRN Q4HRS PRN PO COUGH; Start 04/03/20 at 15:00 Temazepam (Restoril) 15 mg QHS PO Last administered on 04/06/20at 21:23; Start 04/03/20 at 23:45 Piperacillin Sod/ Tazobactam Sod (Zosyn Per Pharmacy) 1 each PRN DAILY PRN MC SEE COMMENTS; Start 04/04/20 at 10:45 Vancomycin HCl (Vanco Per Pharmacy) 1 each PRN DAILY PRN MC SEE COMMENTS Last administered on 04/06/20at 00:03; Start 04/04/20 at 10:45 Piperacillin Sod/ Tazobactam Sod 4.5 gm/Sodium Chloride 100 ml @ 200 mls/hr Q6HRS IV Last administered on 04/07/20at 06:09; Start 04/04/20 at 12:00 Vancomycin HCl 2 gm/Sodium Chloride 500 ml @ 250 mls/hr 1X ONCE IV Last administered on 04/04/20at 11:12; Start 04/04/20 at 11:00; Stop 04/04/20 at 12:59; Status DC Vancomycin HCl 1.5 gm/Sodium Chloride 500 ml @ 250 mls/hr Q18H IV Last administered on 04/06/20at 16:42; Start 04/05/20 at 05:00 Vancomycin HCl (Vancomycin Trough Level) 1 each 1X ONCE MC Last administered on 04/05/20at 22:00; Start 04/05/20 at 22:30; Stop 04/05/20 at 22:31; Status DC Warfarin Sodium (Coumadin - No Dose Today) 1 each 1X WARF ONCE MC Last administered on 04/04/20at 15:35; Start 04/04/20 at 16:00; Stop 04/04/20 at 16:01; Status DC Albuterol Sulfate (Ventolin Hfa) 1 puff PRN Q6HRS PRN INH SHORTNESS OF BREATH Last administered on 04/05/20at 12:01; Start 04/05/20 at 09:30 Albuterol/ Ipratropium (Combivent Respimat 20-100 Mcg) 1 puff RTQID INH Last administered on 04/07/20at 10:01; Start 04/05/20 at 12:00 Warfarin Sodium (Coumadin - No Dose Today) 1 each 1X WARF ONCE MC Last administered on 04/05/20at 16:00; Start 04/05/20 at 16:00; Stop 04/05/20 at 16:01; Status DC Warfarin Sodium (Coumadin) 3 mg 1X WARF ONCE PO ; Start 04/06/20 at 16:00; Stop 04/06/20 at 16:01; Status Cancel Warfarin Sodium (Coumadin - No Dose Today) 1 each 1X WARF ONCE MC ; Start 04/06/20 at 16:00; Stop 04/06/20 at 16:01; Status DC Active Scripts Active Medrol (Methylprednisolone) 4 Mg Tablet 4 Mg PO DAILY 7 Days Levofloxacin 500 Mg Tablet 1 Tab PO DAILY 7 Days Tylenol (Acetaminophen) 325 Mg Tablet 650 Mg PO PRN Q6HRS PRN 30 Days Ventolin Hfa (Albuterol Sulfate) 8 Gm Hfa.aer.ad 1 Puff INH PRN Q6HRS PRN 30 Days Klor-Con M20 (Potassium Chloride) 20 Meq Tab.er.prt 20 Meq PO DAILYWBKFT 14 Days Nyamyc (Nystatin) 15 Gm Powder 1 Dior TP BID 10 Days Culturelle (Lactobacillus Rhamnosus Gg) 1 Each Cap.sprink 1 Cap PO BID 30 Days Polyethylene Glycol 3350 17 Gm Powd.pack 17 Gm PO PRN DAILY PRN 30 Days Bisacodyl 10 Mg Supp.rect 10 Mg IA PRN DAILY PRN 10 Days Mag-Al Plus Xs Suspension (Mag Hydrox/Al Hydrox/Simeth) 30 Ml Oral.susp 30 Ml PO PRN Q3HRS PRN 14 Days Reported Warfarin Sodium 7.5 Mg Tablet 7.5 Mg PO TWICE WEEKLY [vitamin D] 400 Cap PO DAILY B Complex (Vitamin B Complex) 1 Each Tablet 1 Tab PO DAILY 30 Days Spironolactone-Hctz 25-25 Tab (Spironolact/Hydrochlorothiazid) 1 Each Tablet 1 Each PO DAILY Magnesium (Magnesium Oxide) 250 Mg Tablet 250 Mg PO QODAY Duoneb 0.5-3(2.5) Mg/3 Ml (Albuterol/Ipratropium) 3 Ml Ampul.neb 3 Ml NEB QID Lasix (Furosemide) 40 Mg Tablet 1 Tab PO DAILY 30 Days Warfarin Sodium 5 Mg Tablet 5 Mg PO DAILY Pravastatin Sodium 80 Mg Tablet 80 Mg PO DAILY Omeprazole 40 Mg Capsule.dr 40 Mg PO DAILY NITROGLYCERIN SubLingual (Nitroglycerin) 0.4 Mg Tab.subl 0.4 Mg SL PRN Q5MIN PRN Loratadine 10 Mg Tablet 10 Mg PO Carvedilol (Carvedilol) 6.25 Mg Tablet 6.25 Mg PO BIDWMEALS Proair Hfa Inhaler (Albuterol Sulfate) 8.5 Gm Hfa.aer.ad 1 Puff INH PRN Q6HRS PRN Vitals/I & O Vital Sign - Last 24 Hours 04/06/20 04/06/20 04/06/20 04/06/20 11:28 15:06 16:41 19:00 Temp 95.6 94.0 93.5 95.6 94.0 93.5 Pulse 62 59 59 54 Resp 22 18 18 B/P (MAP) 121/56 (77) 104/65 (78) 104/65 116/57 (76) Pulse Ox 94 97 97 O2 Delivery Nasal Cannula Nasal Cannula Nasal Cannula O2 Flow Rate 10.0 10.0 10.0 04/06/20 04/06/20 04/07/20 04/07/20 20:00 23:25 03:09 07:51 Temp 93.5 93.5 94.4 93.5 93.5 94.4 Pulse 45 50 49 Resp 18 18 18 B/P (MAP) 113/58 (76) 122/57 (78) 137/65 (89) Pulse Ox 98 93 95 O2 Delivery Nasal Cannula Nasal Cannula Nasal Cannula Nasal Cannula O2 Flow Rate 10.0 10.0 10.0 10.0 Intake and Output 04/06/20 04/06/20 04/07/20 15:00 23:00 07:00 Intake Total 240 ml Balance 240 ml Justicifation of Admission Dx: Justifications for Admission: Justification of Admission Dx: Yes Comminuty Aquired Pneumonia: Hypoxemia VINCE GUTIÉRREZ MD Apr 07, 2020 10:52
[2020-04-07 11:39] VITALS: BP 122/58
--- NOTE | 2020-04-07 11:51 | NUR ---
Pharmacy Warfarin Dosing Note S:Pharmacy consulted to assist with anticoagulation therapy started with target INR: 2 -3 O:PRICE SMITH is a 75 year old M with DVT/PE LABS: Last INR: 3.1 Last HGB: 11.6 Last HCT: 33.9 Last PLT: 135 Last dose of Hold given on at Previous Regimen: Vitamin K given: N Drug Interaction Changes: Ongoing Drug Interactions: A:INR of 3.1 is above desired range. Target range for this patient is: 2 -3 P: Warfarin dose: Hold Today at 1600 Bridge Therapy: Next INR due TOMORROW. Pharmacy anticoagulation service will continue to follow. AR HUFF RPH, 04/07/20 [id number]
--- NOTE | 2020-04-07 11:54 | PDOC ---
PULMONARY PROGRESS NOTES DATE: 04/07/20 TIME: 11:52 Subjective Patient sitting up in the chair feels better not more short of air no overnight event Eating well. Vitals Vital Signs Date Time Temp Pulse Resp B/P (MAP) Pulse Ox O2 Delivery O2 Flow Rate FiO2 04/07/20 11:39 98.6 50 25 122/58 (79) 97 Nasal Cannula 10.0 98.6 Comments Patient is seen during COVID- pandemic, visual exam performed Regular rate and rhythm No accessory muscle use No obvious edema or rash Nasal cannula oxygen General: Alert, No acute distress Lungs: Clear Labs Laboratory Tests Test 04/05/20 16:53 04/05/20 20:27 04/05/20 22:50 04/06/20 07:36 Glucose (Fingerstick) 133 mg/dL (70-99) 181 mg/dL (70-99) 140 mg/dL (70-99) Vancomycin Level Trough 13.9 mcg/mL (10.0-20.0) Vancomycin Last Dose Date Vancomycin Last Dose Time 0500 Test 04/06/20 08:55 04/06/20 10:30 04/06/20 16:33 04/06/20 19:33 Prothrombin Time 33.1 SEC (11.7-14.0) Prothromb Time International Ratio 3.2 (0.8-1.1) Creatinine 1.3 mg/dL (0.7-1.3) Estimated GFR (Cockcroft-Gault) 53.7 Glucose (Fingerstick) 234 mg/dL (70-99) 118 mg/dL (70-99) 155 mg/dL (70-99) Test 04/07/20 07:24 04/07/20 07:46 04/07/20 10:51 Glucose (Fingerstick) 133 mg/dL (70-99) 179 mg/dL (70-99) Prothrombin Time 32.1 SEC (11.7-14.0) Prothromb Time International Ratio 3.1 (0.8-1.1) Creatinine 1.3 mg/dL (0.7-1.3) Estimated GFR (Cockcroft-Gault) 53.7 Laboratory Tests Test 04/06/20 16:33 04/06/20 19:33 04/07/20 07:24 04/07/20 07:46 Glucose (Fingerstick) 118 mg/dL (70-99) 155 mg/dL (70-99) 133 mg/dL (70-99) Prothrombin Time 32.1 SEC (11.7-14.0) Prothromb Time International Ratio 3.1 (0.8-1.1) Creatinine 1.3 mg/dL (0.7-1.3) Estimated GFR (Cockcroft-Gault) 53.7 Test 04/07/20 10:51 Glucose (Fingerstick) 179 mg/dL (70-99) Medications Active Scripts Medications Dose Route/Sig Max Daily Dose Days Date Category Medrol (Methylprednisolone) 4 Mg Tablet 4 Mg PO DAILY 7 04/01/20 Rx Levofloxacin 500 Mg Tablet 1 Tab PO DAILY 7 04/01/20 Rx Tylenol (Acetaminophen) 325 Mg Tablet 650 Mg PO PRN Q6HRS PRN 30 04/01/20 Rx Ventolin Hfa (Albuterol Sulfate) 8 Gm Hfa.aer.ad 1 Puff INH PRN Q6HRS PRN 30 04/01/20 Rx Klor-Con M20 (Potassium Chloride) 20 Meq Tab.er.prt 20 Meq PO DAILYWBKFT 14 04/01/20 Rx Nyamyc (Nystatin) 15 Gm Powder 1 Dior TP BID 10 04/01/20 Rx Culturelle (Lactobacillus Rhamnosus Gg) 1 Each Cap.sprink 1 Cap PO BID 30 04/01/20 Rx Polyethylene Glycol 3350 17 Gm Powd.pack 17 Gm PO PRN DAILY PRN 30 04/01/20 Rx Bisacodyl 10 Mg Supp.rect 10 Mg DE PRN DAILY PRN 10 04/01/20 Rx Mag-Al Plus Xs Suspension (Mag Hydrox/Al Hydrox/Simeth) 30 Ml Oral.susp 30 Ml PO PRN Q3HRS PRN 14 04/01/20 Rx Warfarin Sodium 7.5 Mg Tablet 7.5 Mg PO TWICE WEEKLY 03/27/20 Reported [vitamin D] 400 Cap PO DAILY 03/27/20 Reported B Complex (Vitamin B Complex) 1 Each Tablet 1 Tab PO DAILY 30 03/27/20 Reported Spironolactone-Hctz 25-25 Tab (Spironolact/Hydrochlorothiazid) 1 Each Tablet 1 Each PO DAILY 03/27/20 Reported Magnesium (Magnesium Oxide) 250 Mg Tablet 250 Mg PO QODAY 03/27/20 Reported Duoneb 0.5-3(2.5) Mg/3 Ml (Albuterol/Ipratropium) 3 Ml Ampul.neb 3 Ml NEB QID 03/27/20 Reported Lasix (Furosemide) 40 Mg Tablet 1 Tab PO DAILY 30 03/27/20 Reported Warfarin Sodium 5 Mg Tablet 5 Mg PO DAILY 01/01/15 Reported Pravastatin Sodium 80 Mg Tablet 80 Mg PO DAILY 01/01/15 Reported Omeprazole 40 Mg Capsule.dr 40 Mg PO DAILY 01/01/15 Reported NITROGLYCERIN SubLingual (Nitroglycerin) 0.4 Mg Tab.subl 0.4 Mg SL PRN Q5MIN PRN 01/01/15 Reported Loratadine 10 Mg Tablet 10 Mg PO 01/01/15 Reported Carvedilol (Carvedilol) 6.25 Mg Tablet 6.25 Mg PO BIDWMEALS 01/01/15 Reported Proair Hfa Inhaler (Albuterol Sulfate) 8.5 Gm Hfa.aer.ad 1 Puff INH PRN Q6HRS PRN 01/01/15 Reported Comments CTA IMPRESSION: No pulmonary embolus. Diffuse bilateral groundglass infiltrates. This could reflect pulmonary edema however atypical pneumonia cannot be excluded. Cardiomegaly. Cholelithiasis. Impression . IMPRESSION: 1. Acute on chronic respiratory failure, multifactorial. 2. Abnormal chest x-ray and CT compatible with possibly bacterial pneumonia, gram-positive, gram-negative. 3. Chronic obstructive pulmonary disease exacerbation. 4. Recent COVID-19 positivity on the of this month. 5. Severe protein malnutrition, present upon admission. 6. Coagulopathy. 7. Coronary artery disease with ischemic cardiomyopathy, status post automatic implantable cardioverter-defibrillator placement. 8. Morbid obesity Plan . Improving, RN was updated, note was updated. Discussed with patient, up to chair. PT OT. Titrate FiO2 down Discontinue Vanco, PCR nasal swab negative, finished course of antibiotics total of 10-day, cultures negative Follow cultures no growth to date Continue IV steroids Continue to hold Coumadin, await INR for today, INR today 3.1 Incentive spirometry Aggressive physical therapy/Occupational Therapy DC Planning Per social work patient does not want to return to ignite DVT/GI prophylaxis Discussed with RN and RT YAEL MCKENZIE MD Apr 07, 2020 11:54
[2020-04-07] MEDS: VANCOMYCIN 1.5 GM in IV NORMAL SALINE 500ML BAG 500 ML IV SCH (12:05)
[2020-04-07] MEDS: ALBUTEROL SULFATE 8GM INHALER. INH PRN (12:18)
[2020-04-07] MEDS: VANCOMYCIN PER PHARMACY MC PRN (12:20)
[2020-04-07 15:08] VITALS: BP 138/65
[2020-04-07 19:00] VITALS: BP 148/68
[2020-04-07] MEDS: TEMAZEPAM 15 MG CAPSULE PO SCH (20:46)
[2020-04-07] MEDS: ATORVASTATIN CALCIUM 20 MG TABLET PO SCH (20:46)
[2020-04-07 23:00] VITALS: BP 121/62
[2020-04-08] MEDS: PIPERACILLIN/TAZOBACTAM 4.5 GM in IV NORMAL SALINE 100ML 100 ML IV SCH ×5 (00:17→23:49)
[2020-04-08 03:00] VITALS: BP 119/58
[2020-04-08] MEDS: methylPREDNISolone SOD SUCC PF 40 MG/ML VIAL. IV SCH ×3 (05:57→22:25)
[2020-04-08 07:00] VITALS: BP 125/55
[2020-04-08] MEDS: NYSTATIN TOPICAL POWDER 15GM BOTTLE. TP SCH ×2 (09:00→22:25)
[2020-04-08] MEDS: IPRATROPIUM/ALBUTEROL 20/100mcg/INH INHALER. INH SCH ×4 (09:06→20:41)
[2020-04-08] MEDS: VITAMIN B COMPLEX TABLET. PO SCH (09:07)
[2020-04-08] MEDS: MAGNESIUM OXIDE 400 MG TABLET PO SCH (09:09)
[2020-04-08] MEDS: CHOLECALCIFEROL (VITAMIN D3) 1,000 UNIT TABLET PO SCH (09:11)
[2020-04-08] MEDS: POTASSIUM CHLORIDE 20 MEQ TABLET.ER. PO SCH (09:12)
[2020-04-08] MEDS: LACTOBACILLUS RHAMNOSUS GG 1 CAPSULE. PO SCH ×2 (09:12→22:24)
[2020-04-08] MEDS: SPIRONOLACTONE 25 MG TABLET PO SCH (09:12)
[2020-04-08] MEDS: CETIRIZINE HCL 10 MG TABLET. PO SCH (09:12)
[2020-04-08] MEDS: FUROSEMIDE 40 MG TABLET. PO SCH (09:14)
[2020-04-08] MEDS: CARVEDILOL 6.25 MG TABLET. PO SCH ×2 (09:14→17:00)
[2020-04-08] MEDS: PANTOPRAZOLE 40 MG TABLET.DR. PO SCH (09:14)
--- NOTE | 2020-04-08 10:09 | PDOC ---
PULMONARY PROGRESS NOTES DATE: 04/08/20 TIME: 10:06 Subjective Patient sitting up in the chair Feeling better everyday Remains on 10 liters N/C no overnight events Vitals Vital Signs Date Time Temp Pulse Resp B/P (MAP) Pulse Ox O2 Delivery O2 Flow Rate FiO2 04/08/20 09:14 54 125/55 04/08/20 07:00 96.5 20 97 Nasal Cannula 10.0 96.5 Comments Patient is seen during , visual exam performed Regular rate and rhythm No accessory muscle use No obvious edema or rash Nasal cannula oxygen General: Alert, No acute distress Lungs: Clear Labs Laboratory Tests Test 04/06/20 10:30 04/06/20 16:33 04/06/20 19:33 04/07/20 07:24 Glucose (Fingerstick) 234 mg/dL (70-99) 118 mg/dL (70-99) 155 mg/dL (70-99) 133 mg/dL (70-99) Test 04/07/20 07:46 04/07/20 10:51 04/07/20 15:15 04/07/20 20:05 Prothrombin Time 32.1 SEC (11.7-14.0) Prothromb Time International Ratio 3.1 (0.8-1.1) Creatinine 1.3 mg/dL (0.7-1.3) Estimated GFR (Cockcroft-Gault) 53.7 Glucose (Fingerstick) 179 mg/dL (70-99) 136 mg/dL (70-99) 150 mg/dL (70-99) Test 04/08/20 07:17 Glucose (Fingerstick) 134 mg/dL (70-99) Laboratory Tests Test 04/07/20 10:51 04/07/20 15:15 04/07/20 20:05 04/08/20 07:17 Glucose (Fingerstick) 179 mg/dL (70-99) 136 mg/dL (70-99) 150 mg/dL (70-99) 134 mg/dL (70-99) Medications Active Scripts Medications Dose Route/Sig Max Daily Dose Days Date Category Medrol (Methylprednisolone) 4 Mg Tablet 4 Mg PO DAILY 04/01/20 Rx Levofloxacin 500 Mg Tablet 1 Tab PO DAILY 04/01/20 Rx Tylenol (Acetaminophen) 325 Mg Tablet 650 Mg PO PRN Q6HRS PRN 30 04/01/20 Rx Ventolin Hfa (Albuterol Sulfate) 8 Gm Hfa.aer.ad 1 Puff INH PRN Q6HRS PRN 30 04/01/20 Rx Klor-Con M20 (Potassium Chloride) 20 Meq Tab.er.prt 20 Meq PO DAILYWBKFT 14 04/01/20 Rx Nyamyc (Nystatin) 15 Gm Powder 1 Dior TP BID 10 04/01/20 Rx Culturelle (Lactobacillus Rhamnosus Gg) 1 Each Cap.sprink 1 Cap PO BID 30 04/01/20 Rx Polyethylene Glycol 3350 17 Gm Powd.pack 17 Gm PO PRN DAILY PRN 30 04/01/20 Rx Bisacodyl 10 Mg Supp.rect 10 Mg [place] PRN DAILY PRN 10 04/01/20 Rx Mag-Al Plus Xs Suspension (Mag Hydrox/Al Hydrox/Simeth) 30 Ml Oral.susp 30 Ml PO PRN Q3HRS PRN 14 04/01/20 Rx Warfarin Sodium 7.5 Mg Tablet 7.5 Mg PO TWICE WEEKLY 03/27/20 Reported [vitamin D] 400 Cap PO DAILY 03/27/20 Reported B Complex (Vitamin B Complex) 1 Each Tablet 1 Tab PO DAILY 30 03/27/20 Reported Spironolactone-Hctz 25-25 Tab (Spironolact/Hydrochlorothiazid) 1 Each Tablet 1 Each PO DAILY 03/27/20 Reported Magnesium (Magnesium Oxide) 250 Mg Tablet 250 Mg PO QODAY 03/27/20 Reported Duoneb 0.5-3(2.5) Mg/3 Ml (Albuterol/Ipratropium) 3 Ml Ampul.neb 3 Ml NEB QID 03/27/20 Reported Lasix (Furosemide) 40 Mg Tablet 1 Tab PO DAILY 30 03/27/20 Reported Warfarin Sodium 5 Mg Tablet 5 Mg PO DAILY 01/01/15 Reported Pravastatin Sodium 80 Mg Tablet 80 Mg PO DAILY 01/01/15 Reported Omeprazole 40 Mg Capsule.dr 40 Mg PO DAILY 01/01/15 Reported NITROGLYCERIN SubLingual (Nitroglycerin) 0.4 Mg Tab.subl 0.4 Mg SL PRN Q5MIN PRN 01/01/15 Reported Loratadine 10 Mg Tablet 10 Mg PO 01/01/15 Reported Carvedilol (Carvedilol) 6.25 Mg Tablet 6.25 Mg PO BIDWMEALS 01/01/15 Reported Proair Hfa Inhaler (Albuterol Sulfate) 8.5 Gm Hfa.aer.ad 1 Puff INH PRN Q6HRS PRN 01/01/15 Reported Comments CTA IMPRESSION: No pulmonary embolus. Diffuse bilateral groundglass infiltrates. This could reflect pulmonary edema however atypical pneumonia cannot be excluded. Cardiomegaly. Cholelithiasis. Impression . IMPRESSION: 1. Acute on chronic respiratory failure, multifactorial. 2. Abnormal chest x-ray and CT compatible with possibly bacterial pneumonia, gram-positive, gram-negative. 3. Chronic obstructive pulmonary disease exacerbation. 4. Recent COVID-19 positivity on the of this month. 5. Severe protein malnutrition, present upon admission. 6. Coagulopathy. 7. Coronary artery disease with ischemic cardiomyopathy, status post automatic implantable cardioverter-defibrillator placement. 8. Morbid obesity Plan . Continue supplemental oxygen, to keep sats above 92%, wean as tolerated Continue zosyn and Discontinue Vanco, PCR nasal swab negative, finished course of antibiotics total of 10-day, cultures negative Follow cultures no growth to date Continue IV steroids, slow taper Continue to hold Coumadin, await INR for today, Incentive spirometry Aggressive physical therapy/Occupational Therapy-- OOB TID DC Planning Per social work patient does not want to return to ignite DVT/GI prophylaxis Discussed with RN and RT YAEL MCKENZIE MD Apr 08, 2020 10:08
[2020-04-08 10:49] LABS: PROTHROMBIN TIME PATIENT 26.5 SEC (11.7-14.0)
--- NOTE | 2020-04-08 10:57 | PDOC ---
PROGRESS NOTES Date of Service: DATE: 04/08/20 TIME: 10:56 Chief Complaint Chief Complaint ASSESSMENT: 1. Acute on chronic worsening hypoxia with severe respiratory failure. 2. Acute asthma or chronic obstructive pulmonary disease exacerbation. 3. Remote tobacco abuse. 4. Atypical pneumonia secondary to coronavirus disease-19. 5. Hypokalemia, on replacement. 6. Vasomotor nephropathy, improving. 7. Supratherapeutic INR. We will hold Coumadin and allow pharmacy to adjust. 8. Severe protein caloric malnutrition. 9. Dysphagia, improving. PLAN: Follow Pulmonary Medicine recommendations Combivent and albuterol inhaler. Resume home medications, cardiac diet O2 support of 15 liters nasal cannula. spo2 < 93% has finished his 5-day course of remdesivir. We will monitor renal function. coumadin for dvt prophylaxis GI PROPHYLAXIS PT and OT, 6-minute walk prior to discharge, continue MDI and Combivent. Discussed with RN , we will hold diuretics for orthostasis as well as Entresto. Coronary artery disease appears to be clinically stable. Add Zosyn and vancomycin. He does have a known history of ischemic cardiomyopathy with previous AICD implantation, which appears to be stable., compensated Patient now willing to transition to an inpatient rehab as long as its not the last institution where he was History of Present Illness History of Present Illness CHIEF COMPLAINT: Increasing shortness of breath., hypoxia HISTORY OF PRESENT ILLNESS: A 75-year-old male with history of COVID-19 who was recently discharged 2 days ago. He was discharged to nursing home on [facility]. He has a known history of COPD. He was seen in the emergency room, he required initially 15 liters of O2 for support. Chest x-ray shows progressive worsening of infiltrates. The patient was therefore admitted for reevaluation of treatment of worsening COVID-19 pneumonitis and pneumonia. EXPECTED STAY > 72 HRS due to severe decompensation of pneumonia PAST MEDICAL HISTORY: Significant for diabetes, hyperlipidemia, hypertension, previous MA, cholecystectomy, coronary artery disease with bypass surgery, remote tonsillectomy, and COPD Former smoker, quit smoking in 1977. REVIEW OF SYSTEMS: The patient complains mainly of fatigue. Denies fever, chills. He has stable cough, but worsening shortness of breath. Denies chest pain. Denies nausea, vomiting, blood in stools or melena. Denies dysuria, back pain, joint pain, or rash. No headache, focal weakness. No polyuria, polydipsia. Denies depression or anxiety. no focal weakness A 14-point review of systems otherwise negative MEDS SEE MAR 04/05/2020 No acute events reported overnight, case discussed with nursing staff patient in no acute distress no complaints during my visit doing better according to PT patient very determined to return home after his hospital stay 04/06/2020 Patient seems to be doing better, I have encouraged him to work with physical therapy as much as possible today. Discussed with physical therapy guarded prognosis that he might be transitioning home he will probably end up requiring transition to an institution as a bridge prior to going home 04/07/2020 Patient seems stable and in better spirits, encouraged to do as much ambulation as possible. 04/08/2020 No acute events reported overnight, case discussed with nursing staff patient in no acute distress no complaints during my visit Vitals Vitals Vital Signs Date Time Temp Pulse Resp B/P (MAP) Pulse Ox O2 Delivery O2 Flow Rate FiO2 04/08/20 09:14 54 125/55 04/08/20 08:30 Nasal Cannula 10.0 04/08/20 07:00 96.5 20 97 96.5 Physical Exam Physical Exam GENERAL: Well nourished, no acute distress, on 15 liters. RESTING IN BEDSIDE CHAIR NECK: Supple. Throat and pharynx are clear. CARDIOVASCULAR: Regular rate without S3 or S4. LUNGS: Show a few crackles. ABDOMEN: Soft, nontender. EXTREMITIES: Without rash. No CVA tenderness. No cyanosis, clubbing, or edema. BREASTS EXAM: Not examined. NEUROLOGIC: He is alert and oriented. Normal sensory function. Visual zimmerman are full to confrontation. No focal deficits. Muscles of mastication are symmetric bilaterally. cn 2-12 grossly intact neurovascular bundle intact His affect is normal. Mood is normal. Cranial nerves III-XII are grossly intact. EKG shows QTc of 477. Chest x-ray shows worsening infiltrates, likely of atypical pneumonia. SARS-2 Covid - General: Alert, Oriented X3, Cooperative, mild distress Heart: Regular rate Lungs: Clear Abdomen: Normal bowel sounds, Soft Extremities: No clubbing, No cyanosis Skin: No rashes Labs LABS Laboratory Tests Test 04/07/20 15:15 04/07/20 20:05 04/08/20 07:17 04/08/20 10:25 Glucose (Fingerstick) 136 mg/dL (70-99) 150 mg/dL (70-99) 134 mg/dL (70-99) Prothrombin Time 26.5 SEC (11.7-14.0) Prothromb Time International Ratio 2.5 (0.8-1.1) Review of Systems Review of Systems Review of systems pertinent as per HPI otherwise 14 point review of system is negative Assessment and Plan Assessmemt and Plan Problems Medical Problems: (1) Acute hypoxemic respiratory failure due to COVID-19 Status: Acute (2) COPD exacerbation Status: Acute (3) Supratherapeutic INR Status: Acute (4) Transaminitis Status: Acute Comment Review of Relevant I have reviewed the following items vamsi (where applicable) has been applied. Labs Laboratory Tests Test 04/06/20 16:33 04/06/20 19:33 04/07/20 07:24 04/07/20 07:46 Glucose (Fingerstick) 118 mg/dL (70-99) 155 mg/dL (70-99) 133 mg/dL (70-99) Prothrombin Time 32.1 SEC (11.7-14.0) Prothromb Time International Ratio 3.1 (0.8-1.1) Creatinine 1.3 mg/dL (0.7-1.3) Estimated GFR (Cockcroft-Gault) 53.7 Test 04/07/20 10:51 04/07/20 15:15 04/07/20 20:05 04/08/20 07:17 Glucose (Fingerstick) 179 mg/dL (70-99) 136 mg/dL (70-99) 150 mg/dL (70-99) 134 mg/dL (70-99) Test 04/08/20 10:25 Prothrombin Time 26.5 SEC (11.7-14.0) Prothromb Time International Ratio 2.5 (0.8-1.1) Laboratory Tests Test 04/07/20 15:15 04/07/20 20:05 04/08/20 07:17 04/08/20 10:25 Glucose (Fingerstick) 136 mg/dL (70-99) 150 mg/dL (70-99) 134 mg/dL (70-99) Prothrombin Time 26.5 SEC (11.7-14.0) Prothromb Time International Ratio 2.5 (0.8-1.1) Microbiology 04/03/20 Blood Culture - Preliminary, Resulted NO GROWTH AFTER 4 DAYS Medications Current Medications Sodium Chloride 1,000 ml @ 1,000 mls/hr 1X ONCE IV Last administered on 04/02/20at 15:13; Start 04/02/20 at 15:00; Stop 04/02/20 at 15:59; Status DC Dexamethasone Sodium Phosphate (Decadron) 10 mg 1X ONCE IV Last administered on 04/02/20at 17:34; Start 04/02/20 at 16:30; Stop 04/02/20 at 16:32; Status DC Iohexol (Omnipaque 350 Mg/ml) 90 ml 1X ONCE IV ; Start 04/02/20 at 19:00; Stop 04/02/20 at 19:01; Status DC Acetaminophen (Tylenol) 650 mg PRN Q6HRS PRN PO Headaches, Temp > 101.5F Last administered on 04/03/20at 13:04; Start 04/03/20 at 11:15; Stop 04/04/20 at 10:42; Status DC Albuterol Sulfate (Ventolin Neb Soln) 2.5 mg PRN Q6HRS PRN INH SHORTNESS OF BREATH; Start 04/03/20 at 11:15; Stop 04/05/20 at 09:29; Status DC Albuterol Sulfate (Ventolin Hfa) 1 puff PRN Q6HRS PRN INH SOA; Start 04/03/20 at 11:15; Stop 04/05/20 at 09:30; Status DC Bisacodyl (Dulcolax Supp) 10 mg PRN DAILY PRN [place] CONSTIPATION, 1st choice; Start 04/03/20 at 11:15 Carvedilol (Coreg) 6.25 mg BIDWMEALS PO Last administered on 04/08/20at 09:14; Start 04/03/20 at 12:00 Furosemide (Lasix) 40 mg DAILY PO Last administered on 04/08/20at 09:14; Start 04/03/20 at 11:30 Albuterol/ Ipratropium (Duoneb) 3 ml PRN QID PRN NEB SHORTNESS OF BREATH; Start 04/03/20 at 13:00; Stop 04/05/20 at 09:32; Status DC Lactobacillus Rhamnosus (Culturelle) 1 cap BID PO Last administered on 04/08/20at 09:12; Start 04/03/20 at 12:00 Levofloxacin (Levaquin) 500 mg DAILY PO Last administered on 04/04/20at 08:24; Start 04/03/20 at 11:30; Stop 04/04/20 at 10:47; Status DC Al Hydroxide/Mg Hydroxide (Mylanta Plus Xs) 30 ml PRN Q3HRS PRN PO HEARTBURN / GAS; Start 04/03/20 at 11:15 Nitroglycerin (Nitrostat) 0.4 mg PRN Q5MIN PRN SL CHEST PAIN; Start 04/03/20 at 11:15 Nystatin (Nystop) 1 dior BID TP Last administered on 04/08/20 09:00; Start 04/03/20 at 11:30; Stop 04/12/20 at 21:01 Polyethylene Glycol (miraLAX PACKET) 17 gm PRN DAILY PRN PO CONSTIPATION; Start 04/03/20 at 11:15 Potassium Chloride (Klor-Con) 20 meq DAILYWBKFT PO Last administered on 04/08/20 09:12; Start 04/03/20 at 11:30 Vitamin B Complex (Connor B) 1 tab DAILY PO Last administered on 04/08/20 09:07; Start 04/03/20 at 11:31 Warfarin Sodium (Coumadin) 5 mg DAILY PO ; Start 04/04/20 at 09:00; Stop 04/03/20 at 11:27; Status DC Magnesium Oxide (Magnesium Oxide) 200 mg QODAY PO Last administered on 04/08/20 09:09; Start 04/04/20 at 09:00 Pantoprazole Sodium (Protonix) 40 mg DAILYAC PO Last administered on 04/08/20 09:14; Start 04/03/20 at 11:30 Atorvastatin Calcium (Lipitor) 20 mg QHS PO Last administered on 04/07/20at 20:46; Start 04/03/20 at 21:00 Spironolactone (Aldactone) 25 mg DAILY PO Last administered on 2/4/21at 09:12; Start 04/03/20 at 11:30 Vitamin D (Vitamin D3) 1,000 unit DAILY PO Last administered on 04/08/20at 09:11; Start 04/03/20 at 11:30 Cetirizine HCl (ZyrTEC) 10 mg DAILY PO Last administered on 04/08/20at 09:12; Start 04/03/20 at 11:30 Warfarin Sodium (Coumadin Per Pharmacy) 1 each PRN DAILY PRN MC SEE COMMENTS Last administered on 04/07/20at 11:49; Start 04/03/20 at 12:00 Warfarin Sodium (Coumadin - No Dose Today) 1 each 1X WARF ONCE MC Last administered on 04/03/20at 15:19; Start 04/03/20 at 16:00; Stop 04/03/20 at 16:01; Status DC Methylprednisolone Sodium Succinate (SOLU-Medrol 40MG VIAL) 80 mg Q8HRS IV Last administered on 04/08/20at 05:57; Start 04/03/20 at 15:30; Stop 04/08/20 at 10:06; Status DC Sodium Chloride (Normal Saline Flush) 3 ml QSHIFT PRN IV AFTER MEDS AND BLOOD DRAWS; Start 04/03/20 at 15:00 Ondansetron HCl (Zofran) 4 mg PRN Q4HRS PRN IV NAUSEA/VOMITING; Start 04/03/20 at 15:00 Acetaminophen (Tylenol) 650 mg PRN Q4HRS PRN PO TEMP OVER 100.4F OR MILD PAIN; Start 04/03/20 at 15:00 Al Hydroxide/Mg Hydroxide (Mylanta Plus Xs) 30 ml PRN DAILY PRN PO HEARTBURN / GAS; Start 04/03/20 at 15:00; Stop 04/04/20 at 10:42; Status DC Sodium Monofluorophosphate (Fleet Adult) 133 ml PRN DAILY PRN [place] CONSTIPATION, 2nd choice; Start 04/03/20 at 15:00 Docusate Sodium (Colace) 100 mg PRN BID PRN PO HARD STOOLS; Start 04/03/20 at 15:00 Albuterol Sulfate (Ventolin Neb Soln) 2.5 mg PRN Q4HRS PRN NEB SHORTNESS OF BREATH; Start 04/03/20 at 15:00; Stop 04/05/20 at 09:30; Status DC Guaifenesin (Robitussin) 200 mg PRN Q4HRS PRN PO COUGH; Start 04/03/20 at 15:00 Temazepam (Restoril) 15 mg QHS PO Last administered on 04/07/20at 20:46; Start 04/03/20 at 23:45 Piperacillin Sod/ Tazobactam Sod (Zosyn Per Pharmacy) 1 each PRN DAILY PRN MC SEE COMMENTS; Start 04/04/20 at 10:45 Vancomycin HCl (Vanco Per Pharmacy) 1 each PRN DAILY PRN MC SEE COMMENTS Last administered on 04/07/20at 12:20; Start 04/04/20 at 10:45; Stop 04/07/20 at 12:39; Status DC Piperacillin Sod/ Tazobactam Sod 4.5 gm/Sodium Chloride 100 ml @ 200 mls/hr Q6HRS IV Last administered on 04/08/20at 05:57; Start 04/04/20 at 12:00 Vancomycin HCl 2 gm/Sodium Chloride 500 ml @ 250 mls/hr 1X ONCE IV Last administered on 04/04/20at 11:12; Start 04/04/20 at 11:00; Stop 04/04/20 at 12:59; Status DC Vancomycin HCl 1.5 gm/Sodium Chloride 500 ml @ 250 mls/hr Q18H IV Last administered on 04/07/20at 12:05; Start 04/05/20 at 05:00; Stop 04/07/20 at 12:40; Status DC Vancomycin HCl (Vancomycin Trough Level) 1 each 1X ONCE MC Last administered on 04/05/20at 22:00; Start 04/05/20 at 22:30; Stop 04/05/20 at 22:31; Status DC Warfarin Sodium (Coumadin - No Dose Today) 1 each 1X WARF ONCE MC Last administered on 04/04/20at 15:35; Start 04/04/20 at 16:00; Stop 04/04/20 at 16:01; Status DC Albuterol Sulfate (Ventolin Hfa) 1 puff PRN Q6HRS PRN INH SHORTNESS OF BREATH Last administered on 04/07/20at 12:18; Start 04/05/20 at 09:30 Albuterol/ Ipratropium (Combivent Respimat 20-100 Mcg) 1 puff RTQID INH Last administered on 04/08/20at 09:06; Start 04/05/20 at 12:00 Warfarin Sodium (Coumadin - No Dose Today) 1 each 1X WARF ONCE MC Last administered on 04/05/20at 16:00; Start 04/05/20 at 16:00; Stop 04/05/20 at 16:01; Status DC Warfarin Sodium (Coumadin) 3 mg 1X WARF ONCE PO ; Start 04/06/20 at 16:00; Stop 04/06/20 at 16:01; Status Cancel Warfarin Sodium (Coumadin - No Dose Today) 1 each 1X WARF ONCE MC ; Start 04/06/20 at 16:00; Stop 04/06/20 at 16:01; Status DC Warfarin Sodium (Coumadin - No Dose Today) 1 each 1X WARF ONCE MC ; Start 04/07/20 at 16:00; Stop 04/07/20 at 16:01; Status DC Methylprednisolone Sodium Succinate (SOLU-Medrol 40MG VIAL) 60 mg Q8HRS IV ; Start 04/08/20 at 14:00 Active Scripts Active Medrol (Methylprednisolone) 4 Mg Tablet 4 Mg PO DAILY 7 Days Levofloxacin 500 Mg Tablet 1 Tab PO DAILY 7 Days Tylenol (Acetaminophen) 325 Mg Tablet 650 Mg PO PRN Q6HRS PRN 30 Days Ventolin Hfa (Albuterol Sulfate) 8 Gm Hfa.aer.ad 1 Puff INH PRN Q6HRS PRN 30 Days Klor-Con M20 (Potassium Chloride) 20 Meq Tab.er.prt 20 Meq PO DAILYWBKFT 14 Days Nyamyc (Nystatin) 15 Gm Powder 1 Dior TP BID 10 Days Culturelle (Lactobacillus Rhamnosus Gg) 1 Each Cap.sprink 1 Cap PO BID 30 Days Polyethylene Glycol 3350 17 Gm Powd.pack 17 Gm PO PRN DAILY PRN 30 Days Bisacodyl 10 Mg Supp.rect 10 Mg [place] PRN DAILY PRN 10 Days Mag-Al Plus Xs Suspension (Mag Hydrox/Al Hydrox/Simeth) 30 Ml Oral.susp 30 Ml PO PRN Q3HRS PRN 14 Days Reported Warfarin Sodium 7.5 Mg Tablet 7.5 Mg PO TWICE WEEKLY [vitamin D] 400 Cap PO DAILY B Complex (Vitamin B Complex) 1 Each Tablet 1 Tab PO DAILY 30 Days Spironolactone-Hctz 25-25 Tab (Spironolact/Hydrochlorothiazid) 1 Each Tablet 1 Each PO DAILY Magnesium (Magnesium Oxide) 250 Mg Tablet 250 Mg PO QODAY Duoneb 0.5-3(2.5) Mg/3 Ml (Albuterol/Ipratropium) 3 Ml Ampul.neb 3 Ml NEB QID Lasix (Furosemide) 40 Mg Tablet 1 Tab PO DAILY 30 Days Warfarin Sodium 5 Mg Tablet 5 Mg PO DAILY Pravastatin Sodium 80 Mg Tablet 80 Mg PO DAILY Omeprazole 40 Mg Capsule.dr 40 Mg PO DAILY NITROGLYCERIN SubLingual (Nitroglycerin) 0.4 Mg Tab.subl 0.4 Mg SL PRN Q5MIN PRN Loratadine 10 Mg Tablet 10 Mg PO Carvedilol (Carvedilol) 6.25 Mg Tablet 6.25 Mg PO BIDWMEALS Proair Hfa Inhaler (Albuterol Sulfate) 8.5 Gm Hfa.aer.ad 1 Puff INH PRN Q6HRS PRN Vitals/I & O Vital Sign - Last 24 Hours 04/07/20 04/07/20 04/07/20 04/07/20 11:39 15:08 19:00 20:10 Temp 98.6 97.6 96.5 98.6 97.6 96.5 Pulse 50 44 52 Resp 25 34 18 B/P (MAP) 122/58 (79) 138/65 (89) 148/68 (94) Pulse Ox 97 91 96 O2 Delivery Nasal Cannula Nasal Cannula Nasal Cannula Nasal Cannula O2 Flow Rate 10.0 10.0 10.0 10.0 04/07/20 04/08/20 04/08/20 04/08/20 23:00 03:00 07:00 08:30 Temp 96.7 97.8 96.5 96.7 97.8 96.5 Pulse 49 51 47 Resp 18 17 20 B/P (MAP) 121/62 (81) 119/58 (78) 125/55 (78) Pulse Ox 97 97 97 O2 Delivery Nasal Cannula Nasal Cannula Nasal Cannula Nasal Cannula O2 Flow Rate 10.0 10.0 10.0 10.0 04/08/20 09:14 Pulse 54 B/P (MAP) 125/55 Intake and Output 04/07/20 04/07/20 04/08/20 15:00 23:00 07:00 Intake Total 5580 ml 240 ml 0 ml Output Total 1 ml Balance 5579 ml 240 ml 0 ml Justicifation of Admission Dx: Justifications for Admission: Justification of Admission Dx: Yes Comminuty Aquired Pneumonia: Hypoxemia VINCE GUTIÉRREZ MD Apr 08, 2020 10:57
[2020-04-08 11:00] VITALS: BP 109/51
[2020-04-08 11:08] LABS: CREATININE 1.4 mg/dL (0.7-1.3); GFR 49.3
--- NOTE | 2020-04-08 12:52 | NUR ---
Pharmacy Warfarin Dosing Note S:Pharmacy consulted to assist with anticoagulation therapy started with target INR: 2 -3 O:PRICE SMITH is a 75 year old M with DVT/PE LABS: Last INR: 2.7 Last HGB: 11.6 Last HCT: 33.9 Last PLT: 135 Last dose of Hold given on at Previous Regimen: Vitamin K given: N Drug Interaction Changes: Ongoing Drug Interactions: A:INR of 2.7 is within desired range. Target range for this patient is: 2 -3 P: Warfarin dose: 3 mg Today at 1600 Bridge Therapy: Next INR due IN AM Pharmacy anticoagulation service will continue to follow. FLORENTIN HELM RPH, 04/08/20 [id number]
[2020-04-08 15:00] VITALS: BP 113/56
[2020-04-08] MEDS ORDERED: WARFARIN 3 MG TABLET. PO ONE (16:00)
[2020-04-08 19:56] VITALS: BP 130/61
[2020-04-08] MEDS: ATORVASTATIN CALCIUM 20 MG TABLET PO SCH (22:24)
[2020-04-08] MEDS: TEMAZEPAM 15 MG CAPSULE PO SCH (22:24)
[2020-04-08 23:06] VITALS: BP 170/71
[2020-04-09 03:42] VITALS: BP 115/68
[2020-04-09 04:53] LABS: CREATININE 1.3 mg/dL (0.7-1.3); GFR 53.7
[2020-04-09] MEDS: methylPREDNISolone SOD SUCC PF 40 MG/ML VIAL. IV SCH ×2 (05:23→14:54)
[2020-04-09] MEDS: PIPERACILLIN/TAZOBACTAM 4.5 GM in IV NORMAL SALINE 100ML 100 ML IV SCH ×2 (05:23→12:26)
[2020-04-09 05:26] LABS: PROTHROMBIN TIME PATIENT 25.3 SEC (11.7-14.0)
[2020-04-09 07:00] VITALS: BP 168/92
[2020-04-09] MEDS: IPRATROPIUM/ALBUTEROL 20/100mcg/INH INHALER. INH SCH ×3 (08:08→16:07)
[2020-04-09] MEDS: CHOLECALCIFEROL (VITAMIN D3) 1,000 UNIT TABLET PO SCH (08:08)
[2020-04-09] MEDS: ALBUTEROL SULFATE 8GM INHALER. INH PRN (08:08)
[2020-04-09] MEDS: VITAMIN B COMPLEX TABLET. PO SCH (08:08)
[2020-04-09] MEDS: LACTOBACILLUS RHAMNOSUS GG 1 CAPSULE. PO SCH (08:08)
[2020-04-09] MEDS: FUROSEMIDE 40 MG TABLET. PO SCH (08:09)
[2020-04-09] MEDS: CETIRIZINE HCL 10 MG TABLET. PO SCH (08:09)
[2020-04-09] MEDS: POTASSIUM CHLORIDE 20 MEQ TABLET.ER. PO SCH (08:09)
[2020-04-09] MEDS: CARVEDILOL 6.25 MG TABLET. PO SCH (08:10)
[2020-04-09] MEDS: PANTOPRAZOLE 40 MG TABLET.DR. PO SCH (08:10)
[2020-04-09] MEDS: SPIRONOLACTONE 25 MG TABLET PO SCH (08:10)
[2020-04-09] MEDS: NYSTATIN TOPICAL POWDER 15GM BOTTLE. TP SCH (09:00)
--- NOTE | 2020-04-09 10:14 | PDOC ---
PULMONARY PROGRESS NOTES DATE: 04/09/20 TIME: 10:12 Subjective Patient sitting up in the chair Feeling better everyday Remains on 5 liters N/C no overnight events Vitals Vital Signs Date Time Temp Pulse Resp B/P (MAP) Pulse Ox O2 Delivery O2 Flow Rate FiO2 04/09/20 08:10 54 168/92 04/09/20 08:00 Nasal Cannula 6.0 04/09/20 07:00 95.7 32 100 95.7 Comments Patient is seen during , visual exam performed Regular rate and rhythm No accessory muscle use No obvious edema or rash Nasal cannula oxygen General: Alert, No acute distress Lungs: Clear Labs Laboratory Tests Test 04/07/20 10:51 04/07/20 15:15 04/07/20 20:05 04/08/20 07:17 Glucose (Fingerstick) 179 mg/dL (70-99) 136 mg/dL (70-99) 150 mg/dL (70-99) 134 mg/dL (70-99) Test 04/08/20 10:25 04/08/20 20:30 04/09/20 04:00 04/09/20 07:58 Prothrombin Time 26.5 SEC (11.7-14.0) 25.3 SEC (11.7-14.0) Prothromb Time International Ratio 2.5 (0.8-1.1) 2.3 (0.8-1.1) Creatinine 1.4 mg/dL (0.7-1.3) 1.3 mg/dL (0.7-1.3) Estimated GFR (Cockcroft-Gault) 49.3 53.7 Glucose (Fingerstick) 192 mg/dL (70-99) 139 mg/dL (70-99) Laboratory Tests Test 04/08/20 10:25 04/08/20 20:30 04/09/20 04:00 04/09/20 07:58 Prothrombin Time 26.5 SEC (11.7-14.0) 25.3 SEC (11.7-14.0) Prothromb Time International Ratio 2.5 (0.8-1.1) 2.3 (0.8-1.1) Creatinine 1.4 mg/dL (0.7-1.3) 1.3 mg/dL (0.7-1.3) Estimated GFR (Cockcroft-Gault) 49.3 53.7 Glucose (Fingerstick) 192 mg/dL (70-99) 139 mg/dL (70-99) Medications Active Scripts Medications Dose Route/Sig Max Daily Dose Days Date Category Medrol (Methylprednisolone) 4 Mg Tablet 4 Mg PO DAILY 7 04/01/20 Rx Levofloxacin 500 Mg Tablet 1 Tab PO DAILY 7 04/01/20 Rx Tylenol (Acetaminophen) 325 Mg Tablet 650 Mg PO PRN Q6HRS PRN 30 04/01/20 Rx Ventolin Hfa (Albuterol Sulfate) 8 Gm Hfa.aer.ad 1 Puff INH PRN Q6HRS PRN 30 04/01/20 Rx Klor-Con M20 (Potassium Chloride) 20 Meq Tab.er.prt 20 Meq PO DAILYWBKFT 14 04/01/20 Rx Nyamyc (Nystatin) 15 Gm Powder 1 Dior TP BID 10 04/01/20 Rx Culturelle (Lactobacillus Rhamnosus Gg) 1 Each Cap.sprink 1 Cap PO BID 30 04/01/20 Rx Polyethylene Glycol 3350 17 Gm Powd.pack 17 Gm PO PRN DAILY PRN 30 04/01/20 Rx Bisacodyl 10 Mg Supp.rect 10 Mg NV PRN DAILY PRN 10 04/01/20 Rx Mag-Al Plus Xs Suspension (Mag Hydrox/Al Hydrox/Simeth) 30 Ml Oral.susp 30 Ml PO PRN Q3HRS PRN 14 04/01/20 Rx Warfarin Sodium 7.5 Mg Tablet 7.5 Mg PO TWICE WEEKLY 03/27/20 Reported [vitamin D] 400 Cap PO DAILY 03/27/20 Reported B Complex (Vitamin B Complex) 1 Each Tablet 1 Tab PO DAILY 30 03/27/20 Reported Spironolactone-Hctz 25-25 Tab (Spironolact/Hydrochlorothiazid) 1 Each Tablet 1 Each PO DAILY 03/27/20 Reported Magnesium (Magnesium Oxide) 250 Mg Tablet 250 Mg PO QODAY 03/27/20 Reported Duoneb 0.5-3(2.5) Mg/3 Ml (Albuterol/Ipratropium) 3 Ml Ampul.neb 3 Ml NEB QID 03/27/20 Reported Lasix (Furosemide) 40 Mg Tablet 1 Tab PO DAILY 30 03/27/20 Reported Warfarin Sodium 5 Mg Tablet 5 Mg PO DAILY 01/01/15 Reported Pravastatin Sodium 80 Mg Tablet 80 Mg PO DAILY 01/01/15 Reported Omeprazole 40 Mg Capsule.dr 40 Mg PO DAILY 01/01/15 Reported NITROGLYCERIN SubLingual (Nitroglycerin) 0.4 Mg Tab.subl 0.4 Mg SL PRN Q5MIN PRN 01/01/15 Reported Loratadine 10 Mg Tablet 10 Mg PO 01/01/15 Reported Carvedilol (Carvedilol) 6.25 Mg Tablet 6.25 Mg PO BIDWMEALS 01/01/15 Reported Proair Hfa Inhaler (Albuterol Sulfate) 8.5 Gm Hfa.aer.ad 1 Puff INH PRN Q6HRS PRN 01/01/15 Reported Comments CTA IMPRESSION: No pulmonary embolus. Diffuse bilateral groundglass infiltrates. This could reflect pulmonary edema however atypical pneumonia cannot be excluded. Cardiomegaly. Cholelithiasis. Impression . IMPRESSION: 1. Acute on chronic respiratory failure, multifactorial. 2. Abnormal chest x-ray and CT compatible with possibly bacterial pneumonia, gram-positive, gram-negative. 3. Chronic obstructive pulmonary disease exacerbation. 4. Recent COVID-19 positivity on the of this month. 5. Severe protein malnutrition, present upon admission. 6. Coagulopathy. 7. Coronary artery disease with ischemic cardiomyopathy, status post automatic implantable cardioverter-defibrillator placement. 8. Morbid obesity Plan . Continue supplemental oxygen, to keep sats above 92%, wean as tolerated Continue zosyn off Vanco, PCR nasal swab negative, finished course of antibiotics total of 10-day, cultures negative Follow cultures no growth to date Continue IV steroids, slow taper Continue to hold Coumadin, await INR for today, Incentive spirometry Aggressive physical therapy/Occupational Therapy-- OOB TID DC Planning Per social work patient does not want to return to ign[facility] DVT/GI prophylaxis Discussed with LINDA HOUSTON MD Apr 09, 2020 10:14
[2020-04-09] MEDS ORDERED: GUAI100L12 PO (10:54)
--- NOTE | 2020-04-09 10:59 | PDOC3 ---
Discharge Summary Visit Information Date of Admission: Apr 03, 2020 Date of Discharge: Apr 09, 2020 Admitting Diagnosis Comment: Acute hypoxic respiratory failure with worsening hypoxia Acute asthma exacerbation remote tobacco abuse Atypical pneumonia vs. viral pneumonia Hypokalemia ON REPLACEMENT IV FREDDIE, RESOLVING Vasomotor nephropathy, improved, acute Subtherapeutic INR on warfarin therapy due to history of blood clots Malnutrition COVID-19 POS DYSPHASIA , improving HYPOKALEMIA ON REPLACEMENT RX Final Diagnosis Problems Medical Problems: (1) Acute hypoxemic respiratory failure due to COVID-19 Status: Acute (2) COPD exacerbation Status: Acute (3) Supratherapeutic INR Status: Acute (4) Transaminitis Status: Acute 1. Acute on chronic worsening hypoxia with severe respiratory failure. 2. Acute asthma or chronic obstructive pulmonary disease exacerbation. Improved 3. Severe deconditioning due to illness 4. Atypical pneumonia secondary to coronavirus disease-19.Completed course of Vancomycin and Zosyn inpatient 5. Hypokalemia, on replacement. 6. Vasomotor nephropathy, improved 7. Supratherapeutic INR. Resolved 8. Severe protein caloric malnutrition. 9. Dysphagia, improved Brief Hospital Course Allergies Allergies Coded Allergies Type Severity Reaction Last Updated Verified codeine Adverse Reaction Intermediate N/V 04/02/20 Yes Vital Signs Vital Signs Date Time Temp Pulse Resp B/P (MAP) Pulse Ox O2 Delivery O2 Flow Rate FiO2 04/09/20 08:10 54 168/92 04/09/20 08:00 Nasal Cannula 6.0 04/09/20 07:00 95.7 32 100 95.7 Lab Results Laboratory Tests Test 04/07/20 15:15 04/07/20 20:05 04/08/20 07:17 04/08/20 10:25 Glucose (Fingerstick) 136 mg/dL (70-99) 150 mg/dL (70-99) 134 mg/dL (70-99) Prothrombin Time 26.5 SEC (11.7-14.0) Prothromb Time International Ratio 2.5 (0.8-1.1) Creatinine 1.4 mg/dL (0.7-1.3) Estimated GFR (Cockcroft-Gault) 49.3 Test 04/08/20 20:30 04/09/20 04:00 04/09/20 07:58 Glucose (Fingerstick) 192 mg/dL (70-99) 139 mg/dL (70-99) Prothrombin Time 25.3 SEC (11.7-14.0) Prothromb Time International Ratio 2.3 (0.8-1.1) Creatinine 1.3 mg/dL (0.7-1.3) Estimated GFR (Cockcroft-Gault) 53.7 Laboratory Tests Test 04/08/20 20:30 04/09/20 04:00 04/09/20 07:58 Glucose (Fingerstick) 192 mg/dL (70-99) 139 mg/dL (70-99) Prothrombin Time 25.3 SEC (11.7-14.0) Prothromb Time International Ratio 2.3 (0.8-1.1) Creatinine 1.3 mg/dL (0.7-1.3) Estimated GFR (Cockcroft-Gault) 53.7 Brief Hospital Course CHIEF COMPLAINT: Increasing shortness of breath., hypoxia HISTORY OF PRESENT ILLNESS: A 75-year-old male with history of COVID-19 who was recently discharged 2 days ago. He was discharged to long-term on [facility]. He has a known history of COPD. He was seen in the emergency room, he required initially 15 liters of O2 for support. Chest x-ray shows progressive worsening of infiltrates. The patient was therefore admitted for reevaluation of treatment of worsening COVID-19 pneumonitis and pneumonia. EXPECTED STAY > 72 HRS due to severe decompensation of pneumonia PAST MEDICAL HISTORY: Significant for diabetes, hyperlipidemia, hypertension, previous [place], cholecystectomy, coronary artery disease with bypass surgery, remote tonsillectomy, and COPD Former smoker, quit smoking in 1977. REVIEW OF SYSTEMS: The patient complains mainly of fatigue. Denies fever, chills. He has stable cough, but worsening shortness of breath. Denies chest pain. Denies nausea, vomiting, blood in stools or melena. Denies dysuria, back pain, joint pain, or rash. No headache, focal weakness. No polyuria, polydipsia. Denies depression or anxiety. no focal weakness A 14-point review of systems otherwise negative MEDS SEE 04/05/2020 No acute events reported overnight, case discussed with nursing staff patient in no acute distress no complaints during my visit doing better according to PT patient very determined to return home after his hospital stay 04/06/2020 Patient seems to be doing better, I have encouraged him to work with physical therapy as much as possible today. Discussed with physical therapy guarded prognosis that he might be transitioning home he will probably end up requiring transition to an institution as a bridge prior to going home 04/07/2020 Patient seems stable and in better spirits, encouraged to do as much ambulation as possible. 04/08/2020 No acute events reported overnight, case discussed with nursing staff patient in no acute distress no complaints during my visit 04/09/2020 Patient very deconditioned but seems to be doing much better he walked quite a bit yesterday and he says that it wiped him out I have encouraged him to continue the efforts of increasing activity every day. From the pulmonary standpoint of view the patient is stable and cleared by her technology applications consultant to be transitioning to a rehab facility. He did not want to go back to [facility] and case management has helped arrange for [facility]. Patient lives in [place] with his and is hoping to transition home pretty soon. All of his concerns were addressed to the best of my abilities signs and symptoms of concern and when to seek request medical attention was discussed prior to discharge. GENERAL: Well nourished, no acute distress, on 15 liters. RESTING IN BEDSIDE CHAIR NECK: Supple. Throat and pharynx are clear. CARDIOVASCULAR: Regular rate without S3 or S4. LUNGS: Show a few crackles. ABDOMEN: Soft, nontender. EXTREMITIES: Without rash. No CVA tenderness. No cyanosis, clubbing, +1 edema. Assessment Assessment PATIENT: PRICE SMITH ACCOUNT: [id number] : 1945 LOCATION: [address] [place] [address] AGE: 75 SEX: M EXAM STATUS: ADM IN ORD. PHYSICIAN: SEUN COLLINS DO REASON: soa, r/o pe PROCEDURE: CT ANGIOGRAPHY CHEST CT angiogram of the chest with contrast: Reason for examination: Short of breath. Evaluate for pulmonary embolus. Comparison is made to previous study dated 11/07/2019. Helical images were obtained through the chest with intravenous administration of 90 cc Omnipaque 350 using PE protocol. 3-D MIPS reconstruction was performed in sagittal and coronal planes. Exposure: One or more of the following individualized dose reduction techniques were utilized for this examination: 1. Automated exposure control 2. Adjustment of the mA and/or kV according to patient size 3. Use of iterative reconstruction technique. The trachea and mainstem bronchi show no intraluminal lesions. No abnormalities seen at the esophagus. The thoracic aorta shows no aneurysmal dilatation or dissection. The heart size is enlarged with no pericardial effusion. There is coronary arterial calcification seen. There is no evidence of pulmonary embolus. There are however diffuse groundglass infiltrates bilaterally. No pleural effusions are seen. No acute bony abnormalities are seen. There are hepatic and splenic granuloma. No other focal lesions are seen in the liver or spleen. Adrenal gland show no abnormalities. There is cholelithiasis. No abnormality seen at the pancreas. IMPRESSION: No pulmonary embolus. Diffuse bilateral groundglass infiltrates. This could reflect pulmonary edema however atypical pneumonia cannot be excluded. Cardiomegaly. Cholelithiasis. Electronically signed by: Shilpa Trejo MD (04/02/2020 7:18 PM) [facility] Signed PATIENT: PRICE SMITH ACCOUNT: [id number] : 1945 LOCATION: [address] [place] [address] AGE: 75 SEX: M EXAM STATUS: ADM IN ORD. PHYSICIAN: KYLEE GUTIERREZ MD REASON: pneumonia PROCEDURE: CHEST AP ONLY XR CHEST 1V INDICATION: pneumonia COMPARISON STUDY: 04/02/2020. FINDINGS: Life Support Devices: Left pectoral ICD/pacemaker. Lungs: Normal lung volume. Stable bilateral perihilar and basilar opacities. Pleura: No pleural effusion or pneumothorax. Heart and Mediastinum: Stable cardiomediastinal silhouette and great vessels. Bones and Soft Tissues: Stable regional skeleton and soft tissues. IMPRESSION: Stable bilateral perihilar and basilar opacities. Electronically signed by: Juan Whitten MD (04/05/2020 1:13 PM) [facility] Discharge Information Condition at Discharge: Improved Follow Up: Weeks Disposition/Orders: D/C to Home Scheduled Carvedilol (Carvedilol ) 6.25 Mg Tablet, 6.25 MG PO BIDWMEALS, (Reported) Entered as Reported by: ROBYN HENDRICKS on 01/01/15845 Last Action: Continued on 04/03/201113 by KYLEE GUTIERREZ MD Furosemide (Lasix) 40 Mg Tablet, 1 TAB PO DAILY for fluid retention for 30 Days, #30 Ref 0 (Reported) Entered as Reported by: Luisana Whalen on 03/27/20533 Last Action: Continued on 04/03/201113 by KYLEE GUTIERREZ MD Ipratropium/Albuterol Sulfate (Duoneb 0.5-3(2.5) Mg/3 Ml) 3 Ml Ampul.neb, 3 ML NEB QID for soa, (Reported) Entered as Reported by: Luisana Whalen on 03/27/20533 Last Action: Continued on 04/03/201113 by KYLEE GUTIERREZ MD Lactobacillus Rhamnosus Gg (Culturelle) 1 Each Cap.sprink, 1 CAP PO BID for SUPPLEMENT for 30 Days, #60 Prescribed by: KYLEE GUTIERREZ MD on 04/01/201414 Last Action: Continued on 04/03/201113 by KYLEE GUTIERREZ MD Magnesium Oxide (Magnesium) 250 Mg Tablet, 250 MG PO QODAY for replacement, (Reported) Entered as Reported by: Luisana Whalen on 03/27/20533 Last Action: Converted on 04/03/201113 by KYLEE GUTIERREZ MD Methylprednisolone (Medrol) 4 Mg Tablet, 4 MG PO DAILY for COVID for 7 Days, #7 Prescribed by: KYLEE GUTIERREZ MD on 04/01/201414 Last Action: HELD on 04/03/201113 by KYLEE GUTIERREZ MD Nystatin (Nyamyc) 15 Gm Powder, 1 KAMLA TP BID for FUNGAL RASH for 10 Days, #30 Prescribed by: KYLEE GUTIERREZ MD on 04/01/201414 Last Action: Continued on 04/03/201113 by KYLEE GUTIERREZ MD Omeprazole (Omeprazole) 40 Mg Capsule.dr, 40 MG PO DAILY, (Reported) Entered as Reported by: ROBYN HENDRICKS on 01/01/15845 Last Action: Converted on 04/03/201113 by KYLEE GUTIERREZ MD Potassium Chloride (Klor-Con M20) 20 Meq Tab.er.prt, 20 MEQ PO DAILYWBKFT for SUPPLEMENT for 14 Days, #14 Prescribed by: KYLEE GUTIERREZ MD on 04/01/201414 Last Action: Continued on 04/03/201113 by KYLEE GUTIERREZ MD Pravastatin Sodium (Pravastatin Sodium) 80 Mg Tablet, 80 MG PO DAILY, (Reported) Entered as Reported by: ROBYN HENDRICKS on 01/01/15845 Last Action: Converted on 04/03/201113 by KYLEE GUTIERREZ MD Spironolact/Hydrochlorothiazid (Spironolactone-Hctz 25-25 Tab) 1 Each Tablet, 1 EACH PO DAILY for fluid retention/htn, (Reported) Entered as Reported by: Luisana Whalen on 03/27/20533 Last Action: Converted on 04/03/201113 by KYLEE GUTIERREZ MD Vitamin B Complex (B Complex) 1 Each Tablet, 1 TAB PO DAILY for supplement for 30 Days, #30 Ref 0 (Reported) Entered as Reported by: Luisana Whalen on 03/27/20533 Last Action: Continued on 04/03/201113 by KYLEE GUTIERREZ MD Warfarin Sodium (Warfarin Sodium) 5 Mg Tablet, 5 MG PO DAILY for blood thinner, (Reported) Entered as Reported by: ROBYN HENDRICKS on 01/01/15845 Last Action: Continued on 04/03/201113 by KYLEE GUTIERREZ MD Warfarin Sodium (Warfarin Sodium) 7.5 Mg Tablet, 7.5 MG PO TWICE WEEKLY for blood thinner, (Reported) Entered as Reported by: Luisana Whalen on 03/27/20543 Last Action: Reviewed on 04/02/201748 by REN LASSITER [vitamin D] , 400 CAP PO DAILY, (Reported) Entered as Reported by: Luisana Whalen on 03/27/20533 Last Action: Converted on 04/03/201113 by KYLEE GUTIERREZ MD Scheduled PRN Acetaminophen (Tylenol) 325 Mg Tablet, 650 MG PO PRN Q6HRS PRN for Headaches, Temp > 101.5F for 30 Days, #60 Prescribed by: KYLEE GUTIERREZ MD on 04/01/201414 Last Action: Continued on 04/03/201113 by KYLEE GUTIERREZ MD Albuterol Sulfate (Proair Hfa Inhaler) 8.5 Gm Hfa.aer.ad, 1 PUFF INH PRN Q6HRS PRN for SHORTNESS OF BREATH, Ref 0 (Reported) Entered as Reported by: ROBYN HENDRICKS on 01/01/15845 Last Action: Continued on 04/03/201113 by KYLEE GUTIERREZ MD Albuterol Sulfate (Ventolin Hfa) 8 Gm Hfa.aer.ad, 1 PUFF INH PRN Q6HRS PRN for SOA for 30 Days, #2 Prescribed by: KYLEE GUTIERREZ MD on 04/01/201414 Last Action: Continued on 04/03/201113 by KYLEE GUTIERREZ MD Bisacodyl (Bisacodyl) 10 Mg Supp.rect, 10 MG VA PRN DAILY PRN for CONSTIPATION for 10 Days, #10 Prescribed by: KYLEE GUTIERREZ MD on 04/01/201414 Last Action: Continued on 04/03/201113 by KYLEE GUTIERREZ MD Guaifenesin (Guaifenesin) 100 Mg/5 Ml Liquid, 200 MG PO PRN Q4HRS PRN for COUGH for 7 Days, #1 Prescribed by: VINCE GUTIÉRREZ MD on 04/09/20 1054 Mag Hydrox/Al Hydrox/Simeth (Mag-Al Plus Xs Suspension) 30 Ml Oral.susp, 30 ML PO PRN Q3HRS PRN for HEARTBURN / GAS for 14 Days, #120 Prescribed by: KYLEE GUTIERREZ MD on 04/01/201414 Last Action: Continued on 04/03/201113 by KYLEE GUTIERREZ MD Nitroglycerin (NITROGLYCERIN SubLingual) 0.4 Mg Tab.subl, 0.4 MG SL PRN Q5MIN PRN for CHEST PAIN, (Reported) Entered as Reported by: ROBYN HENDRICKS on 01/01/15845 Last Action: Continued on 04/03/201113 by KYLEE GUTIERREZ MD Polyethylene Glycol 3350 (Polyethylene Glycol 3350) 17 Gm Powd.pack, 17 GM PO PRN DAILY PRN for CONSTIPATION, 1ST CHOICE for 30 Days, #30 Prescribed by: KYLEE GUTIERREZ MD on 04/01/201414 Last Action: Continued on 04/03/201113 by KYLEE GUTIERREZ MD Miscellaneous Medications Loratadine (Loratadine) 10 Mg Tablet, 10 MG PO, (Reported) Entered as Reported by: ROBYN HENDRICKS on 01/01/15 0846 Last Action: Converted on 04/03/20 1114 by KYLEE GUTIERREZ MD Discontinued Medications Levofloxacin (Levofloxacin) 500 Mg Tablet, 1 TAB PO DAILY for 7 for 7 Days, #7 Prescribed by: KYLEE GUTIERREZ MD on 04/01/20 1415 Last Action: Continued on 04/03/20 1114 by KYLEE GUTIERREZ MD Justicifation of Admission Dx: Justifications for Admission: Justification of Admission Dx: Yes Comminuty Aquired Pneumonia: Hypoxemia VINCE GUTIÉRREZ MD Apr 09, 2020 10:59
[2020-04-09 11:00] VITALS: BP 100/58
--- NOTE | 2020-04-09 13:20 | NUR ---
Wound/Ostomy Care Wound Type/Assessment: Pt seen per wound care consult. See wound assessment. Pt has bilateral lower leg blisters r/t CHF and edema. Wounds are cleansed, assessed, measured, and pictured. Tese are draining copious amounts of clear drainage. Treatment Recommendations/Plan: Recommendations to dress with brief to manage drainage, wrap with kerlix, and tape. Then apply size G [employer] contact representative. Change BID PRN until drainage slows down. Education provided: Pt educated on dressing changes, elevation, and PU prevention. Offloading surface/device: Pt lower legs elevated in chair and using pillows. Recommended Referrals/Tests: N/A Discharge Recommendations for dressings: Spoke with RN regarding POC. Call light in reach. Patient scheduled to discharge to rehab today.
--- NOTE | 2020-04-09 13:31 | SNU/HH DC ---
DISCHARGE ORDERS DISCHARGE INFORMATION: DISCHARGE DATE: Apr 09, 2020 FINAL DIAGNOSIS Problems Medical Problems: (1) Acute hypoxemic respiratory failure due to COVID-19 Status: Acute (2) COPD exacerbation Status: Acute (3) Supratherapeutic INR Status: Acute (4) Transaminitis Status: Acute CONDITION ON DISCHARGE: Stable CODE STATUS: Code Status: Full CUSTODIAL: SNF STAY <30 DAYS: Yes POST DISCHARGE ORDERS: ACTIVITY ORDERS: Activity as tolerated DIET AFTER DISCHARGE: Cardiac CHECKS AFTER DISCHARGE: CHECKS AFTER DISCHARGE: Check blood press - daily FOLLOW-UP: LAB ORDERS FOR FOLLOW-UP: DAILY INR X 3 DAYS TREATMENT/EQUIPMENT ORDERS: ADAPTIVE EQUIPMENT NEEDED: Front wheeled walker RESPIRATORY EQUIPMENT NEEDED: Oxygen, Nebulizer Physical Therapy For: Evalulation/Treatment Occupational Therapy For: Evaluation/Treatment Speech Language Pathology For: Evaluation/Treatment DISCHARGE MEDICATIONS: Home Meds Active Scripts Guaifenesin (GUAIFENESIN) 100 Mg/5 Ml Liquid, 200 MG PO PRN Q4HRS PRN for COUGH for 7 Days, #1 BOT Prov:VINCE GUTIÉRREZ MD 04/09/20 Methylprednisolone (MEDROL) 4 Mg Tablet, 4 MG PO DAILY for COVID for 7 Days, #7 TAB Prov:KYLEE GUTIERREZ MD 04/01/20 Acetaminophen (TYLENOL) 325 Mg Tablet, 650 MG PO PRN Q6HRS PRN for Headaches, Temp > 101.5F for 30 Days, #60 TAB Prov:KYLEE GUTIERREZ MD 04/01/20 Albuterol Sulfate (Ventolin Hfa) 8 Gm Hfa.aer.ad, 1 PUFF INH PRN Q6HRS PRN for SOA for 30 Days, #2 INHALER Prov:KYLEE GUTIERREZ MD 04/01/20 Potassium Chloride (KLOR-CON M20) 20 Meq Tab.er.prt, 20 MEQ PO DAILYWBKFT for SUPPLEMENT for 14 Days, #14 TAB.SR Prov:KYLEE GUTIERREZ MD 04/01/20 Nystatin (NYAMYC) 15 Gm Powder, 1 KAMLA TP BID for FUNGAL RASH for 10 Days, #30 MISC Prov:KYLEE GUTIERREZ MD 04/01/20 Lactobacillus Rhamnosus Gg (CULTURELLE) 1 Each Cap.sprink, 1 CAP PO BID for SUPPLEMENT for 30 Days, #60 CAP Prov:KYLEE GUTIERREZ MD 04/01/20 Polyethylene Glycol 3350 (POLYETHYLENE GLYCOL 3350) 17 Gm Powd.pack, 17 GM PO PRN DAILY PRN for CONSTIPATION, 1ST CHOICE for 30 Days, #30 PKT Prov:KYLEE GUTIERREZ MD 04/01/20 Bisacodyl (BISACODYL) 10 Mg Supp.rect, 10 MG CO PRN DAILY PRN for CONSTIPATION for 10 Days, #10 SUPP.RECT Prov:KYLEE GUTIERREZ MD 04/01/20 Mag Hydrox/Al Hydrox/Simeth (MAG-AL PLUS XS SUSPENSION) 30 Ml Oral.susp, 30 ML PO PRN Q3HRS PRN for HEARTBURN / GAS for 14 Days, #120 MISC Prov:KYLEE GUTIERREZ MD 04/01/20 Reported Medications Warfarin Sodium (WARFARIN SODIUM) 7.5 Mg Tablet, 7.5 MG PO TWICE WEEKLY for blood thinner, TAB 03/27/20 [vitamin D] No Conflict Check, 400 CAP PO DAILY 03/27/20 Vitamin B Complex (B COMPLEX) 1 Each Tablet, 1 TAB PO DAILY for supplement for 30 Days, #30 TAB 0 Refills 03/27/20 Spironolact/Hydrochlorothiazid (SPIRONOLACTONE-HCTZ 25-25 TAB) 1 Each Tablet, 1 EACH PO DAILY for fluid retention/htn, TAB 03/27/20 Magnesium Oxide (MAGNESIUM) 250 Mg Tablet, 250 MG PO QODAY for replacement, TAB 03/27/20 Ipratropium/Albuterol Sulfate (DUONEB 0.5-3(2.5) MG/3 ML) 3 Ml Ampul.neb, 3 ML NEB QID for soa, EACH 03/27/20 Furosemide (LASIX) 40 Mg Tablet, 1 TAB PO DAILY for fluid retention for 30 Days, #30 TAB 0 Refills 03/27/20 Warfarin Sodium (WARFARIN SODIUM) 5 Mg Tablet, 5 MG PO DAILY for blood thinner, TAB 01/01/15 Pravastatin Sodium (PRAVASTATIN SODIUM) 80 Mg Tablet, 80 MG PO DAILY, TAB 01/01/15 Omeprazole (OMEPRAZOLE) 40 Mg Capsule.dr, 40 MG PO DAILY, CAP 01/01/15 Nitroglycerin (NITROGLYCERIN SubLingual) 0.4 Mg Tab.subl, 0.4 MG SL PRN Q5MIN PRN for CHEST PAIN, BOTTLE 01/01/15 Loratadine (LORATADINE) 10 Mg Tablet, 10 MG PO 01/01/15 Carvedilol (CARVEDILOL ) 6.25 Mg Tablet, 6.25 MG PO BIDWMEALS, TAB 01/01/15 Albuterol Sulfate (PROAIR HFA INHALER) 8.5 Gm Hfa.aer.ad, 1 PUFF INH PRN Q6HRS PRN for SHORTNESS OF BREATH, INHALER 0 Refills 01/01/15 Discontinued Scripts Levofloxacin (LEVOFLOXACIN) 500 Mg Tablet, 1 TAB PO DAILY for 7 for 7 Days, #7 TAB Prov:KYLEE GUTIERREZ MD 04/01/20 VINCE GUTIÉRREZ MD Apr 09, 2020 13:31
--- NOTE | 2020-04-09 13:47 | NUR ---
Pharmacy Warfarin Dosing Note S: Pharmacy consulted to assist with anticoagulation therapy started CT SCAN TECHNOLOGIST O: PRICE SMITH is a 75 year old M with DVT/PE LABS: Last INR: 2.3 Last HGB: 11.6 Last HCT: 33.9 Last PLT: 135 Last dose of 3 mg given on 04/08/20 at 1728 A:INR of 2.3 is within desired range. Target range for this patient is: 2 -3 P: Warfarin dose: 1 mg Today at 1600 Bridge Therapy: None Next INR due 04/10/20 AM Pharmacy anticoagulation service will continue to follow. FEMI GARCÍA [facility] [place], 04/09/20 [id number]
[2020-04-09 15:00] VITALS: BP 133/57
[2020-04-09] MEDS ORDERED: WARFARIN 1 MG TABLET. PO ONE (16:00)
--- NOTE | 2020-04-09 16:49 | NUR ---
Report called to Nereida at [facility]. Both saline locks removed without difficulty. Transportation provided by facility.
[2020-05-17] MEDS ORDERED: ISOS120T4 PO (07:09)
[2020-05-17] MEDS ORDERED: FLUT16SP NS (07:09)
[2020-05-17] MEDS ORDERED: ASCO500C PO (12:10)
[2020-05-18] MEDS ORDERED: POTA20TA4 PO (09:54)
== END 2020-04-09 16:45 | DRG 177 ==
LOC: ER 14:34 → 6 SOUTH 16:21
PROVIDERS: ADMIT Family Medicine; ATTEND Family Medicine
DX: J15.6 Pneumonia due to other Gram-negative bacteria (principal); U07.1 COVID-19; E43 Unspecified severe protein-calorie malnutrition; N17.0 Acute kidney failure with tubular necrosis; J96.21 Acute and chronic respiratory failure with hypoxia; J12.82 Pneumonia due to coronavirus disease 2019; J44.1 Chronic obstructive pulmonary disease with (acute) exacerbation; J44.0 Chronic obstructive pulmonary disease with (acute) lower respiratory infection; D68.9 Coagulation defect, unspecified; J45.901 Unspecified asthma with (acute) exacerbation; Z68.41 Body mass index [BMI] 40.0-44.9, adult; I25.10 Atherosclerotic heart disease of native coronary artery without angina pectoris; I25.5 Ischemic cardiomyopathy; E66.01 Morbid (severe) obesity due to excess calories; E11.9 Type 2 diabetes mellitus without complications; E78.00 Pure hypercholesterolemia, unspecified; E78.5 Hyperlipidemia, unspecified; E87.6 Hypokalemia; G47.33 Obstructive sleep apnea (adult) (pediatric); I11.0 Hypertensive heart disease with heart failure; I25.2 Old myocardial infarction; I50.9 Heart failure, unspecified; K80.20 Calculus of gallbladder without cholecystitis without obstruction; R13.10 Dysphagia, unspecified; R47.02 Dysphasia; Z82.49 Family history of ischemic heart disease and other diseases of the circulatory system; Z86.718 Personal history of other venous thrombosis and embolism; Z87.442 Personal history of urinary calculi; Z87.891 Personal history of nicotine dependence; Z95.1 Presence of aortocoronary bypass graft; Z95.810 Presence of automatic (implantable) cardiac defibrillator; F41.9 Anxiety disorder, unspecified; K21.9 Gastro-esophageal reflux disease without esophagitis; M19.90 Unspecified osteoarthritis, unspecified site; Z90.49 Acquired absence of other specified parts of digestive tract; Z79.899 Other long term (current) drug therapy; Z88.8 Allergy status to other drugs, medicaments and biological substances; Z66 Do not resuscitate; R74.01 Elevation of levels of liver transaminase levels
CPT/HCPCS: 36415; 71045; 71275; 80048; 80053; 80076; 80202; 81001; 82550; 82565; 82962; 83605; 83880; 84484; 85007; 85025; 85610; 85730; 87040; 87641; 93005; 94760; 96361; 96374; 99285; J1100; J2543; J2920; J3370; J7030; J7040; 92610-GN; 97110-GO; 97110-GP; 97116-GP; 97530-GO; 97530-GP; 97535-GO; G0378

== ENCOUNTER → 2020-11-09 | Outpatient (CLI) | payer MEDICARE ==
[2020-05-18 08:21] VITALS: BP 116/55
[~2020-11-09] MED LIST changes: +ASCO500C PO; +FLUT16SP NS; +GUAI100L12 PO; +POTA-121 PO; -POTA20TA4 PO
--- NOTE | 2020-11-09 09:22 | RAD ---
Examination: CT chest without contrast HISTORY: History of COPD, pneumonia COMPARISON: 04/02/2020 TECHNIQUE: Axial CT images of chest were performed without contrast. Coronal and sagittal reformats a re performed Exposure: One or more of the following individualized dose reduction techniques were utilized for thi s examination: 1. Automated exposure control 2. Adjustment of the mA and/or kV according to patient size 3. Use of iterative reconstruction technique FINDINGS: The central airways are patent. Mild cardiomegaly. Moderate aortic atherosclerosis. Coronary artery c alcifications. No radiologically significant mediastinal lymphadenopathy. Interval significant improv ement in ground glass airspace opacities in the bilateral lungs with some residual faint interstitial lung markings in the bilateral lungs. The visualized noncontrasted liver, adrenals grossly appears u nremarkable. Calcified granulomas identified in the liver and spleen. The gallbladder is mildly diste nded. Multiple gallstones identified in the proximal gallbladder. Moderate degenerative changes thoracic spine. IMPRESSION: 1. Interval significant improvement in ground glass airspace opacities in the bilateral lungs with s ome residual faint interstitial lung markings in the bilateral lungs. 2. Coronary artery calcifications. 3. Cholelithiasis. Electronically signed by: Jeff Salinas MD (11/09/2020 9:19 AM) [id number]
== END ==
LOC: CT 08:48
PROVIDERS: ATTEND Internal Medicine Pulmonary Disease
DX: U07.1 COVID-19 (principal); J12.82 Pneumonia due to coronavirus disease 2019; I51.7 Cardiomegaly; I70.0 Atherosclerosis of aorta; I25.10 Atherosclerotic heart disease of native coronary artery without angina pectoris; K75.3 Granulomatous hepatitis, not elsewhere classified; K82.8 Other specified diseases of gallbladder; K80.20 Calculus of gallbladder without cholecystitis without obstruction; M47.814 Spondylosis without myelopathy or radiculopathy, thoracic region
CPT/HCPCS: 71250